=== PATIENT | male | born 1955 | race Caucasian/White ===

== ENCOUNTER 2017-08-03 09:51 | Inpatient (IN) | payer MEDICAID ==
--- NOTE | 2017-08-03 10:27 | EDPHY ---
H & P Stated Complaint: Redness/swelling at amputation site L foot - Personal History Current Tetanus Diphtheria and Acellular Pertussis (TDAP): Yes - Medical/Surgical History Hx Asthma: No Hx Chronic Respiratory Disease: No Hx Diabetes: No Hx Cardiac Disease: No Hx Renal Disease: No Hx Cirrhosis: No Hx Alcoholism: No Hx HIV/AIDS: No Hx Splenectomy or Spleen Trauma: No Other PMH: foot neuropAthy, 2 ACL sx. L big toe/ball of foot amputation 2016 w/ complications of sepsis and gangrene - Social History Smoking Status: Former smoker Time Seen by Provider: 08/03/17 10:08 HPI/ROS: CHIEF COMPLAINT: "I think I have an infection on my foot " HISTORY OF PRESENT ILLNESS: 62-year-old immunocompetent male no history of diabetes with prior history of left great toe amputation secondary to gangrene at which point he was seen at [facility] and admitted to the hospital with subsequent osteomyelitis diagnosis, amputation of the left great toe. He returns to the ER complaining of new onset erythema to the left medial foot extending proximally. This has been occurring for less than 24 hr. He also notes a new left medial plantar blood blister appearing lesion which is nontender for the past 24 hr as well. No fever or chills. No nausea or vomiting. No flu-like symptoms. PRIMARY CARE PROVIDER: no primary care provider REVIEW OF SYSTEMS: A ten point review of systems was performed and is negative with the exception of the items mentioned in the HPI PAST MEDICAL & SURGICAL HISTORY: Prior history of osteomyelitis, surgical amputation of left great toe SOCIAL HISTORY: no alcohol or drug use PHYSICAL EXAM (Prior to examination, patient consented to physical exam, hands were washed and my usual and customary physical exam procedures followed) 1) GENERAL: Obese, alert and oriented. Appears to be in no acute distress.] 2) HEAD: Normocephalic, atraumatic 3) HEENT: Pupils equal, round, reactive to light bilaterally. Sclera anicteric. 4) NECK: Full range of motion, no meningeal signs. 5) LUNGS: Clear auscultation bilaterally, no wheezes, no rhonchi, no retractions. 6) HEART: Regular rate and rhythm, no murmur, no heave, no gallop. 7) ABDOMEN: No guarding, no rebound, no focal tenderness,, 8) MUSCULOSKELETAL: left lower extremity: Surgical amputation site noted. On the plantar aspect he has a 4 cm x 4 cm blood blister appearing lesion, nontender non weeping. On the medial aspect of the left foot extending proximally he has erythema, induration. DP PT pulses are present and brisk. No crepitus Capillary refill is in 2 sec. Otherwise, Moving all extremities, no focal areas of tenderness, no obvious trauma. No peripheral edema or discoloration. 9) BACK: no obvious trauma, no visual or palpable abnormality. 10) SKIN: No rash, no petechiae. 11) Psychiatric: Patient is oriented X 3, there is no agitation. DIFFERENTIAL DIAGNOSIS: in no particular include but limited to cellulitis, osteomyelitis, necrotizing fasciitis (Marcia Concepcion) Constitutional: Initial Vital Signs Temperature (C) 36.9 C 08/03/17 09:57 Heart Rate 84 08/03/17 09:57 Respiratory Rate 18 08/03/17 09:57 Blood Pressure 153/91 H 08/03/17 09:57 O2 Sat (%) 94 08/03/17 09:57 O2 Delivery Mode Room Air Allergies/Adverse Reactions: No Known Allergies Allergy (Verified 05/24/16 11:24) Home Medications: Medication Instructions Recorded NK [No Known Home Meds] 08/03/17 Medical Decision Making ED Course/Re-evaluation: This patient was seen and examined by me. He has cellulitis of the right foot that extends up to his lower leg and is associated with a red streak up the medial aspect of the upper leg. I agree with the assessment and plan. All medical record reviewed, including admission in July 2017. Wound culture of the foot at that time revealed Staph aureus, pansensitive. Blood cultures ordered and Ancef 1 g IV given. (Sherin Mcdonnell) 10:40 a.m.: Patient has been seen and examined by Dr Mcdonnell. Plan will be admission for cellulitis of foot. 10:52 a.m.: Consultation with hospitalist, Maria Victoria, admit to Dr. Esperanza St ( Marcia Concepcion) - Data Points Laboratory Results: Laboratory Results 08/03/17 10:15 08/03/17 10:15 08/03/17 08/03/17 08/03/17 10:40 10:15 10:15 WBC 11.02 10^3/uL H 10^3/uL (3.80-9.50) RBC 4.82 10^6/uL 10^6/uL (4.40-6.38) Hgb 17.3 g/dL g/dL (13.7-17.5) Hct 49.2 % % (40.0-51.0) MCV 102.1 fL H fL (81.5-99.8) MCH 35.9 pg H pg (27.9-34.1) MCHC 35.2 g/dL g/dL (32.4-36.7) RDW 12.0 % % (11.5-15.2) Plt Count 198 10^3/uL 10^3/uL (150-400) MPV 10.4 fL fL (8.7-11.7) Neut % (Auto) 78.5 % H % (39.3-74.2) Lymph % (Auto) 9.1 % L % (15.0-45.0) [place] % (Auto) 10.6 % % (4.5-13.0) Eos % (Auto) 0.8 % % (0.6-7.6) Baso % (Auto) 0.7 % % (0.3-1.7) Nucleat RBC Rel Count 0.0 % % (0.0-0.2) Absolute Neuts (auto) 8.65 10^3/uL H 10^3/uL (1.70-6.50) Absolute Lymphs (auto) 1.00 10^3/uL 10^3/uL (1.00-3.00) Absolute Monos (auto) 1.17 10^3/uL H 10^3/uL (0.30-0.80) Absolute Eos (auto) 0.09 10^3/uL 10^3/uL (0.03-0.40) Absolute Basos (auto) 0.08 10^3/uL 10^3/uL (0.02-0.10) Absolute Nucleated RBC 0.00 10^3/uL 10^3/uL (0-0.01) Immature Gran % 0.3 % % (0.0-1.1) Immature Gran # 0.03 10^3/uL 10^3/uL (0.00-0.10) VBG Lactic Acid 2.3 mmol/L H mmol/L (0.7-2.1) Sodium 140 mEq/L mEq/L (134-144) Potassium 3.8 mEq/L mEq/L (3.5-5.2) Chloride 101 mEq/L mEq/L (97-110) Carbon Dioxide 24 mEq/l mEq/l (22-31) Anion Gap 15 mEq/L mEq/L (8-16) BUN 16 mg/dL mg/dL (7-23) Creatinine 0.8 mg/dL mg/dL (0.7-1.3) Estimated GFR > 60 Glucose 168 mg/dL H mg/dL (70-100) Calcium 9.4 mg/dL mg/dL (8.5-10.4) Medications Given: Cefazolin Sodium/Dextrose (Ancef 2 Gm (Premix)) 100 mls @ 200 mls/hr IV EDNOW ONE PRN Reason: Protocol Stop: 08/03/17 11:01 Last Admin: 08/03/17 10:42 Dose: 100 mls Departure - Departure Disposition: [facility] Inpatient Acute Clinical Impression: Cellulitis of left foot Condition: Fair Referrals: NONE *PRIMARY CARE P,. [Primary Care Provider] - As per Instructions
[2017-08-03] MEDS ORDERED: ceFAZolin 2 GM/DEXTROSE 100 ML IV ONE (10:32)
[2017-08-03 10:33] LABS: % IMMATURE GRANULYOCYTES 0.3 % (0.0-1.1); ABSOLUTE IMMATURE GRANULOCYTES 0.03 10^3/uL (0.00-0.10); ADD DIFF? NO; ADD MORPH? NO; ADD SCAN? NO; ATYPICAL LYMPHOCYTE FLAG 0 (0-99); FRAGMENT RBC FLAG 0 (0-99); HEMATOCRIT 49.2 % (40.0-51.0); HEMOGLOBIN 17.3 g/dL (13.7-17.5); LEFT SHIFT FLG 10 (0-99); LIPEMIA HEMOLYSIS FLAG 90 (0-99); MEAN CELL HEMOGLOBIN 35.9 pg (27.9-34.1); MEAN CELL HEMOGLOBIN CONCENTR. 35.2 g/dL (32.4-36.7); MEAN CELL VOLUME 102.1 fL (81.5-99.8); MEAN PLATELET VOLUME 10.4 fL (8.7-11.7); PLATELET CLUMPS FLAG 10 (0-99); PLATELET COUNT 198 10^3/uL (150-400); RED BLOOD CELL COUNT 4.82 10^6/uL (4.40-6.38)
[2017-08-03 10:48] LABS: ANION GAP 15 mEq/L (8-16); CALCIUM 9.4 mg/dL (8.5-10.4); CARBON DIOXIDE 24 mEq/l (22-31); CHLORIDE 101 mEq/L (97-110); CREATININE 0.8 mg/dL (0.7-1.3); GLOMERULAR FILTRATION RATE > 60; GLUCOSE 168 mg/dL (70-100); POTASSIUM 3.8 mEq/L (3.5-5.2); SODIUM 140 mEq/L (134-144)
[2017-08-03] MEDS ORDERED: NS 1,000 ML IV ONE (10:59)
[2017-08-03 11:50] LABS: LACGHOST ORDER
--- NOTE | 2017-08-03 12:09 | ASMTCMCOM ---
CM Note CM Note Notes: Patient admitted for left foot cellulitis. Patient has a history of sepsis related to previous left foot infection which required [facility] admission and partial amputation in May and Jul 2016; and 70 days of outpatient IV infusion on 3E. Patient accompanied by his brother who he lives with in [place]. Patient states he had been followed by Dr Rao at [facility] up until when his care was completed. Patient states he does not have a PCP despite being provided [facility] information at discharge from May 2016 admission. Patient states he hasn't followed up due to a busy schedule. Patient has [place] Medicaid. CM will need to schedule a follow-up appointment for patient at [facility] to establish a PCP. Other exact DC needs unknown at this time. CM to follow. Date Signed: 08/03/2017 12:08 PM Electronically Signed By:Susan Wills RN
[2017-08-03] MEDS ORDERED: GADOBUTROL 10 ML VIAL IVP ONE (12:24)
[2017-08-03 12:56] LABS: LACGHOST ORDER
[2017-08-03] MEDS ORDERED: ONDANSETRON 4 MG/2 ML VIAL IVP PRN (14:10)
[2017-08-03] MEDS ORDERED: ONDANSETRON DISINTEGRATING 4 MG TAB PO PRN (14:10)
[2017-08-03] MEDS ORDERED: ACETAMINOPHEN 325 MG TAB PO PRN (14:10)
[2017-08-03] MEDS ORDERED: BISACODYL 10 MG SUPP PR PRN (14:13)
[2017-08-03] MEDS ORDERED: D50W 25 GM/50 ML SYR IVP PRN (14:13)
[2017-08-03] MEDS ORDERED: MAGNESIUM HYDROXIDE 30 ML UDCUP PO PRN (14:13)
[2017-08-03] MEDS ORDERED: LACTULOSE 20 GM/30 ML UDCUP PO PRN (14:13)
[2017-08-03] MEDS ORDERED: POLYETHYLENE GLYCOL 3350 17 GM PKT PO PRN (14:13)
[2017-08-03] MEDS: oxyCODONE IR 5 MG TAB PO PRN ×2 (15:39→21:30)
--- NOTE | 2017-08-03 15:54 | PDGENHP ---
History and Physical - Chief Complaint Acute foot pain - History of Present Illness Primary care provider: None HPI: 62-year-old male presenting with acute foot pain located in the left pain characterized as throbbing sensation with associated erythema beginning around the plantar aspect, medial surface, extending proximally and with evolution into a dark blood blister at the primarily affected area. Patient reports that the pain is somewhat exacerbated by palpation, and onset of symptoms began on the evening prior to this presentation. The symptoms were precipitated by the patient performing yd work in his sandals, notably cleaning his gutters and interacting with many pine needles. Prior to the onset, the patient had otherwise been feeling well. He does report that he chronically experiences neuropathy characterized by paresthesias in the affected area. History Information - Allergies/Home Medication List Allergies/Adverse Reactions: No Known Allergies Allergy (Verified 05/24/16 11:24) Home Medications: Glucosam/Chondr/Collagn/Hyalur [Glucosamine & Chondroitin Cap] 2 each PO DAILY 08/03/17 [Last Taken 08/03/17] Herbals/Supplements -Info Only 1 ea PO DAILY 08/03/17 [Last Taken Unknown] Naproxen Sodium [Aleve 220 MG (*)] 660 mg PO DAILY 08/03/17 [Last Taken 08/03/17 ] I have personally reviewed and updated: family history, medical history, social history, surgical history - Past Medical History diabetes type 2 (With neuropathy) Additional medical history: Osteomyelitis left foot 2015 MSSA - Surgical History Additional surgical history: Left 1st digit gangrene with amputation May 2016. Knee surgery. Achilles surgery - Family History Additional family history: No family history of bony diseases or MRSA - Social History Smoking Status: Former smoker Alcohol Use: Other (Daily beverage drinker, never experienced acute alcohol withdrawal) Drug Use: None Additional social history: Independent in his ADLs Review of Systems Review of Systems: ROS: 10pt was reviewed & negative except for what was stated in HPI & below Muscolosketal: Reports: other (Left buttock pain) Skin: Reports: other (Left foot erythema) Neurological: Reports: paresthesia Physical Exam Physical Exam: Temp Pulse Resp BP Pulse Ox 37 C 73 16 164/99 H 94 08/03/17 13:49 08/03/17 13:49 08/03/17 13:49 08/03/17 13:49 08/03/17 13:49 Constitutional: no apparent distress, not in pain, obese, uncomfortable Eyes: PERRL, anicteric sclera, EOMI Ears, Nose, Mouth, Throat: moist mucous membranes, hearing normal, ears appear normal, no oral mucosal ulcers Cardiovascular: regular rate and rhythym, no murmur, rub, or gallop, No edema Respiratory: no respiratory distress, no rales or rhonchi, clear to auscultation Gastrointestinal: normoactive bowel sounds, soft, non-tender abdomen, no palpable masses, No distension Skin: other (Erythematous with tenderness, central fluctuant blood blister proximal surface of left foot) Musculoskeletal: other (Full range of motion left ankle without any pain, no effusion over left knee) Neurologic: AAOx3, No sensation intact bilaterally (Subjective paresthesias plantar surface left foot), No weakness, No facial droop Psychiatric: interacting appropriately, not anxious, not encephalopathic, thought process linear Lab Data & Imaging Review 08/03/17 10:15 08/03/17 10:15 WBC 11.02 10^3/uL (3.80-9.50) H 08/03/17 10:15 RBC 4.82 10^6/uL (4.40-6.38) 08/03/17 10:15 Hgb 17.3 g/dL (13.7-17.5) 08/03/17 10:15 Hct 49.2 % (40.0-51.0) 08/03/17 10:15 MCV 102.1 fL (81.5-99.8) H 08/03/17 10:15 MCH 35.9 pg (27.9-34.1) H 08/03/17 10:15 MCHC 35.2 g/dL (32.4-36.7) 08/03/17 10:15 RDW 12.0 % (11.5-15.2) 08/03/17 10:15 Plt Count 198 10^3/uL (150-400) 08/03/17 10:15 MPV 10.4 fL (8.7-11.7) 08/03/17 10:15 Neut % (Auto) 78.5 % (39.3-74.2) H 08/03/17 10:15 Lymph % (Auto) 9.1 % (15.0-45.0) L 08/03/17 10:15 [place] % (Auto) 10.6 % (4.5-13.0) 08/03/17 10:15 Eos % (Auto) 0.8 % (0.6-7.6) 08/03/17 10:15 Baso % (Auto) 0.7 % (0.3-1.7) 08/03/17 10:15 Nucleat RBC Rel Count 0.0 % (0.0-0.2) 08/03/17 10:15 Absolute Neuts (auto) 8.65 10^3/uL (1.70-6.50) H 08/03/17 10:15 Absolute Lymphs (auto) 1.00 10^3/uL (1.00-3.00) 08/03/17 10:15 Absolute Monos (auto) 1.17 10^3/uL (0.30-0.80) H 08/03/17 10:15 Absolute Eos (auto) 0.09 10^3/uL (0.03-0.40) 08/03/17 10:15 Absolute Basos (auto) 0.08 10^3/uL (0.02-0.10) 08/03/17 10:15 Absolute Nucleated RBC 0.00 10^3/uL (0-0.01) 08/03/17 10:15 Immature Gran % 0.3 % (0.0-1.1) 08/03/17 10:15 Immature Gran # 0.03 10^3/uL (0.00-0.10) 08/03/17 10:15 VBG Lactic Acid 2.1 mmol/L (0.7-2.1) 08/03/17 12:10 Sodium 140 mEq/L (134-144) 08/03/17 10:15 Potassium 3.8 mEq/L (3.5-5.2) 08/03/17 10:15 Chloride 101 mEq/L (97-110) 08/03/17 10:15 Carbon Dioxide 24 mEq/l (22-31) 08/03/17 10:15 Anion Gap 15 mEq/L (8-16) 08/03/17 10:15 BUN 16 mg/dL (7-23) 08/03/17 10:15 Creatinine 0.8 mg/dL (0.7-1.3) 08/03/17 10:15 Estimated GFR > 60 08/03/17 10:15 Glucose 168 mg/dL (70-100) H 08/03/17 10:15 Calcium 9.4 mg/dL (8.5-10.4) 08/03/17 10:15 Visualized and Interpreted imaging results: Yes Interpretation: Demineralization over the MTP, prior amputation, no obvious osteomyelitis Assessment & Plan Assessment: 62-year-old male presenting with acute diabetic foot wound with cellulitis Plan: 1. Diabetic foot wound with cellulitis. Evidenced by erythema, fluctuant area over the plantar medial surface, most likely secondary to friction and underlying neuropathy resulting in inability to protect small abrasion, vomiting into a larger wound with cellulitis extending proximally. -reviewed outside records including 07/24/2016 microbiology results demonstrating MSSA -discussed with Dr. Shant Castellano, will continue with IV Ancef, cultures from the affected area have been drawn, monitor for speciation and sensitivity -wound care consultation appreciated -acute, new problem this provider, further workup indicated with MRI to evaluate for osteomyelitis -if Podiatry required, Dr. Rao has worked with this patient before 2. Diabetes mellitus type 2 with neuropathy. Patient reports that he does not have diabetes, will check hemoglobin A1c -will discuss initiating gabapentin for neuropathy with the patient -will discuss initiating aspirin 81 mg daily for cardiovascular protection 3. Metabolic acidosis. Acute, secondary to lactic acid, given IV fluids Diet. Diabetic Prophylaxis. High risk patient, Lovenox 40 Code. Do not resuscitate per patient, his brothers POTim Disposition. Anticipated discharge uncertain this time, anticipated length stay is greater than 48 hr for reasonable medical necessity including diabetic foot wound with cellulitis requiring IV antibiotics, speciation comma sensitivities.
--- NOTE | 2017-08-03 16:12 | PDMN ---
Medical Necessity Medical necessity: Pt meets INPT criteria per MD as of 08/03/17; est. LOS >2 MN for eval/mgmt of diabetic foot wound with cellulitis requiring IV antibiotics, DM type 2 with neuropathy, acute metabolic acidosis per H&P.
[2017-08-03] MEDS: INSULIN REGULAR HUMAN 100 UNIT/ML SC SCH ×2 (17:05→21:41)
--- NOTE | 2017-08-03 17:09 | GCON ---
[f rep st] CONSULTATION INFECTIOUS DISEASE CONSULTATION DATE OF CONSULTATION: 08/03/2017 REFERRING PHYSICIAN: Joshua Walden MD REASON FOR CONSULTATION: Left lower extremity skin and soft tissue infection with prior history of o steomyelitis of the great toe. HISTORY OF PRESENT ILLNESS: The patient is a 62-year-old male with a past medical history of neuropa thy of the left foot and osteomyelitis of the left great toe requiring amputation of the left great t oe in 2016, who I am asked to see in consultation for a left foot cellulitis. The patient describes that his surgical site over the left great toe had been healed since summer time. He notes that yest erday he was doing some yard cleanup and walking around in sandals, with concern that he may have pok ed himself with a pine needle, although he does not recall any direct injury. Yesterday afternoon wh ile taking a shower, he noticed that the left foot was red, swollen, and had a large blood blister be low the prior amputation site. This was associated with some throbbing pain. He subsequently felt f everish with chills. He describes being on his foot for approximately 2 hours. He had not had any r ecent difficulty with his foot otherwise. Based on those findings, he was evaluated in the Emergency Department, where he was noted to have a white count of 11,000. Findings consistent with cellulitis were present, and the patient was given a dose of cefazolin. Blood cultures were obtained, and a pl ain film of the foot was also performed. Plain films showed soft tissue swelling over the dorsal asp ect of the foot. Vascular calcifications were also noted. An MRI of the foot was also performed, which preliminarily does not show evidence of osteomyelitis wi th consideration for a small 1.6 cm fluid collection deep to 2nd metatarsal head suggestive of absces s. The patient also notes that he has had erythema over the lower leg and in streaky fashion along t he left thigh. Given the above findings, I am now asked to assist in his ongoing management. PAST MEDICAL HISTORY: Osteomyelitis of the left great toe in 2016 with growth of MSSA, group C/G Str eptococcus, Prevotella, and [place] parapsilosis. Peripheral neuropathy, probable diabetes, although the patient does not note that he has diabetes despite having persistently elevated blood sugars. PAST SURGICAL HISTORY: Left great toe amputation, ACL repairs of the left knee. CURRENT MEDICATIONS: Cefazolin 2 g IV x1, Lovenox 40 mg subcu daily, glucosamine/chondroitin 2 each p.o. daily, insulin sliding scale, naproxen 660 mg p.o. daily. ALLERGIES: No known drug allergies. SOCIAL HISTORY: The patient does not smoke. He drinks 4 drinks per day. No drug use. FAMILY HISTORY: Noncontributory. REVIEW OF SYSTEMS: Outside that noted in the HPI, the remainder of 10-system review is unremarkable. PHYSICAL EXAMINATION: VITAL SIGNS: Temperature 37, heart rate 73, respiratory rate 16, blood pressu re 164/99, oxygen saturation 94% on room air. GENERAL: The patient is an obese male in no acute dis tress. He appears nontoxic. HEENT: There is no scleral icterus, conjunctival injection, or conjunc tival petechiae. Oropharynx clear without lesions. There are dentures on the upper and lower bridge . Mucous membranes are moist. No nasal discharge. No tenderness over the sinuses. NECK: Supple w ithout palpable lymphadenopathy or thyromegaly. CHEST: Clear to auscultation bilaterally without ad ventitious sounds. Respiratory effort is normal. CARDIOVASCULAR: Regular rate and rhythm without m urmurs, gallops, rubs. ABDOMEN: Obese, nontender, nondistended. There is no palpable organomegaly. Bowel sounds are present. MUSCULOSKELETAL: The left foot shows a hemorrhagic blister over the ross ntar aspect of the foot just below prior amputation site. There is hector erythema over the dorsal me dial aspect of the foot with fainter erythema that extends along the lower leg, which is warm and ten kayla to palpation. No palpable fluctuance or crepitus. No other bullae noted. There is a tiny pinpo int opening along the proximal incision margin, from which no fluid can be expressed. LYMPHATICS: N o cervical or supraclavicular nodes. Some lymphangitis present in the left thigh. NEUROLOGIC: The patient is alert and interacts appropriately with the examiner. Cranial nerves 2-[address] Sensation is decreased in the left foot. SKIN: See musculoskeletal exam. No other rashes note d. No stigmata of endocarditis. Onychomycosis is present in the nails. LABORATORY DATA: White blood cell count 11.0, hematocrit 49.2, platelets 198, neutrophils 79%, serum creatinine 0.8, bicarb 24, glucose 168, blood cultures x2 sets are pending. PROCEDURE: The patient's hemorrhagic blister was prepped with chlorhexidine; after drying; a 23-gaug e needle was used to aspirate approximately 2 mL of bloody material, which was sent for Gram stain an d culture. X-ray and MRI findings as above. Final MRI report is currently pending. IMPRESSION: Left lower extremity cellulitis with possible small abscess below 2nd metatarsal: Appea nash is most suggestive of beta-hemolytic streptococci such as group A, B, C or G. Staphylococcus a ureus also a consideration, and the patient has prior history of methicillin-sensitive staphylococcus aureus, although this was in 2016. Doubt that this will be related to anaerobes or gram-negative ro ds such as Pseudomonas. RECOMMENDATIONS: 1. Cefazolin 2 g IV q.8 hours. 2. Follow up blood cultures and cultures from hemorrhagic fluid. 3. We will have Dr. Rao evaluate regarding possible need for incision and drainage of small ab scess. 4. Left lower extremity elevation. 5. Follow clinical response to above measures. Thank you for this consultation. We will continue to follow the patient with you. /[id number]/MODL
[2017-08-03] MEDS: NS 1,000 ML IV SCH (19:02)
[2017-08-03] MEDS: SENNOSIDES/DOCUSATE SODIUM TAB PO SCH (21:24)
[2017-08-03] MEDS: ceFAZolin 2 GM/DEXTROSE 100 ML IV SCH (21:25)
[2017-08-04 00:57] LABS: HEMOGLOBIN A1C 5.9 % (4.0-6.0)
[2017-08-04 04:29] LABS: % IMMATURE GRANULYOCYTES 0.5 % (0.0-1.1); ABSOLUTE IMMATURE GRANULOCYTES 0.04 10^3/uL (0.00-0.10); ADD DIFF? NO; ADD MORPH? NO; ADD SCAN? NO; ATYPICAL LYMPHOCYTE FLAG 10 (0-99); FRAGMENT RBC FLAG 0 (0-99); HEMATOCRIT 43.3 % (40.0-51.0); HEMOGLOBIN 15.1 g/dL (13.7-17.5); LEFT SHIFT FLG 0 (0-99); LIPEMIA HEMOLYSIS FLAG 90 (0-99); MEAN CELL HEMOGLOBIN 35.9 pg (27.9-34.1); MEAN CELL HEMOGLOBIN CONCENTR. 34.9 g/dL (32.4-36.7); MEAN CELL VOLUME 102.9 fL (81.5-99.8); MEAN PLATELET VOLUME 10.3 fL (8.7-11.7); PLATELET CLUMPS FLAG 0 (0-99); PLATELET COUNT 185 10^3/uL (150-400); RED BLOOD CELL COUNT 4.21 10^6/uL (4.40-6.38); RED CELL DISTRIBUTION WIDTH 12.2 % (11.5-15.2)
[2017-08-04 04:49] LABS: ALANINE AMINOTRANSFERASE 26 IU/L (21-72); ALBUMIN 2.8 g/dL (3.5-5.0); ALKALINE PHOSPHATASE 78 IU/L (38-126); ANION GAP 8 mEq/L (8-16); ASPARTATE AMINOTRANSFERASE 21 IU/L (17-59); BILIRUBIN,TOTAL 1.5 mg/dL (0.1-1.4); CALCIUM 8.4 mg/dL (8.5-10.4); CARBON DIOXIDE 26 mEq/l (22-31); CHLORIDE 103 mEq/L (97-110); CREATININE 0.8 mg/dL (0.7-1.3); GLOMERULAR FILTRATION RATE > 60; GLUCOSE 112 mg/dL (70-100); SODIUM 137 mEq/L (134-144); TOTAL PROTEIN 5.8 g/dL (6.3-8.2)
[2017-08-04] MEDS: ceFAZolin 2 GM/DEXTROSE 100 ML IV SCH ×3 (05:44→20:59)
[2017-08-04] MEDS: INSULIN REGULAR HUMAN 100 UNIT/ML SC SCH ×4 (08:19→21:02)
[2017-08-04] MEDS: NS 1,000 ML IV SCH ×2 (08:24→19:01)
[2017-08-04] MEDS: oxyCODONE IR 5 MG TAB PO PRN ×2 (08:50→21:00)
[2017-08-04] MEDS ORDERED: ENOXAPARIN 40 MG/0.4 ML SYR SC SCH (09:00)
[2017-08-04] MEDS ORDERED: NAPROXEN SODIUM 220 MG TAB PO SCH (09:00)
[2017-08-04] MEDS: GLUCOSAMINE/CHONDROITIN CAP PO SCH (09:00)
[2017-08-04] MEDS ORDERED: [UNRECOGNIZED DRUG - MIXTURE] PO SCH (09:00)
[2017-08-04] MEDS ORDERED: Herbals/Supplements -Info Only PO SCH (09:00)
[2017-08-04] MEDS: SENNOSIDES/DOCUSATE SODIUM TAB PO SCH ×2 (09:02→21:02)
--- NOTE | 2017-08-04 11:07 | WOCRNPDOC ---
WOCRN Advanced Assessment Note - Skin Integrity Problem, Advanced Assess Left Pedal Foot Blister Dressing Type: Open to Air Arabella Wound Tissue: Erythema, Erythema Marked by Wound manager career Bed Constitution: Intact Sanguineous Blister Site Measurement - Head-to-Toe Length X Width X Depth (cm): 4.5x6.2xraised blister Skin Integrity Problem Comment: Large intact sangenous blister on medial metatarsal head with surrouding cellulitis. Per patient report he was cleaning gutters in his sandals this past weekend and may have sustained a puncture wound at that time. Will protect area for now pending podiatry consult and plan. Wound care will continue to follow. Will round later this week.
--- NOTE | 2017-08-04 14:59 | PCMIDPN ---
Assessment/Plan: AssessmentPlan: * Left foot skin and soft tissue infection with ascending lymphangitis and probable small abscess under 2nd metatarsal: Cultures from aspirated blister are growing Staphylococcus aureus. Lymphangitis has decreased significantly and intensity of erythema over foot less prominent. Suggest that isolate will be MSSA. Will continue with cefazolin. Continue leg elevation. Have asked Dr. Rao to evaluate for possible incision and drainage given fluid collection underlying 2nd metatarsal head. 08/04/17 14:56 Subjective: Patient with less intense redness over left foot. Notes redness over left thigh has decreased. Objective: Vital Signs Temp Pulse Resp BP Pulse Ox 37.2 C 71 18 138/73 H 90 L 08/04/17 08:05 08/04/17 08:05 08/04/17 08:05 08/04/17 08:05 08/04/17 08:05 Microbiology 08/03/17 14:30 Gram Stain - Final Foot - Aspirate Laboratory Results 08/04/17 04:06 08/04/17 04:06 08/03/17 08/04/17 08/05/17 05:59 05:59 05:59 Intake Total 2450 Output Total 450 Balance 2000 Cefazolin # 1 Blood cultures x2 pending Aspirate from bulla with 4+ GPC and growing Staphylococcus aureus - Physical Exam General Appearance: alert, no apparent distress, non-toxic EENT: No scleral icterus Extremities: inflammation (Left foot with persistent erythema over dorsal medial aspect although less intense in quality; hemorrhagic bullous area without change; no palpable fluctuance under 2nd toe; erythema over lower leg without significant interval change) Lymphatic: other (Left thigh lymphangitis largely resolved) ICD10 Worksheet Patient Problems: Problems Problem Status Onset Cellulitis of left foot Acute Severe sepsis Acute Skin ulcer of left great toe with necrosis of bone Acute
[2017-08-04] MEDS ORDERED: NAPROXEN SODIUM 220 MG TAB PO PRN (17:44)
--- NOTE | 2017-08-04 17:48 | HOSPPROG ---
Hospitalist Progress Note Assessment/Plan: Assessment: 62-year-old male presenting with acute diabetic foot wound with cellulitis and abscess Plan: 1. Diabetic foot wound with cellulitis and abscess. Likely 2/2 MSSA, wound cx w / 4+ GPC, leukocytosis improving, MRI w/ focal abscess - NPO after MN for surg by Dr. Rao tomorrow - cont IV Ancef - appreciate ongoing ID consultation - add PRN naproxen, cont oxy IR + bowel regimen 2. Neuropathy. A1c 5.9% 3. Metabolic acidosis. Acute, secondary to lactic acid, given IV fluids 4. Hyperglycemia. No e/o DM, cont ISS in setting of infxn Diet. Diabetic Prophylaxis. High risk patient, SCDs tonight, hold pharm Code. Do not resuscitate per patient, his brothers MD JOSE Dispo. ADD uncertain, pending stabilization of above. Subjective: patient reports ongoing foot pain, less than day prior Objective: Vital Signs Temp Pulse Resp BP Pulse Ox 37.3 C 76 18 150/101 H 92 08/04/17 16:36 08/04/17 16:36 08/04/17 16:36 08/04/17 16:36 08/04/17 16:36 Microbiology 08/03/17 14:30 Gram Stain - Final Foot - Aspirate Laboratory Results 08/04/17 04:06 08/04/17 04:06 08/03/17 08/04/17 08/05/17 05:59 05:59 05:59 Intake Total 2450 Output Total 450 Balance 2000 - Physical Exam Constitutional: no apparent distress, appears nourished, obese, uncomfortable Cardiovascular: regular rate and rhythym, no murmur, rub, or gallop, edema ( trace LLE) Respiratory: no respiratory distress, no rales or rhonchi, clear to auscultation Gastrointestinal: normoactive bowel sounds, soft, non-tender abdomen, no palpable masses Skin: other (erythema left foot, worse on dorsum w/ blistering, blood blister on plantar surface w/ fluctuance, mild tenderness) Musculoskeletal: other (full ROM L ankle and no effusion over L knee) Neurologic: AAOx3, sensation intact bilaterally, No weakness Psychiatric: interacting appropriately, not anxious, not encephalopathic, thought process linear ICD10 Worksheet Patient Problems: Problems Problem Status Onset Skin ulcer of left great toe with necrosis of bone Acute Severe sepsis Acute Cellulitis of left foot Acute
[2017-08-05] MEDS: ceFAZolin 2 GM/DEXTROSE 100 ML IV SCH ×3 (05:26→21:49)
[2017-08-05] MEDS: NS 1,000 ML IV SCH (05:27)
[2017-08-05] MEDS: INSULIN REGULAR HUMAN 100 UNIT/ML SC SCH ×4 (07:30→22:17)
[2017-08-05] MEDS: oxyCODONE IR 5 MG TAB PO PRN ×4 (08:28→21:48)
[2017-08-05] MEDS: GLUCOSAMINE/CHONDROITIN CAP PO SCH (08:30)
--- NOTE | 2017-08-05 08:37 | PCMIDPN ---
Assessment/Plan: Assessment/Plan: 1. LLE cellulitis with hemorragic bullae plantar aspect: - CX wtih MSSa - Currently on directive therapy with Ancef, continue as is for now -blood cx ngtd, wbc improved yesterday. - Dr. Rao to see patient today Meds Ancef 2g q8- Subjective: afebrile. feeling better but still with pain involving LLE. swelling is improving along with degree of redness. denies sob, abd pain or diarrhea. Objective: Vital Signs Temp Pulse Resp BP Pulse Ox 37.1 C 73 18 153/89 H 91 L 08/05/17 08:14 08/05/17 08:14 08/05/17 08:14 08/05/17 08:14 08/05/17 08:14 Microbiology 08/03/17 14:30 Gram Stain - Final Foot - Aspirate Laboratory Results 08/04/17 04:06 08/04/17 04:06 08/04/17 08/05/17 08/06/17 05:59 05:59 05:59 Intake Total 2450 3202 Output Total 450 1850 Balance 2000 1352 - Physical Exam General Appearance: alert, no apparent distress Respiratory: lungs clear Cardiac/Chest: regular rate, rhythm Extremities: swelling Abdomen: normal bowel sounds, non-tender, soft, No distended Skin: erythema (LLE: erythema lower half of leg, wiht warmth. hemorragic bullae noted on plantar aspect, boggy. skin overlying leg is tender. decrased swelling noted and retraction of erythema from demarcated lines noted. ) ICD10 Worksheet Patient Problems: Problems Problem Status Onset Cellulitis of left foot Acute Severe sepsis Acute Skin ulcer of left great toe with necrosis of bone Acute
[2017-08-05] MEDS: SENNOSIDES/DOCUSATE SODIUM TAB PO SCH ×2 (09:30→21:48)
--- NOTE | 2017-08-05 10:11 | HOSPPROG ---
Hospitalist Progress Note Assessment/Plan: 62-year-old male presenting with acute foot wound with cellulitis and abscess Plan: 1. foot wound with cellulitis and abscess. responding to cefazolin - NPO after MN for surg by Dr. Rao today - cont IV Ancef - appreciate ongoing ID consultation - add PRN naproxen, cont oxy IR + bowel regimen 2. Neuropathy. A1c 5.9% suspect alcohol use as etiology of 3. Metabolic acidosis. Acute, secondary to lactic acid, given IV fluids 4. Hyperglycemia. denies DM, cont ISS ad'l 24 hours sugars at goal Diet. Diabetic Prophylaxis. High risk patient, SCDs tonight, hold pharm Code. Do not resuscitate per patient, his brothers MD JOSE Dispo. inpatient Subjective: case d/w dr burton. denies diabetes Objective: Vital Signs Temp Pulse Resp BP Pulse Ox 37.1 C 73 18 153/89 H 91 L 08/05/17 08:14 08/05/17 08:14 08/05/17 08:14 08/05/17 08:14 08/05/17 08:14 Microbiology 08/03/17 14:30 Gram Stain - Final Foot - Aspirate Laboratory Results 08/04/17 04:06 08/04/17 04:06 08/04/17 08/05/17 08/06/17 05:59 05:59 05:59 Intake Total 2450 3202 Output Total 450 1850 Balance 2000 1352 - Physical Exam Constitutional: no apparent distress, appears nourished Eyes: PERRL, anicteric sclera Ears, Nose, Mouth, Throat: moist mucous membranes, hearing normal Cardiovascular: regular rate and rhythym, no murmur, rub, or gallop, No systolic murmur Respiratory: no respiratory distress, no rales or rhonchi Gastrointestinal: normoactive bowel sounds, soft, non-tender abdomen Genitourinary: no bladder fullness, no bladder tenderness, No zamora in urethra Skin: warm, normal color Musculoskeletal: other (LLE w erythema that has receded from lines drawn on feet. not warm) Neurologic: AAOx3, sensation intact bilaterally Psychiatric: not anxious ICD10 Worksheet Patient Problems: Problems Problem Status Onset Cellulitis of left foot Acute Severe sepsis Acute Skin ulcer of left great toe with necrosis of bone Acute
--- NOTE | 2017-08-05 10:48 | ASMTCMCOM ---
CM Note CM Note Notes: Patient to surgery today at approximately 3:30pm. He will be here several more days and it is still unclear what his needs will be on discharge. Case management will continue to follow. Date Signed: 08/05/2017 10:47 AM Electronically Signed By:KAREY Chao
--- NOTE | 2017-08-05 13:12 | GCON ---
[f rep st] CONSULTATION PODIATRIC CONSULTATION SUBJECTIVE: The patient is a long-standing patient in my clinic who is seen at [facility] in room 144 on August 04, 2017. I am seeing him by referral from Dr. Shant Castellano. The patient re lates that on Friday, he was working on his gutters up on a ladder. He denies any obvious problems . He relates that by Friday, his foot was red and swollen. He relates that he was immediately seen at the emergency room. At that time, they called the on-call necktie operator pockets and pieces, Dr. Lillie Diamond, who thought that they were doing the right things and no other treatment was necessary. At that point, he was s tarted on IV antibiotics and is currently on Ancef. He relates that they pulled some fluid off his f oot and have preliminarily diagnosed him with a staph infection. He also relates that he had an MRI performed which was negative for osteomyelitis. Dr. Castellano at this point, wonders if an incision and d rainage is necessary. OBJECTIVE: GENERAL: Evaluation today shows the patient is alert and oriented x3. Well-nourished we ll-developed 62-year-old, white male. No sign of acute distress. EXTREMITIES: The patient is noted to have the previous amputation of the partial left 1st ray. There is an obvious abscess blister fo rmation forming under the 2nd metatarsal of the left foot. There is a fluctuant feel to the site, th ere is obvious erythema though this has decreased from where it was previously [facility] ct[facility]. Pulses to the foot are palpable, though decreased. Capillary refill to t he digit is less than 3 seconds. There is no purulent drainage or foul odor appreciable at this time . There is edema occurring in the left lower extremity. IMPRESSION: 1. Diabetes. 2. 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 3. Abscess cellulitis, left foot. PLAN: Treatment today consisted of evaluation of the area. Given the fact that the patient was impr oving, this was not an emergent case, we have decided that we will proceed with an incision and drain age and thorough debridement of the area to be performed tomorrow. The patient was scheduled appropr iately. /[id number]/MODL
--- NOTE | 2017-08-05 15:10 | PDANEPAE ---
ANE History of Present Illness I&D OF L FOOT ANE Past Medical History - Cardiovascular History Hx Hypertension: No Hx Arrhythmias: No Hx Chest Pain: No Hx Coronary Artery / Peripheral Vascular Disease: No Hx CHF / Valvular Disease: No Hx Palpitations: No - Pulmonary History Hx COPD: No Hx Asthma/Reactive Airway Disease: No Hx Recent Upper Respiratory Infection: No Hx Oxygen in Use at Home: No Hx Sleep Apnea: No Sleep Apnea Screening Result - Last Documented: Positive - Neurologic History Hx Cerebrovascular Accident: No Hx Seizures: No Hx Dementia: No Neurologic History Comment: patient reports chronic B numbness in feet - Endocrine History Hx Diabetes: No Hypothyroid: No Obesity: moderate - Renal History Hx Renal Disorders: No - Liver History Hx Hepatic Disorders: No - Neurological & Psychiatric Hx Hx Neurological and Psychiatric Disorders: No - Cancer History Hx Cancer: Yes Cancer History Comment: BCC in face - Congenital Disorder History Hx Congenital Disorders: No - GI History GERD: no Hx Gastrointestinal Disorders: No - Chronic Pain History Chronic Pain: Yes (WRISTS AND ELBOWS) - Surgical History Prior Surgeries: tonsillectomy, ACL repair x 3 in L, amputatio of L great toe, L Achilles tendon repair ANE Review of Systems Review of Systems: - Exercise capacity METS (RN): 4 METS ANE Patient History - Allergies Allergies/Adverse Reactions: No Known Allergies Allergy (Verified 05/24/16 11:24) - Home Medications Home Medications: Glucosam/Chondr/Collagn/Hyalur [Glucosamine & Chondroitin Cap] 2 each PO DAILY 08/03/17 [Last Taken 08/03/17] Herbals/Supplements -Info Only 1 ea PO DAILY 08/03/17 [Last Taken Unknown] Naproxen Sodium [Aleve 220 MG (*)] 660 mg PO DAILY 08/03/17 [Last Taken 08/03/17 ] - NPO status NPO Since - Liquids (Date): 08/05/17 NPO Since - Liquids (Time): 06:30 NPO Since - Solids (Date): 08/04/17 NPO Since - Solids (Time): 22:00 - Anes Hx Anes Hx: no prior problems (S/P l great toe amputation, ACL repair, tonsillectomy) - Smoking Hx Smoking Status: Former smoker Marijuana use: No - Alcohol Use Alcohol Use: Heavy (Daily beverage drinker, never experienced acute alcohol withdrawal, up to 3 drinks/day) - Family Anes Hx Family Anes Hx: none ANE Labs/Vital Signs - Labs Result Diagrams: 08/04/17 04:06 08/04/17 04:06 - Vital Signs Blood Pressure: 153/89 Heart Rate: 73 Respiratory Rate: 18 O2 Sat (%): 91 Height: 182.88 cm Weight: 115.5 kg ANE Physical Exam - Airway Neck exam: FROM Mallampati Score: Class 1 Mouth exam: poor dentition (missing upper teeth, poor dentition in jaw, no loose teeth) - Pulmonary Pulmonary: clear to auscultation - Cardiovascular Cardiovascular: regular rate and rhythym - ASA Status ASA Status: II
[2017-08-05] MEDS ORDERED: LR 1,000 ML IV ONE (15:13)
[2017-08-05] MEDS ORDERED: MIDAZOLAM 2 MG/2 ML VIAL IVP ONE (15:16)
[2017-08-05] MEDS ORDERED: BACITRACIN 50,000 UNITS/10 ML SYR IRR ONE (15:35)
[2017-08-05] MEDS ORDERED: POLYMYXIN B SULFATE 500,000 UNIT/10 ML SYR IRR ONE (15:35)
[2017-08-05] MEDS ORDERED: fentaNYL 100 MCG/2 ML INJ ONE ×2 (15:40→16:44)
[2017-08-05] MEDS ORDERED: PROPOFOL 200 MG/20 ML VIAL ONE ×2 (15:40→15:42)
[2017-08-05] MEDS ORDERED: BUPIVACAINE 0.25% 30 ML SDV ONE (15:47)
[2017-08-05] MEDS ORDERED: fentaNYL 100 MCG/2 ML INJ IVP PRN (16:21)
[2017-08-05] MEDS ORDERED: NALOXONE HCL 0.4 MG/ML INJ IVP PRN (16:21)
--- NOTE | 2017-08-05 16:31 | POSTOPPROG ---
Post Op Note Date of Operation: 08/05/17 Surgeon: Joshua Rao Clip Riveter: none Anesthesiologist: jersey Anesthesia: IV Sedation Pre-op Diagnosis: abcess and cellulitis left foot Post-op Diagnosis: abcess and cellulitis with ulceration left foot Indication: infection Procedure: I&D left foot with ulcer debridement Findings: purulent drainage Inf/Abcess present in the surg proc area at time of surgery?: Yes Depth: Superfical (Skin SQ) EBL: Minimal Total fluids administered: 20cc .25% marcaine plain Complications: none Drains: Other (none)
[2017-08-05] MEDS ORDERED: oxyCODONE IR 5 MG TAB ONE (17:04)
[2017-08-05] MEDS: HYDROmorphone HCL/NS/PF 0.4 MG/2 ML SYR IVP PRN (19:35)
--- NOTE | 2017-08-06 03:17 | GOP ---
[f rep st] OPERATIVE REPORT DATE OF OPERATION: 08/05/2017 SURGEON: Joshua Rao DPM [employer] COORDINATOR: None ANESTHESIA: Local with MAC. ANESTHESIOLOGIST: Dr. Núñez PREOPERATIVE DIAGNOSIS: 1. Abscess left foot. 2. Cellulitis left leg. POSTOPERATIVE DIAGNOSIS: 1. Abscess left foot. 2. Cellulitis left leg. 3. Ulceration left foot. PROCEDURE PERFORMED: 1. Incision and drainage abscess, left foot. 2. Full-thickness debridement of ulceration, left foot. FINDINGS: SPECIMENS: Fluid and soft tissue specimen sent for culture and sensitivity. ESTIMATED BLOOD LOSS: Minimal. DESCRIPTION OF PROCEDURE: The patient presented to the [facility] operating room and p laced on the table in supine position. IV sedation was started per the anesthesia department. Foot was anesthetized and infiltrated in nerve block fashion. Foot was prepped, scrubbed, and draped in t he usual sterile fashion. A pneumatic ankle tourniquet was placed but never inflated. At this time, the attention was directed to the plantar medial surface of the right foot where the obvious abscess formation was noted under the 2nd metatarsal head region. The incision and drainage was performed a t this time and a considerable amount of purulent drainage was expressed from the area. This and hunter e of the tissue were then sent in for culture and sensitivities. Upon completion of this, the absces s formation was thoroughly debrided which resulted in an obvious ulceration on the plantar surface of the 2nd metatarsal head. It was a full-thickness ulceration, though it did not probe down to bone. Upon debridement of the area with a 10 blade, the tissue showed 90% granulation base and less than 1 0% of eschar material. The entire ulceration size is greater than 50 mm in diameter. Palpation of t he area showed no other obvious abscess formations at this time. The area was then cleaned with 3 L of antibiotic rinse in a pulse lavage fashion. Upon completion of this, the area was dressed with Be tadine-soaked Adaptic, 4 x 4's, Kerlix, and Coban. The patient was taken to the recovery room, vital signs stable, vascular supply intact to digits 2 through 5 on the left extremity. HEMOSTASIS: None. MATERIALS: None. INJECTABLES: 20 cc of 0.25% Marcaine plain preoperatively. COMPLICATIONS: None. /[id number]/MODL
[2017-08-06] MEDS: ceFAZolin 2 GM/DEXTROSE 100 ML IV SCH ×3 (05:44→21:09)
[2017-08-06] MEDS: oxyCODONE IR 5 MG TAB PO PRN ×3 (05:46→21:17)
[2017-08-06] MEDS: SENNOSIDES/DOCUSATE SODIUM TAB PO SCH ×2 (08:54→23:21)
[2017-08-06] MEDS: NS 1,000 ML IV SCH (08:54)
[2017-08-06] MEDS: GLUCOSAMINE/CHONDROITIN CAP PO SCH (08:54)
[2017-08-06] MEDS: ENOXAPARIN 40 MG/0.4 ML SYR SC SCH (08:55)
[2017-08-06] MEDS: HYDROmorphone HCL/NS/PF 0.4 MG/2 ML SYR IVP PRN ×3 (08:55→21:17)
[2017-08-06] MEDS: INSULIN REGULAR HUMAN 100 UNIT/ML SC SCH (09:00)
--- NOTE | 2017-08-06 09:47 | HOSPPROG ---
Hospitalist Progress Note Assessment/Plan: 62-year-old male presenting with acute foot wound with cellulitis and abscess Plan: 1. foot wound with cellulitis and abscess. responding to cefazolin abscess drained no apparent osteomyelitis sen continue cefazolin 2. Neuropathy. A1c 5.9% suspect alcohol use as etiology of 3. Metabolic acidosis. Acute, secondary to lactic acid, given IV fluids 4. Hyperglycemia. does not have DM dc ISS Diet. Diabetic Prophylaxis. start L [facility] Code. Do not resuscitate per patient, his brothers POA Dispo. inpatient Subjective: case d/w ID Objective: Vital Signs Temp Pulse Resp BP Pulse Ox 37.1 C 81 20 149/82 H 91 L 08/06/17 08:31 08/06/17 08:31 08/06/17 08:31 08/06/17 08:31 08/06/17 08:31 Microbiology 08/05/17 16:05 Gram Stain - Final Foot - Tissue 08/03/17 14:30 Gram Stain - Final Foot - Aspirate Laboratory Results 08/04/17 04:06 08/04/17 04:06 08/05/17 08/06/17 08/07/17 05:59 05:59 05:59 Intake Total 3202 4310 Output Total 5041 3793 296 Balance 7884 -377 -394 ICD10 Worksheet Patient Problems: Problems Problem Status Onset Cellulitis of left foot Acute Severe sepsis Acute Skin ulcer of left great toe with necrosis of bone Acute
[2017-08-06 10:40] LABS: % IMMATURE GRANULYOCYTES 0.9 % (0.0-1.1); ABSOLUTE IMMATURE GRANULOCYTES 0.08 10^3/uL (0.00-0.10); ADD DIFF? NO; ADD MORPH? NO; ADD SCAN? NO; ATYPICAL LYMPHOCYTE FLAG 40 (0-99); FRAGMENT RBC FLAG 0 (0-99); HEMATOCRIT 46.4 % (40.0-51.0); LEFT SHIFT FLG 0 (0-99); LIPEMIA HEMOLYSIS FLAG 90 (0-99); MEAN CELL HEMOGLOBIN 34.8 pg (27.9-34.1); MEAN CELL HEMOGLOBIN CONCENTR. 34.5 g/dL (32.4-36.7); MEAN CELL VOLUME 100.9 fL (81.5-99.8); MEAN PLATELET VOLUME 10.2 fL (8.7-11.7); PLATELET CLUMPS FLAG 0 (0-99); PLATELET COUNT 205 10^3/uL (150-400); RED CELL DISTRIBUTION WIDTH 11.9 % (11.5-15.2)
[2017-08-06 11:17] LABS: ANION GAP 10 mEq/L (8-16); CALCIUM 8.8 mg/dL (8.5-10.4); CARBON DIOXIDE 25 mEq/l (22-31); CHLORIDE 100 mEq/L (97-110); CREATININE 0.7 mg/dL (0.7-1.3); GLOMERULAR FILTRATION RATE > 60; GLUCOSE 160 mg/dL (70-100); SODIUM 135 mEq/L (134-144)
--- NOTE | 2017-08-06 14:17 | PCMIDPN ---
Assessment/Plan: AssessmentPlan: * Left foot skin and soft tissue infection with ascending lymphangitis and probable small abscess under 2nd metatarsal status post incision and drainage: Cultures from aspirated blister are growing MSSA. Operative specimen with growth of Staphylococcus aureus which likely will be MSSA as well. No exposed bone intraoperatively. Cellulitis over lower leg and lymphangitis completely resolved. Continue cefazolin and lower extremity elevation. * Left knee inflammatory arthropathy: Most likely this will be crystalline in etiology with septic joint less likely. Will arrange for aspiration in Interventional Radiology with plans for cell count, Gram stain/culture, and crystal analysis. 08/06/17 14:10 Subjective: Patient complains of left knee pain over last 48 hours. Objective: Vital Signs Temp Pulse Resp BP Pulse Ox 37.2 C 81 18 115/75 95 08/06/17 12:22 08/06/17 12:22 08/06/17 12:22 08/06/17 12:22 08/06/17 12:22 Microbiology 08/05/17 16:05 Mycobacterial Smear (RAGHU) - Final Foot - Tissue 08/05/17 16:05 Gram Stain - Final Foot - Tissue 08/03/17 14:30 Gram Stain - Final Foot - Aspirate Laboratory Results 08/06/17 10:31 08/06/17 10:31 08/05/17 08/06/17 08/07/17 05:59 05:59 05:59 Intake Total 3202 1670 Output Total 1850 2375 800 Balance 1352 -705 -800 Blister aspirate with growth of MSSA Operative culture with growth of Staphylococcus aureus - Physical Exam General Appearance: alert, no apparent distress EENT: No scleral icterus, No thrush, No conjunctival petechiae Respiratory: lungs clear, No respiratory distress Cardiac/Chest: regular rate, rhythm Extremities: inflammation (Left foot dressed postoperatively; cellulitis over lower leg has resolved with residual edema present) Abdomen: non-tender, No distended Lymphatic: other (Lymphangitis resolved in left thigh) ICD10 Worksheet Patient Problems: Problems Problem Status Onset Cellulitis of left foot Acute Severe sepsis Acute Skin ulcer of left great toe with necrosis of bone Acute
[2017-08-06] MEDS ORDERED: LIDOCAINE 1% 300 MG/30 ML SDV ONE (15:09)
[2017-08-06 16:51] LABS: BODY FLUID CELL COUNT SYNOVIAL FLUID
[2017-08-07 05:18] LABS: % IMMATURE GRANULYOCYTES 0.7 % (0.0-1.1); ABSOLUTE IMMATURE GRANULOCYTES 0.07 10^3/uL (0.00-0.10); ADD DIFF? NO; ADD MORPH? NO; ADD SCAN? NO; ATYPICAL LYMPHOCYTE FLAG 40 (0-99); FRAGMENT RBC FLAG 0 (0-99); HEMATOCRIT 43.6 % (40.0-51.0); HEMOGLOBIN 14.8 g/dL (13.7-17.5); LEFT SHIFT FLG 0 (0-99); LIPEMIA HEMOLYSIS FLAG 90 (0-99); MEAN CELL HEMOGLOBIN 34.3 pg (27.9-34.1); MEAN CELL HEMOGLOBIN CONCENTR. 33.9 g/dL (32.4-36.7); MEAN CELL VOLUME 100.9 fL (81.5-99.8); MEAN PLATELET VOLUME 10.2 fL (8.7-11.7); PLATELET CLUMPS FLAG 20 (0-99); PLATELET COUNT 196 10^3/uL (150-400); RED BLOOD CELL COUNT 4.32 10^6/uL (4.40-6.38); RED CELL DISTRIBUTION WIDTH 11.7 % (11.5-15.2)
[2017-08-07] MEDS: ceFAZolin 2 GM/DEXTROSE 100 ML IV SCH ×3 (05:21→20:19)
[2017-08-07 05:26] LABS: ANION GAP 11 mEq/L (8-16); CALCIUM 8.6 mg/dL (8.5-10.4); CARBON DIOXIDE 25 mEq/l (22-31); CHLORIDE 100 mEq/L (97-110); CREATININE 0.7 mg/dL (0.7-1.3); GLOMERULAR FILTRATION RATE > 60; GLUCOSE 136 mg/dL (70-100); SODIUM 136 mEq/L (134-144)
[2017-08-07] MEDS: HYDROmorphone HCL/NS/PF 0.4 MG/2 ML SYR IVP PRN ×3 (07:50→17:36)
[2017-08-07] MEDS: SENNOSIDES/DOCUSATE SODIUM TAB PO SCH ×2 (09:52→20:18)
[2017-08-07] MEDS: GLUCOSAMINE/CHONDROITIN CAP PO SCH (09:53)
[2017-08-07] MEDS: ENOXAPARIN 40 MG/0.4 ML SYR SC SCH (09:54)
--- NOTE | 2017-08-07 10:02 | HOSPPROG ---
Hospitalist Progress Note Assessment/Plan: 62-year-old male presenting with acute foot wound with cellulitis and abscess Plan: 1. foot wound with cellulitis and abscess. responding to cefazolin abscess drained no apparent osteomyelitis sen continue cefazolin 2. Neuropathy. A1c 5.9% suspect alcohol use as etiology of neuropathy knee effusion: suspect crystal arthropathy as opposed to septic arthristis crystals pending start indomethacin 3. Metabolic acidosis. Acute, secondary to lactic acid, given IV fluids 4. Hyperglycemia. does not have DM dc ISS Diet. Diabetic Prophylaxis. start L [facility] Code. Do not resuscitate per patient, his brothers MD JOSE Dispo. inpatient Subjective: case d/w dr hamilton. synovial fluid inflammatory, most c/w crystal arthropathy, crystals pending Objective: Vital Signs Temp Pulse Resp BP Pulse Ox 37.1 C 80 19 122/75 H 94 08/07/17 07:34 08/07/17 07:34 08/07/17 07:34 08/07/17 07:34 08/07/17 07:34 Microbiology 08/05/17 16:05 Gram Stain - Final Foot - Tissue 08/06/17 10:38 Gram Stain - Final Synovial Fluid - Aspirate 08/05/17 16:05 Mycobacterial Smear (RAGHU) - Final Foot - Tissue 08/03/17 14:30 Gram Stain - Final Foot - Aspirate Laboratory Results 08/07/17 04:39 08/07/17 04:39 08/06/17 08/07/17 08/08/17 05:59 05:59 05:59 Intake Total 1670 1128 Output Total 7432 1600 300 [facility] -[phone] -300 - Physical Exam Constitutional: no apparent distress, appears nourished Eyes: PERRL, anicteric sclera Ears, Nose, Mouth, Throat: moist mucous membranes, hearing normal Cardiovascular: regular rate and rhythym, no murmur, rub, or gallop Respiratory: no respiratory distress, no rales or rhonchi Gastrointestinal: normoactive bowel sounds, soft, non-tender abdomen Genitourinary: No zamora in urethra Skin: warm, normal color Musculoskeletal: other (L knee w small effusion, warm, resistance to apssive movement) ICD10 Worksheet Patient Problems: Problems Problem Status Onset Cellulitis of left foot Acute Severe sepsis Acute Skin ulcer of left great toe with necrosis of bone Acute
--- NOTE | 2017-08-07 11:04 | WOCRNPDOC ---
WOCRN Advanced Assessment Note - Skin Integrity Problem, Advanced Assess Left Pedal Foot Blister Dressing Type: Gauze, Kerlix, Xeroform Dressing Description: Clean/Dry, Intact Exudate Amount: Scant Exudate Characteristic(s): Serosanguinous Integumentary Issue Intervention: Dressing Changed Arabella Wound Tissue: Erythema Arabella Wound Swelling: Moderate Wound Bed Constitution: Granulation Tissue (90%), Unstable Eschar (10%) Wound Edges: Attached Site Odor: None Site Measurement - Head-to-Toe Length X Width X Depth (cm): 4.2x4.5x0.1 Skin Integrity Problem Comment: Shallow ulcer with no visible smooth tissue. Area is still soft to palpation. Small amount of loose brown eschar trimmed from wound bed. Covered with moist gauze. Will write for Hydrofera blue ready. KATHLEEN Price in room for care. All questions answered.
[2017-08-07] MEDS: INDOMETHACIN 25 MG CAP PO SCH ×3 (11:53→17:36)
[2017-08-07] MEDS: oxyCODONE IR 5 MG TAB PO PRN ×3 (14:27→22:59)
--- NOTE | 2017-08-07 15:29 | PCMIDPN ---
Assessment/Plan: AssessmentPlan: * Left foot skin and soft tissue infection with ascending lymphangitis and probable small abscess under 2nd metatarsal status post incision and drainage: Cultures from aspirated blister and abscess cavity are growing MSSA. Marked improvement of cellulitis with clean based wound bed over plantar aspect of foot. Mild cellulitis remains over dorsal aspect of foot. May be able to transition to oral antibiotics to complete therapy over next 48 hours. 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 Started on Indocin. If does not achieve relief of knee pain with Indocin, no opposition to brief course of prednisone if necessary from Infectious Disease standpoint. 08/07/17 15:26 Subjective: Complains of persistent left knee pain which he notes is worse than his foot pain. Objective: Vital Signs Temp Pulse Resp BP Pulse Ox 37.1 C 80 19 122/75 H 94 08/07/17 07:34 08/07/17 07:34 08/07/17 07:34 08/07/17 07:34 08/07/17 07:34 Microbiology 08/06/17 10:38 Gram Stain - Final Synovial Fluid - Aspirate 08/05/17 16:05 Gram Stain - Final Foot - Tissue 08/03/17 14:30 Gram Stain - Final Foot - Aspirate 08/05/17 16:05 Mycobacterial Smear (RAGHU) - Final Foot - Tissue Laboratory Results 08/07/17 04:39 08/07/17 04:39 08/06/17 08/07/17 08/08/17 05:59 05:59 05:59 Intake Total 1670 1128 Output Total 2375 9300 525 [id number] -[phone] -525 Cefazolin # 4 Blister aspirate and operative culture both with growth of MSSA Synovial fluid Gram stain and culture negative to date Microbiology 08/05/17 16:05 Foot - Tissue Mycobacterial Smear (RAGHU) - Final Laboratory Tests 08/06/17 10:38 Synovial WBC 77911 H Synovial RBC 7460 H Synovial Neutrophils 95 H Synovial fluid with presence of intra and extracellular uric acid crystals - Physical Exam General Appearance: alert, no apparent distress EENT: No scleral icterus, No thrush Respiratory: lungs clear, No respiratory distress Cardiac/Chest: regular rate, rhythm Extremities: inflammation (Left foot with marked decrease in erythema with some residual over dorsal aspect; ulceration over plantar aspect of foot and along prior amputation site with clean base and granulation tissue throughout; cellulitis over anterior portion of lower extremity largely resolved; left knee still with effusion and exquisite tenderness with range of motion) Abdomen: non-tender, No distended Lymphatic: other (Left lower extremity lymphangitis resolved) ICD10 Worksheet Patient Problems: Problems Problem Status Onset Cellulitis of left foot Acute Severe sepsis Acute Skin ulcer of left great toe with necrosis of bone Acute
--- NOTE | 2017-08-07 15:32 | SOAPPROG ---
SOAP Progress Note Assessment/Plan: Assessment:status post debridement left foot POD # 2 Plan:Dressing was removed. Area was evaluated. Continue dressing changes daily with hydrafera blue. Ok to discharge to home per podiatry. Will followup in office next week. 08/07/17 15:28 Subjective: Patient relates that the change in the antibiotic has been very helpful. He is feeling much better. Objective: Vital Signs Temp Pulse Resp BP Pulse Ox 37.1 C 80 19 122/75 H 94 08/07/17 07:34 08/07/17 07:34 08/07/17 07:34 08/07/17 07:34 08/07/17 07:34 Microbiology 08/06/17 10:38 Gram Stain - Final Synovial Fluid - Aspirate 08/05/17 16:05 Gram Stain - Final Foot - Tissue 08/03/17 14:30 Gram Stain - Final Foot - Aspirate 08/05/17 16:05 Mycobacterial Smear (RAGHU) - Final Foot - Tissue Laboratory Results 08/07/17 04:39 08/07/17 04:39 08/06/17 08/07/17 08/08/17 05:59 05:59 05:59 Intake Total 1670 1128 Output Total 2375 1600 525 Balance -025 -472 -525 Clean dry dressing without purulent drainage is noted. Minimal soft tissue swelling of erythema is appreciable. Foot is not warm to touch. No foul odor. Ulcer is already showing signs of healing. ICD10 Worksheet Patient Problems: Problems Problem Status Onset Cellulitis of left foot Acute Severe sepsis Acute Skin ulcer of left great toe with necrosis of bone Acute
--- NOTE | 2017-08-07 16:57 | ASMTCMCOM ---
CM Note CM Note Notes: Per ID, pt will likely tx to oral ABX before DC. Pt will likely f/u with wound clinic for any wound needs. Pt should have no needs at DC but C/M available if needs change. Date Signed: 08/07/2017 04:57 PM Electronically Signed By:Swetha Wells LCSW
[2017-08-08] MEDS: oxyCODONE IR 5 MG TAB PO PRN ×3 (02:05→21:56)
[2017-08-08] MEDS: ceFAZolin 2 GM/DEXTROSE 100 ML IV SCH ×3 (04:52→21:55)
[2017-08-08] MEDS: HYDROmorphone HCL/NS/PF 0.4 MG/2 ML SYR IVP PRN (05:31)
[2017-08-08] MEDS: INDOMETHACIN 25 MG CAP PO SCH ×3 (07:53→18:19)
[2017-08-08] MEDS: SENNOSIDES/DOCUSATE SODIUM TAB PO SCH ×2 (07:55→21:55)
[2017-08-08] MEDS: GLUCOSAMINE/CHONDROITIN CAP PO SCH (07:56)
[2017-08-08] MEDS: ENOXAPARIN 40 MG/0.4 ML SYR SC SCH (07:56)
[2017-08-08 09:12] LABS: % IMMATURE GRANULYOCYTES 0.9 % (0.0-1.1); ADD DIFF? NO; ADD MORPH? NO; ADD SCAN? NO; ATYPICAL LYMPHOCYTE FLAG 20 (0-99); FRAGMENT RBC FLAG 0 (0-99); HEMATOCRIT 41.6 % (40.0-51.0); HEMOGLOBIN 14.8 g/dL (13.7-17.5); LEFT SHIFT FLG 0 (0-99); LIPEMIA HEMOLYSIS FLAG 90 (0-99); MEAN CELL HEMOGLOBIN 35.5 pg (27.9-34.1); MEAN CELL HEMOGLOBIN CONCENTR. 35.6 g/dL (32.4-36.7); MEAN CELL VOLUME 99.8 fL (81.5-99.8); MEAN PLATELET VOLUME 10.3 fL (8.7-11.7); PLATELET CLUMPS FLAG 0 (0-99); PLATELET COUNT 265 10^3/uL (150-400); RED BLOOD CELL COUNT 4.17 10^6/uL (4.40-6.38); RED CELL DISTRIBUTION WIDTH 11.7 % (11.5-15.2)
--- NOTE | 2017-08-08 13:23 | PCMIDPN ---
Assessment/Plan: 1. MSSA skin and soft tissue infection left foot status post debridement: Will likely be discharged home tomorrow on Augmentin 875 p. o. twice daily. Cellulitic area is markedly improved. Continue Ancef while in-house. 2. Phlebitis right upper extremity: Warm packs three times daily. Peripheral IV has been removed. 3. Shelby intertrigo of the groin: Start nystatin powder. 08/08/17 13:22 Subjective: Somewhat irritable today. Wants to get in the shower. Content with going home in the morning. Knees are starting to feel better with Indocin. Objective: Ancef 2 g IV q.8 hours day 5 T-max 37.7degrees Vital Signs Temp Pulse Resp BP Pulse Ox 37.7 C 82 16 90/72 L 90 L 08/08/17 08:00 08/08/17 08:00 08/08/17 08:00 08/08/17 08:00 08/08/17 08:00 Microbiology 08/06/17 10:38 Gram Stain - Final Synovial Fluid - Aspirate 08/05/17 16:05 Gram Stain - Final Foot - Tissue 08/03/17 14:30 Gram Stain - Final Foot - Aspirate Laboratory Results 08/08/17 08:52 08/07/17 04:39 08/07/17 08/08/17 08/09/17 05:59 05:59 05:59 Intake Total 1128 675 500 Output Total 1600 1575 275 Balance -472 -900 225 - Physical Exam General Appearance: obese EENT: No thrush Respiratory: lungs clear Extremities: other (Left foot ulceration beneath MTP with clean base, minimal surrounding dusky erythema. Somewhat warm but nontender. The demarcated margins are free of cellulitis. Patient's right upper extremity is notable for a linear area of erythema consistent with phlebitis) Skin: other (Macerated skin with some erythema inguinal areas bilaterally) ICD10 Worksheet Patient Problems: Problems Problem Status Onset Cellulitis of left foot Acute Severe sepsis Acute Skin ulcer of left great toe with necrosis of bone Acute
--- NOTE | 2017-08-08 13:32 | HOSPPROG ---
Hospitalist Progress Note Assessment/Plan: 62-year-old male presenting with acute foot wound with cellulitis and abscess Plan: foot wound with cellulitis and abscess. MSSA abscess drained, POD3 no osteo continue cefazolin discussed with ID Neuropathy. 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 resolved Hyperglycemia. a1c 5.9% Diet. Regular Prophylaxis. LMWH Code. Do not resuscitate per patient, his brothers POA Dispo. inpatient Subjective: Pt feels better. No fevers/chills. Eating well. USes walker for ambulation. Foot pain decreased since I&D Objective: Vital Signs Temp Pulse Resp BP Pulse Ox 37.7 C 82 16 90/72 L 90 L 08/08/17 08:00 08/08/17 08:00 08/08/17 08:00 08/08/17 08:00 08/08/17 08:00 Microbiology 08/06/17 10:38 Gram Stain - Final Synovial Fluid - Aspirate 08/05/17 16:05 Gram Stain - Final Foot - Tissue 08/03/17 14:30 Gram Stain - Final Foot - Aspirate Laboratory Results 08/08/17 08:52 08/07/17 04:39 08/07/17 08/08/17 08/09/17 05:59 05:59 05:59 Intake Total 1128 675 500 Output Total 1600 1575 275 Balance -472 -900 225 - Physical Exam Constitutional: no apparent distress Eyes: PERRL Ears, Nose, Mouth, Throat: moist mucous membranes Cardiovascular: regular rate and rhythym Respiratory: no respiratory distress, reduced air movement Gastrointestinal: normoactive bowel sounds, soft, non-tender abdomen Skin: warm Musculoskeletal: other (Left foot wound inspected, no purulence, but still some erythema of foot, 2+ pulses) Neurologic: AAOx3 Psychiatric: interacting appropriately ICD10 Worksheet Patient Problems: Problems Problem Status Onset Cellulitis of left foot Acute Severe sepsis Acute Skin ulcer of left great toe with necrosis of bone Acute
[2017-08-08] MEDS ORDERED: diphenhydrAMINE 25 MG CAP PO PRN (15:45)
--- NOTE | 2017-08-08 15:46 | PCMIDPN ---
Assessment/Plan: Called to see patient for rash on his back, buttock and upper thigh. Exam showed a urticarial-like eruption on buttock, upper thigh posteriorly, acne -form eruption upper back and urticarial eruption R forearm. Patchy nature seems less typical for drug rash. Mildly itchy. Rx Benadryl PRN. Pressure urticaria? Okay to continue Ancef. Discussed with KATHLEEN Mason 08/08/17 15:46 Objective: Vital Signs Temp Pulse Resp BP Pulse Ox 37.7 C 82 16 90/72 L 90 L 08/08/17 08:00 08/08/17 08:00 08/08/17 08:00 08/08/17 08:00 08/08/17 08:00 Microbiology 08/06/17 10:38 Gram Stain - Final Synovial Fluid - Aspirate 08/05/17 16:05 Gram Stain - Final Foot - Tissue 08/03/17 14:30 Gram Stain - Final Foot - Aspirate Laboratory Results 08/08/17 08:52 08/07/17 04:39 08/07/17 08/08/17 08/09/17 05:59 05:59 05:59 Intake Total 1128 675 500 Output Total 6786 8706 038 Balance -472 -265 225 ICD10 Worksheet Patient Problems: Problems Problem Status Onset Cellulitis of left foot Acute Severe sepsis Acute Skin ulcer of left great toe with necrosis of bone Acute
[2017-08-08] MEDS: NYSTATIN POWDER 15 GM BTL TP SCH ×2 (17:20→22:06)
[2017-08-08 23:55] VITALS: RESP 16
[2017-08-09] MEDS: ceFAZolin 2 GM/DEXTROSE 100 ML IV SCH (05:24)
[2017-08-09 05:28] LABS: % IMMATURE GRANULYOCYTES 0.6 % (0.0-1.1); ABSOLUTE IMMATURE GRANULOCYTES 0.07 10^3/uL (0.00-0.10); ADD DIFF? NO; ADD MORPH? NO; ADD SCAN? NO; ATYPICAL LYMPHOCYTE FLAG 30 (0-99); FRAGMENT RBC FLAG 0 (0-99); HEMATOCRIT 42.7 % (40.0-51.0); HEMOGLOBIN 15.1 g/dL (13.7-17.5); LEFT SHIFT FLG 0 (0-99); LIPEMIA HEMOLYSIS FLAG 90 (0-99); MEAN CELL HEMOGLOBIN 35.4 pg (27.9-34.1); MEAN CELL HEMOGLOBIN CONCENTR. 35.4 g/dL (32.4-36.7); MEAN CELL VOLUME 100.2 fL (81.5-99.8); MEAN PLATELET VOLUME 10.5 fL (8.7-11.7); PLATELET CLUMPS FLAG 20 (0-99); PLATELET COUNT 285 10^3/uL (150-400); RED BLOOD CELL COUNT 4.26 10^6/uL (4.40-6.38); RED CELL DISTRIBUTION WIDTH 11.8 % (11.5-15.2)
[2017-08-09 08:25] VITALS: TEMP 98.7
[2017-08-09] MEDS: ENOXAPARIN 40 MG/0.4 ML SYR SC SCH (08:47)
[2017-08-09] MEDS: oxyCODONE IR 5 MG TAB PO PRN ×2 (08:47→11:47)
[2017-08-09] MEDS: GLUCOSAMINE/CHONDROITIN CAP PO SCH (08:48)
[2017-08-09] MEDS: INDOMETHACIN 25 MG CAP PO SCH ×2 (08:48→11:46)
[2017-08-09] MEDS: SENNOSIDES/DOCUSATE SODIUM TAB PO SCH (08:49)
--- NOTE | 2017-08-09 11:00 | PCMIDPN ---
Assessment/Plan: 1. MSSA skin and soft tissue infection left foot status post debridement: I think it is fine to send him home today on Augmentin 875 p.o. twice daily for another 5 days. We will arrange for follow-up with Dr. Castellano. 2. Phlebitis/irritant dermatitis right upper extremity after peripheral IV: No palpable cord. This appears superficial in nature and I do not feel that he needs an ultrasound. Continue Benadryl as needed. Looks better today. 3. Shelby intertrigo of the groin: Continue nystatin powder. 4. ? Irritant contact dermatitis buttocks: This does not look like a drug eruption to me. Patient feels that it is from laying in bed, sweating. Continue Benadryl as needed, but warned of sedation associated with this medication. He understands to call should he develop a worsening rash. Subjective: Sitting on the edge of the bed, fully clothed, wanting to go home. Does not feel that he has a drug rash. The area along his right arm is not as beet red today. Less pruritic on Benadryl. Has tolerated Augmentin in the past without an issue. Objective: Ancef 2 g IV q. 8 hr day 6. Afebrile Vital Signs Temp Pulse Resp BP Pulse Ox 37.1 C 82 16 134/87 H 91 L 08/09/17 08:25 08/09/17 08:25 08/09/17 08:25 08/09/17 08:25 08/09/17 08:25 Microbiology 08/06/17 10:38 Gram Stain - Final Synovial Fluid - Aspirate 08/05/17 16:05 Gram Stain - Final Foot - Tissue 08/03/17 14:30 Gram Stain - Final Foot - Aspirate Laboratory Results 08/09/17 04:27 08/07/17 04:39 08/08/17 08/09/17 08/10/17 05:59 05:59 05:59 Intake Total 675 2500 Output Total 1575 1775 140 Balance -900 725 -140 - Physical Exam General Appearance: no apparent distress, obese EENT: pharynx normal Extremities: other (His foot is dressed; I did not take the bandage down.) Skin: rash (Linear, brick red erythematous patch right inner arm at peripheral IV site. Less beet red today. He also has dusky, purplish/hemorrhagic macular papular rash on his upper buttocks. None on his back. None on his abdomen or legs.) ICD10 Worksheet Patient Problems: Problems Problem Status Onset Cellulitis of left foot Acute Severe sepsis Acute Skin ulcer of left great toe with necrosis of bone Acute
[2017-08-09] MEDS: NYSTATIN POWDER 15 GM BTL TP SCH (11:10)
[2017-08-09 12:18] VITALS: BP 138/86; PULSE 91; O2SAT 94
--- NOTE | 2017-08-09 13:56 | ASDISCHSUM ---
Discharge Information Plan Status:Home with No Needs Medically Cleared to Leave:08/08/2017 Discharge Date:08/09/2017 01:06 PM CM D/C Disposition:Home, Routine, Self-Care ADT D/C Disposition:Home, Routine, Self-Care Projected Discharge Date:08/09/2017 12:00 PM Transportation at D/C:Family Discharge Delay Reason: Follow-Up Date:08/09/2017 12:00 PM Discharge Slot: Final Diagnosis: Placement Information Patient Contact Information Contact Name:MICHAEL Relationship: Address: Work Phone: Joe:RONA Alternate Phone: [facility]/[employer] Code:[place] Email: Financial Information Financial Class: Primary Plan Desc:[employer] [place] Primary Plan Number:[id number] Secondary Plan Desc: Secondary Plan Number: Assessment Information [facility] CM Progress Note CM Note CM Note Notes: Patient admitted for left foot cellulitis. Patient has a history of sepsis related to previous left foot infection which required [facility] admission and partial amputation in May and Jul 2016; and 70 days of outpatient IV infusion on . Patient accompanied by his brother who he lives with in [place]. Patient states he had been followed by Dr Rao at [facility] up until when his care was completed. Patient states he does not have a PCP despite being provided [facility] information at discharge from May 2016 admission. Patient states he hasn't followed up due to a busy schedule. Patient has [place] Medicaid. CM will need to schedule a follow-up appointment for patient at [facility] to establish a PCP. Other exact DC needs unknown at this time. CM to follow. Date Signed: 08/03/2017 12:08 PM Electronically Signed By:Susan Wills RN LACE LACE Acuity / Level of Care Answers: Was the patient admitted to hospital via the emergency department? Yes: Emergency dept visits in Answers: 1 last 6 months Score: 4 Date Signed: 08/03/2017 12:10 PM Electronically Signed By:Susan Wills RN [facility] CM Progress Note CM Note CM Note Notes: Patient to surgery today at approximately 3:30pm. He will be here several more days and it is still unclear what his needs will be on discharge. Case management will continue to follow. Date Signed: 08/05/2017 10:47 AM Electronically Signed By:KAREY Chao [facility] CM Progress Note CM Note CM Note Notes: Per ID, pt will likely tx to oral ABX before DC. Pt will likely f/u with wound clinic for any wound needs. Pt should have no needs at DC but C/M available if needs change. Date Signed: 08/07/2017 04:57 PM Electronically Signed By:Swetha Wells LCSW Case Management Discharge Plan Note Case Management Discharge Discharge Order Complete? Answers: Yes Patient to Obtain Answers: Independently Medications Transportation Arranged Answers: Family/Friends Discharge Comments Notes: Pt is discharging home today on po ABX and will follow up with ID in 5 days. No CM needs noted. Date Signed: 08/09/2017 01:55 PM Electronically Signed By:KAREY Jurado Intervention Information Intervention Type:*Incorrect Registration Date of Service:08/03/2017 04:06 PM Patient Type:Inpatient Staff Member:KATHLEEN Mcconnell Kerry Hours: Discipline: Severity: Comment:
--- NOTE | 2017-08-09 16:24 | GDS ---
[f rep st] DISCHARGE SUMMARY DISCHARGE DIAGNOSES: 1. Left foot cellulitis and abscess, status post incision and drainage. 2. Neuropathy. 3. 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 4. Hyperglycemia with a normal A1c of 5.9%. 5. Metabolic acidosis, resolved. CONSULTANTS: 1. Dr. Shant Castellano, Infectious Disease. 2. Dr. Joshua Rao, Podiatry. HISTORY: For details please see dictated history and physical dated August 03, 2017. In brief, the patient is a 62-year-old male who presented to the emergency department with left foot pain. His ex am findings were consistent with cellulitis. Blood cultures were drawn and he was admitted to the [facility] for further management. HOSPITAL COURSE: Patient was admitted to the Medical/Surgical Unit. He was treated with IV Ancef. He underwent incision and drainage by Dr. Rao. His cultures grew methicillin sensitive Staph a ureus. There were initially some reports of type 2 diabetes mellitus, though the patient denies this and indeed his hemoglobin A1c was 5.9, which is not consistent with diabetes. Infectious Disease consult was obtained. The patient was transitioned to oral Augmentin at discharge for 5 more days of treatment. Will have follow up with his ophthalmology surgical technician early next week for ongoing w ound care. DISPOSITION: Patient is discharged home in stable condition. FOLLOWUP: [facility] for Podiatry followup. He is provided with wound care instructions to change the dressings to the bottom of the left foot every 3 days and p.r.n., clean with normal sa line and gauze. Skin prep periwound and cut a piece of Hydrofera Blue ready to fit wound bed, then p lace it writing side up over the wound bed and secure with Medipore tape. 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 DISCHARGE MEDICATIONS: Please see [employer] for completed outpatient medication list. NEW MEDICATIONS ON DISCHARGE: 1. Include Augmentin 875 mg p.o. b.i.d. #10 no refills. 2. Indomethacin 25 mg p.o. t.i.d. #20 no refills. 3. Nystatin powder t.i.d. 4. Oxycodone 5 to 10 mg p.o. q.6 hours p.r.n. #10 no refills. 5. 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 /[id number]
== END 2017-08-09 13:06 | disposition home or self-care (01) | DRG 603 ==
LOC: OBSVTOIN 10:56 → F1N 13:46
PROVIDERS: ADMIT Internal Medicine; ATTEND Hospitalist
DX: L02.612 Cutaneous abscess of left foot (principal); L03.116 Cellulitis of left lower limb; B95.61 Methicillin susceptible Staphylococcus aureus infection as the cause of diseases classified elsewhere; L97.529 Non-pressure chronic ulcer of other part of left foot with unspecified severity; E87.2 Acidosis; G62.9 Polyneuropathy, unspecified; M10.9 Gout, unspecified; Z89.412 Acquired absence of left great toe; Z66 Do not resuscitate; R73.9 Hyperglycemia, unspecified; I80.8 Phlebitis and thrombophlebitis of other sites; L30.4 Erythema intertrigo; L24.9 Irritant contact dermatitis, unspecified cause
CPT/HCPCS: 96365; 97161-GP; A9585; G8978-GP-CI; G8979-GP-CI; G8980-GP-CI; J0690; J1170; J1650; J2250; J2704; J3010

== ENCOUNTER 2017-08-29 02:48 | Inpatient (IN) | payer MEDICAID ==
[2017-08-29] MEDS ORDERED: ONDANSETRON 4 MG/2 ML VIAL IVP ONE (02:55)
[2017-08-29] MEDS ORDERED: NS 1,000 ML IV ONE ×3 (02:55→18:41)
[2017-08-29] MEDS ORDERED: HYDROmorphONE/DILAUDID 1 MG/ML INJ IVP ONE ×4 (02:55→14:00)
[2017-08-29] MEDS ORDERED: VANCOMYCIN HCL/NORMAL SALINE 250 ML IV ONE (02:59)
[2017-08-29] MEDS ORDERED: PIPERACILLIN/TAZO 4.5 GM/DEX 100 ML IV ONE (02:59)
--- NOTE | 2017-08-29 03:01 | EDPHY ---
H & P HPI/ROS: HPI CHIEF COMPLAINT: Left foot pain HISTORY OF PRESENT ILLNESS: This patient is 62-year-old male, presents emergency room by EMS for worsening drainage, foul smell and foot pain to left foot. The patient has significant past medical history for diabetes and neuropathy, he was recently in the hospital from August 03 through August 09 for left foot cellulitis status post I and D. At that time grow out Staph aureus. He was prescribed Augmentin at discharge. He now presents back to the emergency room with worsening drainage, pain and redness, foul smell in his left foot. This patient is a very poor historian. He has very little insight into his medical conditions or medical problems. He reports to me that his entire body gout is flaring up. Records reviewed. Additionally old cultures reviewed. Past Medical History: Diabetes, diabetic left foot ulcer, left foot cellulitis , alcohol use, obesity, neuropathy Past Surgical History: Status post I and D of his left foot in August, previous L great toe amputation. Social History: History of daily alcohol use. Family History: Noncontributory ROS REVIEW OF SYSTEMS: A comprehensive 10 point review of systems is otherwise negative aside from elements mentioned in the history of present illness. Exam Constitutional appears unwell, unkept, triage nursing summary reviewed, vital signs reviewed, awake/alert. Tachycardic Eyes normal conjunctivae and sclera, EOMI, PERRLA. HENT normal inspection, atraumatic, moist mucus membranes, no epistaxis, neck supple/ no meningismus, no raccoon eyes. Respiratory clear to auscultation bilaterally, normal breath sounds, no respiratory distress, no wheezing. Cardiovascular tachycardic, regular rhythm, no murmur, no edema, distal pulses normal. Gastrointestinal soft, non-tender, no rebound, no guarding, normal bowel sounds, no distension, no pulsatile mass. Genitourinary no CVA tenderness. Musculoskeletal LLE: Swollen, red, there is a hole/ulcer in bottom of left foot base of first metatarsal, missing great toe, purulent drainage expressed from this, no midline vertebral tenderness, full range of motion, no calf swelling, no tenderness of extremities, no meningismus, good pulses, neurovascularly intact. Skin swelling, redness, purulence noted left foot. Neurologic awake, alert and oriented x 3, AAOx3, moves all 4 extremities equally, motor intact, sensory intact, CN II-XII intact, normal cerebellar, normal vision, normal speech. Psychiatric normal mood/affect. Heme/Lymph/Immune no lymphadenopathy. Differential Diagnosis: Includes but is not limited to in a particular order, acute sepsis, bacteremia, osteomyelitis, foot abscess, cellulitis, worsening diabetic foot wound, worsening ulcer Medical Decision Making: Plan for this patient blood cultures, IV fluids resuscitation, broad-spectrum antibiotics including IV vancomycin and IV Zosyn for polymicrobial coverage of this foot wound that has purulent drainage, also distally this will cover bacteremia, check lactic acid, inflammatory markers, pain control with IV Dilaudid, x-ray look for gas. May need MRI if the left lower extremity a later time. Will be admitted to the hospital. Re-evaluation: EKG interpretation by me on record in [facility] system. Impression time of EKG 3:13 a.m., sinus tachycardia rate of 99 i do not appreciate acute ischemia 0321: X-ray reviewed of the left foot. Shows gas present where the ulcer is. Additionally I do see gasoline top of the foot as well. This concerning for osteomyelitis. 0322: Patient is getting IV fluids. IV Dilaudid as been ordered for pain control. IV vancomycin IV Zosyn has been ordered. Blood cultures and lactic pending. 0339: Patient be admitted to the hospitalist service for osteomyelitis of the left foot and sepsis. Blood cultures are sent. Lactic acid is pending. Broad-spectrum antibiotics have been given. IV vancomycin IV Zosyn. He is noted to be very dehydrated is elevated BUN and creatinine BUN is 70 creatinine 1.9. He is receiving IV fluids. Final diagnosis osteomyelitis of the left, sepsis, dehydration, altered mental status Critical Care: Total Critical Care Time Spent Managing this Patient: 65Minutes. This time was spent Exclusively with this patient. This Care was exclusive of procedures. The Organ System/life at risk was left foot osteomyelitis and sepsis This Patient was in Critical Condition because sepsis, left foot osteomyelitis Source: Patient, EMS - Medical/Surgical History Hx Asthma: No Hx Chronic Respiratory Disease: No Hx Diabetes: No Hx Cardiac Disease: No Hx Renal Disease: No Hx Cirrhosis: No Hx Alcoholism: No Hx HIV/AIDS: No Hx Splenectomy or Spleen Trauma: No Other PMH: foot neuropathy, 2 ACL sx. 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/ complications of sepsis and gangrene, osteomyelitis - Social History Smoking Status: Former smoker Constitutional: Initial Vital Signs Temperature (C) 36.7 C 08/29/17 03:00 Heart Rate 101 H 08/29/17 03:00 Respiratory Rate 20 08/29/17 03:00 Blood Pressure 156/104 H 08/29/17 03:00 O2 Sat (%) 90 L 08/29/17 03:00 O2 Delivery Mode Room Air O2 (L/minute) 2 Allergies/Adverse Reactions: No Known Allergies Allergy (Verified 08/29/17 03:03) Home Medications: Medication Instructions Recorded Glucosam/Chondr/Collagn/Hyalur 2 each PO DAILY 08/03/17 [Glucosamine & Chondroitin Cap] Herbals/Supplements -Info Only 1 ea PO DAILY 08/03/17 Amoxicillin/Clavulanate Pot 875 mg PO BID #10 tab 08/09/17 [Augmentin 875 MG TAB (*)] Nystatin Powder [Mycostatin Powder] 1 julia TP TID #30 powder 08/09/17 oxyCODONE IR [Oxycodone Ir (*)] 5 - 10 mg PO Q6H PRN #10 tab 08/09/17 Indomethacin [Indocin 25 mg (*)] 50 mg PO TID 08/29/17 Medical Decision Making - Data Points Laboratory Results: Laboratory Results 08/29/17 02:55 08/29/17 02:55 Medications Given: Acetaminophen (Tylenol) 650 mg PO Q4HRS PRN PRN Reason: Pain, Mild/Fever, Can Take PO Stop: 02/25/18 06:28 Last Admin: 08/30/17 10:30 Dose: 650 mg Colchicine (Colchicine) 0.6 mg PO DAILY [facility] Stop: 02/28/18 10:59 Last Admin: 09/01/17 14:17 Dose: Not Given Enoxaparin Sodium (Lovenox) 40 mg SC DAILY UZMA Stop: 02/28/18 11:14 Last Admin: 09/01/17 14:16 Dose: Not Given Piperacillin/Tazobactam/Dextrose (Zosyn (Premix)) 100 mls @ 200 mls/hr IV Q6HRS UZMA PRN Reason: Protocol Stop: 09/30/17 17:59 Last Admin: 09/01/17 17:27 Dose: 100 mls Sodium Chloride (1/2 Ns) 1,000 mls @ 100 mls/hr IV CONT [facility] Stop: 02/28/18 05:14 Last Admin: 09/01/17 17:05 Dose: 1,000 mls Ketorolac Tromethamine (Toradol) 30 mg IVP Q6HRS [facility] Stop: 09/05/17 17:59 Last Admin: 09/01/17 17:23 Dose: 30 mg Olanzapine (Zyprexa Zydis) 10 mg PO DAILY [facility] Stop: 02/28/18 10:14 Last Admin: 09/01/17 10:24 Dose: 10 mg Vancomycin HCl (Vancocin Oral Liquid) 125 mg PO QID [facility] PRN Reason: Protocol Stop: 10/01/17 15:59 Last Admin: 09/01/17 17:05 Dose: 125 mg Discontinued Medications Bacitracin (Bacitracin Syringe) Confirm Administered Dose 50,000 units IRR .STK- MED ONE Stop: 08/29/17 18:46 Last Admin: 08/29/17 19:00 Dose: 50,000 units Bacitracin (Bacitracin Ointment Tube) Confirm Administered Dose 14.2 julia TP .STK -MED ONE Stop: 09/01/17 16:17 Last Admin: 09/01/17 17:08 Dose: Not Given Bupivacaine HCl (Sensorcaine 0.25% Sdv) Confirm Administered Dose 30 ml .ROUTE .STK-MED ONE Stop: 08/29/17 19:02 Last Admin: 08/29/17 20:19 Dose: Not Given Bupivacaine HCl/Epinephrine Bitart (Bupivacaine/Epi) Confirm Administered Dose 30 ml .ROUTE .STK-MED ONE Stop: 08/29/17 19:39 Last Admin: 08/29/17 19:20 Dose: 30 ml Fentanyl (Sublimaze) 25 - 100 mcg IVP Q5M PRN PRN Reason: PACU, IMMEDIATE Pain control Stop: 08/29/17 21:13 Last Admin: 08/29/17 20:54 Dose: 50 mcg Hydromorphone HCl (Dilaudid) 1 mg IVP EDNOW ONE Stop: 08/29/17 02:56 Last Admin: 08/29/17 03:04 Dose: 1 mg Hydromorphone HCl (Dilaudid) 1 mg IVP EDNOW ONE Stop: 08/29/17 03:20 Last Admin: 08/29/17 03:27 Dose: 1 mg Hydromorphone HCl (Dilaudid) 1 mg IVP EDNOW ONE Stop: 08/29/17 03:26 Last Admin: 08/29/17 10:26 Dose: Not Given Hydromorphone HCl (Dilaudid) 1 mg IVP ONCALL ONE Stop: 08/29/17 14:01 Last Admin: 08/29/17 14:46 Dose: 1 mg Hydromorphone HCl (Dilaudid) 0.4 mg IVP Q1 PRN PRN Reason: Pain, Severe Unable to Take PO Stop: 09/09/17 16:35 Last Admin: 08/31/17 08:27 Dose: 0.4 mg Hydromorphone/Sodium Chloride (Hydromorphone) 0.4 mg IVP Q1H PRN PRN Reason: PAIN. Stop: 09/10/17 12:37 Last Admin: 09/01/17 04:35 Dose: 0.4 mg Sodium Chloride (Ns) 1,000 mls @ 0 mls/hr IV EDNOW ONE; Wide Open PRN Reason: Protocol Stop: 08/29/17 02:56 Last Admin: 08/29/17 03:02 Dose: 1,000 mls Sodium Chloride (Ns) 1,000 mls @ 0 mls/hr IV EDNOW ONE; Wide Open PRN Reason: Protocol Stop: 08/29/17 02:56 Last Admin: 08/29/17 03:00 Dose: 1,000 mls Vancomycin/Sodium Chloride (Vancomycin 1 Gm (Premix)) 250 mls @ 250 mls/hr IV EDNOW ONE PRN Reason: Protocol Stop: 08/29/17 03:58 Last Admin: 08/29/17 07:39 Dose: Not Given Piperacillin/Tazobactam/Dextrose (Zosyn (Premix)) 100 mls @ 200 mls/hr IV EDNOW ONE PRN Reason: Protocol Stop: 08/29/17 03:28 Last Admin: 08/29/17 03:45 Dose: 100 mls Vancomycin HCl 2 gm/ Sodium (Chloride) 500 mls @ 250 mls/hr IV EDNOW ONE PRN Reason: Protocol Stop: 08/29/17 05:19 Last Admin: 08/29/17 03:45 Dose: 500 mls Sodium Chloride (Ns) 1,500 mls @ 0 mls/hr IV ONCE ONE PRN Reason: Wide Open Stop: 08/29/17 03:57 Last Admin: 08/29/17 04:04 Dose: 1,500 mls Vancomycin HCl 1.25 gm/ (Dextrose) 250 mls @ 166.67 mls/hr IV Q12H UZMA PRN Reason: Protocol Stop: 09/28/17 06:59 Last Admin: 08/29/17 11:08 Dose: Not Given Piperacillin/Tazobactam/Dextrose (Zosyn 3.375 Gm (Premix)) 50 mls @ 100 mls/hr IV Q6HRS UZMA PRN Reason: Protocol Stop: 09/28/17 11:59 Last Admin: 08/31/17 17:35 Dose: 50 mls Sodium Chloride (Ns) 1,000 mls @ 0 mls/hr IV ONCE ONE PRN Reason: KVO Stop: 08/29/17 18:42 Last Admin: 08/29/17 18:45 Dose: 1,000 mls Vancomycin HCl 1.5 gm/ (Dextrose) 250 mls @ 166.67 mls/hr IV Q12H UZMA PRN Reason: Protocol Stop: 09/29/17 19:59 Last Admin: 09/01/17 09:00 Dose: 250 mls Dextrose/Sodium Chloride (D5w Ns) 1,000 mls @ 100 mls/hr IV CONT UZMA Stop: 02/26/18 20:29 Last Admin: 08/30/17 20:39 Dose: 1,000 mls Methocarbamol 1,000 mg/ Sodium (Chloride) 60 mls @ 240 mls/hr IV Q8HRS UZMA Stop: 02/26/18 22:44 Last Admin: 08/31/17 01:05 Dose: Not Given Methocarbamol 1,000 mg/ Sodium (Chloride) 60 mls @ 240 mls/hr IV Q8H UZMA Stop: 02/26/18 22:59 Last Admin: 09/01/17 06:20 Dose: 60 mls Dexmedetomidine HCl 400 mcg/ (Sodium Chloride) 104 mls @ 0 mls/hr IV CONT UZMA; Per Protocol PRN Reason: Protocol Stop: 02/27/18 12:59 Last Admin: 08/31/17 12:50 Dose: 104 mls Dexmedetomidine/Sodium Chloride (Precedex 4 Mcg/Ml 50 Ml (Premix)) 50 mls @ 0 mls/hr IV CONT UZMA; Per Protocol PRN Reason: Protocol Stop: 02/27/18 16:59 Last Admin: 09/01/17 06:20 Dose: 50 mls Ketamine HCl 500 mg/ Dextrose 510 mls @ 0 mls/hr IV CONT UZMA; Per Protocol PRN Reason: Protocol Stop: 02/27/18 17:14 Last Admin: 08/31/17 17:32 Dose: 510 mls Indomethacin (Indocin) 50 mg PO TID UZMA Stop: 02/25/18 21:59 Last Admin: 08/30/17 16:20 Dose: Not Given Ketamine HCl (Ketamine) 22.3 mg 0.2 mg/kg (22.3 mg) IVP ONCE PRN PRN Reason: AGITATION Stop: 02/27/18 16:29 Last Admin: 08/31/17 16:54 Dose: 22.3 mg Ketorolac Tromethamine (Toradol) 30 mg IVP Q6HRS PRN PRN Reason: Pain, Inflammatory Stop: 09/04/17 16:42 Last Admin: 08/31/17 04:31 Dose: 30 mg Ketorolac Tromethamine (Toradol) 15 mg IVP Q6HRS [facility] Stop: 09/05/17 17:59 Last Admin: 09/01/17 05:25 Dose: 15 mg Lorazepam (Ativan Injection) 0.5 mg IVP ONCALL ONE Stop: 08/29/17 14:01 Last Admin: 08/29/17 14:43 Dose: 0.5 mg Lorazepam (Ativan Injection) 0.5 - 1 mg IVP Q6HRS PRN PRN Reason: Anxiety, Unable to Take PO Stop: 02/26/18 01:21 Last Admin: 09/01/17 03:30 Dose: 1 mg Lorazepam (Ativan Injection) 1 mg IVP ONCE ONE Stop: 08/30/17 16:37 Last Admin: 08/30/17 16:45 Dose: 1 mg Lorazepam (Ativan Injection) 1 mg IVP ONCE ONE Stop: 08/30/17 17:08 Last Admin: 08/30/17 17:15 Dose: 1 mg Midazolam HCl (Versed) 2 mg IVP Q5M PRN PRN Reason: ANXIETY,DELIRIUM Stop: 08/29/17 22:30 Last Admin: 08/29/17 21:58 Dose: 2 mg Naloxone HCl (Narcan) 0.4 mg IVP ONCE ONE Stop: 08/30/17 16:31 Last Admin: 08/30/17 16:40 Dose: 0.4 mg Ondansetron HCl (Zofran) 4 mg IVP EDNOW ONE Stop: 08/29/17 02:56 Last Admin: 08/29/17 03:03 Dose: 4 mg Oxycodone HCl (Oxycodone Ir) 5 - 10 mg PO Q3HRS PRN PRN Reason: Pain, Severe Able to Take PO Stop: 09/08/17 06:28 Last Admin: 08/29/17 23:26 Dose: 10 mg Oxycodone HCl (Oxycodone Ir) 5 mg PO Q4 PRN PRN Reason: Pain, Severe Able to Take PO Stop: 09/08/17 06:28 Last Admin: 08/30/17 12:25 Dose: 5 mg Polymyxin B Sulfate (Polymyxin B Syringe) Confirm Administered Dose 500,000 unit IRR .STK-MED ONE Stop: 08/29/17 18:46 Last Admin: 08/29/17 19:20 Dose: 500,000 unit Departure - Departure Disposition: [facility] Acute Clinical Impression: Foot abscess, Dehydration Diabetic foot ulcer Qualifiers: Diabetic foot ulcer location: unspecified part of foot Diabetes mellitus type: type 2 Laterality: left Non-pressure ulcer stage: unspecified non-pressure ulcer stage Qualified Code(s): E11.621 - Type 2 diabetes mellitus with foot ulcer Sepsis Qualifiers: Sepsis type: sepsis due to unspecified organism Qualified Code(s): A41.9 - Sepsis, unspecified organism Osteomyelitis Qualifiers: Osteomyelitis type: unspecified type Osteomyelitis location: unspecified site Qualified Code(s): M86.9 - Osteomyelitis, unspecified Condition: Serious
[2017-08-29 03:10] LABS: PLATELET COUNT 242 10^3/uL (150-400)
--- NOTE | 2017-08-29 03:14 | CPEKG ---
Heart Rate: 99 RR Interval: 606 P-R Interval: 140 QRSD Interval: 94 QT Interval: 332 QTC Interval: 426 P [place]: 38 QRS [place]: 10 T Wave [place]: 42 EKG Severity - OTHERWISE NORMAL ECG - EKG Impression: SINUS TACHYCARDIA EKG Impression: ATRIAL PREMATURE COMPLEX Electronically Signed By: Ke Rodriguez 29-Aug-2017 06:38:04
[2017-08-29 03:19] LABS: INR 1.44 (0.83-1.16); PROTIME(PATIENT) 17.7 SEC (12.0-15.0)
[2017-08-29] MEDS ORDERED: VANCOMYCIN 2 GM in NS 500 ML IV ONE (03:20)
[2017-08-29] MEDS ORDERED: NS 1,500 ML IV ONE (03:56)
[2017-08-29] MEDS ORDERED: ONDANSETRON 4 MG/2 ML VIAL IVP PRN ×2 (06:29→20:13)
[2017-08-29] MEDS ORDERED: VANCOMYCIN 1.25 GM in D5W 250 ML IV SCH (07:00)
--- NOTE | 2017-08-29 09:22 | GHP ---
[f rep st] HISTORY AND PHYSICAL DATE OF ADMISSION: 08/29/2017 PCP: None listed. SOURCES: The patient provides the history. He is a fair historian. EMR was reviewed from recent hospital stay. Case discussed with ED provider. CHIEF COMPLAINT: Left foot pain and drainage. HISTORY OF PRESENT ILLNESS: This is a pleasant 62-year-old gentleman with past medical history significant for peripheral neuropathy, hyperglycemia without a formal diagnosis of diabetes. Last A1c being 5.9, daily alcohol use, obesity and gout, who presents to the Emergency Department today with complaints of worsening left foot pain. The patient reports that he has had increased drainage and foul smelling discharge from his left foot wound. He has a hospital stay from 08/03/2017 to 08/09/2017 for cellulitis in this left foot wound. The patient was discharged on Augmentin. However, he reports inconsistent compliance with the dosing of the medication on a daily basis. He reports that he has had some chills since his discharge, but no fevers or sweats. He had an MRI on 08/03/2017 that was negative for osteo. Wound cultures from that last hospital stay were significant for growth of MSSA. REVIEW OF SYSTEMS: Negative for fevers or current chills or sweats. SKIN: Left foot wound with redness, swelling. ENT: The patient denies any congestion , sore throat. EYES: No acute changes in vision or ocular pain. CV: No chest pain or palpitations. RESPIRATORY: No shortness of breath or cough. GI : No nausea, vomiting, abdominal pain. No diarrhea. : No dysuria or hematuria. MUSCULOSKELETAL: Left foot pain. The patient also with history of gout. He is complaining of significant tenderness and pain with movement of his left wrist, and to a lesser degree the left elbow. NEURO: The patient with complaints of a mild headache and neuropathy in his lower feet. Remainder ROS negative except as noted above. ALLERGIES: No known drug allergies. HOME MEDICATIONS: As per EMR: Oxy IR 5-10 mg p.o. q.6 hours p.r.n. for pain, Nystatin powder 1 application topically b.i.d., indomethacin 25 mg p.o. t.i.d. with meals, glucosamine chondroitin 2 tabs p.o. daily, Augmentin 875 mg p.o. twice daily. PAST MEDICAL HISTORY: Significant for peripheral neuropathy, hyperglycemia, chronic left foot wound with history of cellulitis, gout, obesity BMI 32, and daily alcohol consumption. PAST SURGICAL HISTORY: Left great toe I and D and amputation, knee surgery, Achilles. FAMILY HISTORY: Significant for brother with diabetes, sister with diabetes. SOCIAL HISTORY: The patient lives with his brother. He quit tobacco use in 1984. He does drink a daily beverage, usually just 1 on a daily basis, has been trying to cut back, and reports his last drink was 4 weeks ago. He denies any illicit drug use. He is employed as a [employer]. CODE STATUS: Discussed with the patient. He desires to be a DNR/DNI. Brother is to be POA proxy if needed. PHYSICAL EXAMINATION: VITAL SIGNS: Upon arrival to the Emergency Department, blood pressure 156/104, heart rate 101, respiratory rate 20, O2 sat 98% on room air, with a temperature 36.7. Current vitals at time of interview, blood pressure 124/72, heart rate 96, respiratory rate 22, O2 sat 92% on 2 L by nasal cannula, afebrile. GENERAL: No acute distress, pleasant, chronically ill appearing gentleman who is lying quietly in bed. He does appear acute on chronically ill, but nontoxic. HEAD: Normocephalic, atraumatic. EYES: Extraocular muscles are intact. Pupils equal, round, decreased reactivity to light bilaterally and symmetric. No scleral icterus or conjunctival injection. ENT: Mucous membranes are moist. The patient with poor dentition. Partial denture in place. NECK: Supple. Trachea midline. CV: Regular rate and rhythm. No murmurs, rubs, or gallops. RESPIRATORY: Lungs are clear to auscultation bilaterally. No wheezes, rales, or rhonchi. ABDOMEN: Obese with positive bowel sounds, soft, nontender to palpation. No rebound, guarding, or masses. : No [place] in place. No suprapubic tenderness to palpation. EXTREMITIES: The patient with 1 to 2+ pitting edema on the left compared to 1+ on the right. Decreased pedal pulses 1+ on the right, and diminished on the left, limited secondary to edema. SKIN: Bilateral lower extremity dry flaking skin. He has excoriations to both lower extremities. The left foot with an approximately 2 cm open wound that is expressible of purulent drainage. The bottom of the 2nd, 3rd, and 4th toes are necrotic, and also with open wounds present there as well. NEURO: Cranial nerves 2-12 intact symmetric bilaterally. The patient is awake, alert, and oriented x3. He is only a fair historian. PSYCH: The patient does appear a little bit anxious, but he is pleasant and cooperative. LABORATORY DATA: Foot x-ray, image reviewed myself, report is still pending. Subcutaneous air is present. Amputation of the 1st digit. No fractures. Calcification of the vasculature is noted. Chest x-ray, image report reviewed myself, negative for any acute findings. EKG, reviewed myself. The patient with sinus tachycardia. No acute ST changes. LABS: WBC 16.85, H and H 14.6 and 42.4, MCV of 96.8, platelet count 242. No bands. PT 17.7, INR is 1.44, PTT is 30.8. VBG lactic acid 2.2, repeat is 1.5. Sodium is 142, potassium 4.6, chloride 100, CO2 is 23, anion gap 19, BUN 70, creatinine is 1.9, GFR 36, glucose 227, calcium 10.7, phosphorus 3.3, total bilirubin is 2.6, conjugated bilirubin is 2.0, ALT is 29, AST is 34, alkaline phosphatase 227, troponin is negative, CRP is 452, total protein 7.8, albumin 3.4, lipase 65, Procalcitonin 9.32. Alcohol levels negative. Blood cultures x2 pending. Wound culture swab is pending. ASSESSMENT AND PLAN: A very pleasant 62-year-old gentleman with history of likely diabetes with peripheral neuropathy, and chronic foot wound, who presents to the Emergency Department today with complaints of worsening foot pain, drainage. 1. Left foot wound. The patient has been inconsistent with his use of antibiotic therapy that was recommended at discharge. Additionally, he has not been adhering to offloading of weight to his left foot. He has new areas of necrosis and wounds on his toes. The patient will be covered with vancomycin and Zosyn at this time. Infectious Disease will be consulted to assist with antibiotic therapy. The patient with a recent MRI of his left foot that was negative for any evidence of osteomyelitis. The patient with evidence of subcutaneous air and will likely benefit from repeat imaging, but will defer to Infectious Disease for their recommendations. He did grow out methicillin- sensitive staphylococcus aureus on previous cultures. Repeat wound culture has been ordered. The patient on antibiotic coverage with vancomycin at this time. 2. Severe sepsis. The patient qualifies with tachycardia episode, tachypnea. He has leukocytosis, elevated lactate, which is now normalized, elevated bilirubin, and acute renal failure. Blood cultures are pending. The patient did receive appropriate IV fluid bolus in the Emergency Department. Blood pressures have been stable. 3. Lactic acidosis. The patient has received appropriate IV fluid therapy bolusing, and we will continue to monitor the patient's basic metabolic profiles. 4. Acute kidney injury, likely prerenal in nature, with history of sepsis and dehydration. The patient has received appropriate bolus therapy, and we will continue with IV fluid supplementation. We will plan to repeat a BMP in the morning. Baseline creatinine is 0.7, today is 1.8. 5. Hyperbilirubinemia, likely elevated in the setting of sepsis. The patient denies any abdominal pain. He has negative Almaguer's sign on exam. He is not jaundiced. We will plan to repeat a comprehensive metabolic panel in the morning. 6. Hypoalbuminemia, likely in setting of acute and the patient's history of chronic illness. We will continue to monitor. 7. Obesity with body max index of 32.1. Mobilize as tolerated while off loading on the left foot. Dietary changes will be recommended. 8. Gout. Continue the patient's [place] with appropriate dosing with pharmacy assistance. We will need to monitor the patient's left wrist for any signs of infection. He has significantly reduced range of motion in the wrist. There is minimal increased warmth, but no erythema and limited swelling in that wrist. 9. Daily alcohol dependence. Ativan will be available p.r.n. The patient reports that he has not had a drink in approximately 4 weeks, and his alcohol level is currently negative. We will monitor closely. 10. Fluid, electrolyte, nutrition. Status post bolus in the emergency department. Continue with IV fluid supplementation. The patient will be n.p.o. pending further evaluation by Wound Care should surgical consultation be required. Electrolytes will be replaced p.r.n. 11. Prophylaxis, sequential compression devices. Holding anticoagulation pending wound care evaluation. 12. Code status is Do not resuscitate/Do not intubate . The patient desires his brother to act as power of commercial attorney if needed. DISPOSITION: The patient has been admitted to inpatient status given failed outpatient therapy, worsening of the patient's wounds, concerns for possible osteomyelitis, and need for IV antibiotics at this time. Anticipate greater than 2 midnight stay. /[id number]/MODL MTDD
--- NOTE | 2017-08-29 12:44 | WOCRNPDOC ---
NATCRLacie Advanced Assessment Note - Skin Integrity Problem, Advanced Assess Left Foot Dressing Type: Kerlix Exudate Amount: Moderate Exudate Characteristic(s): Sanguinopurulent Integumentary Issue Intervention: Dressing Removed Arabella Wound Tissue: Macerated, Calloused Wound Bed Constitution: Red/Huxley - Non Granular Tissue, Bone Site Odor: Slight, Foul Site Measurement - Head-to-Toe Length X Width X Depth (cm): 2x1.5x2 Skin Integrity Problem Comment: Patient with large neuropathic ulcer on plantar foot (medial metatarsal head) that probes to bone. Sanginopurluent drainage. Patient missing great toe and base of second digit is purple with macerated tissue surrounding it. Wound care asked Dr. Fiore to consult podiatry for possible need for surgical intervention for this patient. Wound care will check in next week.
[2017-08-29] MEDS: oxyCODONE IR 5 MG TAB PO PRN ×2 (12:52→23:26)
[2017-08-29] MEDS: PIPERACILLIN/TAZO 3.375 GM/DEX 50 ML IV SCH ×3 (12:55→23:26)
[2017-08-29] MEDS ORDERED: LORazepam 2 MG/ML INJ IVP ONE (14:00)
--- NOTE | 2017-08-29 15:05 | PDMN ---
Medical Necessity Medical necessity: Pt meets IP criteria per MD; est los >2 mn for eval/tx of severe sepsis, worsening of L foot wound w/failed otpt therapy & concerns for possible osteomyelitis; admit for for further workup/monitoring, ID/Wound Care/ Surgery consults, IV abx & cxs; hx peripheral neuropathy, chronic L foot wound w /hx of cellulitis, daily alcohol consumption; obesity; per H&P & order 08/29/17
--- NOTE | 2017-08-29 17:19 | HOSPPROG ---
Hospitalist Progress Note Assessment/Plan: Patient seen and examined. MRI finding reviewed by myself and with readiology. findings discussed with Dr Gutiérrez by phone who will see patient tonight. Objective: Vital Signs Temp Pulse Resp BP Pulse Ox 37.0 C 96 16 143/90 H 94 08/29/17 08:53 08/29/17 15:35 08/29/17 15:35 08/29/17 15:35 08/29/17 15:35 08/28/17 08/29/17 08/30/17 05:59 05:59 05:59 Intake Total 50 Output Total 400 Balance -350 PT 17.7 SEC (12.0-15.0) H 08/29/17 02:55 INR 1.44 (0.83-1.16) H 08/29/17 02:55 ICD10 Worksheet Patient Problems: Problems Problem Status Onset Skin ulcer of left great toe with necrosis of bone Acute Severe sepsis Acute Cellulitis of left foot Acute Diabetic foot ulcer Acute Sepsis Acute Foot abscess Acute Osteomyelitis Acute Dehydration Acute
--- NOTE | 2017-08-29 18:39 | PDANEPAE ---
ANE History of Present Illness L foot 2nd MT amputation ANE Past Medical History - Cardiovascular History Hx Hypertension: No Hx Arrhythmias: No Hx Chest Pain: No Hx Coronary Artery / Peripheral Vascular Disease: No Hx CHF / Valvular Disease: No Hx Palpitations: No - Pulmonary History Hx COPD: No Hx Asthma/Reactive Airway Disease: No Hx Recent Upper Respiratory Infection: No Hx Oxygen in Use at Home: No Hx Sleep Apnea: Yes Sleep Apnea Screening Result - Last Documented: Positive - Neurologic History Hx Cerebrovascular Accident: No Hx Seizures: No Hx Dementia: No Neurologic History Comment: patient reports chronic B numbness in feet - Endocrine History Hx Diabetes: No - Renal History Hx Renal Disorders: No - Liver History Hx Hepatic Disorders: No - Neurological & Psychiatric Hx Hx Neurological and Psychiatric Disorders: No - Cancer History Hx Cancer: Yes Cancer History Comment: BCC in face - Congenital Disorder History Hx Congenital Disorders: No - GI History Hx Gastrointestinal Disorders: No - Chronic Pain History Chronic Pain: Yes (WRISTS AND ELBOWS) - Surgical History Prior Surgeries: tonsillectomy, ACL repair x 3 in L, amputatio of L great toe, L Achilles tendon repair ANE Review of Systems Review of Systems: - Exercise capacity Exercise capacity: unable to assess ANE Patient History - Allergies Allergies/Adverse Reactions: No Known Allergies Allergy (Verified 08/29/17 03:03) - Home Medications Home medications: home medication list seen and reviewed Home Medications: Glucosam/Chondr/Collagn/Hyalur [Glucosamine & Chondroitin Cap] 2 each PO DAILY 08/03/17 [Last Taken 08/03/17] Herbals/Supplements -Info Only 1 ea PO DAILY 08/03/17 [Last Taken Unknown] Indomethacin [Indocin 25 mg (*)] 50 mg PO TID 08/29/17 [Last Taken 08/28/17] - NPO status NPO Since - Liquids (Date): 08/29/17 NPO Since - Liquids (Time): 06:00 NPO Since - Solids (Date): 08/29/17 NPO Since - Solids (Time): 06:00 - Anes Hx Anes Hx: no prior problems - Smoking Hx Smoking Status: Former smoker - Alcohol Use Alcohol Use: Occasionally - Family Anes Hx Family Anes Hx: none ANE Labs/Vital Signs - Labs Result Diagrams: 08/29/17 02:55 08/29/17 02:55 - Vital Signs Blood Pressure: 143/90 Heart Rate: 91 Respiratory Rate: 18 O2 Sat (%): 93 Height: 187.96 cm Weight: 113.398 kg ANE Physical Exam - Airway Neck exam: FROM Mallampati Score: Class 2 Mouth exam: poor dentition - Pulmonary Pulmonary: no respiratory distress - Cardiovascular Cardiovascular: regular rate and rhythym - ASA Status ASA Status: IV, E ANE Anesthesia Plan Anesthesia Plan: general endotracheal anesthesia
[2017-08-29] MEDS ORDERED: POLYMYXIN B SULFATE 500,000 UNIT/10 ML SYR IRR ONE (18:45)
[2017-08-29] MEDS ORDERED: BACITRACIN 50,000 UNITS/10 ML SYR IRR ONE (18:45)
[2017-08-29] MEDS ORDERED: LIDOCAINE 2% 100 MG/5 ML SYR ONE (18:55)
[2017-08-29] MEDS ORDERED: ONDANSETRON 4 MG/2 ML VIAL ONE (18:55)
[2017-08-29] MEDS ORDERED: ROCURONIUM 50 MG/5 ML VIAL ONE (18:55)
[2017-08-29] MEDS ORDERED: PROPOFOL 200 MG/20 ML VIAL ONE (18:55)
[2017-08-29] MEDS ORDERED: DEXAMETHASONE 4 MG/ML VIAL ONE (18:55)
[2017-08-29] MEDS ORDERED: fentaNYL 250 MCG/5 ML INJ ONE (18:55)
[2017-08-29] MEDS ORDERED: BUPIVACAINE 0.25% 30 ML SDV ONE (19:01)
[2017-08-29] MEDS ORDERED: BUPIVACAINE/EPI 0.5% 30 ML SDV ONE (19:38)
[2017-08-29] MEDS ORDERED: SUGAMMADEX SODIUM 200 MG/2 ML VIAL IVP ONE (19:47)
--- NOTE | 2017-08-29 20:07 | POSTOPPROG ---
Post Op Note Date of Operation: 08/29/17 Surgeon: Joshua Rao Model Engine Mechanic: none Anesthesiologist: [facility] Anesthesia: GET(General Endotracheal) Pre-op Diagnosis: Abcess and osteomyelitis left foot Post-op Diagnosis: same Indication: osteomyelitis Procedure: I & D with partial 2nd ray amputation Findings: abcess Inf/Abcess present in the surg proc area at time of surgery?: Yes Depth: Deep Incisional (Fascial) EBL: 50-100 Total fluids administered: 20 cc .25% marcaine plain preop & 10cc .5% marcaine with epi intraop Complications: none Drains: Other (none)
[2017-08-29] MEDS ORDERED: MEPERIDINE 25 MG/ML SYR IVP PRN (20:13)
[2017-08-29] MEDS ORDERED: ACETAMINOPHEN 500 MG TAB PO PRN (20:13)
[2017-08-29] MEDS ORDERED: LABETALOL HCL 5 MG/ML 20 ML MDV IVP PRN (20:13)
[2017-08-29] MEDS ORDERED: DEXAMETHASONE 4 MG/ML VIAL IVP PRN (20:13)
[2017-08-29] MEDS ORDERED: NALOXONE HCL 0.4 MG/ML INJ IVP PRN (20:13)
[2017-08-29] MEDS: MIDAZOLAM 2 MG/2 ML VIAL IVP PRN ×2 (20:42→21:58)
[2017-08-29] MEDS ORDERED: fentaNYL 100 MCG/2 ML INJ ONE (20:43)
[2017-08-29] MEDS: fentaNYL 100 MCG/2 ML INJ IVP PRN ×2 (20:46→20:54)
[2017-08-29] MEDS ORDERED: MIDAZOLAM 2 MG/2 ML VIAL ONE ×2 (21:10→21:54)
[2017-08-29] MEDS: INDOMETHACIN 25 MG CAP PO SCH ×2 (22:00→23:26)
--- NOTE | 2017-08-29 22:13 | POSTANESTH ---
Post Anesthetic Evaluation Cardiovascular Status: Similar to Pre-Op Cond Respiratory Status: Similar to Pre-op Cond. Level of Consciousness/Mental Status: Can Participate in Eval, Moderately Sleepy Pain Control: Adequate, Prn Tx Ordered Nausea/Vomiting Control: Adequate, Prn Tx Ordered Complications Possibly Related to Anesthesia: None Noted
[2017-08-30] MEDS: LORazepam 2 MG/ML INJ IVP PRN ×3 (02:52→22:06)
[2017-08-30 05:09] LABS: PLATELET COUNT 197 10^3/uL (150-400)
[2017-08-30] MEDS: PIPERACILLIN/TAZO 3.375 GM/DEX 50 ML IV SCH ×4 (06:36→23:57)
[2017-08-30] MEDS: INDOMETHACIN 25 MG CAP PO SCH ×4 (09:00→16:20)
--- NOTE | 2017-08-30 09:33 | ASMTCMCOM ---
CM Note CM Note Notes: Patient admitted for cellulitis of L foot - was taken to OR last night for I & D and partial amputation of 2nd toe. He is also showing AMS - per his brother Donato, he is not behaving normally. 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 Per H&P, alcohol may be an issue. PT/OT have been ordered and ID consulted. Case Management will follow for discharge planning. Date Signed: 08/30/2017 09:33 AM Electronically Signed By:Chely Tinajero RN
[2017-08-30] MEDS: ACETAMINOPHEN 325 MG TAB PO PRN (10:30)
--- NOTE | 2017-08-30 10:48 | PCMIDPN ---
Assessment/Plan: Assessment/Plan: 1. Left 2nd toe osteomyelitis with abscess: - Left foot- GS with GNR, GPR, GPC,...cultures in progress. -MRI reviewed. stated below -wbc elevated but slighlty improved. -creatinine improved to 0.9. - Previous foot culture from 08/03-08/09 admit grew out only MSSA -Await path on margin to determine if all osteo removed or if will need prolonged course of Atbx - Continue with Zosyn for broad spectrum coverage for above. -Will d/w Dr. Rao operative findings. Subjective: Patient well known to ID service. Admitted here earlier this month for LLE cellulitis with hemorragic bullae on plantar surface from 08/03-08/09/17. Medical records reviewed from hospital course and OP follow up. Was on course of IV Ancef for 7 days and then transitioned to oral augmentin for [address] Castellano on 08/14/17 per review of records, cellulitis had resolved. Patient possible noncompliant with meds. Denies fevers, chlls in OP. c/o pain and draining of wound over last several days. MRI with extensive cellulitis and suggestion of osteomyelitis of 2nd toe and gas in soft tissue. Taken to OR yesterday by Dr. Rao for I & D and parital 2nd ray amputation. Cx reviewed. Currently on zosyn and given one dose of Vanco. Creatinine up at 1.9 yestrday down to 0.9. He is mildly confused today. Pain meds on hold per RN. c/ o pain involving left foot. denies sob, chest pain. Rest of ROS negative except above. Objective: Vital Signs Temp Pulse Resp BP Pulse Ox 36.4 C 83 18 154/98 H 98 08/30/17 07:21 08/30/17 07:21 08/30/17 07:21 08/30/17 07:21 08/30/17 07:21 Microbiology 08/29/17 20:06 Gram Stain - Final Foot - Tissue Laboratory Results 08/30/17 04:15 08/30/17 04:15 08/29/17 08/30/17 08/31/17 05:59 05:59 05:59 Intake Total 1650 Output Total 500 Balance 1150 ESR 45 MM/HR (0-20) H 08/29/17 02:55 C-Reactive Protein 452.4 mg/L (<10.0) H 08/29/17 02:55 - Physical Exam General Appearance: alert, other (mildly confused.) Respiratory: coarse breath sounds (mild at bases) Cardiac/Chest: regular rate, rhythm Extremities: swelling (left hand, pitting. left leg with mild edema) Abdomen: normal bowel sounds, non-tender, soft, No distended Skin: other (left foot in operative dressing. i did not take down. ) - Time Spent With Patient Time Spent with Patient: greater than 35 minutes Time Spent with Patient: Greater than 35 minutes spent on this patients care, greater than 50% of time spent counseling, educating, and coordinating care regarding the above mentioned plan. ICD10 Worksheet Patient Problems: Problems Problem Status Onset Dehydration Acute Diabetic foot ulcer Acute Foot abscess Acute Osteomyelitis Acute Sepsis Acute Cellulitis of left foot Acute Severe sepsis Acute Skin ulcer of left great toe with necrosis of bone Acute
--- NOTE | 2017-08-30 10:56 | GOP ---
[f rep st] OPERATIVE REPORT DATE OF OPERATION: 08/29/2017 SURGEON: Joshua Rao DPM PHYSICIAN PRACTICE MARKET MANAGER: None. ANESTHESIA: General. ANESTHESIOLOGIST: Drake Madrid MD PREOPERATIVE DIAGNOSIS: 1. Abscess cellulitis left foot. 2. Diabetic ulcer plantar left 2nd metatarsal head. 3. Osteomyelitis left 2nd ray. POSTOPERATIVE DIAGNOSIS: 1. Abscess cellulitis, left foot. 2. Diabetic ulcer plantar left 2nd metatarsal head. 3. Osteomyelitis left 2nd ray. PROCEDURE PERFORMED: 1. Incision and drainage, left foot. 2. Amputation partial 2nd metatarsal and 2nd digit. FINDINGS: SPECIMENS: Bone and soft tissue specimen sent for culture and sensitivity and pathological evaluatio n. ESTIMATED BLOOD LOSS: Less than 100 cc. DESCRIPTION OF PROCEDURE: The patient was taken to the operating room at [facility] d cleared for the intended procedure. General anesthesia was started per the Anesthesia department. Foot was anesthetized in an infiltrative nerve block fashion. Foot was prepped, scrubbed and draped in the usual sterile fashion. At this time, attention was directed to the plantar medial aspect of the left foot at the obvious abscess and ulceration. At this time, a linear incision was made on this plantar medial surface and the incision was carried deep utilizing sharp blunt dissection. At this time, considerable purulent material was expressed from the site. The incision was carried distally where 2 converging semi-elliptical incisions were made around the ulceration site and around the 2nd digit as the abscess had moved up to the plantar aspect of the proximal phalanx. As dissection was b eing carried deeper, the patient was noted to have considerable bleeding. It was decided at this time that a sterile tourniquet would be placed on the area. After exsanguination and elevation, the pneum atic ankle tourniquet was inflated to 250 mmHg. The patient was still noted to have some bleeding mo st likely from venous back flow and it was decided that I would utilize some 0.5% Marcaine with epi o n the area to control the bleeding. This was placed onto a gauze pad and held over the site until bl eeding was controlled at this time. Electrocautery was utilized to cauterize the remaining bleeding blood vessels. At this point, the incisions were carried deeper until the 2nd digit was disarticulat ed at the level of the metatarsophalangeal joint. This would be sent in for culture and sensitivity and pathological evaluation. The 2nd metatarsal head showed obvious erosive changes and it was decid ed that an osteotomy through the 2nd metatarsal head would be necessary. The osteotomy was actually p erformed through the mid shaft and the head and neck were removed and also sent in for culture and se nsitivity and pathological evaluation. Upon completion of this, there was noted also to be a small a bscess formation on the dorsal aspect of the metatarsal head and neck area which was also thoroughly debrided back to healthy tissue at this time. Upon completion of this, the pneumatic ankle tournique t was released and the area was flushed with 3 L of sterile saline and antibiotic rinse in a pulse la vage fashion. Upon completion of this, the area was dressed with Betadine-soaked Adaptics, 4x4s, Ker lix and Coban. The patient was then taken to recovery room, vital signs stable, vascular supply inta ct to the remaining digits on the left foot. HEMOSTASIS: PAT at 225 mmHg. MATERIALS: None. INJECTABLES: 20 cc 0.25% Marcaine plain preoperatively. COMPLICATIONS: None. /[id number]/MODL
--- NOTE | 2017-08-30 11:31 | SOAPPROG ---
SOAP Progress Note Assessment/Plan: Assessment:status post I & D with partial second ray amputation left POD # 1 Plan:Dressing change with Dr. Fiore present was performed. Flushed with sterile saline. Ordered wound consult for wound vac. re-eval tomorrow. 08/30/17 11:28 Subjective: Patient is seen in bed. He is still showing signs of mental alerted status. He denies pain. Objective: Bleeding is under control after removal of the dressing. Foot is still showing edema and slightly decreased erythema. No evidence of progression of the cellulitis. Tissue is healthy is appearance and not showing any devitalized tissue requiring further debridement at this point. No purulent drainage can be expressed. Vital Signs Temp Pulse Resp BP Pulse Ox 36.4 C 83 18 154/98 H 98 08/30/17 07:21 08/30/17 07:21 08/30/17 07:21 08/30/17 07:21 08/30/17 07:21 Microbiology 08/29/17 20:06 Gram Stain - Final Foot - Tissue Laboratory Results 08/30/17 04:15 08/30/17 04:15 08/29/17 08/30/17 08/31/17 05:59 05:59 05:59 Intake Total 1650 Output Total 500 Balance 1150 PT 17.7 SEC (12.0-15.0) H 08/29/17 02:55 INR 1.44 (0.83-1.16) H 08/29/17 02:55 ICD10 Worksheet Patient Problems: Problems Problem Status Onset Dehydration Acute Diabetic foot ulcer Acute Foot abscess Acute Osteomyelitis Acute Sepsis Acute Cellulitis of left foot Acute Severe sepsis Acute Skin ulcer of left great toe with necrosis of bone Acute
--- NOTE | 2017-08-30 11:31 | HOSPPROG ---
Hospitalist Progress Note Assessment/Plan: 62 yo male admitted with left foot cellulitis and abscess; now s/p amputation by podiatry. Patient continues to have c/o pain all over, especially in left arm and wrist. Also his behavior mental status seems slightly abnormal although he is oriented times 2-3 and responsive. White count was elevated on admission and he met sepsis criteria. Today his interactions seem odd and he is oriented times to afebrile, continues to have a leukocytosis on Zosyn. Podiatry we will place a wound VAC. An ultrasound of the left upper extremity for DVT is ordered along with x-rays of his left wrist due to swelling. Patient is new to me today -left foot abscess and cellulitis status post amputation by Podiatry on 08/29, wound VAC being placed today and doing well -sepsis with leukocytosis fever and elevated lactic acid. Cultures are pending -acute encephalopathy: This may be secondary to anesthesia and pain medication. abnormal interactive behavior possibly at his baseline but may represent an acute encephalopathy. I will discuss his baseline behavior and interactions with his brother. -noncompliance is reported in the EMR. Case discussed with she can be active time 40 min Subjective: Patient's interaction seems odd. He is reported to have been somnolent this morning but and perhaps more awake this may be resent present post anesthesia and perhaps narcotic medication. Objective: Vital Signs Temp Pulse Resp BP Pulse Ox 36.4 C 83 18 154/98 H 98 08/30/17 07:21 08/30/17 07:21 08/30/17 07:21 08/30/17 07:21 08/30/17 07:21 Microbiology 08/29/17 20:06 Gram Stain - Final Foot - Tissue Laboratory Results 08/30/17 04:15 08/30/17 04:15 08/29/17 08/30/17 08/31/17 05:59 05:59 05:59 Intake Total 1650 Output Total 500 Balance 1150 PT 17.7 SEC (12.0-15.0) H 08/29/17 02:55 INR 1.44 (0.83-1.16) H 08/29/17 02:55 - Time Spent With Patient Time Spent with Patient: greater than 35 minutes Time Spent with Patient: Greater than 35 minutes spent on this patients care, greater than 50% of time spent counseling, educating, and coordinating care regarding the above mentioned plan. - Pending Discharge Pending Discharge Within 24 Hours: No Pending Discharge Within 48 Hours: No - Physical Exam Constitutional: no apparent distress, chronically ill appearing Eyes: PERRL, icteric sclera Ears, Nose, Mouth, Throat: moist mucous membranes, hearing normal Cardiovascular: regular rate and rhythym, no murmur, rub, or gallop Respiratory: no respiratory distress, no rales or rhonchi Gastrointestinal: normoactive bowel sounds, soft, non-tender abdomen Genitourinary: no bladder fullness Skin: warm Musculoskeletal: other (Left lower extremity shows status post changes of surgery and amputation. Left upper extremity is swollen and tender at the wrist and reported to be tender at the left elbow but there is no swelling about that joint. There is no cellulitis noted) Neurologic: other (Oriented x2 and not clear about the recent holiday he thought it was new year's not [place]) Psychiatric: encephalopathic ICD10 Worksheet Patient Problems: Problems Problem Status Onset Dehydration Acute Diabetic foot ulcer Acute Foot abscess Acute Osteomyelitis Acute Sepsis Acute Cellulitis of left foot Acute Severe sepsis Acute Skin ulcer of left great toe with necrosis of bone Acute
[2017-08-30] MEDS ORDERED: oxyCODONE IR 5 MG TAB PO PRN (11:33)
[2017-08-30] MEDS ORDERED: NALOXONE HCL 0.4 MG/ML INJ ONE (16:24)
[2017-08-30] MEDS ORDERED: NALOXONE HCL 0.4 MG/ML INJ IVP ONE (16:30)
[2017-08-30] MEDS ORDERED: LORazepam 2 MG/ML INJ IVP ONE ×2 (16:36→17:07)
[2017-08-30] MEDS ORDERED: HYDROmorphone HCL/NS/PF 0.4 MG/2 ML SYR ONE (16:39)
[2017-08-30] MEDS: HYDROmorphONE/DILAUDID 1 MG/ML INJ IVP PRN ×2 (16:45→22:05)
[2017-08-30] MEDS ORDERED: KETOROLAC 30 MG/1 ML SDV ONE (16:45)
[2017-08-30] MEDS ORDERED: IOPAMIDOL (ISOVUE-300) 100 ML BTL ONE (16:49)
[2017-08-30] MEDS: KETOROLAC 30 MG/1 ML SDV IVP PRN ×2 (16:57→23:11)
[2017-08-30 18:31] LABS: PLATELET COUNT 200 10^3/uL (150-400)
[2017-08-30] MEDS ORDERED: D5W NS 1,000 ML IV SCH (20:30)
[2017-08-30] MEDS: VANCOMYCIN 1.5 GM in D5W 250 ML IV SCH (20:35)
--- NOTE | 2017-08-30 20:58 | HOSPPROG ---
Hospitalist Progress Note Assessment/Plan: Additional 55 min of critical care time spent addressing the following: -responded to the stat team call for the patient moving what appeared to be rhythmically while seated upright in the chair, apparently not responding to verbal commands, actively moaning in what appeared to be pain but with eyes focused upward and not directable -discussed his case with attending physician Dr. Davy Fiore who also responded to the stat call, as well as the ICU charge nurse, HUNTER, floor nurse -patient's heart rate was between 110-120, his systolic blood pressure was 170, he was afebrile, and his physical exam revealed edematous left hand, from the fingers proximal to the wrist, eliciting substantial pain with any flexion or extension of the wrist, any palpation of the hand, regular tachycardic heart rhythm, clear lungs, postsurgical left foot without any streaking erythema, muscular rigidity in the right upper extremity particularly to extension, non focusing pupils, reactive to light, tacky mucous membranes, patient was not responsive to verbal stimuli but he was very responsive to painful stimuli particular in the left upper extremity, he seemed to have myoclonus noted in his right upper extremity -1 mg of IV Ativan was administered and the patient's overall disposition appeared to calm somewhat, it was noted that the patient did receive oxycodone earlier in the day, and we administered 1 dose of IV Narcan, which did seem to result in the patient experiencing increased level of pain, increased moaning, increased agitation, but no improved mental status or directable disposition -is not entirely clear what has caused the patient's worsening acute encephalopathy, as the etiology could be worsening infection verses seizure versus medication effect -we transfer the patient to the ICU where he can be closely monitored for any possible seizure, and will place him on seizure precautions -head CT obtained after requiring additional sedation with 3 total mg of Ativan as well as 30 mg of IV Toradol, no evidence of intracranial hemorrhage -left upper extremity CT with IV contrast demonstrates soft tissue edema but no overt abscess or osteomyelitis, patient unable to remain still long enough for an MRI -reviewed patient's labs, given that his wound culture was polymicrobial with Pseudomonas, Gram-negative rods, undifferentiated staph aureus, will add vancomycin to the patient's Pseudomonas dosed Zosyn -patient's hypernatremia has improved, his renal function remained stable -reassess the patient with his nurse in the intensive care unit, his systolic blood pressure is now 90, his heart rate is less than 70, he appears to be calm and is not demonstrating any uncontrolled muscular movements but he has not been safe for any oral intake -will make NPO, with WORKERS COMPENSATION ADMINISTRATOR eval -will provide him with D5 normal saline overnight, please call if systolic blood pressures are in the 80s, as we will get a stat lactic acid, bolus him with IV normal saline -will get Neurology consultation in a.m. to further assess whether the patient requires ongoing workup for possible seizure disorder with EEG monitoring, possible AEDs Objective: Vital Signs Temp Pulse Resp BP Pulse Ox 36.9 C 63 20 98/59 L 98 08/30/17 20:00 08/30/17 20:00 08/30/17 20:00 08/30/17 20:00 08/30/17 20:00 Microbiology 08/29/17 20:06 Gram Stain - Final Foot - Tissue 08/29/17 20:06 Mycobacterial Smear (RAGHU) - Final Foot - Tissue Laboratory Results 08/30/17 18:06 08/30/17 18:06 08/29/17 08/30/17 08/31/17 05:59 05:59 05:59 Intake Total 1650 100 Output Total 500 700 Balance 1150 -600 PT 17.7 SEC (12.0-15.0) H 08/29/17 02:55 INR 1.44 (0.83-1.16) H 08/29/17 02:55 ICD10 Worksheet Patient Problems: Problems Problem Status Onset Skin ulcer of left great toe with necrosis of bone Acute Severe sepsis Acute Cellulitis of left foot Acute Diabetic foot ulcer Acute Sepsis Acute Foot abscess Acute Osteomyelitis Acute Dehydration Acute
[2017-08-30] MEDS ORDERED: NALOXONE HCL 0.4 MG/ML INJ IVP PRN (22:43)
[2017-08-30] MEDS ORDERED: METHOCARBAMOL 1,000 MG in NS 50 ML IV SCH (22:45)
[2017-08-30] MEDS: METHOCARBAMOL 1,000 MG in NS 50 ML IV SCH (23:17)
[2017-08-31] MEDS: HYDROmorphONE/DILAUDID 1 MG/ML INJ IVP PRN ×5 (00:03→08:27)
[2017-08-31] MEDS: LORazepam 2 MG/ML INJ IVP PRN ×3 (04:31→19:34)
[2017-08-31] MEDS: KETOROLAC 30 MG/1 ML SDV IVP PRN (04:31)
[2017-08-31 04:51] LABS: PLATELET COUNT 192 10^3/uL (150-400)
[2017-08-31] MEDS: PIPERACILLIN/TAZO 3.375 GM/DEX 50 ML IV SCH ×3 (05:37→17:35)
[2017-08-31] MEDS: METHOCARBAMOL 1,000 MG in NS 50 ML IV SCH ×3 (07:47→23:24)
[2017-08-31] MEDS: VANCOMYCIN 1.5 GM in D5W 250 ML IV SCH ×2 (09:09→20:35)
--- NOTE | 2017-08-31 10:23 | SOAPPROG ---
SOAP Progress Note Assessment/Plan: Assessment:status post I & D with partial second ray amputation left POD # 2 Plan:Dressing change was performed after the area was flushed with sterile saline. Saw no reason for further debridement or amputation at this point. re- eval tomorrow. 08/30/17 11:28 08/31/17 10:14 Subjective: Patient is seen in bed and still has an altered mental status Objective: Vital Signs Temp Pulse Resp BP Pulse Ox 36.9 C 74 15 117/71 100 08/31/17 04:00 08/31/17 06:00 08/31/17 06:00 08/31/17 06:00 08/31/17 06:00 Microbiology 08/29/17 10:15 Urine Culture - Final Urine,Clean Catch 08/29/17 20:06 Gram Stain - Final Foot - Tissue 08/29/17 20:06 Mycobacterial Smear (RAGHU) - Final Foot - Tissue Laboratory Results 08/31/17 04:40 08/31/17 04:40 08/30/17 08/31/17 09/01/17 05:59 05:59 05:59 Intake Total 1650 1132 Output Total 500 700 Balance 1150 432 PT 17.7 SEC (12.0-15.0) H 08/29/17 02:55 INR 1.44 (0.83-1.16) H 08/29/17 02:55 After removal of the dressing, the amputation site has a good granulation base. There is no purulent drainage. Capillary refill to the remaining digits is intact. There continues to be some scabbing on the dorsal lateral aspect of the foot without any fluctuance upon palpation. There is no ascending cellulitis. ICD10 Worksheet Patient Problems: Problems Problem Status Onset Dehydration Acute Diabetic foot ulcer Acute Foot abscess Acute Osteomyelitis Acute Sepsis Acute Cellulitis of left foot Acute Severe sepsis Acute Skin ulcer of left great toe with necrosis of bone Acute
--- NOTE | 2017-08-31 10:45 | GCON ---
[f rep st] CONSULTATION NEUROLOGIC CONSULTATION REFERRING PHYSICIAN: Dr. Walden HISTORY: The patient is a 62-year-old gentleman who I am asked to see in neurologic consultation reg arding altered mental state and possible seizure activity. History is obtained from review of the il dical records. Although the patient can briefly state a few words, he is not reliable for any meanin aracelyul history currently. Also got information directly from his nurse. The patient came to the emerg ency room on August 29. At that time, there was complaint of left foot pain. He had a bad smell t o his foot and worsening drainage. There is a known history of diabetic neuropathy. He had been in the hospital for 6 days earlier in August with left foot cellulitis and had an incision and drainag e. He had Staph aureus. He was sent out on Augmentin. Even at that time, he was not a very good hi storian for details. From his perception, he was talking about pain and feeling as if his whole body had gout. It is mentioned that he has a history of daily alcohol use. In the emergency department, he was docu mented as being alert and oriented x3, moving all extremities equally and no focal neurologic deficit s and normal speech and normal mood and affect. He was treated with IV antibiotics. He was admitted to the hospital. When he came in, his white count was 16,000, normal hematocrit; BUN of 70, creatin ine of 1.9, and a sugar of 227. He was subsequently admitted to the hospital by Dr. Delia Hilario. H hailey had had MRI in early August that did not specifically show osteomyelitis. There was methicillin sensitive Staph aureus grown. The patient cannot specifically give us any details about exacerbating or alleviating factors and is not specifically complaining of other symptoms. At the time of that e valuation, he was again documented to be oriented x3. He was felt to be a little bit anxious, but wa s pleasant and cooperative. There were new areas of necrosis documented. He was felt to have sepsis syndrome. He was then admit vida to the hospital on the IV antibiotics. Since admission, he has also had another MRI of his lower extremity. That shows extensive cellulitis of the left foot with osteomyelitis in the 2nd metatarsa l. The report says possible areas of necrotizing fasciitis and extensive cellulitis. He was seen by Dr. Rao. He had surgery on the . The indication was sepsis, osteomyelitis. He had absce ss and had incision and drainage with amputation. He was seen by Infectious Disease service. He was continued on antibiotics. In the progress note from August 30, he was having some ongoing altered mental state. Yesterday, it was felt that he might be having seizure activity where he would go int o states of relatively decreased interaction and staring. His current nurse says that last evening h e would go into what seemed like spasms related to pain and the nurse did not feel that things looked particularly like seizure activity where he might have some muscle jerks or body twitches, but that detail was a little hard to know for sure. Dr. Walden saw the patient last evening and gives a very detailed description. He responded to a stat team call and there was movement rhythmically while he was seated up in the chair, not responding to verbal commands, actively moaning and eyes focused upwa rd, but not really directable. He was noted to have substantial pain in the left hand where there is edema. He had some rigidity in the upper extremities, particularly in extension, not very focused. There was reactivity of the pupils. He was not responding to verbal stimuli. He was reported to blanc ve some myoclonus in the right upper extremity. He got 1 mg of lorazepam. He had received oxycodone earlier. He got Narcan, which did not change his level of interaction significantly. He was transf erred to the ICU for uncertainty as to what precisely was happening but differential consideration to include seizure activity. The patient's detailed history is limited by his inability to communicate all of that, but he is note d to have peripheral neuropathy, gout, obesity, daily alcohol consumption. Diabetes in the family. He apparently lives with his brother. He quit smoking in 1984. Apparently, he is drinking about 1 d rink per day, trying to cut back and reportedly did not have a drink for 4 days prior to admission. No drug use. 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 PHYSICAL EXAMINATION: VITAL SIGNS: Temperature 36.9, blood pressure 117/71, pulse of 74, respiratio ns 15. GENERAL: He is overweight, lying in the bed in the position. NECK: Supple, with no b ruits or masses. CARDIAC: Regular rate and rhythm. EXTREMITIES: His left hand is edematous and ex tremely tender to touch but not particularly red. He has bandages on his foot where he had the I and D and amputation of the toe. NEUROLOGIC: He is lethargic, but when I spoke his name, he promptly o pened his eyes and respond to me. He could tell me his first name. He could follow commands in all the extremities. He tends to drift quickly back to lethargic state, but can be aroused with light st imulation, rubbing his chest or saying his name loudly. He does not maintain alertness or concentrat ion or attention. I cannot assess his general cognitive skills with this level of encephalopathy. Nel hart is not agitated and does not have any focal motor activity or repetitive eye movements or deviation of the eyes. The pupils are pinpoint with limited reactivity, consistent with pharmacologic effects . The extraocular movements seem to be intact and are conjugate when he does move though roving eye movements are present with his lethargy, which is a normal physiologic process. The facial movements are symmetric when he grimaces. He opens his mouth, and he will protrude his tongue for me. He see ms to hear okay. The motor exam is unreliable for great detail, but he is moving all the extremities . When I try to touch the left hand that caused pain, so I did not push on that significantly. Refl exes hypoactive. He clearly had some decreased distal sensation in the lower extremities, but detail s not possible right now. He localizes to touch, however, in all the extremities. I have reviewed his extensive laboratory studies. He still has an elevated white blood cell count. Sedimentation rate 45. INR of 1.4. Serum chemistries notable for relative hyperglycemia. Sodium 14 7, BUN is now 46, creatinine 1.0, albumin 2.2. Tox screen was negative for alcohol when he came in. He has had head CT yesterday afternoon, which I have reviewed. That study does not show any evidenc e of stroke or hemorrhage and really appears within normal range. IMPRESSION: The patient has a complex set of multiple medical problems with sepsis and focal abscess and osteomyelitis in the left foot with subsequent partial amputation of toes and had ongoing lethar gy in the last 24 hours with episodes that could represent epileptic or nonepileptic activity. There were aspects of focality in the right upper extremity, but we do not see any evidence of focal findi ngs on the current examination and head CT is negative for any evidence of an abscess or other intrac ranial process. As noted from the stat team call, it really is not clear that these were seizures or not. At this point, I am not sure either, but would simply monitor based on what I am seeing yamilet bell where I do not see clear-cut seizure activity and it is very encouraging that he is able to awake n enough to follow commands, answer some basic questions and communicate with me, although he is stil l encephalopathic probably on a toxic metabolic basis. I do not think he has meningitis so I do not feel lumbar puncture is needed. I do not think we are missing subclinical seizures now, so stat EEG or transfer to an epilepsy center is not necessary. Please let me know if other seizure type activit y is witnessed, and we could always consider putting him on anticonvulsant therapy. The main focus f or now is management of his infection and stabilization and trying to control pain. If he does need more pain control, it seems reasonable to use medicine as needed so that he will be comfortable. We certainly want to keep him as alert as we can safely to help assess mental state, but right now I do not think we are missing an acute intracranial process. The total unit time was 70 minutes for this highly complex case. /[id number]/MODL
[2017-08-31] MEDS ORDERED: 1/2 NS 1,000 ML IV SCH (11:15)
[2017-08-31] MEDS: HYDROmorphone HCL/NS/PF 0.4 MG/2 ML SYR IVP PRN ×5 (12:50→21:52)
[2017-08-31] MEDS ORDERED: DEXMEDETOMIDINE HCL 400 MCG in NS 100 ML IV SCH (13:00)
--- NOTE | 2017-08-31 13:12 | PCMIDPN ---
Assessment/Plan: Assessment/Plan: 1. Left 2nd toe osteomyelitis with abscess: - Left foot- GS with GNR, GPR, GPC,...PsA (pansensitive), Cornyebacterium striatum, -Tissue foot cx: with PsA, Staph aureus and Group C/G strep. -MRI reviewed. stated below -wbc elevated but slighlty improved. -creatinine improved to 0.9. - Previous foot culture from 08/03-08/09 admit grew out only MSSA -Await path on margin to determine if all osteo removed or if will need prolonged course of Atbx - Continue with Zosyn plus Vanco for now while cultures still maturing. increase zosyn to 4.5gm q6 for PsA dosing. - check vanco trough. -Discussed operative findings with Dr. Rao. he tells me he saw no evidence of necrotizing fascitis. amputated 2nd toe and half of 2nd MT head. did I & D abscess. he tells me that path was send on margin. - Per Dr. Rao, may need further debridement 2nd MT at some point. Meds zosyn 3.375mg q6 vanco 1.5gm q12- Subjective: afebrile. events of yesterday noted. encephalopathic, shouting, moving all around. Objective: Vital Signs Temp Pulse Resp BP Pulse Ox 36.9 C 74 15 117/71 100 08/31/17 04:00 08/31/17 06:00 08/31/17 06:00 08/31/17 06:00 08/31/17 06:00 Microbiology 08/29/17 10:15 Urine Culture - Final Urine,Clean Catch 08/29/17 20:06 Gram Stain - Final Foot - Tissue 08/29/17 20:06 Mycobacterial Smear (RAGHU) - Final Foot - Tissue Laboratory Results 08/31/17 04:40 08/31/17 04:40 08/30/17 08/31/17 09/01/17 05:59 05:59 05:59 Intake Total 1650 1132 Output Total 500 700 Balance 1150 432 ESR 45 MM/HR (0-20) H 08/29/17 02:55 C-Reactive Protein 452.4 mg/L (<10.0) H 08/29/17 02:55 - Physical Exam General Appearance: other (shouting and writhing around) Respiratory: lungs clear Cardiac/Chest: regular rate, rhythm Extremities: other (left foot dressed) Abdomen: normal bowel sounds, non-tender, soft, No distended Skin: other (unable to exam foot at this time, given pateint uncooperative.) ICD10 Worksheet Patient Problems: Problems Problem Status Onset Dehydration Acute Diabetic foot ulcer Acute Foot abscess Acute Osteomyelitis Acute Sepsis Acute Cellulitis of left foot Acute Severe sepsis Acute Skin ulcer of left great toe with necrosis of bone Acute
[2017-08-31] MEDS ORDERED: methylPREDNISolone SOD SUCC 40 MG/ML VIAL IVP SCH (14:00)
--- NOTE | 2017-08-31 15:21 | GCON ---
[f rep st] CONSULTATION CRITICAL CARE CONSULTATION DATE OF CONSULTATION: 08/31/2017 HISTORY OF PRESENT ILLNESS: The patient is a 62-year-old male with a history of obesity and chronic osteomyelitis and cellulitis of his left lower extremity. He is not known to be a diabetic and has a recent hemoglobin A1c of 5.9. He was admitted to [facility] from 08/03 to 08/09/2017 with cellulitis and r equired incision and drainage by Podiatry of his foot. He apparently had a swollen knee at the time, and an arthrocentesis did reveal urate crystals, but I am not aware of any gout treatment at that ti me. In any case, he presented on August 29 with worsening foot pain after being treated with outpa tient antibiotics. He had admitted to noncompliance at the time of admission and was again evaluated by Podiatry, and on August 30, underwent metatarsal amputations, debridements, and cultures. Faustino rodney, later that same day, he was found somewhat unresponsive, moaning in pain, with some irregular mo vement that was very unclear of the source, although seizure and myoclonus were contemplated. He at the same time was complaining of left hand pain, which was swollen at the time, and he was given Ativ an for pain control as well as Narcan, which increased his responsiveness. He was subsequently moved to the intensive care unit for unclear reasons, other than closer monitoring. An ultrasound of his arm revealed no deep vein thrombosis. A CT of his head was negative, as was a CT of his arm. A neur ological evaluation today was unremarkable. In addition, his foot was flushed by Podiatry. His ment al status has continued to wax and wane here in the intensive care unit, though he has not required a ny ventilator support, and Neurology did not feel that he had evidence of meningitis and did not requ frederic an LP. REVIEW OF SYSTEMS: Otherwise negative. PAST MEDICAL HISTORY: Includes: 1. Daily alcohol intake. It should be noted, however, that he had a prolonged hospital stay in 2016 where no withdrawal was found, and he did have a toe amputation at that time. 2. Hyperglycemia without diabetes. 3. Cellulitis. 4. Osteomyelitis of his left foot in 2016 and currently. 5. Peripheral neuropathy of uncertain cause. 6. Gout, as determined by crystal deposition in his knee from his last admission. 7. Obesity. PAST SURGICAL HISTORY: Includes remote knee surgery, Achilles tendon repair, and left toe amputation . FAMILY HISTORY: Includes diabetes. SOCIAL HISTORY: He does have a remote history of smoking and some daily alcohol but no alcohol withd rawals. CURRENT MEDICATIONS: Include Tylenol, Toradol, Ativan, Robaxin, Zofran, Zosyn, half-normal saline, a nd vancomycin. PHYSICAL EXAM: GENERAL: It should be noted that his exam has waxed and waned throughout his [facility] stay. At the time of my evaluation earlier this morning, he was fairly somnolent but did answer qu estions appropriately and followed simple commands, morbidly obese, and lying in an awkward position in the bed. HEENT: Once he was aroused and awake, his pupils appeared to be equally round and react jenni to light, nonicteric, noninjected, and not pinpoint. Mucous membranes are moist without erythema or exudate. NECK: Supple, without adenopathy or jugular vein distention. LUNGS: Breath sounds we re clear to auscultation bilaterally without wheezes or rales. HEART: Regular rate and rhythm witho ut obvious murmur. ABDOMEN: Soft, nontender, nondistended, without hepatosplenomegaly and normoacti ve bowel tones. EXTREMITIES: No clubbing, cyanosis, or edema. Dressing on his foot was not removed but was clean and dry. His neuro exam was nonfocal, including cranial nerves, deep tendon reflexes. Skin was warm and dry without evidence of rash or diaphoresis. OBJECTIVE DATA: Includes a white count of 16.1 which is climbing from of 14 on August 30, hematocr it 32, platelets of 192. His sodium is 147, potassium 4.7, chloride 114, bicarb 24, BUN 46, creatini ne 1.0, glucose 193. LFTs were normal. Alkaline phosphatase was 161, down to 121. Albumin of 2.2. Urinalysis is unremarkable. Tissue cultures from August 29 show Staph aureus, pseudomonas, gram-p ositive rods, but blood cultures from yesterday are currently negative. ASSESSMENT/PLAN: 1. Osteomyelitis. Final path results are pending at this time. Infectious Disease has been followi ng in addition to Podiatry. He is being currently treated with Zosyn and vancomycin and underwent th e amputation as described above. Increasing white count is mildly concerning, though he did just hav e surgery yesterday and has been afebrile, so I think cautious waiting for that is appropriate at thi s time. 2. Pain control. This has been a very difficult issue. Earlier today, we tried withholding his Dil audid so that we could better assess his mental status, but this resulted in substantial pain of whic h the patient was very intolerant. Subsequently, I started a Precedex drip and resumed his Dilaudid. The Robaxin may have some value for him, though it is probably of limited value in this situation. Ativan may also be adjunctive, but it may be clouding the picture. I would like to change his Torad ol to a scheduled dose, rather than p.r.n., in an effort to improve his pain control. I do not think this is very likely to be gout. This is nonfocal in terms of any of his joints, though his hand is somewhat swollen, presumably from IV infiltration. There is no evidence whatsoever to point to an ep idural abscess at this point. We will look at a uric acid level, give him warm compresses for his blanc nd. We may consider a tap there as well, since it is seemingly out of proportion. 3. Peripheral neuropathy. This could be related to underlying alcoholism. It does not seem to be r elated to diabetes. B12 deficiency could be a problem, though his MCV is normal. Connective tissue disease also comes to mind, and it is feasible that his ongoing feet problems are related to a Raynau d phenomenon, though I did not find evidence of that in his chart review. /[id number]/MODL
[2017-08-31] MEDS ORDERED: KETAMINE 100 MG/10 ML SYR IVP PRN (16:12)
[2017-08-31] MEDS ORDERED: KETAMINE 200 MG/20 ML VIAL IVP PRN (16:30)
--- NOTE | 2017-08-31 17:11 | HOSPPROG ---
Hospitalist Progress Note Assessment/Plan: 62 yo male admitted with left foot cellulitis and abscess; now s/p amputation by podiatry. Patient continues to have c/o pain all over, especially in left arm and wrist. Also his behavior mental status seems slightly abnormal although he is oriented times 2-3 and responsive. White count was elevated on admission and he met sepsis criteria. Today the patient continues to have pain requires high doses of Dilaudid which distorts his mental status and makes him difficult to evaluate. The cause of the gentleman's continue pain an abnormal mental status remained unclear. With a consult with intensive care medicine we have decided on the use of regular doses of Toradol, Dilaudid, and Precedex. -possible daily alcohol use and possible alcohol withdrawal or possible other drug withdrawal present tear -left foot abscess and cellulitis status post amputation by Podiatry on 08/29, wound VAC being placed today and doing well -sepsis with leukocytosis fever and elevated lactic acid. Cultures are pending -acute encephalopathy: This may be secondary to anesthesia and pain medication. abnormal interactive behavior possibly at his baseline but may represent an acute encephalopathy. I will discuss his baseline behavior and interactions with his brother. The brother reports this is not his usual interactions. -noncompliance is reported in the EMR. Case discussed with intensive care medicine: Time 65 min of critical care time Subjective: Inappropriate and not appropriately responsive he is oriented x1 at best. His mental status waxes and wanes as does his orientation. Objective: Vital Signs Temp Pulse Resp BP Pulse Ox 36.9 C 74 15 117/71 100 08/31/17 04:00 08/31/17 06:00 08/31/17 06:00 08/31/17 06:00 08/31/17 06:00 Microbiology 08/29/17 20:06 Gram Stain - Final Foot - Tissue 08/29/17 10:15 Urine Culture - Final Urine,Clean Catch 08/29/17 20:06 Mycobacterial Smear (RAGHU) - Final Foot - Tissue Laboratory Results 08/31/17 04:40 08/31/17 04:40 08/30/17 08/31/17 09/01/17 05:59 05:59 05:59 Intake Total 1650 1132 Output Total 500 700 Balance 1150 432 PT 17.7 SEC (12.0-15.0) H 08/29/17 02:55 INR 1.44 (0.83-1.16) H 08/29/17 02:55 - Time Spent With Patient Time Spent with Patient: greater than 35 minutes Time Spent with Patient: Greater than 35 minutes spent on this patients care, greater than 50% of time spent counseling, educating, and coordinating care regarding the above mentioned plan. - Pending Discharge Pending Discharge Within 24 Hours: No Pending Discharge Within 48 Hours: No - Physical Exam Constitutional: chronically ill appearing, other (Appears to be in pain but he cannot be localized as to its source) Eyes: PERRL, anicteric sclera Ears, Nose, Mouth, Throat: moist mucous membranes Cardiovascular: regular rate and rhythym Respiratory: no respiratory distress, no rales or rhonchi Gastrointestinal: normoactive bowel sounds, soft, non-tender abdomen, no palpable masses Genitourinary: no bladder fullness Skin: warm Musculoskeletal: generalized weakness, other (Left foot 2nd ray amputation with dressing in place. I viewed the wound with Podiatry and it is clean and doing well podiatry had planned to place a wound VAC today.) ICD10 Worksheet Patient Problems: Problems Problem Status Onset Skin ulcer of left great toe with necrosis of bone Acute Severe sepsis Acute Cellulitis of left foot Acute Diabetic foot ulcer Acute Sepsis Acute Foot abscess Acute Osteomyelitis Acute Dehydration Acute
[2017-08-31] MEDS: KETOROLAC 15 MG/1 ML SDV IVP SCH ×2 (17:14→23:20)
[2017-08-31] MEDS: DEXMEDETOMIDINE IN 0.9 % NACL 50 ML IV SCH ×2 (17:14→21:39)
[2017-08-31] MEDS ORDERED: KETAMINE 500 MG in D5W 500 ML IV SCH (17:15)
[2017-08-31] MEDS: PIPERACILLIN/TAZO 4.5 GM/DEX 100 ML IV SCH ×2 (17:36→23:20)
[2017-09-01] MEDS: HYDROmorphone HCL/NS/PF 0.4 MG/2 ML SYR IVP PRN ×3 (00:20→04:35)
[2017-09-01] MEDS: DEXMEDETOMIDINE IN 0.9 % NACL 50 ML IV SCH ×3 (01:37→06:20)
[2017-09-01] MEDS: LORazepam 2 MG/ML INJ IVP PRN (03:30)
[2017-09-01 04:10] LABS: PLATELET COUNT 197 10^3/uL (150-400)
[2017-09-01] MEDS: PIPERACILLIN/TAZO 4.5 GM/DEX 100 ML IV SCH ×4 (05:25→23:08)
[2017-09-01] MEDS: KETOROLAC 15 MG/1 ML SDV IVP SCH ×4 (05:25→23:01)
[2017-09-01] MEDS: METHOCARBAMOL 1,000 MG in NS 50 ML IV SCH (06:20)
[2017-09-01] MEDS: VANCOMYCIN 1.5 GM in D5W 250 ML IV SCH (09:00)
--- NOTE | 2017-09-01 09:03 | ECHO ---
[email or web address] [address] Main: [phone] Fax: [email or web address] Echocardiogram Name: CHRISTIN ROSEN MR#: [id number] Study Date: 09/01/2017 Study Time: 07:59 AM Date of : 1955 Age: 62 year(s) Height: 188 cm (74 in.) Weight: 111.58 kg (246 lb.) BSA: 2.37 m2 Gender: Male Examination: Echo Indication: question endocarditis Image Quality: Contrast: Requested by: Edu Duaret BP: 153 mmHg/83 mmHg Heart Rate: Rhythm: Indication: question endocarditis Procedure Staff Electrical Power Station Technician: Marissa Arrington Reading Physician: Faiben Dennison Requesting Provider: Conclusions: Normal size left ventricle. No LV hypertrophy. Normal global systolic LV function. The ejection fraction is estimated to be 65-70 %. No regional wall motion abnormality. Normal size right ventricle. The left atrium is normal in size. Mild mitral valve leaflet calcification is present. Mild to moderate mitral regurgitation. The aortic valve is normal in appearance and function. The tricuspid valve is normal in appearance and function. Trivial to mild tricuspid valve regurgitation. Pt screaming during echo. Cannot R/O vegetation.. Technically difficult study Measurements: Chambers Valvular Assessment AV/MV Valvular Assessment TV/PV Normal Normal Normal Name Value Range Name Value Range Name Value Range Ao Anna Marie (MM): 4.2 cm (2.2 cm-3.7 AV Vmax: 1.37 m/s (1 m/s-1.7 cm) m/s) LVDd (2D): 5.1 cm (4.2 cm-5.9 AV maxP mmHg ( - ) cm) MV E Vmax: 1.30 m/s ( - ) EF Range: 65-70 % MV A Vmax: 0.82 m/s ( - ) MV E/A: 1.59 ( - ) Continued Measurements: Chambers Valvular Assessment AV/MV Patient: CHRISTIN ROSEN Study Date: 09/01/2017 Page 1 of 2 07:59 AM Name Value Name Value LADs: 3.9 cm MV E/E' Septal: 17.80 MV E/E' Lateral: 13.10 Additional Vessels Name Value Ao Ascendin.0 cm Findings: Left Ventricle: Normal size left ventricle. No LV hypertrophy. Normal global systolic LV function. The ejection fraction is estimated to be 65-70 %. No regional wall motion abnormality. Right Ventricle: Normal size right ventricle. Left Atrium: The left atrium is normal in size. Right Atrium: The right atrium is normal in size. Mitral Valve: Mild mitral valve leaflet calcification is present. Mild to moderate mitral regurgitation. Aortic Valve: The aortic valve is normal in appearance and function. Tricuspid Valve: The tricuspid valve is normal in appearance and function. Trivial to mild tricuspid valve regurgitation. Pulmonic Valve: Pulmonary valve not well visualized. Aorta: The aorta is normal. Pericardium: No pericardial effusion. Exam Comments: Pt screaming during echo. Cannot R/O vegetation.. (No Signature Object) Patient: CHRISTIN ROSEN Study Date: 09/01/2017 Page 2 of 2 07:59 AM [id number]
[2017-09-01] MEDS: OLANZapine DISINTEGR 10 MG TAB PO SCH (10:24)
--- NOTE | 2017-09-01 10:30 | NEUROPROG ---
Assessment: I reviewed Dr. Wick consult note from 08/31/17. It appears the patient had an episode concerning for possible seizure but that has not re-occurred since. The patient has a history of alcoholism as well as sepsis. The plan was continuing observation for any recurrent seizure like events. If he has any further episodes concerning for seizure then we could begin anti-seizure medication (I would recommend Keppra 500 mg bid) and obtain an EEG and brain MRI. It would also be reasonable to have the patient on a CIWA protocol if acute alcohol withdrawal is possible. The patient should observe seizure precautions and not drive until outpatient f/u with Dr. Sosa in the neurology clinic. It appears that no further neurologic w/u was planned at this time so neurology will sign off. Please call for any questions or any change in neurologic status. Objective: Vital Signs Temp Pulse Resp BP Pulse Ox 38.4 C H 81 22 H 137/71 H 93 09/01/17 08:00 09/01/17 10:00 09/01/17 10:00 09/01/17 10:00 09/01/17 10:00 Microbiology 08/29/17 20:06 Gram Stain - Final Foot - Tissue 08/29/17 10:15 Urine Culture - Final Urine,Clean Catch Laboratory Results 09/01/17 04:00 09/01/17 04:00 08/31/17 09/01/17 09/02/17 05:59 05:59 05:59 Intake Total 1132 2725.7 70 Output Total 700 550 Balance 432 2175.7 70 PT 17.7 SEC (12.0-15.0) H 08/29/17 02:55 INR 1.44 (0.83-1.16) H 08/29/17 02:55 Allergies/Adverse Reactions: No Known Allergies Allergy (Verified 08/29/17 03:03)
--- NOTE | 2017-09-01 11:06 | HOSPPROG ---
Hospitalist Progress Note Assessment/Plan: 62 yo M w neuropathic foot ulcer, severe encephalopathy encephalopathy: was on a great deal of sedating intoxicating meds- feel this is likely the culprit all of these have been stopped zyprexa added 10 daily diabetic foot ulcer: pseudomonas and mssa on vanc zosyn may be able to trim antibiotics based on sensitivity profile ? 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 etoh withdrawal: per brother, very limited alcohol intake recently Subjective: case discussed at length w dr underwood. brother notes L wrist gout prior to admission Objective: Vital Signs Temp Pulse Resp BP Pulse Ox 38.4 C H 81 22 H 137/71 H 93 09/01/17 08:00 09/01/17 10:00 09/01/17 10:00 09/01/17 10:00 09/01/17 10:00 Microbiology 08/29/17 20:06 Gram Stain - Final Foot - Tissue 08/29/17 10:15 Urine Culture - Final Urine,Clean Catch Laboratory Results 09/01/17 04:00 09/01/17 04:00 08/31/17 09/01/17 09/02/17 05:59 05:59 05:59 Intake Total 1132 2725.7 430 Output Total 700 550 Balance 432 2175.7 430 PT 17.7 SEC (12.0-15.0) H 08/29/17 02:55 INR 1.44 (0.83-1.16) H 08/29/17 02:55 ICD10 Worksheet Patient Problems: Problems Problem Status Onset Dehydration Acute Diabetic foot ulcer Acute Foot abscess Acute Osteomyelitis Acute Sepsis Acute Cellulitis of left foot Acute Severe sepsis Acute Skin ulcer of left great toe with necrosis of bone Acute
[2017-09-01] MEDS: COLCHICINE 0.6 MG CAP/TAB PO SCH ×2 (11:12→14:17)
[2017-09-01] MEDS: ACETAMINOPHEN 325 MG TAB PO PRN ×2 (11:12→19:46)
--- NOTE | 2017-09-01 12:48 | PCMIDPN ---
Assessment/Plan: # L foot abscess/OM s/p 2nd toe amputation but today clinical with signs ( crepitus/fluctuance on dorsum, new area necrosis lateral aspect foot) concern for persistent deep infection . Also prior MRI showing air in soft tissue. Discussed with podiatry who recommended ortho or gen surg consult. Other concerning findings include persistent leukocytosis/bandemia and fever. Cultures from OR show polymicrobial infection but no MRSA. 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 Estrada --unclear benefit of adding clindamycin at this point. --dc vancomycin # L wrist pain: could be gout vs septic arthritis. Focus on management foot first # Diarrhea: r/o Cdiff Microbiology 08/29/17 03:00 Foot - Swab Wound Culture - Final Pseudomonas Aeruginosa Corynebacterium Striatum 08/29/17 20:06 Foot - Tissue Anaerobic Culture - Preliminary Pseudomonas Aeruginosa Staphylococcus Aureus Strep Dysgalactiae Grp C/G Corynebacterium Striatum Group 08/29 and 08/30 blood cx (2 sets each day): NGTD meds zosyn 4.5gm IV q6, #1 Subjective: patient c/o L foot pain and Objective: Vital Signs Temp Pulse Resp BP Pulse Ox 38.4 C H 81 22 H 137/71 H 93 09/01/17 08:00 09/01/17 10:00 09/01/17 10:00 09/01/17 10:00 09/01/17 10:00 Microbiology 08/29/17 20:06 Gram Stain - Final Foot - Tissue 08/29/17 10:15 Urine Culture - Final Urine,Clean Catch Laboratory Results 09/01/17 04:00 09/01/17 04:00 08/31/17 09/01/17 09/02/17 05:59 05:59 05:59 Intake Total 1132 2725.7 790 Output Total 700 550 220 Balance 432 2175.7 570 ESR 45 MM/HR (0-20) H 08/29/17 02:55 C-Reactive Protein 452.4 mg/L (<10.0) H 08/29/17 02:55 - Physical Exam General Appearance: alert, obese EENT: pale conjunctiva, poor dentition Respiratory: No accessory muscle use Neck: supple Cardiac/Chest: regular rate, rhythm Extremities: swelling (fluctance over dorsum of foot), erythema (L foot swelling , erythema, focal swelling dorsum w crepitis, lateral foot with necrosis and swelling, tenderness to palpation, open large wound with necrotic areas ) Abdomen: non-tender, soft Male Genitalia: No zamora Skin: diaphoresis, rash (MP eruption R forearm), No jaundice Neuro/Psych: alert, confused - Time Spent With Patient Time Spent with Patient: greater than 35 minutes Time Spent with Patient: Greater than 35 minutes spent on this patients care, greater than 50% of time spent counseling, educating, and coordinating care regarding the above mentioned plan. ICD10 Worksheet Patient Problems: Problems Problem Status Onset Dehydration Acute Diabetic foot ulcer Acute Foot abscess Acute Osteomyelitis Acute Sepsis Acute Cellulitis of left foot Acute Severe sepsis Acute Skin ulcer of left great toe with necrosis of bone Acute
--- NOTE | 2017-09-01 13:24 | WOCRNPDOC ---
WOCRN Advanced Assessment Note - Skin Integrity Problem, Advanced Assess Left Foot Dressing Type: Open to Air Integumentary Issue Intervention: Dressing Changed Arabella Wound Tissue: Erythema, Hot, Painful/Tender Arabella Wound Swelling: Severe Wound Bed Constitution: Smooth Tissue, Bone, Adhered Slough, Unstable Eschar, Intact Purulent Blister Skin Integrity Problem Comment: Wound at medial foot that was debrided is 70% slough with small patches of pink non granular tissue, and bone. Various pockets are present in wound bed. Lateral dorsal foot has a large area of eschar (approx 4x3) which is situated over fluctuant tissue with a very large area of crepitus. Discussed with Dr. Cardona who will consult Gen surg. No vac placement today. Patient will need to go back to the OR. Wound care will check in on 09/03.
--- NOTE | 2017-09-01 13:54 | GHP ---
[f rep st] HISTORY AND PHYSICAL DATE OF ADMISSION: 08/29/2017 HISTORY OF PRESENT ILLNESS: I have been asked to see the patient by infectious disease service in re javi to left foot abscess. This unfortunate 62-year-old male has undergone a number of procedures in the left foot because of infection, most recently a toe amputation with the forefoot left open and t he plan was to put a wound VAC on this open area first and second toe amputations. At this point the patient has fluctuance under the dorsum of the foot extending from the central aspect of the foot ou t laterally, which I clearly think needs to be drained in the operating room and I would not recommen d a simple bedside I and D. The previously operated on open surfaces look healthy and there is no purulence with pressure on thos e tissues. I think the foot is salvageable, although it will obviously take quite a bit of work and it depends on what we find when we drain the dorsum of the foot. A plain film of the foot shows no obvious osseous destructive changes, an MRI is concerning for possi ble osteo. I do not think this is clinical necrotizing fasciitis. RECOMMENDATIONS: I and D, left foot today. The patient is currently mentally incompetent and cannot answer questions or give consent. I have tried to speak to his brother by phone and left messages. He does not answer either cell or home phone. We will call this an emergent case, life-threatening and proceed with an I and D later today. /[id number]/MODL
--- NOTE | 2017-09-01 14:07 | PDINTPN ---
Imaging Tech Progress Note Assessment/Plan: Assessment/plan: 62 M with recurrent cellulitis/osteomyelitis of LLE admitted 08/29/17 with worsening infection that required metatarsal amputation by Podiatry. He was later found to be unresponsive but really had waxing and waning mental status with frequent outbursts suspicious for pain. He was subsequently transferred to the ICU for further management. Neurology was consulted and thought seizure was unlikely, while additional efforts were directed at pain control. Escalating medications involving dilaudid, ativan, robaxin, and predecedx had little effect. Complicating his situation was significant left hand pain, likely from a previously infiltrated IV site, since an US and CT of his arm have been negative. Gout was also raised as a possibility for his hand pain since a left KNEE arthrocentesis yielded uric acid crystals on 08/06/17. * Altered mental status- I suspect metabolic encephalopathy and delerium related to excess medications. My suspicion for CVA is 0 since he is non-focal and his head CT were normal. There is no nuchal rigidity though he has a persistent mildly elevated WBC. Obtaining an LP will be fraught with challenge, but would defer to ID/neurology about its necessity. Today I proposed stopping all medications preceded by a dose of Zyprexa and monitor for change. Of note, while his history consistently reports daily alcohol use, he had a period of hospitalization 05/2016 without alcohol and without withdrawal symptoms. * Osteomyelitis- an apparent new area of necrosis has been recognized today and a general surgery consult has been requested. He remains on Zosyn for polymicrobial organisms cultured from his wound. * Hand pain- appears to be disproportionate with negative work-up to date. Though difficult to assess the value, his uric acid level is normal and I confirmed the presence of previous crystals from his knee, not wrist (08/06/17). Colchicine started and remains on scheduled toradol 15 qid (watch renal function ). A serum BASILIO panel is also pending * Hypoxia- likely atelectasis. Continue support Subjective: Ongoing issues of delerium versus pain control Objective: Vital Signs Temp Pulse Resp BP Pulse Ox 38.4 C H 81 22 H 137/71 H 93 09/01/17 08:00 09/01/17 10:00 09/01/17 10:00 09/01/17 10:00 01/01/18 10:00 Microbiology 08/29/17 20:06 Gram Stain - Final Foot - Tissue 08/29/17 10:15 Urine Culture - Final Urine,Clean Catch Laboratory Results 09/01/17 04:00 09/01/17 04:00 08/31/17 09/01/17 09/02/17 05:59 05:59 05:59 Intake Total 1132 2725.7 790 Output Total 700 550 220 Balance 432 2175.7 570 PT 17.7 SEC (12.0-15.0) H 08/29/17 02:55 INR 1.44 (0.83-1.16) H 08/29/17 02:55 Physical Exam - Physical Exam General Appearance: alert, moderate distress, anxiety, obese EENT: PERRL/EOMI, No scleral icterus (R), No scleral icterus (L) Neck: full range of motion, supple, No lymphadenopathy (R), No lymphadenopathy ( L) Respiratory: lungs clear, normal breath sounds, decreased breath sounds, No respiratory distress, No accessory muscle use Cardiac/Chest: regular rate, rhythm, edema Abdomen: non-tender, soft, No distended Skin: normal color, warm/dry, No cyanosis Lymphatic: no adenopathy Extremities: other (minimal tenderness at operative site, sensitive to movement of all extremities), No pedal edema Neuro/Psych: alert, cognition abnormalities ICD10 Worksheet Patient Problems: Problems Problem Status Onset Dehydration Acute Diabetic foot ulcer Acute Foot abscess Acute Osteomyelitis Acute Sepsis Acute Cellulitis of left foot Acute Severe sepsis Acute Skin ulcer of left great toe with necrosis of bone Acute
--- NOTE | 2017-09-01 14:11 | PDANEPAE ---
ANE History of Present Illness Repeat L foot I&D ANE Past Medical History - Cardiovascular History Hx Hypertension: No Hx Arrhythmias: No Hx Chest Pain: No Hx Coronary Artery / Peripheral Vascular Disease: No Hx CHF / Valvular Disease: No Hx Palpitations: No - Pulmonary History Hx COPD: No Hx Asthma/Reactive Airway Disease: No Hx Recent Upper Respiratory Infection: No Hx Oxygen in Use at Home: No Hx Sleep Apnea: Yes Sleep Apnea Screening Result - Last Documented: Positive - Neurologic History Hx Cerebrovascular Accident: No Hx Seizures: No Hx Dementia: No Neurologic History Comment: patient reports chronic B numbness in feet - Endocrine History Hx Diabetes: No Endocrine History Comment: hyperglycemia - Renal History Hx Renal Disorders: No - Liver History Hx Hepatic Disorders: No - Neurological & Psychiatric Hx Hx Neurological and Psychiatric Disorders: No Neurological / Psychiatric History Comment: encephalopathy of unknown origin - Cancer History Hx Cancer: Yes Cancer History Comment: BCC in face - Congenital Disorder History Hx Congenital Disorders: No - GI History Hx Gastrointestinal Disorders: No - Chronic Pain History Chronic Pain: Yes (WRISTS AND ELBOWS) - Surgical History Prior Surgeries: tonsillectomy, ACL repair x 3 in L, amputatio of L great toe, L Achilles tendon repair ANE Review of Systems Review of Systems: - Exercise capacity Exercise capacity: unable to assess ANE Patient History - Allergies Allergies/Adverse Reactions: No Known Allergies Allergy (Verified 08/29/17 03:03) - Home Medications Home medications: home medication list seen and reviewed Home Medications: Glucosam/Chondr/Collagn/Hyalur [Glucosamine & Chondroitin Cap] 2 each PO DAILY 08/03/17 [Last Taken 08/03/17] Herbals/Supplements -Info Only 1 ea PO DAILY 08/03/17 [Last Taken Unknown] Indomethacin [Indocin 25 mg (*)] 50 mg PO TID 08/29/17 [Last Taken 08/28/17] - NPO status NPO Since - Liquids (Date): 09/01/17 NPO Since - Liquids (Time): 09:00 NPO Since - Solids (Date): 08/29/17 NPO Since - Solids (Time): 06:00 - Anes Hx Anes Hx: no prior problems Hx Anesthesia Complications (with details): per previous report - Smoking Hx Smoking Status: Former smoker - Alcohol Use Alcohol Use: Occasionally ANE Labs/Vital Signs - Labs Result Diagrams: 09/01/17 04:00 09/01/17 04:00 - Vital Signs Blood Pressure: 142/77 Heart Rate: 89 Respiratory Rate: 18 O2 Sat (%): 97 Height: 187.96 cm Weight: 111.4 kg ANE Physical Exam - Airway Neck exam: FROM Mallampati Score: Class 2 Mouth exam: poor dentition - Pulmonary Pulmonary: no respiratory distress - Cardiovascular Cardiovascular: regular rate and rhythym - ASA Status ASA Status: IV, E ANE Anesthesia Plan Anesthesia Plan: general endotracheal anesthesia Urgent/Emergent Case: Blanca mccarthy completed preop but documented later for safe timely pt care
[2017-09-01] MEDS: ENOXAPARIN 40 MG/0.4 ML SYR SC SCH (14:16)
[2017-09-01] MEDS ORDERED: DEXAMETHASONE 4 MG/ML VIAL ONE (15:17)
[2017-09-01] MEDS ORDERED: ONDANSETRON 4 MG/2 ML VIAL ONE (15:17)
[2017-09-01] MEDS ORDERED: LIDOCAINE 2% 100 MG/5 ML SYR ONE (15:17)
[2017-09-01] MEDS ORDERED: ROCURONIUM 50 MG/5 ML VIAL ONE (15:17)
[2017-09-01] MEDS ORDERED: PROPOFOL 200 MG/20 ML VIAL ONE (15:18)
[2017-09-01] MEDS ORDERED: fentaNYL 250 MCG/5 ML INJ ONE (15:18)
[2017-09-01] MEDS ORDERED: MIDAZOLAM 2 MG/2 ML VIAL ONE ×2 (15:21→16:37)
[2017-09-01] MEDS ORDERED: NALOXONE HCL 0.4 MG/ML INJ IVP PRN (16:12)
[2017-09-01] MEDS ORDERED: DIAZEPAM 10 MG/2 ML SYR IVP PRN (16:12)
[2017-09-01] MEDS ORDERED: DEXAMETHASONE 4 MG/ML VIAL IVP PRN (16:12)
[2017-09-01] MEDS ORDERED: HYDROmorphONE/DILAUDID 1 MG/ML INJ IVP PRN (16:12)
[2017-09-01] MEDS ORDERED: HYDROCODONE/APAP 5/325 TAB PO PRN (16:12)
[2017-09-01] MEDS ORDERED: ACETAMINOPHEN 500 MG TAB PO PRN (16:12)
[2017-09-01] MEDS ORDERED: LABETALOL HCL 5 MG/ML 20 ML MDV IVP PRN (16:12)
[2017-09-01] MEDS ORDERED: OXYCODONE/APAP 5/325 TAB PO PRN (16:12)
[2017-09-01] MEDS ORDERED: ONDANSETRON 4 MG/2 ML VIAL IVP PRN (16:12)
[2017-09-01] MEDS ORDERED: fentaNYL 100 MCG/2 ML INJ IVP PRN (16:12)
[2017-09-01] MEDS ORDERED: MEPERIDINE 25 MG/ML SYR IVP PRN (16:12)
[2017-09-01] MEDS ORDERED: BACITRACIN ZINC 14.2 GM OINTTUBE TP ONE (16:16)
[2017-09-01] MEDS ORDERED: GLYCOPYRROLATE 0.2 MG/1 ML VIAL ONE ×3 (16:19→16:23)
[2017-09-01] MEDS ORDERED: NEOSTIGMINE METHYLSULFATE 3 MG/3 ML SYR ONE ×2 (16:19→16:23)
--- NOTE | 2017-09-01 16:31 | POSTOPPROG ---
Post Op Note Date of Operation: 09/01/17 Surgeon: Emiliano Estrada Pre-op Diagnosis: abscess l foot Post-op Diagnosis: same Indication: same Procedure: i+d, debridement left foot Findings: pus and necrotic tissues Inf/Abcess present in the surg proc area at time of surgery?: Yes Depth: Deep Incisional (Fascial)
[2017-09-01] MEDS ORDERED: SUGAMMADEX SODIUM 500 MG/5 ML VIAL IVP ONE (16:38)
[2017-09-01] MEDS: 1/2 NS 1,000 ML IV SCH (17:05)
[2017-09-01] MEDS: VANCOMYCIN 125 MG/2.5 ML UDL PO SCH ×2 (17:05→21:00)
--- NOTE | 2017-09-01 17:14 | GOP ---
[f rep st] OPERATIVE REPORT Corrected report DATE OF OPERATION: 09/01/2017 SURGEON: Emiliano Estrada MD PREOPERATIVE DIAGNOSIS: Left foot infection. POSTOPERATIVE DIAGNOSIS: Left foot infection. OPERATION PERFORMED: Drainage of left foot infection with debridement of subcutaneous fat and tendons. INDICATIONS: The patient is a 62-year-old male who has had a previous 1st and 2nd toe amputation recently for infection, now presents with pus under the dorsum of the foot, clearly needing drainage. DESCRIPTION OF PROCEDURE: General anesthetic, the leg scrubbed with Betadine, draped in the usual sterile fashion. A transverse incision was made over the purulent tract in the dorsum of the foot and then extended somewhat medially. There were gross amounts of pus which were recultured. All the subcutaneous fat was debrided with scissors, as were skin edges leaving a 4 cm x 8 cm defect. There are exposed tendons with tissue around them. The tissue was removed, as much as possible. The wound was then copiously irrigated with saline after all necrotic tissue had been removed and no further purulence could be obtained with gentle palpation under the tissues. A 1-inch Samantha drain was placed under a flap on the dorsum of the foot, sewn in place with Prolene, then the wound covered with Adaptic, covered with Neosporin, multiple 4 x 4's, several Kerlix, and an Edward wrap. Unclear whether this foot will be salvageable, but certainly amputation does not need to be done at this time. /[id number]/MODL Arlene worktype, 10/03/17, rosie ROBERTS
[2017-09-01] MEDS ORDERED: ACETAMINOPHEN 650 MG SUPP PR PRN (20:35)
[2017-09-02 02:19] LABS: PLATELET COUNT 186 10^3/uL (150-400)
[2017-09-02] MEDS ORDERED: OLANZapine 10 MG/2 ML VIAL IM ONE (05:32)
[2017-09-02] MEDS: VANCOMYCIN 125 MG/2.5 ML UDL PO SCH ×4 (06:12→21:10)
[2017-09-02] MEDS: PIPERACILLIN/TAZO 4.5 GM/DEX 100 ML IV SCH ×4 (06:15→23:37)
[2017-09-02] MEDS: 1/2 NS 1,000 ML IV SCH ×2 (06:15→21:10)
[2017-09-02] MEDS: KETOROLAC 15 MG/1 ML SDV IVP SCH ×4 (06:16→23:37)
--- NOTE | 2017-09-02 07:40 | SOAPPROG ---
SOAP Progress Note Assessment/Plan: Assessment: Plan: Subjective: vss, af wbc 18 k dressing intact. pt now with two large wounds on foot. with other medical issues , pt at high riks of needing an amputation. if woiunds granulate and no further surgical debridement nor deep space infections develop, may eventullly heal woiunds with wound vac. pt not mentally able to understnad issues at present. Objective: Vital Signs Temp Pulse Resp BP Pulse Ox 37.3 C 94 22 H 137/76 H 96 09/02/17 06:00 09/02/17 06:00 09/02/17 06:00 09/02/17 06:00 09/02/17 06:00 Microbiology 09/01/17 16:05 Gram Stain - Final Foot - Eswab 08/29/17 20:06 Gram Stain - Final Foot - Tissue Laboratory Results 09/02/17 02:00 09/02/17 02:00 09/01/17 09/02/17 09/03/17 05:59 05:59 05:59 Intake Total 2725.7 4598 Output Total 550 1190 Balance 2175.7 3408 PT 17.7 SEC (12.0-15.0) H 08/29/17 02:55 INR 1.44 (0.83-1.16) H 08/29/17 02:55 ICD10 Worksheet Patient Problems: Problems Problem Status Onset Dehydration Acute Diabetic foot ulcer Acute Foot abscess Acute Osteomyelitis Acute Sepsis Acute Cellulitis of left foot Acute Severe sepsis Acute Skin ulcer of left great toe with necrosis of bone Acute
[2017-09-02] MEDS: COLCHICINE 0.6 MG CAP/TAB PO SCH (09:10)
[2017-09-02] MEDS: OLANZapine DISINTEGR 10 MG TAB PO SCH (09:10)
[2017-09-02] MEDS: ENOXAPARIN 40 MG/0.4 ML SYR SC SCH (09:11)
--- NOTE | 2017-09-02 09:23 | PCMIDPN ---
Assessment/Plan: Assessment/Plan: 1. Left 2nd toe osteomyelitis with abscess: - Left foot- GS with GNR, GPR, GPC, -MRI reviewed. stated below -wbc elevated -creatinine stable. - Cultures polymicrobial with PsA (pansensitive), MSSA, Group C/G strep, Corynebacterium striatum. -Currently on zosyn, -taken to OR yesterday for I &D : brief op noted reveal pus and necrosis. Await full OP note -Per Rn, needs PIcc line. will order. -Given high rate of resistance of Corynebacterium striatum to B-lactams, will add back Vanco IV to cover this especially since in both specimens. - care coordinated with RN. -care coordinated with pharmacy. 2. C. diff: - now on oral vanco, contact precautions. - so far taking in pills so will continue with this for now. Meds zosyn 4.5gm q6- 08/31/17 oral vanco 125mg q6- 09/01/17 Subjective: remains in icu. still encephalopathic. moans if touched anywhere. ate breakfast. discussed with Rn. Objective: Vital Signs Temp Pulse Resp BP Pulse Ox 37.3 C 85 22 H 129/92 H 93 09/02/17 08:00 09/02/17 08:00 09/02/17 08:00 09/02/17 08:00 09/02/17 08:00 Microbiology 09/01/17 16:05 Gram Stain - Final Foot - Eswab 08/29/17 20:06 Gram Stain - Final Foot - Tissue Laboratory Results 09/02/17 02:00 09/02/17 02:00 09/01/17 09/02/17 09/03/17 05:59 05:59 05:59 Intake Total 2725.7 4598 Output Total 550 1190 Balance 2175.7 3408 ESR 45 MM/HR (0-20) H 08/29/17 02:55 C-Reactive Protein 452.4 mg/L (<10.0) H 08/29/17 02:55 - Physical Exam General Appearance: other (opens eyes, doens't always localize to verbal stimuli ) Respiratory: lungs clear Cardiac/Chest: regular rate, rhythm Extremities: other (left foot dressed in operative dressing.) Abdomen: normal bowel sounds, non-tender, soft, No distended - Time Spent With Patient Time Spent with Patient: greater than 35 minutes Time Spent with Patient: Greater than 35 minutes spent on this patients care, greater than 50% of time spent counseling, educating, and coordinating care regarding the above mentioned plan. ICD10 Worksheet Patient Problems: Problems Problem Status Onset Dehydration Acute Diabetic foot ulcer Acute Foot abscess Acute Osteomyelitis Acute Sepsis Acute Cellulitis of left foot Acute Severe sepsis Acute Skin ulcer of left great toe with necrosis of bone Acute
[2017-09-02] MEDS: VANCOMYCIN 1.5 GM in D5W 250 ML IV SCH ×2 (10:20→21:09)
[2017-09-02] MEDS ORDERED: ALBUMIN 25% 200 ML IV ONE (10:30)
--- NOTE | 2017-09-02 16:13 | HOSPPROG ---
Hospitalist Progress Note Assessment/Plan: 62 yo M w neuropathic foot ulcer, severe encephalopathy encephalopathy: was on a great deal of sedating intoxicating meds- feel this is likely the culprit all of these have been stopped zyprexa added 10 daily agitated overnight but improved today diabetic foot ulcer: pseudomonas and mssa on vanc zosyn may be able to trim antibiotics based on sensitivity profile cdiff: po vanc ? 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 etoh withdrawal: per brother, very limited alcohol intake recently Subjective: case d/w dr yanez. went to OR for add'l abscess resection yest. cdiff + Objective: Vital Signs Temp Pulse Resp BP Pulse Ox 37.3 C 85 22 H 129/92 H 93 09/02/17 08:00 09/02/17 08:00 09/02/17 08:00 09/02/17 08:00 09/02/17 08:00 Microbiology 09/01/17 16:05 Gram Stain - Final Foot - Eswab 08/29/17 20:06 Mycobacterial Smear (RAGHU) - Final Foot - Tissue 08/29/17 20:06 Gram Stain - Final Foot - Tissue Laboratory Results 09/02/17 02:00 09/02/17 02:00 09/01/17 09/02/17 09/03/17 05:59 05:59 05:59 Intake Total 2725.7 4598 Output Total 550 1190 300 Balance 2175.7 3408 -300 PT 17.7 SEC (12.0-15.0) H 08/29/17 02:55 INR 1.44 (0.83-1.16) H 08/29/17 02:55 - Physical Exam Constitutional: no apparent distress, appears nourished, other (sleeping. arousable. more alert) Eyes: PERRL Ears, Nose, Mouth, Throat: moist mucous membranes, hearing normal Cardiovascular: regular rate and rhythym, no murmur, rub, or gallop Respiratory: no respiratory distress, no rales or rhonchi Gastrointestinal: normoactive bowel sounds, soft, non-tender abdomen Genitourinary: no bladder fullness, No zamora in urethra Skin: warm, normal color Musculoskeletal: full muscle strength Neurologic: No AAOx3 ICD10 Worksheet Patient Problems: Problems Problem Status Onset Dehydration Acute Diabetic foot ulcer Acute Foot abscess Acute Osteomyelitis Acute Sepsis Acute Cellulitis of left foot Acute Severe sepsis Acute Skin ulcer of left great toe with necrosis of bone Acute
[2017-09-02] MEDS: INSULIN REGULAR HUMAN 100 UNIT/ML SC SCH ×2 (17:01→21:28)
--- NOTE | 2017-09-02 17:28 | ASMTCMCOM ---
CM Note CM Note Notes: Therapies are recommending SNF. Patient has Medicaid ins. CM to check with patient this week as to SNF needs. Date Signed: 09/02/2017 05:28 PM Electronically Signed By:Jeanette Saeed LCSW
[2017-09-02] MEDS ORDERED: QUEtiapine FUMARATE 50 MG TAB PO SCH (21:00)
[2017-09-03] MEDS: PIPERACILLIN/TAZO 4.5 GM/DEX 100 ML IV SCH ×3 (05:56→19:54)
[2017-09-03] MEDS: KETOROLAC 15 MG/1 ML SDV IVP SCH ×4 (05:56→23:24)
[2017-09-03] MEDS: VANCOMYCIN 125 MG/2.5 ML UDL PO SCH (05:56)
[2017-09-03 06:32] LABS: PLATELET COUNT 185 10^3/uL (150-400)
--- NOTE | 2017-09-03 09:41 | HOSPPROG ---
Hospitalist Progress Note Assessment/Plan: 62 yo M w diabetic foot ulcer, severe encephalopathy with ongoing sepsis encephalopathy: possibly due to infection, medication side effects (was on zyprexa and seroquel) change hs seroquel to prn at lower dose change to IM zyprexa prn NPO for now sepsis secondary to diabetic foot ulcer: with tachycardia, leukocytosis, ongoing fevers. Cx data- pseudomonas and mssa. S/P I&D x2, ongoing signs of sepsis, may require amputation cont vanc / zosyn send lactate discussed with ID surgery to re-evaluate for possible amputation respiratory distress: could be sepsis response, wheezing noted stat CXR, KUB stat ABG left wrist erythema / edema, ?gout flare cont toradol, colchicine IR to do joint aspiration of left wrist to r/o septic joint cdiff: change to IV flagyl, needs to be NPO due to encephalopathy ? 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 However, he is reportedly more alert than yesterday. Appears dyspneic. Objective: Vital Signs Temp Pulse Resp BP Pulse Ox 38.1 C 112 H 28 H 103/61 96 09/03/17 07:40 09/03/17 07:40 09/03/17 07:40 09/03/17 07:40 09/03/17 07:40 Microbiology 09/01/17 16:05 Gram Stain - Final Foot - Eswab 08/29/17 20:06 Mycobacterial Smear (RAGHU) - Final Foot - Tissue 08/29/17 20:06 Gram Stain - Final Foot - Tissue Laboratory Results 09/03/17 06:00 09/03/17 06:00 09/02/17 09/03/17 09/04/17 05:59 05:59 05:59 Intake Total 4543 2322 Output Total 1190 500 Balance 3408 1822 PT 17.7 SEC (12.0-15.0) H 08/29/17 02:55 INR 1.44 (0.83-1.16) H 08/29/17 02:55 - Physical Exam Constitutional: chronically ill appearing Eyes: PERRL Ears, Nose, Mouth, Throat: moist mucous membranes Cardiovascular: regular rate and rhythym Respiratory: expiratory wheeze, respiratory distress Gastrointestinal: normoactive bowel sounds, other (soft, mild distention, +TTP without peritoneal signs) Skin: warm Musculoskeletal: other (left foot with 2 large open wounds and healthy appearing tissue, but with erythema and edema of dorsum of foot) Psychiatric: encephalopathic ICD10 Worksheet Patient Problems: Problems Problem Status Onset Dehydration Acute Diabetic foot ulcer Acute Foot abscess Acute Osteomyelitis Acute Sepsis Acute Cellulitis of left foot Acute Severe sepsis Acute Skin ulcer of left great toe with necrosis of bone Acute
--- NOTE | 2017-09-03 09:43 | PCMIDPN ---
Assessment/Plan: # Persistent sepsis s/p L foot washout reflected in persistent fever, leukocytosis, AMS, rapid RR. Likely source L foot but patient also with inflamed L wrist and CDiff. No further diarrhea. Most recent washout shows streptococcus, but initial washout was polymicrobial including PsA, MSSA, Strep Group C/G, Corynebacterium --vancomycin for corynebacterium --continue zosyn : PsA, MSSA, strep --re-address need for # L wrist swelling/inflammation: IR to aspirate today, send cell count, culture , crystals # Cdiff dc vancomycin PO because of AMS, start IV flagyl Microbiology 08/29/17 03:00 Foot - Swab Wound Culture - Final Pseudomonas Aeruginosa Corynebacterium Striatum 08/29/17 20:06 Foot - Tissue Anaerobic Culture - Preliminary Pseudomonas Aeruginosa Staphylococcus Aureus Strep Dysgalactiae Grp C/G Corynebacterium Striatum Group 08/29 and 08/30 blood cx (2 sets each day): NGTD meds zosyn 4.5gm IV q6, #3 vancomycin 1.5gm IV q12, #[address] Sin and Dr. Juárez and Dr. Estrada Subjective: patient denies foot pain but remains disoriented, Year "1917" Objective: Vital Signs Temp Pulse Resp BP Pulse Ox 38.1 C 112 H 28 H 103/61 96 09/03/17 07:40 09/03/17 07:40 09/03/17 07:40 09/03/17 07:40 09/03/17 07:40 Microbiology 09/01/17 16:05 Gram Stain - Final Foot - Eswab 08/29/17 20:06 Mycobacterial Smear (RAGHU) - Final Foot - Tissue 08/29/17 20:06 Gram Stain - Final Foot - Tissue Laboratory Results 09/03/17 06:00 09/03/17 06:00 09/02/17 09/03/17 09/04/17 05:59 05:59 05:59 Intake Total 4598 2322 Output Total 1190 500 Balance 3408 1822 ESR 45 MM/HR (0-20) H 08/29/17 02:55 C-Reactive Protein 452.4 mg/L (<10.0) H 08/29/17 02:55 - Physical Exam General Appearance: toxic, other (cooperative but confused) EENT: pale conjunctiva, dry mucous membranes, No scleral icterus Respiratory: accessory muscle use, wheezing, No crackles Neck: supple Cardiac/Chest: tachycardia Extremities: swelling (L foot and associated warmth), erythema (L foot dorsum but less than 2 days ago), other (lateral foot wound with obvious tendons, draining purulence), No pedal edema Abdomen: soft, distended, other (winces to palpation), No peritoneal signs Male Genitalia: No zamora, No scrotal edema Skin: pallor, No rash Neuro/Psych: confused - Line/s RUE PICC Lines: No drainage, No erythema - Time Spent With Patient Time Spent with Patient: greater than 35 minutes Time Spent with Patient: Greater than 35 minutes spent on this patients care, greater than 50% of time spent counseling, educating, and coordinating care regarding the above mentioned plan. ICD10 Worksheet Patient Problems: Problems Problem Status Onset Dehydration Acute Diabetic foot ulcer Acute Foot abscess Acute Osteomyelitis Acute Sepsis Acute Cellulitis of left foot Acute Severe sepsis Acute Skin ulcer of left great toe with necrosis of bone Acute
[2017-09-03] MEDS ORDERED: OLANZapine 10 MG/2 ML VIAL IM PRN (09:49)
[2017-09-03] MEDS: VANCOMYCIN 1.5 GM in D5W 250 ML IV SCH ×2 (10:52→21:45)
[2017-09-03] MEDS: INSULIN REGULAR HUMAN 100 UNIT/ML SC SCH ×3 (11:44→21:53)
[2017-09-03] MEDS: COLCHICINE 0.6 MG CAP/TAB PO SCH (11:45)
[2017-09-03] MEDS: ENOXAPARIN 40 MG/0.4 ML SYR SC SCH (11:46)
[2017-09-03] MEDS ORDERED: IOPAMIDOL (ISOVUE 370) 100 ML BTL IV ONE (12:05)
[2017-09-03] MEDS ORDERED: LIDOCAINE 1% 300 MG/30 ML SDV ONE (12:05)
--- NOTE | 2017-09-03 14:34 | PDINTPN ---
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 He was later found to be unresponsive but really had waxing and waning mental status with frequent outbursts suspicious for pain. He was subsequently transferred to the ICU for further management. Neurology was consulted and thought seizure was unlikely, while additional efforts were directed at pain control. Escalating medications involving dilaudid, ativan, robaxin, and predecedx had little effect. Complicating his situation was significant left hand pain, likely from a previously infiltrated IV site, since an US and CT of his arm have been negative. Gout was also raised as a possibility for his hand pain since a left KNEE arthrocentesis yielded uric acid crystals on 08/06/17. * Altered mental status- Improved this afternoon, ? due to reduced medications such as benzos, narcotics, and antipsychotics. ? Improvement in sepsis could also be helping. * Osteomyelitis- Strep Dysgalactiae Grp C/G on culture, previously grew PsA and MSSA. On Zosyn/Vanco. Tmax 38.1 and WBC 18k and slightly increased. * Hand pain- appears to be disproportionate with negative work-up to date. S/P tap today. * Hypoxia- likely atelectasis. Continue support * C.Diff: On Flagyl Plan: Await Cultures from left wrist. Continue antibiotics. Try to hold medications that could contribute to encephalopathy. Surgery to re-evaluate wound, ? further debridement/amputation. Advance diet if able to swallow safely now that he's more alert. Follow WBC/Fever. 09/03/17 14:54 09/03/17 14:57 Subjective: Foot pain improved. More alert. Objective: Vital Signs Temp Pulse Resp BP Pulse Ox 37.7 C 99 26 H 130/81 H 96 09/03/17 13:24 09/03/17 13:24 09/03/17 13:24 09/03/17 13:24 09/03/17 13:24 Microbiology 09/01/17 16:05 Gram Stain - Final Foot - Eswab 09/01/17 04:00 Urine Culture - Final Unspecified 08/29/17 20:06 Mycobacterial Smear (RAGHU) - Final Foot - Tissue 08/29/17 20:06 Gram Stain - Final Foot - Tissue Laboratory Results 09/03/17 06:00 09/03/17 06:00 09/02/17 09/03/17 09/04/17 05:59 05:59 05:59 Intake Total 4598 2322 Output Total 1190 500 300 Balance 3408 1822 -300 PT 17.7 SEC (12.0-15.0) H 08/29/17 02:55 INR 1.44 (0.83-1.16) H 08/29/17 02:55 Microbiology 09/01/17 16:05 Foot - Eswab Gram Stain - Final 09/01/17 16:05 Foot - Eswab Anaerobic Culture - Preliminary Strep Dysgalactiae Grp C/G Physical Exam - Physical Exam General Appearance: alert, no apparent distress EENT: normal ENT inspection Neck: normal inspection Respiratory: lungs clear, normal breath sounds Cardiac/Chest: regular rate, rhythm, No edema Abdomen: normal bowel sounds, non-tender, soft Skin: normal color, warm/dry Extremities: other (Left foot wound dressed) Neuro/Psych: alert, No normal mood/affect, No oriented x 3, No motor weakness ICD10 Worksheet Patient Problems: Problems Problem Status Onset Dehydration Acute Diabetic foot ulcer Acute Foot abscess Acute Osteomyelitis Acute Sepsis Acute Cellulitis of left foot Acute Severe sepsis Acute Skin ulcer of left great toe with necrosis of bone Acute
[2017-09-04] MEDS: PIPERACILLIN/TAZO 4.5 GM/DEX 100 ML IV SCH ×5 (00:48→18:15)
[2017-09-04] MEDS: KETOROLAC 15 MG/1 ML SDV IVP SCH ×2 (05:06→11:43)
[2017-09-04 05:39] LABS: PLATELET COUNT 221 10^3/uL (150-400)
[2017-09-04] MEDS: 1/2 NS 1,000 ML IV SCH (06:36)
[2017-09-04] MEDS: INSULIN REGULAR HUMAN 100 UNIT/ML SC SCH ×3 (07:42→18:13)
[2017-09-04] MEDS: VANCOMYCIN 1.5 GM in D5W 250 ML IV SCH ×2 (09:43→21:49)
[2017-09-04] MEDS: COLCHICINE 0.6 MG CAP/TAB PO SCH (09:43)
[2017-09-04] MEDS ORDERED: KETOROLAC 15 MG/1 ML SDV IVP PRN (12:49)
--- NOTE | 2017-09-04 12:54 | SOAPPROG ---
SOAP Progress Note Assessment/Plan: Assessment: Plan: Subjective: dressing changed, gauze packing slipped under skin flap anteriorly. anterior toe wound looks viable. my debrided area still draining fluid- looks more liek edema fluid instead of deep space pus, but difficult to be sure. would continue to monitor, hopefully can salvage foot and avoid bka. will be a lenghty process. not yet a dcandite for wound vac, Objective: Vital Signs Temp Pulse Resp BP Pulse Ox 37.1 C 89 16 128/50 H 95 09/04/17 08:25 09/04/17 10:00 09/04/17 08:25 09/04/17 08:25 09/04/17 10:00 Microbiology 09/01/17 16:05 Gram Stain - Final Foot - Eswab 08/29/17 20:06 Gram Stain - Final Foot - Tissue 09/03/17 11:24 Gram Stain - Final Synovial Fluid - Aspirate 09/01/17 04:00 Urine Culture - Final Unspecified Laboratory Results 09/04/17 05:15 09/04/17 05:15 09/03/17 09/04/17 09/05/17 05:59 05:59 05:59 Intake Total 2322 1033 Output Total 500 1450 Balance 1822 -417 PT 17.7 SEC (12.0-15.0) H 08/29/17 02:55 INR 1.44 (0.83-1.16) H 08/29/17 02:55 ICD10 Worksheet Patient Problems: Problems Problem Status Onset Dehydration Acute Diabetic foot ulcer Acute Foot abscess Acute Osteomyelitis Acute Sepsis Acute Cellulitis of left foot Acute Severe sepsis Acute Skin ulcer of left great toe with necrosis of bone Acute
--- NOTE | 2017-09-04 16:59 | HOSPPROG ---
Hospitalist Progress Note Assessment/Plan: 62 yo M w diabetic foot ulcer, severe encephalopathy with ongoing sepsis encephalopathy: possibly due to infection, medication side effects (was on zyprexa and seroquel), seems back to baseline today changed to prn seroquel / zyprexa speech eval today, cleared for po sepsis secondary to diabetic foot ulcer: sepsis physiology resolved. Cx data- pseudomonas and mssa. S/P I&D x2. cont vanc / zosyn left wrist erythema / edema, ?gout flare. Joint aspiration yesterday ___ cont toradol, colchicine cdiff: change back to po vanco now that he is able to take po ? pna: cxr w b/l airspace disease should be covered w vanc/zosyn possible etoh w/d: stable, no significant w/d pain: toradol proph: lmwh dispo: inpatient, transfer to med/surg Subjective: Pt is doing much better. Mentating clearly, up in chair, conversing. No pain. No CP or SOB. No fevers. Objective: Vital Signs Temp Pulse Resp BP Pulse Ox 37.2 C 92 18 141/83 H 92 09/04/17 15:57 09/04/17 15:57 09/04/17 15:57 09/04/17 15:57 09/04/17 15:57 Microbiology 09/01/17 16:05 Gram Stain - Final Foot - Eswab 08/29/17 20:06 Gram Stain - Final Foot - Tissue 09/03/17 11:24 Gram Stain - Final Synovial Fluid - Aspirate 09/01/17 04:00 Urine Culture - Final Unspecified Laboratory Results 09/04/17 05:15 09/04/17 05:15 09/03/17 09/04/17 09/05/17 05:59 05:59 05:59 Intake Total 2322 1033 1650 Output Total 500 1450 Balance 1822 -417 1650 PT 17.7 SEC (12.0-15.0) H 08/29/17 02:55 INR 1.44 (0.83-1.16) H 08/29/17 02:55 - Physical Exam Constitutional: no apparent distress Eyes: PERRL Ears, Nose, Mouth, Throat: moist mucous membranes Cardiovascular: regular rate and rhythym Respiratory: no respiratory distress, clear to auscultation Gastrointestinal: normoactive bowel sounds, soft, non-tender abdomen Skin: warm Musculoskeletal: other (Left foot bandaged, some serous drainage, no lymphangitic streaking proximally) Neurologic: AAOx3 Psychiatric: interacting appropriately ICD10 Worksheet Patient Problems: Problems Problem Status Onset Dehydration Acute Diabetic foot ulcer Acute Foot abscess Acute Osteomyelitis Acute Sepsis Acute Cellulitis of left foot Acute Severe sepsis Acute Skin ulcer of left great toe with necrosis of bone Acute
[2017-09-04] MEDS: ACETAMINOPHEN 325 MG TAB PO PRN ×2 (18:04→22:22)
[2017-09-04] MEDS: VANCOMYCIN 125 MG/2.5 ML UDL PO SCH ×2 (18:05→21:50)
[2017-09-04] MEDS: ENOXAPARIN 40 MG/0.4 ML SYR SC SCH (18:14)
--- NOTE | 2017-09-04 19:03 | PCMIDPN ---
Assessment/Plan: Assessment/Plan: * Sepsis due to left diabetic foot infection with polymicrobial cultures including Corynebacterium and Pseudomonas: Clinically improved today. Surgical notes reviewed regarding wound findings. Continue vancomycin and Zosyn targeting organisms as outlined by Dr. Cardona yesterday. Continue to follow clinically as may require additional debridement over time. * Left wrist inflammatory arthropathy: Fluid could not be analyzed for crystals but was described as sticky in nature. Culture of fluid no growth to date. Given recent diagnosis of gout in knee, suspect gout is etiology for inflammatory arthropathy. Will discuss with hospitalist service consideration for intra-articular steroid injection as this may provide best relief of symptoms without need for systemic steroids. * C difficile colitis: Diarrhea has decreased. Continue oral vancomycin. 09/04/17 18:59 Objective: Vital Signs Temp Pulse Resp BP Pulse Ox 37.2 C 92 18 141/83 H 92 09/04/17 15:57 09/04/17 15:57 09/04/17 15:57 09/04/17 15:57 09/04/17 15:57 Microbiology 08/30/17 18:17 Blood Culture - Final Blood 08/30/17 18:06 Blood Culture - Final Blood 09/01/17 16:05 Gram Stain - Final Foot - Eswab 08/29/17 20:06 Gram Stain - Final Foot - Tissue 09/03/17 11:24 Gram Stain - Final Synovial Fluid - Aspirate Laboratory Results 09/04/17 05:15 09/04/17 05:15 09/03/17 09/04/17 09/05/17 05:59 05:59 05:59 Intake Total 2322 1033 1950 Output Total 500 1450 Balance 1822 -417 1950 ESR 45 MM/HR (0-20) H 08/29/17 02:55 C-Reactive Protein 452.4 mg/L (<10.0) H 08/29/17 02:55 - Physical Exam General Appearance: alert, no apparent distress, non-toxic EENT: dry mucous membranes, No thrush Extremities: inflammation (Left wrist with overlying erythema, warmth, tenderness in significant pain with range of motion; left foot wounds examined with medial wound showing significant granulation tissue without significant necrosis or drainage; lateral wound with fat necrosis present without expressible discharge; mild surrounding erythema) Abdomen: non-tender, No distended Neuro/Psych: other (Patient recognized me upon room injury today) ICD10 Worksheet Patient Problems: Problems Problem Status Onset Dehydration Acute Diabetic foot ulcer Acute Foot abscess Acute Osteomyelitis Acute Sepsis Acute Cellulitis of left foot Acute Severe sepsis Acute Skin ulcer of left great toe with necrosis of bone Acute
[2017-09-05] MEDS: INSULIN REGULAR HUMAN 100 UNIT/ML SC SCH ×5 (01:44→22:24)
[2017-09-05] MEDS: ACETAMINOPHEN 325 MG TAB PO PRN ×2 (03:20→22:23)
[2017-09-05 05:14] LABS: PLATELET COUNT 299 10^3/uL (150-400)
[2017-09-05] MEDS: PIPERACILLIN/TAZO 4.5 GM/DEX 100 ML IV SCH ×3 (06:26→17:47)
[2017-09-05] MEDS: VANCOMYCIN 125 MG/2.5 ML UDL PO SCH ×4 (06:26→22:23)
[2017-09-05] MEDS: ALTEPLASE 2 MG VIAL IVP PRN ×2 (06:46→10:20)
--- NOTE | 2017-09-05 09:18 | HOSPPROG ---
Hospitalist Progress Note Assessment/Plan: 62 yo M w diabetic foot ulcer, severe encephalopathy with ongoing sepsis sepsis secondary to diabetic foot ulcer: sepsis physiology resolved. Cx data- pseudomonas and mssa. S/P I&D x2. cont vanc / zosyn, note persistent leukocytosis needs pain control, dilaudid for now, prn oxy left wrist erythema / edema, ?gout flare. Joint aspiration done, Cx neg, doubt septic joint. Unable to assess for crystals due to sticky nature of fluid treat as gout flare cont colchicine, add indocin (was receiving toradol previously) consider steroid injection if not responding encephalopathy: possibly due to infection, medication side effects (was on zyprexa and seroquel), back to baseline today changed to prn seroquel / zyprexa cdiff: change back to po vanco now that he is able to take po ? pna: cxr w b/l airspace disease should be covered w vanc/zosyn possible etoh w/d: stable, no significant w/d pain: toradol proph: lmwh dispo: inpatient, transfer to med/surg Subjective: Pt says he is in 9/10 pain in wrist and foot. No fevers. Denies CP or SOB. Appetite fair. Objective: Vital Signs Temp Pulse Resp BP Pulse Ox 36.7 C 83 18 146/83 H 90 L 09/05/17 07:38 09/05/17 07:38 09/05/17 07:38 09/05/17 07:38 09/05/17 07:38 Microbiology 08/29/17 20:06 Mycobacterial Smear (RAGHU) - Final Foot - Tissue 08/30/17 18:17 Blood Culture - Final Blood 08/30/17 18:06 Blood Culture - Final Blood 09/01/17 16:05 Gram Stain - Final Foot - Eswab 08/29/17 20:06 Gram Stain - Final Foot - Tissue 09/03/17 11:24 Gram Stain - Final Synovial Fluid - Aspirate Laboratory Results 09/05/17 04:50 09/04/17 05:15 09/04/17 09/05/17 09/06/17 05:59 05:59 05:59 Intake Total 1033 1950 Output Total 1450 400 Balance -417 1550 PT 17.7 SEC (12.0-15.0) H 08/29/17 02:55 INR 1.44 (0.83-1.16) H 08/29/17 02:55 - Physical Exam Constitutional: no apparent distress Eyes: PERRL Ears, Nose, Mouth, Throat: moist mucous membranes Cardiovascular: regular rate and rhythym Respiratory: no respiratory distress, clear to auscultation Gastrointestinal: normoactive bowel sounds, soft, non-tender abdomen Skin: warm Musculoskeletal: other (left wrist edema, tender. left foot dressing with some serous drainage, no lymphangitic streaking proximally) Neurologic: AAOx3 Psychiatric: interacting appropriately ICD10 Worksheet Patient Problems: Problems Problem Status Onset Dehydration Acute Diabetic foot ulcer Acute Foot abscess Acute Osteomyelitis Acute Sepsis Acute Cellulitis of left foot Acute Severe sepsis Acute Skin ulcer of left great toe with necrosis of bone Acute
[2017-09-05] MEDS: COLCHICINE 0.6 MG CAP/TAB PO SCH (09:37)
[2017-09-05] MEDS: ENOXAPARIN 40 MG/0.4 ML SYR SC SCH (09:37)
[2017-09-05] MEDS: HYDROmorphONE/DILAUDID 1 MG/ML INJ IVP PRN (09:38)
[2017-09-05] MEDS: VANCOMYCIN 1.5 GM in D5W 250 ML IV SCH ×2 (10:11→22:23)
--- NOTE | 2017-09-05 10:12 | ASMTCMCOM ---
CM Note CM Note Notes: Chart reviewed. Met with patient to review discharge plan of care. Per therapies, SNF recommended. I asked him if he had any preferences, patient replied he has not thought about it. I told him I would stop back. Referrals made to several SNF's. CM to follow. Date Signed: 09/05/2017 10:11 AM Electronically Signed By:Beata Burk RN
[2017-09-05] MEDS: INDOMETHACIN 25 MG CAP PO SCH ×3 (11:14→17:40)
[2017-09-05] MEDS: oxyCODONE IR 5 MG TAB PO PRN ×3 (11:39→17:47)
[2017-09-05] MEDS: 1/2 NS 1,000 ML IV SCH (13:31)
--- NOTE | 2017-09-05 16:18 | SOAPPROG ---
SOAP Progress Note Assessment/Plan: Assessment: Plan: Subjective: vss, af wbc still 18 k foot with less edema, no erythema. medial wound granulating, lateral wound with superficial necrotic elements- can debriide chemically or in or. elier feel foot potentially salvageble. will cont dressing changes- wound care consult re debriding creames for exudate on lateral wound. Objective: Vital Signs Temp Pulse Resp BP Pulse Ox 36.7 C 77 17 144/85 H 91 L 09/05/17 15:51 09/05/17 15:51 09/05/17 15:51 09/05/17 15:51 09/05/17 15:51 Microbiology 09/03/17 11:24 Gram Stain - Final Synovial Fluid - Aspirate 09/01/17 16:05 Gram Stain - Final Foot - Eswab 08/29/17 20:06 Gram Stain - Final Foot - Tissue Anaerobic Culture - Final Pseudomonas Aeruginosa Staphylococcus Aureus Strep Dysgalactiae Grp C/G Corynebacterium Striatum Group 08/29/17 20:06 Mycobacterial Smear (RAGHU) - Final Foot - Tissue 08/30/17 18:17 Blood Culture - Final Blood 08/30/17 18:06 Blood Culture - Final Blood Laboratory Results 09/05/17 04:50 09/04/17 05:15 09/04/17 09/05/17 09/06/17 05:59 05:59 05:59 Intake Total 1033 1950 300 Output Total 1450 400 Balance -417 1550 300 PT 17.7 SEC (12.0-15.0) H 08/29/17 02:55 INR 1.44 (0.83-1.16) H 08/29/17 02:55 ICD10 Worksheet Patient Problems: Problems Problem Status Onset Dehydration Acute Diabetic foot ulcer Acute Foot abscess Acute Osteomyelitis Acute Sepsis Acute Cellulitis of left foot Acute Severe sepsis Acute Skin ulcer of left great toe with necrosis of bone Acute
--- NOTE | 2017-09-05 17:55 | PCMIDPN ---
Assessment/Plan: Assessment/Plan: * Sepsis due to left diabetic foot infection with polymicrobial cultures including Corynebacterium and Pseudomonas: Overall significantly improved clinically with persistent leukocytosis. Foot examined without purulent drainage from either wound bed. Continue to follow over time with hopes will see leukocytosis begin to decrease. * Left wrist inflammatory arthropathy: Suspect this is gout rather than septic arthritis. Cultures remain negative. Clinically improved with addition of indomethacin. * C difficile colitis: 2 episodes of diarrhea today. Continue oral vancomycin. 09/05/17 17:52 Subjective: Patient feels significantly improved. Indocin started for left wrist arthropathy and pain has decreased significantly. 2 episodes of diarrhea earlier today. Objective: Vital Signs Temp Pulse Resp BP Pulse Ox 36.7 C 77 17 144/85 H 91 L 09/05/17 15:51 09/05/17 15:51 09/05/17 15:51 09/05/17 15:51 09/05/17 15:51 Microbiology 09/03/17 11:24 Gram Stain - Final Synovial Fluid - Aspirate 09/01/17 16:05 Gram Stain - Final Foot - Eswab 08/29/17 20:06 Gram Stain - Final Foot - Tissue Anaerobic Culture - Final Pseudomonas Aeruginosa Staphylococcus Aureus Strep Dysgalactiae Grp C/G Corynebacterium Striatum Group 08/29/17 20:06 Mycobacterial Smear (RAGHU) - Final Foot - Tissue 08/30/17 18:17 Blood Culture - Final Blood 08/30/17 18:06 Blood Culture - Final Blood Laboratory Results 09/05/17 04:50 09/04/17 05:15 09/04/17 09/05/17 09/06/17 05:59 05:59 05:59 Intake Total 1033 1950 300 Output Total 1450 400 Balance -417 1550 300 ESR 45 MM/HR (0-20) H 08/29/17 02:55 C-Reactive Protein 452.4 mg/L (<10.0) H 08/29/17 02:55 Zosyn # 5 Vancomycin # 3 Oral vancomycin # 2 Laboratory Tests 09/04/17 08:25 Vancomycin Trough 11.3 - Physical Exam General Appearance: alert, no apparent distress EENT: No thrush, No conjunctival petechiae Extremities: inflammation (Left foot examined with persistent edema; wound bed medially with clean base and no surrounding erythema; lateral wound bed with scattered superficial necrotic tissue; no expressible purulence; left wrist with overlying erythema, warmth and tenderness although range of motion improved ) Abdomen: non-tender, No distended - Line/s RUE PICC Lines: No drainage, No erythema ICD10 Worksheet Patient Problems: Problems Problem Status Onset Dehydration Acute Diabetic foot ulcer Acute Foot abscess Acute Osteomyelitis Acute Sepsis Acute Cellulitis of left foot Acute Severe sepsis Acute Skin ulcer of left great toe with necrosis of bone Acute
[2017-09-06] MEDS: PIPERACILLIN/TAZO 4.5 GM/DEX 100 ML IV SCH ×4 (00:56→17:27)
[2017-09-06] MEDS: oxyCODONE IR 5 MG TAB PO PRN ×4 (00:58→21:13)
[2017-09-06 04:59] LABS: PLATELET COUNT 306 10^3/uL (150-400)
[2017-09-06] MEDS: VANCOMYCIN 125 MG/2.5 ML UDL PO SCH ×4 (05:45→21:13)
--- NOTE | 2017-09-06 08:07 | SOAPPROG ---
SOAP Progress Note Assessment/Plan: Assessment: Plan: Subjective: vss, af dressing changed- woun d looks more optimistic- less exudate, some granulation tissue showing through laterlally. medial toe amputation site red and healthy. while i'm not sure this will survive, it looks more optimistic to me today than any other day. wbd down to 13 k conr dressing changes. Objective: Vital Signs Temp Pulse Resp BP Pulse Ox 36.6 C 69 16 112/64 91 L 09/05/17 23:17 09/05/17 23:17 09/05/17 23:17 09/05/17 23:17 09/05/17 23:17 Microbiology 09/03/17 11:24 Gram Stain - Final Synovial Fluid - Aspirate 09/01/17 16:05 Gram Stain - Final Foot - Eswab 08/29/17 20:06 Gram Stain - Final Foot - Tissue Anaerobic Culture - Final Pseudomonas Aeruginosa Staphylococcus Aureus Strep Dysgalactiae Grp C/G Corynebacterium Striatum Group 08/29/17 20:06 Mycobacterial Smear (RAGHU) - Final Foot - Tissue Laboratory Results 09/06/17 04:45 09/04/17 05:15 09/05/17 09/06/17 09/07/17 05:59 05:59 05:59 Intake Total 1950 2850 Output Total 400 1 Balance 1550 2849 PT 17.7 SEC (12.0-15.0) H 08/29/17 02:55 INR 1.44 (0.83-1.16) H 08/29/17 02:55 ICD10 Worksheet Patient Problems: Problems Problem Status Onset Dehydration Acute Diabetic foot ulcer Acute Foot abscess Acute Osteomyelitis Acute Sepsis Acute Cellulitis of left foot Acute Severe sepsis Acute Skin ulcer of left great toe with necrosis of bone Acute
[2017-09-06] MEDS: INSULIN REGULAR HUMAN 100 UNIT/ML SC SCH ×4 (08:25→21:15)
[2017-09-06] MEDS: ENOXAPARIN 40 MG/0.4 ML SYR SC SCH (08:44)
[2017-09-06] MEDS: COLCHICINE 0.6 MG CAP/TAB PO SCH (08:44)
[2017-09-06] MEDS: INDOMETHACIN 25 MG CAP PO SCH ×3 (08:44→17:27)
[2017-09-06] MEDS: VANCOMYCIN 1.5 GM in D5W 250 ML IV SCH ×2 (09:07→21:13)
[2017-09-06] MEDS: HYDROmorphONE/DILAUDID 1 MG/ML INJ IVP PRN (09:17)
--- NOTE | 2017-09-06 12:29 | PCMIDPN ---
Assessment/Plan: Assessment/Plan: * Sepsis due to left diabetic foot infection with polymicrobial cultures including Corynebacterium and Pseudomonas: Leukocytosis improved today with purulence noted at base of left 5th toe. Able to milk purulence from dorsal aspect of foot through this opening. May require additional incision and drainage given this finding. Reviewed with Dr. Estrada with plans for repeat assessment in a.m. to determine if further incision and drainage necessary. Continue vancomycin (Corynebacterium) and Zosyn for polymicrobial cultures. * Left wrist inflammatory arthropathy: Suspect this is gout rather than septic arthritis. Slow improvement with indomethacin although still with significant inflammatory findings. * C difficile colitis: No diarrhea today. Continue oral vancomycin and follow clinical course. 09/06/17 12:25 09/06/17 12:27 Subjective: Patient without diarrhea today. Persistent left wrist pain although less prominent. Objective: Vital Signs Temp Pulse Resp BP Pulse Ox 36.7 C 82 17 136/90 H 96 09/06/17 08:00 09/06/17 08:00 09/06/17 08:00 09/06/17 08:00 09/06/17 08:00 Microbiology 09/03/17 11:24 Gram Stain - Final Synovial Fluid - Aspirate 09/01/17 16:05 Gram Stain - Final Foot - Eswab 08/29/17 20:06 Gram Stain - Final Foot - Tissue Anaerobic Culture - Final Pseudomonas Aeruginosa Staphylococcus Aureus Strep Dysgalactiae Grp C/G Corynebacterium Striatum Group 08/29/17 20:06 Mycobacterial Smear (RAGHU) - Final Foot - Tissue Laboratory Results 09/06/17 04:45 09/04/17 05:15 09/05/17 09/06/17 09/07/17 05:59 05:59 05:59 Intake Total 1950 2850 Output Total 400 1 Balance 1550 2849 ESR 45 MM/HR (0-20) H 08/29/17 02:55 C-Reactive Protein 452.4 mg/L (<10.0) H 08/29/17 02:55 Vancomycin #4 Zosyn #6 Oral vancomycin # 3 - Physical Exam General Appearance: alert, no apparent distress EENT: No scleral icterus Extremities: inflammation (Left foot with purulent drainage from base of 5th toe which can be expressed with milking from dorsal shown of midfoot; medial wound with granulation and no purulence; lateral wound with mixed granulation and slough; erythema present over dorsal medial aspect of foot) Abdomen: non-tender, No distended ICD10 Worksheet Patient Problems: Problems Problem Status Onset Dehydration Acute Diabetic foot ulcer Acute Foot abscess Acute Osteomyelitis Acute Sepsis Acute Cellulitis of left foot Acute Severe sepsis Acute Skin ulcer of left great toe with necrosis of bone Acute
--- NOTE | 2017-09-06 13:52 | ASMTCMCOM ---
CM Note CM Note Notes: [facility], [facility] and [facility] all cannot t carmelo pt due to his Medicaid ins. [facility] interested and pt agreed to send them referral. C/M to follow. Date Signed: 09/06/2017 01:52 PM Electronically Signed By:Swetha Wells LCSW
--- NOTE | 2017-09-06 14:22 | HOSPPROG ---
Hospitalist Progress Note Assessment/Plan: 62 yo M w diabetic foot ulcer sepsis secondary to diabetic foot ulcer: sepsis physiology resolved. Cx data- pseudomonas and mssa. S/P I&D x2. cont vanc / zosyn note purulent findings by ID, may require f/u I&D, surgery to re-evaluate pain control left wrist erythema / edema, ?gout flare. Joint aspiration done, Cx neg, doubt septic joint. Unable to assess for crystals due to sticky nature of fluid treating as gout flare with colchicine, indocin consider steroid injection friday if not responding encephalopathy: possibly due to infection, medication side effects, back to baseline today changed to prn seroquel / zyprexa caution with opioids cdiff: cont po vanc, no more diarrhea ? pna: cxr w b/l airspace disease should be covered w vanc/zosyn possible etoh w/d: stable, no significant w/d pain: tylenol, nsaids, prn oxy, d/c iv dilaudid proph: lmwh dispo: inpatient, med/surg Subjective: Pt feels ok, up in chair. left wrist still swollen, but less painful since starting indomethacin. No fevers. Ambulating ok with foot bandage. no more diarrhea. Objective: Vital Signs Temp Pulse Resp BP Pulse Ox 36.7 C 82 17 136/90 H 96 09/06/17 08:00 09/06/17 08:00 09/06/17 08:00 09/06/17 08:00 09/06/17 08:00 Microbiology 09/03/17 11:24 Gram Stain - Final Synovial Fluid - Aspirate 09/01/17 16:05 Gram Stain - Final Foot - Eswab 08/29/17 20:06 Gram Stain - Final Foot - Tissue Anaerobic Culture - Final Pseudomonas Aeruginosa Staphylococcus Aureus Strep Dysgalactiae Grp C/G Corynebacterium Striatum Group 08/29/17 20:06 Mycobacterial Smear (RAGHU) - Final Foot - Tissue Laboratory Results 09/06/17 04:45 09/04/17 05:15 09/05/17 09/06/17 09/07/17 05:59 05:59 05:59 Intake Total 1950 2850 Output Total 400 1 Balance 1550 2849 PT 17.7 SEC (12.0-15.0) H 08/29/17 02:55 INR 1.44 (0.83-1.16) H 08/29/17 02:55 - Physical Exam Constitutional: no apparent distress Eyes: PERRL Ears, Nose, Mouth, Throat: moist mucous membranes Cardiovascular: regular rate and rhythym Respiratory: no respiratory distress, clear to auscultation Gastrointestinal: normoactive bowel sounds, soft, non-tender abdomen Skin: warm Musculoskeletal: other (left foot bandaged, c/d/i. left wrist swelling on dorsal surface, decreased erythema) Psychiatric: interacting appropriately ICD10 Worksheet Patient Problems: Problems Problem Status Onset Dehydration Acute Diabetic foot ulcer Acute Foot abscess Acute Osteomyelitis Acute Sepsis Acute Cellulitis of left foot Acute Severe sepsis Acute Skin ulcer of left great toe with necrosis of bone Acute
[2017-09-07] MEDS: PIPERACILLIN/TAZO 4.5 GM/DEX 100 ML IV SCH ×5 (01:21→23:49)
[2017-09-07] MEDS: ACETAMINOPHEN 325 MG TAB PO PRN (01:30)
[2017-09-07] MEDS: oxyCODONE IR 5 MG TAB PO PRN ×4 (03:08→23:49)
[2017-09-07] MEDS: VANCOMYCIN 125 MG/2.5 ML UDL PO SCH ×4 (04:56→21:07)
[2017-09-07 05:13] LABS: PLATELET COUNT 330 10^3/uL (150-400)
[2017-09-07] MEDS ORDERED: POTASSIUM CL 20 MEQ TAB PO ONE (06:28)
[2017-09-07] MEDS: INDOMETHACIN 25 MG CAP PO SCH ×3 (07:14→18:05)
[2017-09-07] MEDS: INSULIN REGULAR HUMAN 100 UNIT/ML SC SCH ×4 (08:11→21:07)
[2017-09-07] MEDS: ENOXAPARIN 40 MG/0.4 ML SYR SC SCH (08:11)
[2017-09-07] MEDS: COLCHICINE 0.6 MG CAP/TAB PO SCH (08:11)
--- NOTE | 2017-09-07 10:46 | HOSPPROG ---
Hospitalist Progress Note Assessment/Plan: 62 yo M w diabetic foot ulcer sepsis secondary to diabetic foot ulcer: sepsis physiology resolved. Cx data- pseudomonas and mssa. S/P I&D x2- 08/30 partial amputation left 2nd MT and toe by Dr. Rao, then 09/01 further I&D by Dr. Lopez. Now with 2 large wounds and may require amputation. cont vanc / zosyn note purulent findings by ID, may require f/u I&D, surgery planning return trip to OR in am- NPO at midnight pain control left wrist inflammation, presumed gout flare. Joint aspiration done, Cx neg, doubt septic joint. Unable to assess for crystals due to sticky nature of fluid. Decreased pain, but still quite inflamed. treating as gout flare with colchicine, indocin pt wishes to proceed with steroid injection tomorrow via IR, 30 mg methylprednisolone ordered encephalopathy: possibly due to infection, medication side effects, back to baseline, mentating clearly prn seroquel / zyprexa caution with opioids cdiff: cont po vanc, no more diarrhea ? pna: cxr w b/l airspace disease should be covered w vanc/zosyn possible etoh w/d: stable, no significant w/d pain: tylenol, nsaids, prn oxy, d/c iv dilaudid proph: lmwh dispo: inpatient, med/surg Subjective: Pt doing ok, painful after dressing change of foot. Left wrist still quite inflamed, edematous. No fevers. Denies CP, SOb. No fevers. Objective: Vital Signs Temp Pulse Resp BP Pulse Ox 36.6 C 78 16 136/93 H 94 09/07/17 07:37 09/07/17 07:37 09/07/17 07:37 09/07/17 07:37 09/07/17 07:37 Microbiology 09/03/17 11:24 Gram Stain - Final Synovial Fluid - Aspirate Laboratory Results 09/07/17 04:45 09/07/17 04:45 09/06/17 09/07/17 09/08/17 05:59 05:59 05:59 Intake Total 2850 2490 Output Total 1 500 Balance 2849 1989 PT 17.7 SEC (12.0-15.0) H 08/29/17 02:55 INR 1.44 (0.83-1.16) H 08/29/17 02:55 - Physical Exam Constitutional: no apparent distress Eyes: PERRL Ears, Nose, Mouth, Throat: moist mucous membranes Cardiovascular: regular rate and rhythym Respiratory: no respiratory distress Gastrointestinal: normoactive bowel sounds, soft, non-tender abdomen Skin: warm Musculoskeletal: full muscle strength, other (left wrist still quite inflamed, warm, tender. left foot dressed, c/d/i) Neurologic: AAOx3 Psychiatric: interacting appropriately ICD10 Worksheet Patient Problems: Problems Problem Status Onset Dehydration Acute Diabetic foot ulcer Acute Foot abscess Acute Osteomyelitis Acute Sepsis Acute Cellulitis of left foot Acute Severe sepsis Acute Skin ulcer of left great toe with necrosis of bone Acute
--- NOTE | 2017-09-07 14:43 | PCMIDPN ---
Assessment/Plan: Assessment/Plan: * Sepsis due to left diabetic foot infection with polymicrobial cultures including Corynebacterium and Pseudomonas: No expressible purulence from base of 5th toe on exam after manipulation by surgery earlier today. Plans for repeat debridement in operating room in a.m.. Continue vancomycin and Zosyn. Will adjust vancomycin dose down given vancomycin trough of 19.5 with likely continued accumulation and risk of nephrotoxicity if level increases further. * Left wrist inflammatory arthropathy: Suspect this is gout rather than septic arthritis. Improved but plateaued with indomethacin. Hospitalist notes reviewed with plans for intra-articular steroid injection tomorrow. * C difficile colitis: Overall improved with persistent loose stool but no mark diarrhea. Continue oral vancomycin and follow clinical course. 09/07/17 14:40 Subjective: Less joint pain in left wrist although still inflamed. Patient describes having local manipulation of wound bed by surgery earlier today with plans for OR debridement tomorrow. Objective: Vital Signs Temp Pulse Resp BP Pulse Ox 36.6 C 78 16 136/93 H 94 09/07/17 07:37 09/07/17 07:37 09/07/17 07:37 09/07/17 07:37 09/07/17 07:37 Microbiology 09/03/17 11:24 Gram Stain - Final Synovial Fluid - Aspirate Laboratory Results 09/07/17 04:45 09/07/17 04:45 09/06/17 09/07/17 09/08/17 05:59 05:59 05:59 Intake Total 2850 2490 Output Total 1 500 Balance 2849 1990 ESR 45 MM/HR (0-20) H 08/29/17 02:55 C-Reactive Protein 452.4 mg/L (<10.0) H 08/29/17 02:55 Vancomycin # 5 Zosyn # 7 Oral vancomycin # 4 Laboratory Tests 09/07/17 08:15 Vancomycin Trough 19.5 - Physical Exam General Appearance: alert, no apparent distress EENT: No scleral icterus Extremities: inflammation (Left foot without expressible discharge from opening at base of 5th toe; remains erythematous over dorsal aspect of foot; wound beds largely without interval change; left wrist with persistent erythema and edema although less pain with range of motion) Abdomen: non-tender, No distended - Line/s RUE PICC Lines: No drainage, No erythema ICD10 Worksheet Patient Problems: Problems Problem Status Onset Dehydration Acute Diabetic foot ulcer Acute Foot abscess Acute Osteomyelitis Acute Sepsis Acute Cellulitis of left foot Acute Severe sepsis Acute Skin ulcer of left great toe with necrosis of bone Acute
[2017-09-07] MEDS: OLANZapine DISINTEGR 10 MG TAB PO SCH (21:21)
[2017-09-08] MEDS ORDERED: DEPO METHYLPREDNISOLONE 40 MG/ML SDV IU ONE (06:00)
[2017-09-08] MEDS: oxyCODONE IR 5 MG TAB PO PRN ×3 (06:25→19:45)
[2017-09-08] MEDS: PIPERACILLIN/TAZO 4.5 GM/DEX 100 ML IV SCH ×4 (06:26→23:51)
[2017-09-08 06:40] LABS: PLATELET COUNT 354 10^3/uL (150-400)
--- NOTE | 2017-09-08 08:02 | SOAPPROG ---
SOAP Progress Note Assessment/Plan: Assessment: Plan: Subjective: no new acute isssues wbc 13 k foot redressed and examined- stil copius serous drainage secvondary to chronic leg swelling, low albumin, open wound, etc. no purulence, no odor noexpressible pus, really no foot edema or fluctuance. the area i debrided ydesterday looks better. i see no reason to explore today. would recomend daily dressing changes, topical debridement gel to lateral wound on foot, eventual woiund vac to both surfaces when all necrotic tissue gone, and eventual stsg. wound service to see today. Objective: Vital Signs Temp Pulse Resp BP Pulse Ox 36.9 C 78 20 140/78 H 95 09/07/17 23:54 09/07/17 23:54 09/07/17 23:54 09/07/17 23:54 09/07/17 23:54 Laboratory Results 09/08/17 06:20 09/08/17 06:20 09/07/17 09/08/17 09/09/17 05:59 05:59 05:59 Intake Total 2490 Output Total 500 Balance 1989 PT 17.7 SEC (12.0-15.0) H 08/29/17 02:55 INR 1.44 (0.83-1.16) H 08/29/17 02:55 ICD10 Worksheet Patient Problems: Problems Problem Status Onset Dehydration Acute Diabetic foot ulcer Acute Foot abscess Acute Osteomyelitis Acute Sepsis Acute Cellulitis of left foot Acute Severe sepsis Acute Skin ulcer of left great toe with necrosis of bone Acute
[2017-09-08] MEDS: VANCOMYCIN 125 MG/2.5 ML UDL PO SCH ×4 (08:51→20:44)
[2017-09-08] MEDS: INSULIN REGULAR HUMAN 100 UNIT/ML SC SCH ×4 (08:52→23:23)
[2017-09-08] MEDS: INDOMETHACIN 25 MG CAP PO SCH ×3 (08:53→17:46)
[2017-09-08] MEDS: COLCHICINE 0.6 MG CAP/TAB PO SCH (08:53)
[2017-09-08] MEDS ORDERED: DEPO METHYLPREDNISOLONE 40 MG/ML SDV ONE (09:20)
[2017-09-08] MEDS ORDERED: LIDOCAINE 1% 300 MG/30 ML SDV ONE (09:20)
[2017-09-08] MEDS ORDERED: IOPAMIDOL (ISOVUE 370) 100 ML BTL IV ONE (09:21)
[2017-09-08] MEDS: ACETAMINOPHEN 325 MG TAB PO PRN ×2 (09:52→23:50)
--- NOTE | 2017-09-08 10:21 | HOSPPROG ---
Hospitalist Progress Note Assessment/Plan: 62 yo M new to my care 09/08 presenting with: #sepsis secondary to diabetic foot ulcer/osteomyelitis -cont abx per ID (vanco currently on hold) -will need usp outpt IVABX -?wound vac #increasing creatinine -cont to monitor #resolved sepsis secondary to above Cx data- pseudomonas and mssa. S/P I&D x2- 08/30 partial amputation left 2nd MT and toe by Dr. Rao, then 09/01 further I&D by Dr. Lopez. #left wrist inflammatory arthropathy., presumed gout flare. Joint aspiration done, Cx neg, doubt septic joint. Unable to assess for crystals due to sticky nature of fluid. Decreased pain, but still quite inflamed. treating as gout flare with colchicine, indocin await steroid injection later today encephalopathy: possibly due to infection, medication side effects, back to baseline, mentating clearly prn seroquel / zyprexa caution with opioids cdiff: cont po vanc, no more diarrhea doubtful pna possible etoh w/d: stable, no significant w/d pain: tylenol, nsaids, prn oxy, d/c iv dilaudid proph: lmwh dispo: inpatient, med/surg Subjective: continues to have pain and swelling in left wrist. no fever or chills. pain controlled Objective: Vital Signs Temp Pulse Resp BP Pulse Ox 36.8 C 79 18 123/60 H 95 09/08/17 08:00 09/08/17 08:00 09/08/17 08:00 09/08/17 08:00 09/07/17 23:54 Laboratory Results 09/08/17 06:20 09/08/17 06:20 09/07/17 09/08/17 09/09/17 05:59 05:59 05:59 Intake Total 2490 Output Total 500 Balance 1989 PT 17.7 SEC (12.0-15.0) H 08/29/17 02:55 INR 1.44 (0.83-1.16) H 08/29/17 02:55 - Physical Exam Constitutional: no apparent distress, appears nourished, not in pain Ears, Nose, Mouth, Throat: moist mucous membranes, hearing normal, ears appear normal, no oral mucosal ulcers Cardiovascular: regular rate and rhythym, no murmur, rub, or gallop Respiratory: no respiratory distress, no rales or rhonchi, clear to auscultation Gastrointestinal: normoactive bowel sounds, soft, non-tender abdomen, no palpable masses Musculoskeletal: other (left wrist swelling, warm to touch) ICD10 Worksheet Patient Problems: Problems Problem Status Onset Skin ulcer of left great toe with necrosis of bone Acute Severe sepsis Acute Cellulitis of left foot Acute Diabetic foot ulcer Acute Sepsis Acute Foot abscess Acute Osteomyelitis Acute Dehydration Acute
--- NOTE | 2017-09-08 11:34 | PCMIDPN ---
Assessment/Plan: Assessment/Plan: * Sepsis due to left diabetic foot infection with polymicrobial cultures including Corynebacterium and Pseudomonas: Purulent drainage resolved and foot erythema decreased. Reviewed with Dr. Estrada with plans to continue antibiotic therapy and observation rather than undergo repeat debridement. Will need treatment for osteomyelitis given extent of infection. Anticipate 6 weeks of IV antibiotics. Will resume vancomycin at 1 g IV q.12 hours based on levels and renal function. Continue to monitor carefully over time. * Left wrist inflammatory arthropathy: Symptomatically improved after intra- articular steroid injection. * C difficile colitis: Diarrhea resolving. Plan 10 days of therapy a four times daily dosing followed by suppression while on oral antibiotics at twice daily dosing. Clinical findings and plan reviewed with patient, Dr. Alfaro, and Dr. Estrada. 09/08/17 11:31 09/08/17 11:34 Subjective: Feels much better with decreased wrist pain after steroid injection. Objective: Vital Signs Temp Pulse Resp BP Pulse Ox 36.8 C 79 18 123/60 H 95 09/08/17 08:00 09/08/17 08:00 09/08/17 08:00 09/08/17 08:00 09/07/17 23:54 Laboratory Results 09/08/17 06:20 09/08/17 06:20 09/07/17 09/08/17 09/09/17 05:59 05:59 05:59 Intake Total 2490 Output Total 500 Balance 1989 ESR 45 MM/HR (0-20) H 08/29/17 02:55 C-Reactive Protein 452.4 mg/L (<10.0) H 08/29/17 02:55 IV vancomycin # 6 Zosyn # 8 Oral vancomycin # 5 Laboratory Tests 09/08/17 06:20 Random Vancomycin 10.5 - Physical Exam General Appearance: alert, no apparent distress, non-toxic EENT: No scleral icterus, No thrush Extremities: inflammation (Left foot with significantly decreased erythema over dorsal aspect; no residual purulence from small opening below 5th toe; mixed granulation and slough medially with majority of wound bed laterally slough) Abdomen: non-tender, No distended - Line/s RUE PICC Lines: No drainage, No erythema ICD10 Worksheet Patient Problems: Problems Problem Status Onset Dehydration Acute Diabetic foot ulcer Acute Foot abscess Acute Osteomyelitis Acute Sepsis Acute Cellulitis of left foot Acute Severe sepsis Acute Skin ulcer of left great toe with necrosis of bone Acute
--- NOTE | 2017-09-08 15:11 | ASMTCMCOM ---
CM Note CM Note Notes: Chart reviewed. 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 patient able to engage in conversation but doesn't appear to fully understand his prison needs, Attempted to discuss SNF and he is referring to how things change. ULTC 100 filled out. PASSR filled out. No forseeable discharge date but will need SNF at this point in time. Plan to SNF, awaiting ULTC 100. CM to follow Date Signed: 09/08/2017 03:11 PM Electronically Signed By:Beata Burk RN
--- NOTE | 2017-09-08 16:45 | WOCRNPDOC ---
LOU Advanced Assessment Note - Skin Integrity Problem, Advanced Assess Left Medial Foot Surgical Wound/Incision Dressing Type: Gauze, Kerlix Dressing Description: Intact, Shadowed Exudate Amount: Moderate Exudate Characteristic(s): Serous Integumentary Issue Intervention: Dressing Changed Arabella Wound Swelling: Mild Wound Bed Color: [place], [place], White Wound Bed Constitution: Smooth Tissue (90%), Red/[place] - Non Granular Tissue (10% ), Bone, Subcutaneous Fat Wound Edges: Attached Site Measurement - Head-to-Toe Length X Width X Depth (cm): 9x6x2.5 Skin Integrity Problem Comment: Cleaned wound with ns and gauze. Skin prep applied arabella wound then mastisol to 3rd toe to help obtain a seal. Two tiny areas of bone in wound base but smaller than the tip of the Q tip. One piece of small simplace applied to wound bed and then bridged to dorsal foot with a second piece of foam. Vac set to -125 mm Hg continuous suction without leaks. Reported to Dr. Estrada. KATHLEEN Godoy in room for care. Left Lateral Foot Surgical Wound/Incision Dressing Type: Gauze, Kerlix Dressing Description: Intact, Shadowed Exudate Amount: Moderate Exudate Characteristic(s): Serous Integumentary Issue Intervention: Dressing Changed Arabella Wound Tissue: Erythema Arabella Wound Swelling: Moderate Wound Bed Color: Yellow Wound Bed Constitution: Tendon (5%), Adhered Slough (95%) Site Measurement - Head-to-Toe Length X Width X Depth (cm): 7.9x6.2x1.5 Skin Integrity Problem Comment: Cleaned wound with ns and gauze. Skin prep and mastisol applied arabella wound then drape. Attempted to place veraflo cleanse dressing, however a small fissure was discovered distal to the wound and seperated by about 2.5 cm. The fissure is located between the 5th and 4th digits. This fissure connects at 12 oclock to the larger surgical wound bed. The skin around the fissure is very macerated and despite mulitple attempts to obtain a seal the area could not maintain a seal and wound not support the instillation of fluid into the main wound bed as it would leak out this area. The vac dressing was taken down and a moist to dry was applied instead. Report was given to Dr. Leibovitz. He would like to continue with wet to dry dressings on this area without 1/4 strength prince.
[2017-09-08] MEDS: VANCOMYCIN HCL/NORMAL SALINE 250 ML IV SCH (20:44)
[2017-09-09] MEDS: HYDROmorphONE/DILAUDID 1 MG/ML INJ IVP PRN (00:04)
[2017-09-09] MEDS: oxyCODONE IR 5 MG TAB PO PRN ×3 (05:45→21:14)
[2017-09-09] MEDS: VANCOMYCIN 125 MG/2.5 ML UDL PO SCH ×4 (05:58→21:13)
[2017-09-09] MEDS: PIPERACILLIN/TAZO 4.5 GM/DEX 100 ML IV SCH ×4 (05:58→23:33)
[2017-09-09 06:15] LABS: PLATELET COUNT 371 10^3/uL (150-400)
--- NOTE | 2017-09-09 08:14 | PCMIDPN ---
Assessment/Plan: Assessment/Plan: 1. Left foot diabetic foot infection/abscess with also 2nd toe osteomyelitis/ abscess: - Left foot- GS with GNR, GPR, GPC, -MRI reviewed. stated below -wbc improving -creatinine stable. - Cultures polymicrobial with PsA (pansensitive), MSSA, Group C/G strep, Corynebacterium striatum. -Currently on zosyn, Vanco (restarted on scheduled dosing yesterday.) - will order trough for tomorrow morning prior to 4th dose. -Vanco to cover Corynebacterium, given high rate of resistance of Corynebacterium striatum to B-lactams, - Path: osteomyelitis on proximal margin of remaining 2nd MT head. - Dorsum of foot wound with wet to dry dressings at present: tendons exposed and 90% slough covering area - Likely will need additional debridement vs TMA/BKa? 2. C. diff: - On oral vanco, contact precautions. - On D#9 -plan 10/-14 day course followed by oral suppression thereafter given #1 Meds - Vanco 1g q12- 09/02/17 (Held 09/07/17 due to higher trough, but restarted on ) zosyn 4.5gm q6- 08/31/17 oral vanco 125mg q6- 09/01/17 Subjective: Afebrile. MOre oriented today than last week. Denies feeling short of breath. loose stools still but he tells me he thinks they are getting a little more formed. 2x yesterday. denies abd pain. less left wrist pain today after steroid shot. knees not hurting today. Objective: Vital Signs Temp Pulse Resp BP Pulse Ox 36.5 C 60 18 150/87 H 94 09/09/17 07:48 09/09/17 07:48 09/09/17 07:48 09/09/17 07:48 09/09/17 07:48 Microbiology 09/03/17 11:24 Gram Stain - Final Synovial Fluid - Aspirate 09/01/17 16:05 Gram Stain - Final Foot - Eswab Anaerobic Culture - Final Strep Dysgalactiae Grp C/G Corynebacterium Striatum Pseudomonas Aeruginosa Laboratory Results 09/09/17 05:45 09/09/17 05:45 0109/09/17 09/10/17 05:59 05:59 05:59 Intake Total 950 Output Total 1500 Balance -550 ESR 45 MM/HR (0-20) H 08/29/17 02:55 C-Reactive Protein 452.4 mg/L (<10.0) H 08/29/17 02:55 - Physical Exam General Appearance: alert, no apparent distress Respiratory: lungs clear Cardiac/Chest: regular rate, rhythm Extremities: swelling (left wrist/lhand with swelling but wrinkling noted. warmth. stil with limited rom.) Abdomen: normal bowel sounds, non-tender, soft, No distended Skin: other (left foot; wound vac to 2nd digit region. open wound on dorsum of foot with slough,and tendons exposed. ) ICD10 Worksheet Patient Problems: Problems Problem Status Onset Dehydration Acute Diabetic foot ulcer Acute Foot abscess Acute Osteomyelitis Acute Sepsis Acute Cellulitis of left foot Acute Severe sepsis Acute Skin ulcer of left great toe with necrosis of bone Acute
[2017-09-09] MEDS: COLCHICINE 0.6 MG CAP/TAB PO SCH (09:25)
[2017-09-09] MEDS: ACETAMINOPHEN 325 MG TAB PO PRN ×2 (09:26→21:13)
[2017-09-09] MEDS: ENOXAPARIN 40 MG/0.4 ML SYR SC SCH (09:26)
[2017-09-09] MEDS: INSULIN REGULAR HUMAN 100 UNIT/ML SC SCH ×4 (09:26→23:32)
[2017-09-09] MEDS: INDOMETHACIN 25 MG CAP PO SCH ×3 (09:26→17:54)
[2017-09-09] MEDS: VANCOMYCIN HCL/NORMAL SALINE 250 ML IV SCH ×2 (09:27→21:07)
--- NOTE | 2017-09-09 12:19 | SOAPPROG ---
SOAP Progress Note Assessment/Plan: Assessment: Plan: Subjective: vss, af wbc normal now!!! foot- vac on medial wond. i chanbged dressing to open lateral wound no purulence, no edemea, no erythema. some necrotic tissue present, but i think it will all eventually heal. cont present care. Objective: Vital Signs Temp Pulse Resp BP Pulse Ox 36.5 C 60 18 150/87 H 94 09/09/17 07:48 09/09/17 07:48 09/09/17 07:48 09/09/17 07:48 09/09/17 07:48 Microbiology 09/03/17 11:24 Gram Stain - Final Synovial Fluid - Aspirate 09/01/17 16:05 Gram Stain - Final Foot - Eswab Anaerobic Culture - Final Strep Dysgalactiae Grp C/G Corynebacterium Striatum Pseudomonas Aeruginosa Laboratory Results 09/09/17 05:45 09/09/17 05:45 09/08/17 09/09/17 09/10/17 05:59 05:59 05:59 Intake Total 950 Output Total 1500 Balance -550 PT 17.7 SEC (12.0-15.0) H 08/29/17 02:55 INR 1.44 (0.83-1.16) H 08/29/17 02:55 ICD10 Worksheet Patient Problems: Problems Problem Status Onset Dehydration Acute Diabetic foot ulcer Acute Foot abscess Acute Osteomyelitis Acute Sepsis Acute Cellulitis of left foot Acute Severe sepsis Acute Skin ulcer of left great toe with necrosis of bone Acute
--- NOTE | 2017-09-09 13:39 | HOSPPROG ---
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 S/P I&D x2- 08/30 partial amputation left 2nd MT and toe by Dr. Rao, then 09/01 further I&D by Dr. Lopez. #left wrist inflammatory arthropathy., presumed gout flare. Joint aspiration done, Cx neg, doubt septic joint. Unable to assess for crystals due to sticky nature of fluid. Decreased pain, but still quite inflamed. treating as gout flare with colchicine, indocin await steroid injection later today encephalopathy: possibly due to infection, medication side effects, back to baseline, mentating clearly prn seroquel / zyprexa caution with opioids cdiff: cont po vanc, no more diarrhea doubtful pna possible etoh w/d: stable, no significant w/d pain: tylenol, nsaids, prn oxy, d/c iv dilaudid proph: lmwh dispo: inpatient, med/surg Subjective: no diarrhea. pain controlled. no fever or chills Objective: Vital Signs Temp Pulse Resp BP Pulse Ox 36.5 C 60 18 150/87 H 94 09/09/17 07:48 09/09/17 07:48 09/09/17 07:48 09/09/17 07:48 09/09/17 07:48 Microbiology 09/03/17 11:24 Gram Stain - Final Synovial Fluid - Aspirate 08/29/17 20:06 Mycobacterial Smear (RAGHU) - Final Foot - Tissue 09/01/17 16:05 Gram Stain - Final Foot - Eswab Anaerobic Culture - Final Strep Dysgalactiae Grp C/G Corynebacterium Striatum Pseudomonas Aeruginosa Laboratory Results 09/09/17 05:45 09/09/17 05:45 09/08/17 09/09/17 09/10/17 05:59 05:59 05:59 Intake Total 950 Output Total 1500 Balance -550 PT 17.7 SEC (12.0-15.0) H 08/29/17 02:55 INR 1.44 (0.83-1.16) H 08/29/17 02:55 - Physical Exam Constitutional: no apparent distress, appears nourished, not in pain Cardiovascular: regular rate and rhythym, no murmur, rub, or gallop Respiratory: no respiratory distress, no rales or rhonchi, clear to auscultation Gastrointestinal: normoactive bowel sounds, soft, non-tender abdomen, no palpable masses ICD10 Worksheet Patient Problems: Problems Problem Status Onset Skin ulcer of left great toe with necrosis of bone Acute Severe sepsis Acute Cellulitis of left foot Acute Diabetic foot ulcer Acute Sepsis Acute Foot abscess Acute Osteomyelitis Acute Dehydration Acute
--- NOTE | 2017-09-09 16:21 | ASMTCMCOM ---
CM Note CM Note Notes: Daysi hair LAVONNE faxed H&P and Med list per her request; she will eval pt today. CM to follow. Date Signed: 09/09/2017 04:21 PM Electronically Signed By:KAREY Espitia
[2017-09-10] MEDS: VANCOMYCIN 125 MG/2.5 ML UDL PO SCH ×4 (06:24→22:58)
[2017-09-10] MEDS: PIPERACILLIN/TAZO 4.5 GM/DEX 100 ML IV SCH ×3 (06:24→18:01)
[2017-09-10 06:45] LABS: PLATELET COUNT 411 10^3/uL (150-400)
[2017-09-10] MEDS ORDERED: INSULIN REGULAR HUMAN 100 UNIT/ML UNIT ONE ×3 (09:20→22:11)
[2017-09-10] MEDS: INDOMETHACIN 25 MG CAP PO SCH ×3 (09:30→18:03)
[2017-09-10] MEDS: INSULIN REGULAR HUMAN 100 UNIT/ML SC SCH ×4 (09:31→22:58)
[2017-09-10] MEDS: ENOXAPARIN 40 MG/0.4 ML SYR SC SCH (09:31)
[2017-09-10] MEDS: COLCHICINE 0.6 MG CAP/TAB PO SCH (09:32)
--- NOTE | 2017-09-10 11:13 | ASMTCMCOM ---
CM Note CM Note Notes: Daysi ([phone]) w [employer] reports pt is approved and PASRR did not trigger. Pt needs accepting SNF, [facility] still considering but when [facility] staff talke to pt he was adamant he was not going to SNF and going home. PT/OT continue to rec SNF. Referrals sent to [facility] and [facility] for additional Medicaid SNF choice. Pt moved to . Date Signed: 09/10/2017 11:12 AM Electronically Signed By:KAREY Espitia
--- NOTE | 2017-09-10 11:26 | WOCRNPDOC ---
WOCRN Advanced Assessment Note - Skin Integrity Problem, Advanced Assess Left Medial Foot Surgical Wound/Incision Dressing Type: Black Vac Foam (x1), Wound Vac Dressing Description: Clean/Dry, Intact Exudate Amount: Scant Exudate Characteristic(s): Serosanguinous Integumentary Issue Intervention: Dressing Changed Arabella Wound Tissue: Macerated (minimal) Wound Bed Constitution: Granulation Tissue (20%), Smooth Tissue (10%), Red/[place] - Non Granular Tissue (70%) Wound Edges: Attached Site Odor: None Skin Integrity Problem Comment: Removed dressing and flushed with ns. Skin prep and mastisol arabella wound. Draped by medial 3rd toe. One piece of black foam to wound bed. Used bridge dressing to lower leg. Vac restarted at-125 mm Hg continuous suction without leaks. EXERCISE SCIENTIST Taras in room. Left Lateral Foot Surgical Wound/Incision Dressing Type: Edward Bandage, Kerlix Dressing Description: Intact, Shadowed Exudate Amount: Moderate Exudate Characteristic(s): Serosanguinous Integumentary Issue Intervention: Dressing Changed Arabella Wound Tissue: Erythema Wound Bed Constitution: Granulation Tissue (5%), Red/[place] - Non Granular Tissue (5%), Adhered Slough (90%) Skin Integrity Problem Comment: Dressing saturated and covering vac. Removed to perform vac dressing change. Reapplied gauze to wound bed, covered with kerlix. Asked KATHLEEN Cornell to add Edward and more kerlix as there were not enough supplies in room. Reported to Dr. Estrada.
[2017-09-10] MEDS: oxyCODONE IR 5 MG TAB PO PRN ×2 (11:27→18:46)
[2017-09-10] MEDS: VANCOMYCIN HCL/NORMAL SALINE 250 ML IV SCH ×2 (11:30→22:52)
--- NOTE | 2017-09-10 14:58 | SOAPPROG ---
SOAP Progress Note Assessment/Plan: Assessment: Plan: Subjective: pt remains afebrile and wbc remains normal. woiund care photo reviewed- lateral wound contiues to have some tissue, not easily debriedable, but showing granulation. i am still commited to foot salvage. \ may try some sharp debridement agin friday. cont wound care, antibiotics. Objective: Vital Signs Temp Pulse Resp BP Pulse Ox 36.6 C 69 18 180/102 H 91 L 09/10/17 12:42 09/10/17 12:42 09/10/17 12:42 09/10/17 12:42 09/10/17 12:42 Microbiology 09/03/17 11:24 Gram Stain - Final Synovial Fluid - Aspirate 08/29/17 20:06 Mycobacterial Smear (RAGHU) - Final Foot - Tissue Laboratory Results 09/10/17 06:30 09/10/17 06:30 09/09/17 09/10/17 09/11/17 05:59 05:59 05:59 Intake Total 950 1555 Output Total 1500 500 200 Balance -550 1055 -200 PT 17.7 SEC (12.0-15.0) H 08/29/17 02:55 INR 1.44 (0.83-1.16) H 08/29/17 02:55 ICD10 Worksheet Patient Problems: Problems Problem Status Onset Dehydration Acute Diabetic foot ulcer Acute Foot abscess Acute Osteomyelitis Acute Sepsis Acute Cellulitis of left foot Acute Severe sepsis Acute Skin ulcer of left great toe with necrosis of bone Acute
--- NOTE | 2017-09-10 15:47 | HOSPPROG ---
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 S/P I&D x2- 08/30 partial amputation left 2nd MT and toe by Dr. Rao, then 09/01 further I&D by Dr. Lopez. #left wrist inflammatory arthropathy., presumed gout flare. Joint aspiration done, Cx neg, doubt septic joint. Unable to assess for crystals due to sticky nature of fluid. (Markedly improved after injection done on 09/08) encephalopathy: possibly due to infection, medication side effects, back to baseline, mentating clearly prn seroquel / zyprexa caution with opioids cdiff: cont po vanc day 10. Id is recommending a 10-14 day course and then prophylactic treatment. doubtful pna possible etoh w/d: stable, no significant w/d pain: tylenol, nsaids, prn oxy, d/c iv dilaudid proph: lmwh dispo: inpatient, med/surg Subjective: Pain controlled. No fevers or chills. Agreeable to the current hospital course Objective: Vital Signs Temp Pulse Resp BP Pulse Ox 36.8 C 65 18 159/95 H 92 09/10/17 15:14 09/10/17 15:14 09/10/17 15:14 09/10/17 15:14 09/10/17 15:14 Microbiology 09/03/17 11:24 Gram Stain - Final Synovial Fluid - Aspirate 08/29/17 20:06 Mycobacterial Smear (RAGHU) - Final Foot - Tissue Laboratory Results 09/10/17 06:30 09/10/17 06:30 09/09/17 09/10/17 09/11/17 05:59 05:59 05:59 Intake Total 950 1555 Output Total 1500 500 200 Balance -550 1055 -200 PT 17.7 SEC (12.0-15.0) H 08/29/17 02:55 INR 1.44 (0.83-1.16) H 08/29/17 02:55 - Physical Exam Constitutional: no apparent distress, appears nourished, not in pain Cardiovascular: regular rate and rhythym, no murmur, rub, or gallop Respiratory: no respiratory distress, no rales or rhonchi, clear to auscultation Neurologic: AAOx3, sensation intact bilaterally, CN II-XII Intact, No facial droop ICD10 Worksheet Patient Problems: Problems Problem Status Onset Skin ulcer of left great toe with necrosis of bone Acute Severe sepsis Acute Cellulitis of left foot Acute Diabetic foot ulcer Acute Sepsis Acute Foot abscess Acute Osteomyelitis Acute Dehydration Acute
--- NOTE | 2017-09-10 18:53 | PCMIDPN ---
Assessment/Plan: Assessment: Polymicrobial osteomyelitis of the foot. Vancomycin and Zosyn intravenously given Pseudomonas aeruginosa and a variety of gram positives. C difficile colitis. In midst of course of p.o. vancomycin. Symptoms significantly resolved. Plan: 1. Continue both vancomycin and Zosyn intravenously. Suspect given residual osteomyelitis at path border that we will need a 6 week course of treatment. 2. Follow appearance of left foot. 3. Follow laboratory values. Subjective: Patient is doing fairly well. Expresses frustration of recurrent left lower extremity infections. No fevers or chills. Objective: Vancomycin IV # 8 Zosyn IV # 10 P.o. vancomycin # 9 Vital Signs Temp Pulse Resp BP Pulse Ox 36.8 C 65 18 159/95 H 92 09/10/17 15:14 09/10/17 15:14 09/10/17 15:14 09/10/17 15:14 09/10/17 15:14 Microbiology 09/03/17 11:24 Gram Stain - Final Synovial Fluid - Aspirate 08/29/17 20:06 Mycobacterial Smear (RAGHU) - Final Foot - Tissue Laboratory Results 09/10/17 06:30 09/10/17 06:30 09/09/17 09/10/17 09/11/17 05:59 05:59 05:59 Intake Total 950 1555 450 Output Total 1500 500 600 Balance -550 1055 -150 ESR 45 MM/HR (0-20) H 08/29/17 02:55 C-Reactive Protein 452.4 mg/L (<10.0) H 08/29/17 02:55 - Physical Exam General Appearance: WD/WN, alert, no apparent distress, non-toxic Respiratory: lungs clear, normal breath sounds, No respiratory distress Cardiac/Chest: regular rate, rhythm, No tachycardia Extremities: non-tender, No normal inspection Skin: normal color, warm/dry, No rash Neuro/Psych: alert, normal mood/affect, oriented x 3 ICD10 Worksheet Patient Problems: Problems Problem Status Onset Dehydration Acute Diabetic foot ulcer Acute Foot abscess Acute Osteomyelitis Acute Sepsis Acute Cellulitis of left foot Acute Severe sepsis Acute Skin ulcer of left great toe with necrosis of bone Acute
[2017-09-10] MEDS: ACETAMINOPHEN 325 MG TAB PO PRN (22:57)
[2017-09-11] MEDS: PIPERACILLIN/TAZO 4.5 GM/DEX 100 ML IV SCH ×4 (00:07→18:00)
[2017-09-11] MEDS: oxyCODONE IR 5 MG TAB PO PRN ×3 (02:14→15:04)
[2017-09-11] MEDS: VANCOMYCIN 125 MG/2.5 ML UDL PO SCH ×5 (05:40→20:11)
[2017-09-11 05:52] LABS: PLATELET COUNT 373 10^3/uL (150-400)
[2017-09-11] MEDS: INSULIN REGULAR HUMAN 100 UNIT/ML SC SCH ×4 (08:14→21:34)
[2017-09-11] MEDS: COLCHICINE 0.6 MG CAP/TAB PO SCH (08:26)
[2017-09-11] MEDS: VANCOMYCIN HCL/NORMAL SALINE 250 ML IV SCH ×2 (08:26→20:05)
[2017-09-11] MEDS: INDOMETHACIN 25 MG CAP PO SCH ×3 (08:27→17:59)
[2017-09-11] MEDS: ENOXAPARIN 40 MG/0.4 ML SYR SC SCH (08:28)
--- NOTE | 2017-09-11 10:02 | PCMIDPN ---
Assessment/Plan: Assessment: Polymicrobial osteomyelitis of the foot. Vancomycin and Zosyn intravenously given Pseudomonas aeruginosa and a variety of gram positives. C difficile colitis. Finishing course of p.o. vancomycin. Symptoms significantly resolved. Plan: 1. Continue both vancomycin and Zosyn intravenously. Suspect given residual osteomyelitis at path border that we will need a 6 week course of treatment. 2. Follow appearance of left foot. 3. Follow laboratory values. 09/11/17 10:02 Subjective: Patient is resting comfortably in his bed. Reports no new issues. Worked out with PT already this morning. No fevers. Objective: Vancomycin IV #9 Zosyn #11 PO Vancomycin #10 Vital Signs Temp Pulse Resp BP Pulse Ox 36.8 C 73 17 172/98 H 93 09/11/17 07:37 09/11/17 07:37 09/11/17 07:37 09/11/17 09:52 09/11/17 07:37 Microbiology 09/03/17 11:24 Gram Stain - Final Synovial Fluid - Aspirate Laboratory Results 09/11/17 05:40 09/11/17 05:40 09/10/17 09/11/17 09/12/17 05:59 05:59 05:59 Intake Total 1555 450 Output Total 500 1900 620 Balance 1055 -1450 -620 ESR 45 MM/HR (0-20) H 08/29/17 02:55 C-Reactive Protein 452.4 mg/L (<10.0) H 08/29/17 02:55 - Physical Exam General Appearance: WD/WN, alert, no apparent distress, non-toxic Respiratory: lungs clear, normal breath sounds, No respiratory distress Cardiac/Chest: regular rate, rhythm, No tachycardia Extremities: non-tender, No normal inspection Skin: normal color, warm/dry, No rash ICD10 Worksheet Patient Problems: Problems Problem Status Onset Dehydration Acute Diabetic foot ulcer Acute Foot abscess Acute Osteomyelitis Acute Sepsis Acute Cellulitis of left foot Acute Severe sepsis Acute Skin ulcer of left great toe with necrosis of bone Acute
[2017-09-11] MEDS: amLODIPine BESYLATE 5 MG TAB PO SCH (10:31)
--- NOTE | 2017-09-11 12:30 | ASMTCMCOM ---
CM Note CM Note Notes: Pt now recommending HC. OT still rec SNF. Met with pt to discuss DC options. Pt does not want SNF or HC because he does not want to be homebound. Talked with him about managing his diabetes. He thinks setting up a PCP at [facility] is the best option. CM unsure of DC so appt will be set up once DC known. CM to follow. Date Signed: 09/11/2017 12:29 PM Electronically Signed By:Swetha Wells LCSW
--- NOTE | 2017-09-11 13:29 | HOSPPROG ---
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 S/P I&D x2- 08/30 partial amputation left 2nd MT and toe by Dr. Rao, then 09/01 further I&D by Dr. Lopez. #left wrist inflammatory arthropathy., presumed gout flare. Joint aspiration done, Cx neg, doubt septic joint. Unable to assess for crystals due to sticky nature of fluid. (Markedly improved after injection done on 09/08) encephalopathy: possibly due to infection, medication side effects, back to baseline, mentating clearly prn seroquel / zyprexa caution with opioids cdiff: cont po vanc day 10. Id is recommending a 10-14 day course and then prophylactic treatment. doubtful pna possible etoh w/d: stable, no significant w/d pain: tylenol, nsaids, prn oxy, d/c iv dilaudid proph: lmwh dispo: inpatient, med/surg Subjective: denies chest pain. no shortness of breath. no fever Objective: Vital Signs Temp Pulse Resp BP Pulse Ox 36.8 C 73 17 150/103 H 93 09/11/17 07:37 09/11/17 07:37 09/11/17 07:37 09/11/17 11:37 09/11/17 07:37 Microbiology 09/03/17 11:24 Gram Stain - Final Synovial Fluid - Aspirate Laboratory Results 09/11/17 05:40 09/11/17 05:40 09/10/17 09/11/17 09/12/17 05:59 05:59 05:59 Intake Total 1555 450 Output Total 500 1900 620 Balance 1055 -1450 -620 PT 17.7 SEC (12.0-15.0) H 08/29/17 02:55 INR 1.44 (0.83-1.16) H 08/29/17 02:55 ICD10 Worksheet Patient Problems: Problems Problem Status Onset Skin ulcer of left great toe with necrosis of bone Acute Severe sepsis Acute Cellulitis of left foot Acute Diabetic foot ulcer Acute Sepsis Acute Foot abscess Acute Osteomyelitis Acute Dehydration Acute
[2017-09-11] MEDS: metFORMIN HCL 500 MG TAB PO SCH (19:57)
[2017-09-11] MEDS ORDERED: INSULIN REGULAR HUMAN 100 UNIT/ML UNIT ONE (21:31)
[2017-09-12] MEDS: PIPERACILLIN/TAZO 4.5 GM/DEX 100 ML IV SCH ×5 (00:03→23:06)
[2017-09-12] MEDS: ACETAMINOPHEN 325 MG TAB PO PRN (04:30)
[2017-09-12 05:09] LABS: PLATELET COUNT 370 10^3/uL (150-400)
[2017-09-12] MEDS: VANCOMYCIN 125 MG/2.5 ML UDL PO SCH ×4 (05:33→21:51)
[2017-09-12] MEDS: oxyCODONE IR 5 MG TAB PO PRN (08:13)
[2017-09-12] MEDS: VANCOMYCIN HCL/NORMAL SALINE 250 ML IV SCH ×2 (08:13→21:48)
[2017-09-12] MEDS: COLCHICINE 0.6 MG CAP/TAB PO SCH (08:13)
[2017-09-12] MEDS: amLODIPine BESYLATE 5 MG TAB PO SCH (08:13)
[2017-09-12] MEDS: INDOMETHACIN 25 MG CAP PO SCH ×3 (08:14→17:57)
[2017-09-12] MEDS: INSULIN REGULAR HUMAN 100 UNIT/ML SC SCH (12:40)
[2017-09-12] MEDS: ENOXAPARIN 40 MG/0.4 ML SYR SC SCH (12:41)
[2017-09-12] MEDS: metFORMIN HCL 500 MG TAB PO SCH ×2 (12:41→17:57)
--- NOTE | 2017-09-12 12:45 | PCMIDPN ---
Assessment/Plan: 1. 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 He tells me "I am leaving here by Friday, even if I have to check myself out. "I will discuss with the hospice case manager the patient's complicated antibiotic regimen, which will need to be continued at home. He refuses a [facility] facility. His disposition is also complicated by the fact that he has a wound VAC. Vancomycin trough most recently was okay, will leave present dose as is. Dr. Estrada will see patient later today. I tried to call him to discuss case, but he is in the operating room presently. Of note, in anticipation of his discharge, I made him an appointment to see Dr. Castellano September 18 at 10:30 a.m.. 2. C difficile colitis: On day 07/15 of oral vancomycin four times daily. After that he will need twice daily suppressive therapy for the duration of his antibiotics as per 1., and for a week after completion. 3. Miscellaneous: As per the above, the patient was extremely upset about his care during this hospitalization. I did offer him the opportunity to meet with the patient c s s representative which he declined. Subjective: Patient is very upset about the fact that food was withheld yesterday, as it was unclear whether not he was going back to the OR for repeat debridement. Denies diarrhea. Tells me he wants to "get out of here. " Objective: Vancomycin 1 g IV q.12 hours day 10 Zosyn 4.5 g IV q.6 hours day 12 P.o. vancomycin 125 four times daily day 11 Afebrile Vital Signs Temp Pulse Resp BP Pulse Ox 36.6 C 71 17 157/88 H 96 09/12/17 07:49 09/12/17 07:49 09/12/17 07:49 09/12/17 08:13 09/12/17 07:49 Microbiology 09/03/17 11:24 Gram Stain - Final Synovial Fluid - Aspirate Laboratory Results 09/12/17 04:23 09/12/17 04:23 0109/12/17 09/13/17 05:59 05:59 05:59 Intake Total 450 990 Output Total 1900 2170 200 Balance -1450 -1180 -200 ESR 45 MM/HR (0-20) H 08/29/17 02:55 C-Reactive Protein 452.4 mg/L (<10.0) H 08/29/17 02:55 No new microbiology Laboratory Tests 09/10/17 06:30 Vancomycin Trough 14.2 - Physical Exam General Appearance: obese Extremities: other (Left leg with wound VAC in place. I did not take anything down.) ICD10 Worksheet Patient Problems: Problems Problem Status Onset Dehydration Acute Diabetic foot ulcer Acute Foot abscess Acute Osteomyelitis Acute Sepsis Acute Cellulitis of left foot Acute Severe sepsis Acute Skin ulcer of left great toe with necrosis of bone Acute
--- NOTE | 2017-09-12 15:31 | WOCRNPDOC ---
WOCRN Advanced Assessment Note - Skin Integrity Problem, Advanced Assess Left Medial Foot Surgical Wound/Incision Dressing Type: Black Vac Foam (x1), Wound Vac Dressing Description: Clean/Dry, Intact Exudate Amount: Scant Exudate Characteristic(s): Serosanguinous Integumentary Issue Intervention: Dressing Changed Manuel Wound Tissue: Macerated (minimally ) Manuel Wound Swelling: Moderate Wound Bed Color: [place], Yellow Wound Bed Constitution: Granulation Tissue (10%), Smooth Tissue, Red/[place] - Non Granular Tissue (40%), Adhered Slough (20%) Wound Edges: Attached Skin Integrity Problem Comment: Removed one piece of black foam and flushed with ns. Skin prep and mastisol applied manuel wound. Vac drape applied at toe to protect skin edges. One piece of black foam applied to wound bed (bridge dressing used). Restarted vac at - 125 mm Hg without leaks. Unclear if Dr. Estrada would like patient to go home with vac on this wound or switch to daily wet to dry dressings. Wound care will change vac dressing on Friday if Dr Clinton would like to continue the vac. Message sent today to clarify this question. Left Lateral Foot Surgical Wound/Incision Dressing Type: ABD Pad, Gauze Dressing Description: Intact, Saturated Exudate Amount: Moderate Exudate Characteristic(s): Serous Integumentary Issue Intervention: Dressing Changed Manuel Wound Tissue: Erythema Manuel Wound Swelling: Moderate Wound Bed Color: [place], Yellow Wound Bed Constitution: Granulation Tissue (20%), Adhered Slough (80%) Skin Integrity Problem Comment: Tendon exposed. Mechanical debridment to patient tolerance performed at the bedside. Moist gauze applied to base then wrapped with kerlix. Post op boot reapplied. There is still a tunnel that runs from a fissure between the 4th and 5th toe to distal wound bed. The skin around the fissure is macerated as it continues to drain.
--- NOTE | 2017-09-12 15:47 | ASMTCMCOM ---
CM Note CM Note Notes: Dr Rincon asked CM to discuss DC plan with pt who was threatening to leave AMA today. Per Dr Rincon, best plan would be SNF but pt continues to be reluctant b/c he will need 6 weeks of IV ABX (zosyn Q6 and vanco Q12). Pt needs daily dressing changes on his foot as well and may DC with a wound vac. pt Dc'd from [facility] on 08/09/17 and admitted on this DC that he was inconsistent with his augmentin per H&P. Met with pt who had calmed down and stated he did not want to lose his leg and would be compliant. Pt would prefer to DC home with home care. Pt thinks he could observe dressing changes tomorrow and could also manage his IV infusion with HC teaching. Concerns are that pt's past noncompliance. Pt aware of the concerns and will consider SNF. Called [facility] to ensure they are still willing to take. They stated that clinically he is accepted but they need to do a financial screen which pt had refused b/c he did not want to go to a SNF earlier in the week. They will not be able to do this until Friday. Plan is for pt to consider HC vs SNF overnight. Dr Rincon and JENY will meet with pt tomorrow and continue discussion. Date Signed: 09/12/2017 03:47 PM Electronically Signed By:Swetha Wells LCSW
--- NOTE | 2017-09-12 15:49 | ASMTCMCOM ---
CM Note CM Note Notes: If pt decides to DC home he will have [facility] and [facility]. If pt decides to go to a SNF, [facility] only [facility] has been willing [facility] accept him.. Date Signed: 09/12/2017 03:48 PM Electronically Signed By:Swetha Wells LCSW
--- NOTE | 2017-09-12 16:13 | SOAPPROG ---
SOAP Progress Note Assessment/Plan: Assessment: Plan: Subjective: medial wound pink wound vac in place not yet ready for stsg later dorsum wound contractiong a bit- till lots of yellow fibrinous cating, but granulating underneath. no purule nce- not a septic foot. will [id number] dressing changes, ad necrotic tissue should eventually separate- halfway wound, and i don't think agressive surgical debridement will help- plan is to give 6 weeks of iv antibiotics, and follow the wound. hopefully will eventually be in a place to either skin graft or allow to heal on its own, which would be a 6- 8 month process. can be followed in the [facility] if discharged to a snf. home would be dangerous for this fairly non compliant pt. Objective: Vital Signs Temp Pulse Resp BP Pulse Ox 36.7 C 67 16 131/87 H 91 L 09/12/17 15:15 09/12/17 15:15 09/12/17 15:15 09/12/17 15:15 09/12/17 15:15 Microbiology 09/03/17 11:24 Gram Stain - Final Synovial Fluid - Aspirate Laboratory Results 09/12/17 04:23 09/12/17 04:23 09/11/17 09/12/17 09/13/17 05:59 05:59 05:59 Intake Total 450 990 474 Output Total 1900 2170 200 Balance -1450 -1180 274 PT 17.7 SEC (12.0-15.0) H 08/29/17 02:55 INR 1.44 (0.83-1.16) H 08/29/17 02:55 ICD10 Worksheet Patient Problems: Problems Problem Status Onset Dehydration Acute Diabetic foot ulcer Acute Foot abscess Acute Osteomyelitis Acute Sepsis Acute Cellulitis of left foot Acute Severe sepsis Acute Skin ulcer of left great toe with necrosis of bone Acute
--- NOTE | 2017-09-12 17:16 | HOSPPROG ---
Hospitalist Progress Note Assessment/Plan: DIAGNOSES: 62 yo Male new to my care 09/12 presenting with: # sepsis, now resolved # diabetic foot ulcer/osteomyelitis; polymicrobial growth in cultures -cont abx per ID -infectious Disease recommend halfway outpt IVABX (6wks) as there was residual osteomyelitis the margin from his surgery -wound vac # acute gout episode here in hospital responding well to therapy so far # DM -on metformin, good sugar control here so far # hypertension -Norvasc started 09/11 -cont to monitor # increasing creatinine (now stable) -cont to monitor -consider discontinuing Indocin if renal function worsens # acute encephalopathy: possibly due to infection, medication side effects, back to baseline, mentating clearly # acute cdiff: cont po vanc day 10. Id is recommending a 10-14 day course and then prophylactic treatment. # doubtful pna I reviewed in detail today with Dr. Emiliano Estrada and Dr. Shagufta Rincon At this point the patient will need ongoing wound care but does not need at this moment surgical debridement acutely. Is unclear whether the patient will be able to in the long run salvage his foot. His current wound status and circulation do indicate a prolonged course of IV antibiotics though it sounds like the patient is not necessarily likely going to be willing to go along that recommendation. Will continue to review this with the patient and Infectious Disease PLANS: -continue current antibiotics -Continue current wound care -recommendations for any further debridement by Dr. 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: Exam: alert oriented skin warm dry color ok resps not labored lungs clear BSs heart regular abd soft nondistended nontender, bowel sounds present limbs leg and foot are in dressing after most recent change, I did not undo the dressing at this time; he now has good range of motion at both wrists and no visible redness or swelling iv site ok Laboratory data: Sugars remain in good control Renal function blood cell count able Objective: Vital Signs Temp Pulse Resp BP Pulse Ox 36.7 C 67 16 131/87 H 91 L 01/12/18 15:15 09/12/17 15:15 09/12/17 15:15 09/12/17 15:15 09/12/17 15:15 Microbiology 09/03/17 11:24 Gram Stain - Final Synovial Fluid - Aspirate Laboratory Results 09/12/17 04:23 09/12/17 04:23 09/11/17 09/12/17 09/13/17 06:59 06:59 06:59 Intake Total 450 990 474 Output Total 1900 2170 200 Balance -1450 -1180 274 PT 17.7 SEC (12.0-15.0) H 08/29/17 02:55 INR 1.44 (0.83-1.16) H 08/29/17 02:55 ICD10 Worksheet Patient Problems: Problems Problem Status Onset Dehydration Acute Diabetic foot ulcer Acute Foot abscess Acute Osteomyelitis Acute Sepsis Acute Cellulitis of left foot Acute Severe sepsis Acute Skin ulcer of left great toe with necrosis of bone Acute
[2017-09-13] MEDS: VANCOMYCIN 125 MG/2.5 ML UDL PO SCH ×4 (05:27→20:22)
[2017-09-13] MEDS: PIPERACILLIN/TAZO 4.5 GM/DEX 100 ML IV SCH ×4 (05:27→23:20)
[2017-09-13 05:46] LABS: PLATELET COUNT 348 10^3/uL (150-400)
[2017-09-13] MEDS: VANCOMYCIN HCL/NORMAL SALINE 250 ML IV SCH ×2 (08:47→20:22)
[2017-09-13] MEDS: INDOMETHACIN 25 MG CAP PO SCH ×3 (08:54→19:00)
[2017-09-13] MEDS: amLODIPine BESYLATE 5 MG TAB PO SCH (08:56)
[2017-09-13] MEDS: metFORMIN HCL 500 MG TAB PO SCH ×2 (08:56→19:00)
[2017-09-13] MEDS: COLCHICINE 0.6 MG CAP/TAB PO SCH (08:56)
[2017-09-13] MEDS: ENOXAPARIN 40 MG/0.4 ML SYR SC SCH (08:59)
--- NOTE | 2017-09-13 10:03 | HOSPPROG ---
Hospitalist Progress Note Assessment/Plan: 62-year-old man with diabetes any chronic lower extremity infection and probable osteomyelitis is readmitted for worsening ft infection associated with sepsis. The sepsis has resolved he is being followed by infectious disease as well as surgery. Currently he is doing relatively well he has a wound VAC in place is receiving wound care and antibiotics for a polyp egegik be all osteomyelitis. 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 Microbiology include Pseudomonas, MSSA, group C/G strep and corynebacterium. Discussed patient with Surgery. * Vancomycin 1 g q.12 hours a 11 * Shagufta 0.5 g q.6 hours 13 * P. o. Vanco and 25 mg 4 times a day, day , and will switch to twice daily dose * Continue wound care and will try to set up outpatient follow-up. Ideally the patient would benefit from SNF post hospitalization although he has been refusing. * Follow-up care set up with Dr. Castellano on should be discharged prior to that. # C diff colitis. * PO Vanco day , after treatment dose will decrease to twice daily dosing until patient off antibiotics for prophylaxis # acute gout, patient currently on Indocin with improvement. Primary affecting his left wrist. * Continue Indocin, renal function stable # diabetes, 2 currently on metformin * Mild diabetes with adequate concurrently # acute kidney injury on admission likely due to sepsis. * Creatinine back to baseline, will follow # encephalopathy, improved Disposition: Continue to follow patient in hospital for now and set up either home care or will continue to try to get patient to go to skilled rehab post hospitalization Subjective: Doing okay today. Denies any chest pain or shortness of breath, no diarrhea or urinary symptoms. Pain well controlled as for. His sugars have been well controlled, patient new to me and chart reviewed Objective: Vital Signs Temp Pulse Resp BP Pulse Ox 36.6 C 77 18 164/87 H 91 L 09/13/17 07:48 09/13/17 07:48 09/13/17 07:48 09/13/17 07:48 09/13/17 07:48 Microbiology 09/03/17 11:24 Gram Stain - Final Synovial Fluid - Aspirate Laboratory Results 09/13/17 05:25 09/13/17 05:25 01/12/18 01/13/18 01/14/18 05:59 05:59 05:59 Intake Total 990 2314 Output Total 2170 1200 Balance -1180 1114 PT 17.7 SEC (12.0-15.0) H 08/29/17 02:55 INR 1.44 (0.83-1.16) H 08/29/17 02:55 - Physical Exam Constitutional: no apparent distress, appears nourished, not in pain, obese Eyes: PERRL, anicteric sclera, EOMI Ears, Nose, Mouth, Throat: moist mucous membranes, ears appear normal Cardiovascular: regular rate and rhythym, no murmur, rub, or gallop Respiratory: no respiratory distress, no rales or rhonchi, clear to auscultation Gastrointestinal: normoactive bowel sounds, soft, non-tender abdomen Genitourinary: No zamora in urethra Skin: warm, erythema, other (Bandages over left foot for wound on dorsum as well as medial distal foot. Status post inpatient big toe. Did not on bandage foot today. Wound VAC in place.) Musculoskeletal: joint effusion (Left wrist) Neurologic: AAOx3 Psychiatric: interacting appropriately Lymph, Heme, Immunologic: no cervical LAD ICD10 Worksheet Patient Problems: Problems Problem Status Onset Skin ulcer of left great toe with necrosis of bone Acute Severe sepsis Acute Cellulitis of left foot Acute Diabetic foot ulcer Acute Sepsis Acute Foot abscess Acute Osteomyelitis Acute Dehydration Acute
--- NOTE | 2017-09-13 13:21 | PCMIDPN ---
Assessment/Plan: 1. 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 Tells me that the upper caser, Swetha , convinced him that a fdc facility may be the best for him moving forward. He is in the process of making that decision. Continue antibiotics as is. Would like to get another vancomycin trough prior to discharge and will need to have his creatinine followed closely in the setting of increased nephrotoxicity associated with vancomycin and Zosyn together. 2. C difficile colitis: On day 12/ of oral vancomycin four times daily. After that he will need twice daily suppressive therapy for the duration of his antibiotics as per 1., and for a week after completion. Subjective: In much better spirits today. Tells me that he is strongly considering a fdc facility. His brother is in the room visiting. Complaining of a dull headache, but no visual change or nausea and vomiting. No diarrhea. Objective: Vancomycin 1 g IV q.12 hours day 11 Zosyn 4.5 g IV q.6 hours day 13 Oral vancomycin 125 mg p.o. four times daily day 12 Afebrile Vital Signs Temp Pulse Resp BP Pulse Ox 36.6 C 77 18 164/87 H 91 L 09/13/17 07:48 09/13/17 07:48 09/13/17 07:48 09/13/17 07:48 09/13/17 07:48 Microbiology 09/03/17 11:24 Gram Stain - Final Synovial Fluid - Aspirate Laboratory Results 09/13/17 05:25 09/13/17 05:25 09/12/17 09/13/17 09/14/17 05:59 05:59 05:59 Intake Total 990 2314 Output Total 2170 1200 Balance -1180 1114 ESR 45 MM/HR (0-20) H 08/29/17 02:55 C-Reactive Protein 452.4 mg/L (<10.0) H 08/29/17 02:55 No new microbiology - Physical Exam General Appearance: no apparent distress, obese EENT: other (False teeth), No thrush Respiratory: lungs clear Extremities: other (Swelling of the left hand consistent with previous history of gout.) Skin: other (Left lower extremity wrapped with a wound VAC.), No rash ICD10 Worksheet Patient Problems: Problems Problem Status Onset Dehydration Acute Diabetic foot ulcer Acute Foot abscess Acute Osteomyelitis Acute Sepsis Acute Cellulitis of left foot Acute Severe sepsis Acute Skin ulcer of left great toe with necrosis of bone Acute
--- NOTE | 2017-09-13 13:30 | SOAPPROG ---
SOAP Progress Note Assessment/Plan: Assessment: Plan: Subjective: vss, af no change in foot, cont present care. Objective: Vital Signs Temp Pulse Resp BP Pulse Ox 36.6 C 77 18 164/87 H 91 L 09/13/17 07:48 09/13/17 07:48 09/13/17 07:48 09/13/17 07:48 09/13/17 07:48 Microbiology 09/03/17 11:24 Gram Stain - Final Synovial Fluid - Aspirate Laboratory Results 09/13/17 05:25 09/13/17 05:25 09/12/17 09/13/17 09/14/17 05:59 05:59 05:59 Intake Total 990 2314 Output Total 2170 1200 Balance -1180 1114 PT 17.7 SEC (12.0-15.0) H 08/29/17 02:55 INR 1.44 (0.83-1.16) H 08/29/17 02:55 ICD10 Worksheet Patient Problems: Problems Problem Status Onset Dehydration Acute Diabetic foot ulcer Acute Foot abscess Acute Osteomyelitis Acute Sepsis Acute Cellulitis of left foot Acute Severe sepsis Acute Skin ulcer of left great toe with necrosis of bone Acute
[2017-09-13] MEDS: oxyCODONE IR 5 MG TAB PO PRN ×2 (15:58→20:35)
[2017-09-14] MEDS: VANCOMYCIN 125 MG/2.5 ML UDL PO SCH ×4 (05:22→20:06)
[2017-09-14] MEDS: PIPERACILLIN/TAZO 4.5 GM/DEX 100 ML IV SCH ×3 (05:22→18:11)
[2017-09-14 05:33] LABS: PLATELET COUNT 313 10^3/uL (150-400)
[2017-09-14] MEDS: ENOXAPARIN 40 MG/0.4 ML SYR SC SCH (08:47)
[2017-09-14] MEDS: VANCOMYCIN HCL/NORMAL SALINE 250 ML IV SCH (08:47)
[2017-09-14] MEDS: INDOMETHACIN 25 MG CAP PO SCH ×3 (08:48→18:13)
[2017-09-14] MEDS: amLODIPine BESYLATE 5 MG TAB PO SCH ×2 (08:48→20:05)
[2017-09-14] MEDS: COLCHICINE 0.6 MG CAP/TAB PO SCH (08:49)
[2017-09-14] MEDS: metFORMIN HCL 500 MG TAB PO SCH ×2 (08:49→18:12)
[2017-09-14] MEDS: oxyCODONE IR 5 MG TAB PO PRN ×2 (09:03→18:12)
--- NOTE | 2017-09-14 10:02 | HOSPPROG ---
Hospitalist Progress Note Assessment/Plan: 62-year-old man with diabetes any chronic lower extremity infection and probable osteomyelitis is readmitted for worsening ft infection associated with sepsis. The sepsis has resolved he is being followed by infectious disease as well as surgery. Currently he is doing relatively well he has a wound VAC in place is receiving wound care and antibiotics for SI osteomyelitis. 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 Microbiology include Pseudomonas, MSSA, group C/G strep and corynebacterium. Recent aspiration from yesterday is MRSA. * Vancomycin 1 g q.12 hours day 12 * Zosyn 0.5 g q.6 hours 13 * PO. Vanco and 125 mg 4 times a day, day , and will switch to twice daily dose * Continue wound care and will try to set up outpatient follow-up. Pt is considering SNF at this time and realizes he would benefit from it. * Follow-up care set up with Dr. Castellano on should he be discharged prior to that. # C diff colitis. * PO Vanco day , after treatment dose will decrease to twice daily dosing until patient off antibiotics for prophylaxis # acute gout, patient currently on Indocin with improvement. Primary affecting his left wrist. * Continue Indocin, renal function stable # HTN, started on norvasc this admit. BP still high, possible from indocin and acute illness * increase to 10 # diabetes, 2 currently on metformin * Mild diabetes with adequate concurrently # acute kidney injury on admission likely due to sepsis. * Creatinine back to baseline, will follow # encephalopathy, improved Disposition: Continue to follow patient in hospital for now and set up either home care or will continue to try to get patient to go to skilled rehab post hospitalization Subjective: feeling better although, BP is elevated. no cp or sob. edema not changed with norvasc Objective: Vital Signs Temp Pulse Resp BP Pulse Ox 36.6 C 76 18 148/100 H 91 L 09/14/17 07:35 09/14/17 07:35 09/14/17 07:35 09/14/17 07:35 09/14/17 07:35 Laboratory Results 09/14/17 05:20 09/14/17 05:20 09/13/17 09/14/17 09/15/17 05:59 05:59 05:59 Intake Total 2314 1950 Output Total 1200 850 250 Balance 1114 1100 -250 PT 17.7 SEC (12.0-15.0) H 08/29/17 02:55 INR 1.44 (0.83-1.16) H 08/29/17 02:55 - Physical Exam Constitutional: no apparent distress, obese Eyes: PERRL, anicteric sclera, EOMI Ears, Nose, Mouth, Throat: moist mucous membranes Cardiovascular: regular rate and rhythym, no murmur, rub, or gallop, edema Respiratory: no respiratory distress, no rales or rhonchi Gastrointestinal: normoactive bowel sounds, soft, non-tender abdomen Genitourinary: no bladder fullness Skin: other (wound vac on left foot with boot.) Musculoskeletal: joint effusion (left wrist) Neurologic: AAOx3 Psychiatric: interacting appropriately ICD10 Worksheet Patient Problems: Problems Problem Status Onset Skin ulcer of left great toe with necrosis of bone Acute Severe sepsis Acute Cellulitis of left foot Acute Diabetic foot ulcer Acute Sepsis Acute Foot abscess Acute Osteomyelitis Acute Dehydration Acute
--- NOTE | 2017-09-14 11:51 | WOCRNPDOC ---
WOCRN Advanced Assessment Note - Skin Integrity Problem, Advanced Assess Left Medial Foot Surgical Wound/Incision Dressing Type: Black Vac Foam (x1), Wound Vac Dressing Description: Clean/Dry, Intact Exudate Amount: Scant Exudate Characteristic(s): Serosanguinous Integumentary Issue Intervention: Dressing Changed Manuel Wound Tissue: Macerated (minimally ) Wound Bed Color: [place], Yellow Wound Bed Constitution: Granulation Tissue, Smooth Tissue, Red/[place] - Non Granular Tissue Site Measurement - Head-to-Toe Length X Width X Depth (cm): 9x5.5x1 Skin Integrity Problem Comment: Cleaned with ns. Mastisol manuel wound. Draped toe where foam would touch intact skin. 1 piece of black foam applied to wound bed. Vac bridge dressing used and bridged to anterior lower leg. Vac restarted with no leaks. Angie WANG in room for care. Left Lateral Foot Surgical Wound/Incision Dressing Type: Edward Bandage, Kerlix Dressing Description: Saturated Exudate Amount: Moderate Exudate Characteristic(s): Serous Integumentary Issue Intervention: Dressing Changed Manuel Wound Tissue: Erythema Wound Bed Constitution: Granulation Tissue (25%), Tendon, Adhered Slough (75%) Skin Integrity Problem Comment: Had to change dressing due to it covering wound vac dressing. Replaced with moist to dry with Edward wrap.
[2017-09-14] MEDS: VANCOMYCIN 1 GM in NS 250 ML IV SCH (20:07)
[2017-09-15] MEDS: PIPERACILLIN/TAZO 4.5 GM/DEX 100 ML IV SCH ×4 (00:53→17:40)
[2017-09-15 05:41] LABS: PLATELET COUNT 272 10^3/uL (150-400)
[2017-09-15] MEDS: INDOMETHACIN 25 MG CAP PO SCH ×3 (08:12→17:38)
[2017-09-15] MEDS: VANCOMYCIN 125 MG/2.5 ML UDL PO SCH ×4 (08:13→20:50)
[2017-09-15] MEDS: ENOXAPARIN 40 MG/0.4 ML SYR SC SCH (08:13)
[2017-09-15] MEDS: oxyCODONE IR 5 MG TAB PO PRN ×2 (08:15→17:39)
[2017-09-15] MEDS: metFORMIN HCL 500 MG TAB PO SCH ×2 (08:15→17:38)
[2017-09-15] MEDS: amLODIPine BESYLATE 5 MG TAB PO SCH ×2 (08:15→20:44)
[2017-09-15] MEDS: COLCHICINE 0.6 MG CAP/TAB PO SCH (08:16)
[2017-09-15] MEDS: VANCOMYCIN 1 GM in NS 250 ML IV SCH ×2 (09:46→20:44)
--- NOTE | 2017-09-15 10:18 | PCMIDPN ---
Assessment/Plan: Assessment: Polymicrobial osteomyelitis of the foot. Continue both Vancomycin and Zosyn intravenously given Pseudomonas aeruginosa and a variety of gram positives. C difficile colitis. Finishing 14 day course of p.o. vancomycin. Will continue twice daily p.o. vancomycin given ongoing use of broad-spectrum Gram- negative and anaerobic coverage. Plan: 1. Continue both vancomycin and Zosyn intravenously. Will need a 6 week course of treatment. 2. Follow appearance of left foot. 3. Follow laboratory values. 09/15/17 15:51 Subjective: Patient is resting in his hospital room. He notes no new complaints. Strongly considering going to a alf facility or inpatient rehab for ongoing care. Objective: Vancomycin # 12 Zosyn # 14 P.o. vancomycin # 13 Vital Signs Temp Pulse Resp BP Pulse Ox 36.7 C 81 17 159/99 H 93 09/15/17 07:32 09/15/17 07:32 09/15/17 07:32 09/15/17 08:15 09/15/17 07:32 Laboratory Results 09/15/17 05:30 09/15/17 05:30 09/14/17 09/15/17 09/16/17 05:59 05:59 05:59 Intake Total 1950 950 Output Total 850 800 Balance 1100 150 ESR 45 MM/HR (0-20) H 08/29/17 02:55 C-Reactive Protein 452.4 mg/L (<10.0) H 08/29/17 02:55 - Physical Exam General Appearance: WD/WN, alert, no apparent distress, non-toxic Respiratory: lungs clear, normal breath sounds, No respiratory distress Cardiac/Chest: regular rate, rhythm, No tachycardia Extremities: non-tender, No normal inspection Skin: normal color, warm/dry, No rash Neuro/Psych: alert, normal mood/affect, oriented x 3 ICD10 Worksheet Patient Problems: Problems Problem Status Onset Dehydration Acute Diabetic foot ulcer Acute Foot abscess Acute Osteomyelitis Acute Sepsis Acute Cellulitis of left foot Acute Severe sepsis Acute Skin ulcer of left great toe with necrosis of bone Acute
--- NOTE | 2017-09-15 11:02 | HOSPPROG ---
Hospitalist Progress Note Assessment/Plan: 62-year-old man with diabetes any chronic lower extremity infection and probable osteomyelitis is readmitted for worsening ft infection associated with sepsis. The sepsis has resolved he is being followed by infectious disease as well as surgery. Currently he is doing relatively well he has a wound VAC in place is receiving wound care and antibiotics for osteomyelitis. 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 Microbiology include Pseudomonas, MSSA, group C/G strep and corynebacterium. Recent aspiration from yesterday is MRSA. * Vancomycin 1 g q.12 hours day 13 * Zosyn 0.5 g q.6 hours day 13 * PO. Vanco and 125 mg 4 times a day, day , and will switch to twice daily dose tomorrow * Continue wound care and will try to set up outpatient follow-up. Pt is considering SNF at this time and realizes he would benefit from it. * Follow-up care set up with Dr. Castellano on should he be discharged prior to that. # C diff colitis. * PO Vanco day , after treatment dose will decrease to twice daily dosing until patient off antibiotics for one week for prophylaxis # acute gout, patient currently on Indocin with improvement. Primary affecting his left wrist. * Continue Indocin, renal function stable # HTN, started on norvasc this admit. BP still high, possible from indocin and acute illness * increase to 10 # diabetes, 2 currently on metformin * Mild diabetes with adequate concurrently # acute kidney injury on admission likely due to sepsis. * Creatinine back to baseline, will follow # encephalopathy, improved Subjective: Willing to go to skilled care for his foot. mild diarrhea, no sig abdo pain. no cp or sob. Discussed with ID Objective: Vital Signs Temp Pulse Resp BP Pulse Ox 36.7 C 81 17 159/99 H 93 09/15/17 07:32 09/15/17 07:32 09/15/17 07:32 09/15/17 08:15 09/15/17 07:32 Laboratory Results 09/15/17 05:30 09/15/17 05:30 09/14/17 09/15/17 09/16/17 05:59 05:59 05:59 Intake Total 1950 950 Output Total 850 800 Balance 1100 150 PT 17.7 SEC (12.0-15.0) H 08/29/17 02:55 INR 1.44 (0.83-1.16) H 08/29/17 02:55 - Physical Exam Constitutional: obese Eyes: PERRL, EOMI Ears, Nose, Mouth, Throat: moist mucous membranes Cardiovascular: regular rate and rhythym Respiratory: no respiratory distress, clear to auscultation Gastrointestinal: normoactive bowel sounds Genitourinary: no bladder fullness Skin: erythema, other (wound vac/ wounds on left foot) Neurologic: AAOx3 Psychiatric: interacting appropriately ICD10 Worksheet Patient Problems: Problems Problem Status Onset Skin ulcer of left great toe with necrosis of bone Acute Severe sepsis Acute Cellulitis of left foot Acute Diabetic foot ulcer Acute Sepsis Acute Foot abscess Acute Osteomyelitis Acute Dehydration Acute
[2017-09-15] MEDS: ALTEPLASE 2 MG VIAL IVP PRN (13:43)
--- NOTE | 2017-09-15 15:32 | ASMTCMCOM ---
CM Note CM Note Notes: Spoke with pt re SNF vs [facility] d/c. He is more agreeable to discharging to a SNF however is adamant he wants to have the same wound care team. Spoke with Antonio from [facility] who will discuss pt's concerns with him, hopefully tomorrow. Date Signed: 09/15/2017 03:32 PM Electronically Signed By:KAREY Jurado
[2017-09-16] MEDS: PIPERACILLIN/TAZO 4.5 GM/DEX 100 ML IV SCH ×4 (00:28→18:00)
[2017-09-16] MEDS: VANCOMYCIN 125 MG/2.5 ML UDL PO SCH ×4 (05:48→21:40)
--- NOTE | 2017-09-16 07:36 | SOAPPROG ---
SOAP Progress Note Assessment/Plan: Assessment: Plan: Objective: Vital Signs Temp Pulse Resp BP Pulse Ox 36.7 C 76 16 133/86 H 91 L 09/15/17 23:11 09/15/17 23:11 09/15/17 23:11 09/15/17 23:11 09/15/17 23:11 Microbiology 09/03/17 11:24 Gram Stain - Final Synovial Fluid - Aspirate Laboratory Results 09/15/17 05:30 09/15/17 05:30 09/15/17 09/16/17 09/17/17 05:59 05:59 05:59 Intake Total 950 1130 Output Total 800 1525 Balance 150 -395 PT 17.7 SEC (12.0-15.0) H 08/29/17 02:55 INR 1.44 (0.83-1.16) H 08/29/17 02:55 looked at [facility] with dr poppy kee- she agrees foot potentially salvageable. will try vac on both surfaces- after discharge, she will follow pt in [facility] wound clinic. ICD10 Worksheet Patient Problems: Problems Problem Status Onset Dehydration Acute Diabetic foot ulcer Acute Foot abscess Acute Osteomyelitis Acute Sepsis Acute Cellulitis of left foot Acute Severe sepsis Acute Skin ulcer of left great toe with necrosis of bone Acute
[2017-09-16] MEDS: ENOXAPARIN 40 MG/0.4 ML SYR SC SCH (08:38)
[2017-09-16] MEDS: VANCOMYCIN 1 GM in NS 250 ML IV SCH ×2 (08:38→21:40)
[2017-09-16] MEDS: INDOMETHACIN 25 MG CAP PO SCH ×3 (08:39→17:57)
[2017-09-16] MEDS: metFORMIN HCL 500 MG TAB PO SCH ×2 (08:40→17:57)
[2017-09-16] MEDS: COLCHICINE 0.6 MG CAP/TAB PO SCH (08:40)
[2017-09-16] MEDS: amLODIPine BESYLATE 5 MG TAB PO SCH ×2 (08:40→21:40)
[2017-09-16] MEDS: oxyCODONE IR 5 MG TAB PO PRN ×2 (09:02→15:20)
--- NOTE | 2017-09-16 11:28 | HOSPPROG ---
Hospitalist Progress Note Assessment/Plan: 62-year-old man with diabetes any chronic lower extremity infection and probable osteomyelitis is readmitted for worsening ft infection associated with sepsis. The sepsis has resolved he is being followed by infectious disease as well as surgery. Currently he is doing relatively well he has a wound VAC in place is receiving wound care and antibiotics for osteomyelitis. 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 Microbiology include Pseudomonas, MSSA, group C/G strep and corynebacterium. Recent aspiration from yesterday is MRSA. * Vancomycin 1 g q.12 hours day 14 * Zosyn 0.5 g q.6 hours day 14 * PO. Vanco on 125 bid for proph. * Continue wound care and will try to set up outpatient follow-up. Pt is considering SNF at this time and realizes he would benefit from it. * [facility] has accepted him and he is more willing to go to SNF since it is in [place] * Follow-up care set up with Dr. Castellano on should he be discharged prior to that. Otherwise will need FU with Dar[facility] and Dr. Patel after discharge ( even if in SNF) for ongoing wound care # C diff colitis. * PO Vanco s/p treatment with 14 days, continue proph dosing for 1 week post abx therapy # acute gout, patient currently on Indocin with improvement. Primary affecting his left wrist. * Continue Indocin, renal function stable # HTN, started on norvasc this admit. BP still high, possible from indocin and acute illness * increase to 10 # diabetes, 2 currently on metformin * Mild diabetes with adequate concurrently # acute kidney injury on admission likely due to sepsis. * Creatinine back to baseline, will follow # encephalopathy, improved DISPO: Pt to go to [facility], needs wound vac manipulation today per Dr. Kumar , Can be dc later this week when Vac stable and OK per ID and surgery. Otherwise medically stable. Subjective: Spent greater than 50% of time counseling patient regarding post hospitalization plans and recommending skilled rehab. He is quite tentative because he does not want to lose contact with either Dr. Akers or [facility]. I reassured him that [facility] would continue to follow him as an outpatient despite him going to a skilled rehab for wound care and IV antibiotics Objective: Vital Signs Temp Pulse Resp BP Pulse Ox 36.5 C 93 17 155/103 H 91 L 09/16/17 07:44 09/16/17 07:44 09/16/17 07:44 09/16/17 08:40 09/16/17 07:44 Microbiology 09/03/17 11:24 Gram Stain - Final Synovial Fluid - Aspirate Laboratory Results 09/15/17 05:30 09/15/17 05:30 09/15/17 09/16/17 09/17/17 05:59 05:59 05:59 Intake Total 950 1130 Output Total 800 1525 Balance 150 -395 PT 17.7 SEC (12.0-15.0) H 08/29/17 02:55 INR 1.44 (0.83-1.16) H 08/29/17 02:55 - Physical Exam Constitutional: obese Neurologic: AAOx3 Psychiatric: interacting appropriately, not anxious ICD10 Worksheet Patient Problems: Problems Problem Status Onset Dehydration Acute Diabetic foot ulcer Acute Foot abscess Acute Osteomyelitis Acute Sepsis Acute Cellulitis of left foot Acute Severe sepsis Acute Skin ulcer of left great toe with necrosis of bone Acute
--- NOTE | 2017-09-16 15:53 | ASMTCMCOM ---
CM Note CM Note Notes: Brooke from [facility] here to see pt. They are able to accept him and he is agreeable to going and committing to completing a 30 day stay ([facility] Wound vac and port change pending. May d/c in the next day or 2. Date Signed: 09/16/2017 03:52 PM Electronically Signed By:KAREY Jurado
[2017-09-17] MEDS: PIPERACILLIN/TAZO 4.5 GM/DEX 100 ML IV SCH ×5 (00:51→23:28)
[2017-09-17] MEDS: oxyCODONE IR 5 MG TAB PO PRN ×2 (06:35→21:04)
[2017-09-17] MEDS: VANCOMYCIN 125 MG/2.5 ML UDL PO SCH ×3 (06:36→20:54)
[2017-09-17] MEDS: ENOXAPARIN 40 MG/0.4 ML SYR SC SCH (08:02)
[2017-09-17] MEDS: VANCOMYCIN 1 GM in NS 250 ML IV SCH ×2 (08:03→20:53)
[2017-09-17] MEDS: INDOMETHACIN 25 MG CAP PO SCH ×3 (08:05→18:14)
[2017-09-17] MEDS: COLCHICINE 0.6 MG CAP/TAB PO SCH (08:07)
[2017-09-17] MEDS: metFORMIN HCL 500 MG TAB PO SCH ×2 (08:07→18:15)
[2017-09-17] MEDS: amLODIPine BESYLATE 5 MG TAB PO SCH ×2 (08:07→20:53)
[2017-09-17] MEDS: ACETAMINOPHEN 325 MG TAB PO PRN (09:52)
--- NOTE | 2017-09-17 11:42 | WOCRNPDOC ---
WOCRN Advanced Assessment Note - Skin Integrity Problem, Advanced Assess Left Medial Foot Surgical Wound/Incision Dressing Type: Black Vac Foam (x1 ), Wound Vac Dressing Description: Clean/Dry, Intact Exudate Amount: Scant Exudate Characteristic(s): Serosanguinous Integumentary Issue Intervention: Dressing Changed Wound Bed Color: [place], Red, Yellow Wound Bed Constitution: Granulation Tissue (60%), Smooth Tissue (20%), Red/[place] - Non Granular Tissue (20%) Site Measurement - Head-to-Toe Length X Width X Depth (cm): 9.5x6x2.2 Skin Integrity Problem Comment: Flushed with ns and gauze. Skin prep and mastisol applied manuel wound. Drape at medial edge of 3rd toe. One piece of black foam to wound bed. Bridge dressing used. Vac restarted at -125 mm Hg continuous suction.
--- NOTE | 2017-09-17 13:48 | ASMTCMCOM ---
CM Note CM Note Notes: Brooke from [facility] called to state that they have a wound vac available when pt DCs. DC likely in a few more days. CM to follow. Date Signed: 09/17/2017 01:48 PM Electronically Signed By:Swetha Wells LCSW
--- NOTE | 2017-09-17 16:28 | PCMIDPN ---
Assessment/Plan: Assessment/Plan: * Sepsis due to left diabetic foot infection with polymicrobial cultures including Corynebacterium and Pseudomonas: Foott significantly improved. Lateral wound still with significant slough although some islands of granulation beginning. No active residual cellulitis. Plan 6 weeks of IV antibiotics post last debridement. Monitor CBC and CMP weekly with twice weekly creatinine and vancomycin trough. Is on both vancomycin and Zosyn which does elevate risk of nephrotoxicity (also on indomethacin). Repeat vancomycin trough tomorrow. Discharge planning underway with plans for discharge to [facility]. Will have follow-up in my office next week with me. * Left wrist inflammatory arthropathy: Markedly improved after intra-articular steroid injection. * C difficile colitis: Now on suppressive twice daily dosing of vancomycin which will be continued until has completed course of broad-spectrum antibiotic therapy. Clinical findings and plan reviewed with patient and Dr. Gill. 09/17/17 16:25 Subjective: Patient without significant complaints. Wound VAC change to medial aspect of foot earlier today. Diarrhea largely resolved. Objective: Vital Signs Temp Pulse Resp BP Pulse Ox 36.6 C 91 17 150/84 H 91 L 09/17/17 14:58 09/17/17 14:58 09/17/17 14:58 09/17/17 14:58 09/17/17 14:58 Microbiology 09/03/17 11:24 Gram Stain - Final Synovial Fluid - Aspirate Anaerobic Culture - Final 08/29/17 20:06 Mycobacterial Smear (RAGHU) - Final Foot - Tissue Laboratory Results 09/15/17 05:30 09/15/17 05:30 09/16/17 09/17/17 09/18/17 05:59 05:59 05:59 Intake Total 1130 1540 Output Total 1525 750 495 Balance -395 790 -495 ESR 45 MM/HR (0-20) H 08/29/17 02:55 C-Reactive Protein 452.4 mg/L (<10.0) H 08/29/17 02:55 Vancomycin # 14 Zosyn # 16 Oral vancomycin suppression at twice daily dosing - Physical Exam General Appearance: alert, no apparent distress EENT: No scleral icterus, No thrush Respiratory: lungs clear, No respiratory distress Cardiac/Chest: regular rate, rhythm Extremities: inflammation (Left foot with wound VAC in place medially; lateral wound with significant fibrinous slough but some areas of granulation beginning ; no purulence expressed from opening below 5th toe; left wrist with markedly decreased inflammatory change) - Line/s RUE PICC Lines: No drainage, No erythema ICD10 Worksheet Patient Problems: Problems Problem Status Onset Dehydration Acute Diabetic foot ulcer Acute Foot abscess Acute Osteomyelitis Acute Sepsis Acute Cellulitis of left foot Acute Severe sepsis Acute Skin ulcer of left great toe with necrosis of bone Acute
--- NOTE | 2017-09-17 16:29 | PDIAF ---
- Diagnosis Diagnosis: Left foot osteomyelitis/abscess; left wrist gout Code Status: Do Not Resuscitate - Medication Management Discharge Medications: Medications to Continue on Transfer Glucosam/Chondr/Collagn/Hyalur [Glucosamine & Chondroitin Cap] 2 each PO DAILY 08/03/17 [Last Taken 08/03/17] Herbals/Supplements -Info Only 1 ea PO DAILY 08/03/17 [Last Taken Unknown] Amoxicillin/Clavulanate Pot [Augmentin 875 MG TAB (*)] 875 mg PO BID #10 tab 05/18 [Last Taken 08/28/17] Nystatin Powder [Mycostatin Powder] 1 julia TP TID #30 powder 08/09/17 [Last Taken 08/27/17] oxyCODONE IR [Oxycodone Ir (*)] 5 - 10 mg PO Q6H PRN #10 tab 08/09/17 [Last Taken 08/27/17] Indomethacin [Indocin 25 mg (*)] 50 mg PO TID 08/29/17 [Last Taken 08/28/17] Half-Way Antibiotics: Vancomycin 1 g IV q.12 hrs, Zosyn 4.5 g IV Q 6 hr, vancomycin 125 mg po bid Board Worker Antibiotic Stop Date: 10/12/17 Discharge Medications: Refer to the Discharge Home Medication list for PRN reason. PICC Care - Routine: Yes - Orders Isolation Type: CDIFF Isolation Diet Texture: Regular Texture Diet, Thin Liquids, Meds Whole w/Liquids - Labs/Radiology CBC w/diff Date: 09/22/17 (Weekly Q Friday) CMP Date: 09/22/17 (Weekly Q Friday) Creatinine Date: 09/25/17 (Weekly Q ) CRP Date: 09/22/17 (Weekly Q Friday) Vanco Trough Date and Time: Weekly Q Friday, Q Call or Fax Lab and Imaging Results to: Dr. Castellano, - Follow Up Care Current Providers and Referrals: Patient,NotPresent [Primary Care Provider] - As per Instructions Shant Castellano MD [Medical Doctor] - 09/25/17 1:30 pm
--- NOTE | 2017-09-17 16:50 | HOSPPROG ---
Hospitalist Progress Note Assessment/Plan: # polymicrobial diabetic foot infection/osteomyelitis s/p surgical debridement - cont vanc/zosyn # sepsis d/t above - resolved # likely gout of L wrist - cont indocin and colchicine # c. dif colitis - cont vanc suppressive treatment until completed IV abx # htn - amlodipine started # DM2 - metformin # encephalopathy - resolved # SHERIE - resolved # hyperNa - resolved Subjective: feels well; no diarrhea Objective: Vital Signs Temp Pulse Resp BP Pulse Ox 36.6 C 91 17 150/84 H 91 L 09/17/17 14:58 09/17/17 14:58 09/17/17 14:58 09/17/17 14:58 09/17/17 14:58 Microbiology 09/03/17 11:24 Gram Stain - Final Synovial Fluid - Aspirate Anaerobic Culture - Final 08/29/17 20:06 Mycobacterial Smear (RAGHU) - Final Foot - Tissue Laboratory Results 09/15/17 05:30 09/15/17 05:30 09/16/17 09/17/17 09/18/17 05:59 05:59 05:59 Intake Total 1130 1540 Output Total 1525 750 495 Balance -395 790 -495 PT 17.7 SEC (12.0-15.0) H 08/29/17 02:55 INR 1.44 (0.83-1.16) H 08/29/17 02:[address] Castellano chart reviewed - Physical Exam Constitutional: no apparent distress Eyes: anicteric sclera Ears, Nose, Mouth, Throat: hearing normal Cardiovascular: No edema Respiratory: no respiratory distress Gastrointestinal: No distension Skin: warm Musculoskeletal: other (L foot with large clean dorsal ulcer and wound vac) Psychiatric: interacting appropriately ICD10 Worksheet Patient Problems: Problems Problem Status Onset Skin ulcer of left great toe with necrosis of bone Acute Severe sepsis Acute Cellulitis of left foot Acute Diabetic foot ulcer Acute Sepsis Acute Foot abscess Acute Osteomyelitis Acute Dehydration Acute
[2017-09-18] MEDS: ACETAMINOPHEN 325 MG TAB PO PRN (06:01)
[2017-09-18] MEDS: PIPERACILLIN/TAZO 4.5 GM/DEX 100 ML IV SCH ×4 (06:01→23:17)
[2017-09-18 06:24] LABS: PLATELET COUNT 230 10^3/uL (150-400)
--- NOTE | 2017-09-18 08:11 | SOAPPROG ---
SOAP Progress Note Assessment/Plan: Assessment: Plan: Subjective: dressing changed- depressingly slow granulation. survival of foot still in question. Objective: Vital Signs Temp Pulse Resp BP Pulse Ox 36.6 C 88 16 146/91 H 92 09/18/17 07:49 09/18/17 07:49 09/18/17 07:49 09/18/17 07:49 09/18/17 07:49 Microbiology 09/03/17 11:24 Gram Stain - Final Synovial Fluid - Aspirate Anaerobic Culture - Final Laboratory Results 09/18/17 06:09 09/18/17 06:09 09/17/17 09/18/17 09/19/17 05:59 05:59 05:59 Intake Total 1540 824 Output Total 750 1095 Balance 790 -271 PT 17.7 SEC (12.0-15.0) H 08/29/17 02:55 INR 1.44 (0.83-1.16) H 08/29/17 02:55 ICD10 Worksheet Patient Problems: Problems Problem Status Onset Dehydration Acute Diabetic foot ulcer Acute Foot abscess Acute Osteomyelitis Acute Sepsis Acute Cellulitis of left foot Acute Severe sepsis Acute Skin ulcer of left great toe with necrosis of bone Acute
[2017-09-18] MEDS: oxyCODONE IR 5 MG TAB PO PRN ×2 (08:44→13:42)
[2017-09-18] MEDS: INDOMETHACIN 25 MG CAP PO SCH ×3 (08:45→18:33)
[2017-09-18] MEDS: VANCOMYCIN 125 MG/2.5 ML UDL PO SCH ×2 (08:46→21:33)
[2017-09-18] MEDS: COLCHICINE 0.6 MG CAP/TAB PO SCH (08:46)
[2017-09-18] MEDS: VANCOMYCIN 1 GM in NS 250 ML IV SCH (08:46)
[2017-09-18] MEDS: metFORMIN HCL 500 MG TAB PO SCH ×2 (08:46→18:34)
[2017-09-18] MEDS: amLODIPine BESYLATE 5 MG TAB PO SCH ×2 (08:46→21:32)
[2017-09-18] MEDS: ENOXAPARIN 40 MG/0.4 ML SYR SC SCH (08:48)
--- NOTE | 2017-09-18 10:46 | HOSPPROG ---
Hospitalist Progress Note Assessment/Plan: # polymicrobial diabetic foot infection/osteomyelitis s/p surgical debridement - poor granulation per surgery - cont vanc/zosyn - check arterial studies - Dr Gonsales to shari for a second opinion on salvage of the foot # sepsis d/t above - resolved # likely gout of L wrist - cont indocin and colchicine # c. dif colitis - cont vanc suppressive treatment until completed IV abx # htn - amlodipine started # DM2 - metformin # encephalopathy - resolved # SHERIE - resolved # hyperNa - resolved Subjective: evaluated by Dr Estrada today who feels there is very slow improvement and granulation Objective: Vital Signs Temp Pulse Resp BP Pulse Ox 36.6 C 88 16 146/91 H 92 09/18/17 07:49 09/18/17 07:49 09/18/17 07:49 09/18/17 08:46 09/18/17 07:49 Microbiology 09/03/17 11:24 Gram Stain - Final Synovial Fluid - Aspirate Anaerobic Culture - Final Laboratory Results 09/18/17 06:09 09/18/17 06:09 09/17/17 09/18/17 09/19/17 05:59 05:59 05:59 Intake Total 1540 824 Output Total 750 1095 Balance 790 -271 PT 17.7 SEC (12.0-15.0) H 08/29/17 02:55 INR 1.44 (0.83-1.16) H 08/29/17 02:[address] Estrada and Dru high risk with potential amputation - Physical Exam Constitutional: no apparent distress, appears nourished Eyes: anicteric sclera Ears, Nose, Mouth, Throat: hearing normal Respiratory: no respiratory distress Gastrointestinal: No distension Genitourinary: No zamora in urethra Skin: warm Musculoskeletal: full muscle strength, other (L foot with [place]) Neurologic: AAOx3 ICD10 Worksheet Patient Problems: Problems Problem Status Onset Dehydration Acute Diabetic foot ulcer Acute Foot abscess Acute Osteomyelitis Acute Sepsis Acute Cellulitis of left foot Acute Severe sepsis Acute Skin ulcer of left great toe with necrosis of bone Acute
[2017-09-18] MEDS: VANCOMYCIN HCL/NORMAL SALINE 250 ML IV SCH (21:34)
[2017-09-19] MEDS: PIPERACILLIN/TAZO 4.5 GM/DEX 100 ML IV SCH ×4 (05:25→23:23)
--- NOTE | 2017-09-19 07:35 | GCON ---
[f rep st] CONSULTATION DATE OF CONSULTATION: 09/19/2017 REASON FOR CONSULTATION: Left foot. HISTORY RELATIVE TO THE CONSULTATION: Patient is a 62-year-old with a 1-1/2 year history of problems relative to his left foot. This reportedly started when he developed a cut in his foot while in a r iver which led to an infection. He has subsequently undergone 1st and 2nd toe amputations and multip le other debridements. Currently, he has continued open wound at the medial aspect of his forefoot a nd lateral aspect of his midfoot and hind foot. He is undergoing IV antibiotic treatment. 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 EXAMINATION: Relative to his consult, there is diffuse swelling in his left foot. He holds it in an inverted position. He is able to plantar flex, dorsiflex, robina, and invert against resistance. Pl sudhakar sensation is maintained. There is a wound VAC in place at the distal aspect of his medial fore foot with absence of his 1st and 2nd toes. There is a large full-thickness wound along the lateral a spect of his hindfoot and midfoot with some fibrinous tissue overlying it. The wound is deep and lik hernandez goes down to the metatarsals. There is no evidence of gross purulence. IMAGING: Radiographs of his foot show some diffuse osteopenia. There is evidence of his previous 1s t great toe and 1st partial 1st metatarsal amputation and 2nd metatarsal amputation. There are no si gnificant degenerative changes or neuropathic changes throughout the midfoot, hindfoot, or ankle. ASSESSMENT: Chronic left foot infection. PLAN: I spoke with Ismael at length regarding his foot condition and treatment options. The discussi on centered around whether it is: 1. Possible to salvage his foot. 2. Whether it is worth trying to salvage his foot. If salvage is to be entertained this will likely involve a muscle flap for coverage over his lateral foot. In order to close the distal forefoot wound, progression of the amputation to a transmetatarsa l level may also be necessary. As his lesser toes that are remaining are extended and essentially dy sfunctional, they are not being utilized for push-off at this point anyway, and conversion to a trans metatarsal amputation is unlikely to provide any change in functional outcome compared to his current condition. If soft tissue coverage can be accomplished and the infection is eradicated, the remaini ng aspect of his foot could be functional, but will not be "normal." Other potential amputation leve ls, such as a Chopart, Pirogoff, and Symes, leading an end-bearing stump were additionally discussed. If any of these attempts at salvage fail, he was informed that a below-knee amputation is a likely outcome. Alternatively, a primary below-knee amputation with early prosthetic fitting is a reasonabl e option. It was recommended that he discuss the fitting of a prosthesis and prosthetic use with a c ertified breeding technician to get a better understanding of what this may involve. He wishes to consider h is treatment options. /[id number]/MODL
[2017-09-19] MEDS: oxyCODONE IR 5 MG TAB PO PRN ×2 (08:57→21:01)
[2017-09-19] MEDS: COLCHICINE 0.6 MG CAP/TAB PO SCH (08:57)
[2017-09-19] MEDS: INDOMETHACIN 25 MG CAP PO SCH ×3 (08:57→17:58)
[2017-09-19] MEDS: metFORMIN HCL 500 MG TAB PO SCH ×2 (08:57→17:58)
[2017-09-19] MEDS: amLODIPine BESYLATE 5 MG TAB PO SCH ×2 (09:00→20:51)
[2017-09-19] MEDS: VANCOMYCIN 125 MG/2.5 ML UDL PO SCH ×2 (09:01→20:52)
[2017-09-19] MEDS: ENOXAPARIN 40 MG/0.4 ML SYR SC SCH (09:01)
[2017-09-19] MEDS: VANCOMYCIN HCL/NORMAL SALINE 250 ML IV SCH ×2 (09:57→21:06)
--- NOTE | 2017-09-19 10:00 | HOSPPROG ---
Hospitalist Progress Note Assessment/Plan: # polymicrobial diabetic foot infection/osteomyelitis s/p surgical debridement - appreciate Dr Gonsales's eval - there are salvage options but not guaranteed to save foot; BKA reasonable - Mr Barr considering his options today - cont vanc/zosyn - arterial studies pending # sepsis d/t above - resolved # likely gout of L wrist - cont indocin and colchicine # c. dif colitis - cont vanc suppressive treatment until completed IV abx # htn - amlodipine started # DM2 - metformin # encephalopathy - resolved # SHEREI - resolved # hyperNa - resolved Subjective: long discussion with patient regarding prognosis of his foot Objective: Vital Signs Temp Pulse Resp BP Pulse Ox 36.8 C 86 16 158/91 H 92 09/19/17 08:00 09/19/17 08:00 09/19/17 08:00 09/19/17 09:00 09/19/17 08:00 Laboratory Results 09/18/17 06:09 09/18/17 06:09 09/18/17 09/19/17 09/20/17 05:59 05:59 05:59 Intake Total 824 980 450 Output Total 1095 1530 600 Balance -271 -550 -150 PT 17.7 SEC (12.0-15.0) H 08/29/17 02:55 INR 1.44 (0.83-1.16) H 08/29/17 02:55 - Time Spent With Patient Time Spent with Patient: greater than 35 minutes Time Spent with Patient: Greater than 35 minutes spent on this patients care, greater than 50% of time spent counseling, educating, and coordinating care regarding the above mentioned plan. - Physical Exam Constitutional: no apparent distress ICD10 Worksheet Patient Problems: Problems Problem Status Onset Skin ulcer of left great toe with necrosis of bone Acute Severe sepsis Acute Cellulitis of left foot Acute Diabetic foot ulcer Acute Sepsis Acute Foot abscess Acute Osteomyelitis Acute Dehydration Acute
--- NOTE | 2017-09-19 10:42 | PCMIDPN ---
Assessment/Plan: Assessment: Polymicrobial osteomyelitis of the foot. Continue both Vancomycin and Zosyn intravenously given Pseudomonas aeruginosa and a variety of gram positives. C difficile colitis. Finishing 14 day course of p.o. vancomycin. Will continue twice daily p.o. vancomycin given ongoing use of broad-spectrum Gram- negative and anaerobic coverage. Plan: 1. Continue both vancomycin and Zosyn intravenously. Patient is contemplating an elective BKA given difficulties with ongoing wound healing especially the wound at the lateral aspect. 2. Follow appearance of left foot. 3. Follow laboratory values. 4. Continue PO vanco BID as long as on broad spectrum IV abx. Subjective: Patient resting in his bed. No new complaints. Discouraged by the poor healing in the lateral wound. No fevers or rash. Objective: Vanco #15 Zosyn #17 Vital Signs Temp Pulse Resp BP Pulse Ox 36.8 C 86 16 158/91 H 92 09/19/17 08:00 09/19/17 08:00 09/19/17 08:00 09/19/17 09:00 09/19/17 08:00 Laboratory Results 09/18/17 06:09 09/18/17 06:09 09/18/17 09/19/17 09/20/17 05:59 05:59 05:59 Intake Total 824 980 450 Output Total 1095 1530 600 Balance -271 -550 -150 ESR 45 MM/HR (0-20) H 08/29/17 02:55 C-Reactive Protein 452.4 mg/L (<10.0) H 08/29/17 02:55 - Physical Exam General Appearance: WD/WN, alert, no apparent distress, non-toxic Respiratory: lungs clear, normal breath sounds, No respiratory distress Cardiac/Chest: regular rate, rhythm, No tachycardia Extremities: non-tender, No normal inspection Skin: normal color, warm/dry, No rash Neuro/Psych: alert, normal mood/affect, oriented x 3 ICD10 Worksheet Patient Problems: Problems Problem Status Onset Dehydration Acute Diabetic foot ulcer Acute Foot abscess Acute Osteomyelitis Acute Sepsis Acute Cellulitis of left foot Acute Severe sepsis Acute Skin ulcer of left great toe with necrosis of bone Acute
--- NOTE | 2017-09-19 10:57 | WOCRNPDOC ---
WOCRN Advanced Assessment Note - Skin Integrity Problem, Advanced Assess Left Medial Foot Surgical Wound/Incision Dressing Type: Black Vac Foam (bridge dressing), Wound Vac Dressing Description: Intact Exudate Amount: Scant Exudate Color: Reddish/Yellow Exudate Characteristic(s): Serosanguinous Integumentary Issue Intervention: Dressing Changed Arabella Wound Tissue: Macerated (mild, immediately periowund) Arabella Wound Swelling: Mild Wound Bed Color: Red, Yellow Wound Bed Constitution: Granulation Tissue (80%), Adhered Slough (20%) Site Odor: None Site Measurement - Head-to-Toe Length X Width X Depth (cm): 9cmx6.5cmx0.5cm Skin Integrity Problem Comment: Medial L foot wound granulating throughout, w/ 20% adhered slough in medial aspect of wound. Mild periwound maceration, especially along lateral edge adjacent to toes. Mild swelling and erythema throughout L foot. Wound flushed w/ NS, and Mastisol applied to periwound maceration to help protect skin. One piece of black vac foam placed into wound bed, and bridge dressing applied and secured up over LLE. Vac settings resume at. -125mmhg, low continuous suction. Wound care will check back in on Friday to assess status of this wound. Left Lateral Foot Surgical Wound/Incision Dressing Type: Mehran Dressing Description: Saturated Exudate Color: Yellow Exudate Characteristic(s): Serous Integumentary Issue Intervention: Dressing Applied Arabella Wound Tissue: Erythema, Swollen Arabella Wound Swelling: Mild Wound Bed Color: Red, Yellow Wound Bed Constitution: Red/[place] - Non Granular Tissue (20%), Adhered Slough (80 % mix of adhered slough and biofilm) Wound Edges: Well Defined Site Odor: Slight Skin Integrity Problem Comment: Left lateral foot wound secured w/ Mehran, which was saturated. Dressing removed and wound cleansed w/ NS and gauze. In bowens contrast to medial wound, this wound is predominantly slough and thick biofilm, no granulation observed. Chronic and stalled in appearance. Applied wet to dry dressing to wound bed, and covered w/ ABD. Secured w/ Mehran and NORI. Wound care has not been managing this wound, but did advise agricultural service workerKATHLEEN Frey that some type of moist dressing (such as NS and gauze) needs to be in place, and wound needs to be covered.
--- NOTE | 2017-09-19 14:16 | CPIP ---
[f rep st] INVASIVE CARDIAC PROCEDURE DATE OF PROCEDURE: 09/19/2017 PROCEDURE: Noninvasive arterial studies FINDINGS: The patient was seen for arterial studies. He demonstrates pulsatile flow to the metatarsal levels bilaterally. The right ankle-brachial indices were not obtainable because of discomfort, apparently, and there are no digital tracings on this exam. IMPRESSION: Pulsatile flow in both legs, the right much better than the left, but he appears to have adequate pulsatile flow at the metatarsal levels to heal an amputation site. This is a limited study without the ABIs. /[id number]/MODL MTDD
--- NOTE | 2017-09-19 14:53 | ASMTCMCOM ---
CM Note CM Note Notes: A left BKA is recommended for pt. [facility] It is uncelar if pt will have other DC options after the BKA such as inpt rehab. CM will continue to follow. Date Signed: 09/19/2017 02:52 PM Electronically Signed By:Swetha Wells LCSW
[2017-09-19] MEDS ORDERED: LACTULOSE 20 GM/30 ML UDCUP PO PRN (18:37)
[2017-09-19] MEDS ORDERED: BISACODYL 10 MG SUPP PR PRN (18:37)
[2017-09-19] MEDS ORDERED: MAGNESIUM HYDROXIDE 30 ML UDCUP PO PRN (18:37)
[2017-09-19] MEDS ORDERED: POLYETHYLENE GLYCOL 3350 17 GM PKT PO PRN (18:37)
[2017-09-19] MEDS: SENNOSIDES/DOCUSATE SODIUM TAB PO SCH (20:51)
[2017-09-19] MEDS: QUEtiapine FUMARATE 50 MG TAB PO PRN (21:02)
[2017-09-20] MEDS: PIPERACILLIN/TAZO 4.5 GM/DEX 100 ML IV SCH ×3 (05:07→18:36)
[2017-09-20 06:06] LABS: PLATELET COUNT 209 10^3/uL (150-400)
[2017-09-20] MEDS: COLCHICINE 0.6 MG CAP/TAB PO SCH (08:08)
[2017-09-20] MEDS: INDOMETHACIN 25 MG CAP PO SCH ×2 (08:08→12:18)
[2017-09-20] MEDS: metFORMIN HCL 500 MG TAB PO SCH ×2 (08:09→18:35)
[2017-09-20] MEDS: amLODIPine BESYLATE 5 MG TAB PO SCH ×2 (08:09→21:12)
[2017-09-20] MEDS: VANCOMYCIN HCL/NORMAL SALINE 250 ML IV SCH ×2 (08:11→21:14)
[2017-09-20] MEDS: ENOXAPARIN 40 MG/0.4 ML SYR SC SCH (08:11)
[2017-09-20] MEDS: VANCOMYCIN 125 MG/2.5 ML UDL PO SCH ×2 (08:11→21:14)
[2017-09-20] MEDS: SENNOSIDES/DOCUSATE SODIUM TAB PO SCH ×2 (09:42→21:13)
[2017-09-20] MEDS: ACETAMINOPHEN 325 MG TAB PO PRN (11:19)
--- NOTE | 2017-09-20 14:11 | HOSPPROG ---
Hospitalist Progress Note Assessment/Plan: # polymicrobial diabetic foot infection/osteomyelitis s/p surgical debridement - planning BKA on , 09/22 - cont vanc/zosyn # sepsis d/t above - resolved # likely gout of L wrist - cont indocin and colchicine # c. dif colitis - cont vanc suppressive treatment until completed IV abx # htn - amlodipine started # DM2 - metformin # encephalopathy - resolved # SHERIE - resolved # hyperNa - resolved Subjective: has decided to go through with BKA Objective: Vital Signs Temp Pulse Resp BP Pulse Ox 36.7 C 99 18 156/88 H 91 L 09/20/17 07:56 09/20/17 07:56 09/20/17 07:56 09/20/17 08:09 09/20/17 07:56 Laboratory Results 09/20/17 05:12 09/20/17 05:12 09/19/17 09/20/17 09/21/17 05:59 05:59 05:59 Intake Total 980 950 Output Total 1530 1950 620 Balance -550 -1000 -620 PT 17.7 SEC (12.0-15.0) H 08/29/17 02:55 INR 1.44 (0.83-1.16) H 08/29/17 02:55 - Time Spent With Patient Time Spent with Patient: greater than 25 minutes Time Spent with Patient: Greater than 25 minutes spent on this patients care, greater than 50% of time spent counseling, educating, and coordinating care regarding the above mentioned plan. - Physical Exam Constitutional: no apparent distress, appears nourished Eyes: anicteric sclera Ears, Nose, Mouth, Throat: hearing normal Cardiovascular: No edema Respiratory: no respiratory distress Gastrointestinal: No distension Genitourinary: No zamora in urethra Skin: warm Musculoskeletal: other (L foot in boot) Neurologic: AAOx3 Psychiatric: not anxious ICD10 Worksheet Patient Problems: Problems Problem Status Onset Skin ulcer of left great toe with necrosis of bone Acute Severe sepsis Acute Cellulitis of left foot Acute Diabetic foot ulcer Acute Sepsis Acute Foot abscess Acute Osteomyelitis Acute Dehydration Acute
[2017-09-20] MEDS: oxyCODONE IR 5 MG TAB PO PRN (21:11)
[2017-09-21] MEDS: PIPERACILLIN/TAZO 4.5 GM/DEX 100 ML IV SCH ×5 (00:47→23:13)
[2017-09-21] MEDS: metFORMIN HCL 500 MG TAB PO SCH ×2 (08:10→17:27)
[2017-09-21] MEDS: ENOXAPARIN 40 MG/0.4 ML SYR SC SCH (09:16)
[2017-09-21] MEDS: amLODIPine BESYLATE 5 MG TAB PO SCH ×2 (09:16→21:38)
[2017-09-21] MEDS: COLCHICINE 0.6 MG CAP/TAB PO SCH (09:16)
[2017-09-21] MEDS: VANCOMYCIN HCL/NORMAL SALINE 250 ML IV SCH ×2 (09:17→21:38)
[2017-09-21] MEDS: VANCOMYCIN 125 MG/2.5 ML UDL PO SCH ×2 (09:17→21:37)
[2017-09-21] MEDS: SENNOSIDES/DOCUSATE SODIUM TAB PO SCH ×2 (09:18→21:37)
--- NOTE | 2017-09-21 10:53 | HOSPPROG ---
Hospitalist Progress Note Assessment/Plan: # polymicrobial diabetic foot infection/osteomyelitis s/p surgical debridement - planning BKA on by Dr Estrada, 09/22 - cont vanc/zosyn for now # sepsis d/t above - resolved # likely gout of L wrist - cont colchicine, indocin stopped yesterday # c. dif colitis - cont vanc suppressive treatment until completed IV abx # htn - amlodipine started # DM2 - metformin # encephalopathy - resolved # SHERIE - resolved # hyperNa - resolved Subjective: feels better about his decision for a BKA today Objective: Vital Signs Temp Pulse Resp BP Pulse Ox 37.2 C 98 16 125/88 H 91 L 09/21/17 08:00 09/21/17 08:00 09/21/17 08:00 09/21/17 09:16 09/21/17 08:00 Laboratory Results 09/20/17 05:12 09/20/17 05:12 09/20/17 09/21/17 09/22/17 05:59 05:59 05:59 Intake Total 950 2187 Output Total 1950 2680 660 Balance -1000 -493 -660 PT 17.7 SEC (12.0-15.0) H 08/29/17 02:55 INR 1.44 (0.83-1.16) H 08/29/17 02:55 - Physical Exam Constitutional: no apparent distress Eyes: anicteric sclera Ears, Nose, Mouth, Throat: hearing normal Cardiovascular: No edema Respiratory: no respiratory distress Gastrointestinal: normoactive bowel sounds Skin: warm Musculoskeletal: full muscle strength Neurologic: AAOx3 Psychiatric: not anxious ICD10 Worksheet Patient Problems: Problems Problem Status Onset Skin ulcer of left great toe with necrosis of bone Acute Severe sepsis Acute Cellulitis of left foot Acute Diabetic foot ulcer Acute Sepsis Acute Foot abscess Acute Osteomyelitis Acute Dehydration Acute
[2017-09-21] MEDS: oxyCODONE IR 5 MG TAB PO PRN (21:37)
[2017-09-21] MEDS: QUEtiapine FUMARATE 50 MG TAB PO PRN (21:38)
[2017-09-22] MEDS: oxyCODONE IR 5 MG TAB PO PRN ×2 (06:04→22:30)
[2017-09-22] MEDS: PIPERACILLIN/TAZO 4.5 GM/DEX 100 ML IV SCH ×4 (06:07→22:40)
[2017-09-22] MEDS: VANCOMYCIN HCL/NORMAL SALINE 250 ML IV SCH ×2 (08:30→22:29)
[2017-09-22] MEDS: COLCHICINE 0.6 MG CAP/TAB PO SCH (08:30)
[2017-09-22] MEDS: amLODIPine BESYLATE 5 MG TAB PO SCH ×2 (08:30→22:30)
[2017-09-22] MEDS: metFORMIN HCL 500 MG TAB PO SCH ×2 (08:30→18:06)
[2017-09-22] MEDS: SENNOSIDES/DOCUSATE SODIUM TAB PO SCH ×2 (08:30→22:29)
[2017-09-22] MEDS: ENOXAPARIN 40 MG/0.4 ML SYR SC SCH (08:31)
[2017-09-22] MEDS: VANCOMYCIN 125 MG/2.5 ML UDL PO SCH ×2 (08:31→22:33)
--- NOTE | 2017-09-22 10:49 | HOSPPROG ---
Hospitalist Progress Note Assessment/Plan: 62 yo M w diabetic foot ulcer # polymicrobial diabetic foot infection/osteomyelitis s/p surgical debridement - planning BKA on by Dr Estrada, 09/22 - cont vanc/zosyn, ID following - recheck labs in am # sepsis d/t above - resolved # likely gout of L wrist - improved, s/p steroid injection. cont colchicine, indocin stopped yesterday # c. dif colitis - cont vanc suppressive treatment until completed IV abx # htn - improved, cont amlodipine # DM2 - metformin # encephalopathy - resolved # SHERIE - resolved # hyperNa - resolved # proph: lmwh held in preparation for OR tomorrow # dispo: inpatient, med/surg Subjective: Pt feels ok. No CP, SOB. No fevers. Feels good abt BKA decision. Objective: Vital Signs Temp Pulse Resp BP Pulse Ox 36.6 C 93 16 126/87 H 96 09/22/17 08:00 09/22/17 08:00 09/22/17 08:00 09/22/17 08:00 09/22/17 08:00 Laboratory Results 09/20/17 05:12 09/20/17 05:12 09/21/17 09/22/17 09/23/17 05:59 05:59 05:59 Intake Total 2187 1087 Output Total 2680 2200 300 Balance -493 -1113 -300 PT 17.7 SEC (12.0-15.0) H 08/29/17 02:55 INR 1.44 (0.83-1.16) H 08/29/17 02:55 - Physical Exam Constitutional: no apparent distress Eyes: PERRL Ears, Nose, Mouth, Throat: moist mucous membranes Cardiovascular: regular rate and rhythym Respiratory: no respiratory distress Gastrointestinal: normoactive bowel sounds, soft, non-tender abdomen Skin: warm Musculoskeletal: full muscle strength Neurologic: AAOx3 Psychiatric: interacting appropriately ICD10 Worksheet Patient Problems: Problems Problem Status Onset Dehydration Acute Diabetic foot ulcer Acute Foot abscess Acute Osteomyelitis Acute Sepsis Acute Cellulitis of left foot Acute Severe sepsis Acute Skin ulcer of left great toe with necrosis of bone Acute
--- NOTE | 2017-09-22 16:45 | ASMTCMCOM ---
CM Note CM Note Notes: DC plan still to do rehab at [facility]. Not ready for dc at this time. CM will follow. Date Signed: 09/22/2017 04:45 PM Electronically Signed By:Alva Conti RN
[2017-09-22] MEDS: QUEtiapine FUMARATE 50 MG TAB PO PRN (22:29)
[2017-09-23] MEDS: PIPERACILLIN/TAZO 4.5 GM/DEX 100 ML IV SCH ×3 (05:31→17:56)
[2017-09-23] MEDS ORDERED: POLYMYXIN B SULFATE 500,000 UNIT/10 ML SYR IRR ONE (08:34)
[2017-09-23] MEDS ORDERED: BUPIVACAINE 0.5% 30 ML SDV ONE (08:34)
[2017-09-23] MEDS: metFORMIN HCL 500 MG TAB PO SCH ×2 (08:52→18:00)
[2017-09-23] MEDS: oxyCODONE IR 5 MG TAB PO PRN ×3 (08:52→23:00)
[2017-09-23] MEDS: COLCHICINE 0.6 MG CAP/TAB PO SCH (08:53)
[2017-09-23] MEDS: amLODIPine BESYLATE 5 MG TAB PO SCH ×2 (08:53→23:01)
[2017-09-23] MEDS: VANCOMYCIN 125 MG/2.5 ML UDL PO SCH ×2 (08:53→23:02)
[2017-09-23] MEDS: SENNOSIDES/DOCUSATE SODIUM TAB PO SCH ×2 (08:56→23:00)
[2017-09-23] MEDS: VANCOMYCIN HCL/NORMAL SALINE 250 ML IV SCH ×2 (09:01→23:00)
--- NOTE | 2017-09-23 10:42 | PDANEPAE ---
ANE History of Present Illness 62 year old male presents for BKA. ANE Past Medical History - Cardiovascular History Hx Hypertension: No Hx Arrhythmias: No Hx Chest Pain: No Hx Coronary Artery / Peripheral Vascular Disease: No Hx CHF / Valvular Disease: No Hx Palpitations: No - Pulmonary History Hx COPD: No Hx Asthma/Reactive Airway Disease: No Hx Recent Upper Respiratory Infection: No Hx Oxygen in Use at Home: No Hx Sleep Apnea: Yes Sleep Apnea Screening Result - Last Documented: Positive - Neurologic History Hx Cerebrovascular Accident: No Hx Seizures: No Hx Dementia: No Neurologic History Comment: patient reports chronic B numbness in feet - Endocrine History Hx Diabetes: No Hypothyroid: No Hyperthyroid: No Obesity: mild Endocrine History Comment: hyperglycemia - Renal History Hx Renal Disorders: No - Liver History Hx Hepatic Disorders: No - Neurological & Psychiatric Hx Hx Neurological and Psychiatric Disorders: No Neurological / Psychiatric History Comment: encephalopathy of unknown origin - resolved - Cancer History Hx Cancer: Yes Cancer History Comment: BCC in face - Congenital Disorder History Hx Congenital Disorders: No - GI History Hx Gastrointestinal Disorders: No - Chronic Pain History Chronic Pain: Yes (WRISTS AND ELBOWS) - Surgical History Prior Surgeries: tonsillectomy, ACL repair x 3 in L, amputatio of L great toe, L Achilles tendon repair ANE Review of Systems Review of systems is: negative Review of Systems: - Exercise capacity Exercise capacity: <4 METS ANE Patient History - Allergies Allergies/Adverse Reactions: No Known Allergies Allergy (Verified 08/29/17 03:03) - Home Medications Home medications: home medication list seen and reviewed Home Medications: Glucosam/Chondr/Collagn/Hyalur [Glucosamine & Chondroitin Cap] 2 each PO DAILY 08/03/17 [Last Taken 08/03/17] Herbals/Supplements -Info Only 1 ea PO DAILY 08/03/17 [Last Taken Unknown] Indomethacin [Indocin 25 mg (*)] 50 mg PO TID 08/29/17 [Last Taken 08/28/17] - NPO status NPO Status: no food or drink >8 hours NPO Since - Liquids (Date): 09/01/17 NPO Since - Liquids (Time): 09:00 NPO Since - Solids (Date): 08/29/17 NPO Since - Solids (Time): 06:00 - Anes Hx Anes Hx: no prior problems - Smoking Hx Smoking Status: Former smoker - Alcohol Use Alcohol Use: Occasionally - Family Anes Hx Family Anes Hx: neg - N/A ANE Labs/Vital Signs - Labs Result Diagrams: 09/23/17 05:45 09/23/17 05:45 - Vital Signs Vital Signs: reviewed preoperatively; see RN documention for details Blood Pressure: 144/96 Heart Rate: 88 Respiratory Rate: 18 O2 Sat (%): 98 Height: 187.96 cm Weight: 112.7 kg ANE Physical Exam - Airway Neck exam: FROM Mallampati Score: Class 2 Mouth exam: poor dentition, schroeder, abnormal chin - Pulmonary Pulmonary: no respiratory distress - Cardiovascular Cardiovascular: regular rate and rhythym - ASA Status ASA Status: III ANE Anesthesia Plan Anesthesia Plan: general endotracheal anesthesia (Patient is a DNR, but thorough converstation with patient in pre-op, patient agrees to "suspend" DNR while in the manuel-operative environment. ) Total IV Anesthesia: No
--- NOTE | 2017-09-23 11:11 | PDHPUP ---
History & Physical Update H&P update statement: This history and physical update is based on an assessment of the patient which was completed after admission or registration (within 24 hours), but prior to the surgery/procedure. discussed nature of left below knee amputation with the pt. all questions answered. heart/ lung exam done- n o acute issues nor changes.
[2017-09-23] MEDS ORDERED: MIDAZOLAM 2 MG/2 ML VIAL IVP ONE (11:29)
[2017-09-23] MEDS ORDERED: PROPOFOL 200 MG/20 ML VIAL ONE (11:36)
[2017-09-23] MEDS ORDERED: ROCURONIUM 50 MG/5 ML VIAL ONE (11:36)
[2017-09-23] MEDS ORDERED: fentaNYL 100 MCG/2 ML INJ ONE ×3 (11:36→14:11)
[2017-09-23] MEDS ORDERED: LIDOCAINE 2% 5 ML SDV ONE (11:36)
--- NOTE | 2017-09-23 11:38 | HOSPPROG ---
Hospitalist Progress Note Assessment/Plan: 62 yo M w diabetic foot ulcer, going to OR today for BKA after prolonged efforts to manage with atbx therapy # polymicrobial diabetic foot infection/osteomyelitis s/p surgical debridement - BKA today with Dr. Bennett - cont vanc/zosyn, ID following # sepsis d/t above - resolved # likely gout of L wrist - improved, s/p steroid injection. cont colchicine, indocin stopped yesterday # c. dif colitis - cont vanc suppressive treatment until completed IV abx # htn - improved, cont amlodipine # DM2 - metformin # encephalopathy - resolved # SHERIE - resolved # hyperNa - resolved # proph: lmwh held today for surgery, resume post-op when cleared by surg # dispo: inpatient, med/surg Subjective: Pt feels okay. No pain. No fevers/chills. NPO for OR. Objective: Vital Signs Temp Pulse Resp BP Pulse Ox 37.0 C 88 18 144/96 H 98 09/23/17 11:15 09/23/17 11:28 09/23/17 11:28 09/23/17 11:28 09/23/17 11:28 Laboratory Results 09/23/17 05:45 09/23/17 05:45 09/22/17 09/23/17 09/24/17 05:59 05:59 05:59 Intake Total 1087 740 Output Total 2200 1375 750 Balance -1113 -635 -750 PT 17.7 SEC (12.0-15.0) H 08/29/17 02:55 INR 1.44 (0.83-1.16) H 08/29/17 02:55 - Physical Exam Constitutional: no apparent distress Eyes: PERRL Cardiovascular: regular rate and rhythym Respiratory: no respiratory distress Skin: warm Neurologic: AAOx3 Psychiatric: interacting appropriately ICD10 Worksheet Patient Problems: Problems Problem Status Onset Dehydration Acute Diabetic foot ulcer Acute Foot abscess Acute Osteomyelitis Acute Sepsis Acute Cellulitis of left foot Acute Severe sepsis Acute Skin ulcer of left great toe with necrosis of bone Acute
[2017-09-23] MEDS ORDERED: PHENYLEPHRINE HCL 100 MCG/ML SYR ONE ×2 (12:25→13:28)
[2017-09-23] MEDS ORDERED: ONDANSETRON 4 MG/2 ML VIAL ONE (12:25)
[2017-09-23] MEDS ORDERED: LR 500 ML IV PRN (12:34)
[2017-09-23] MEDS ORDERED: ONDANSETRON 4 MG/2 ML VIAL IVP PRN (12:34)
[2017-09-23] MEDS ORDERED: NALOXONE HCL 0.4 MG/ML INJ IVP PRN ×2 (12:34→15:41)
[2017-09-23] MEDS ORDERED: PHENYLEPHRINE HCL 100 MCG/ML SYR IVP PRN (12:34)
[2017-09-23] MEDS ORDERED: SUGAMMADEX SODIUM 200 MG/2 ML VIAL IVP ONE (13:28)
--- NOTE | 2017-09-23 13:59 | POSTOPPROG ---
Post Op Note Date of Operation: 09/23/17 Surgeon: Emiliano Estrada Drama Professor: scott sage Pre-op Diagnosis: osteomyelitis l foot Post-op Diagnosis: same Indication: same Procedure: left below the knee amputation Findings: infected l foot Inf/Abcess present in the surg proc area at time of surgery?: Yes Depth: Deep Incisional (Fascial) EBL: 100-500
[2017-09-23] MEDS ORDERED: HYDROmorphONE/DILAUDID 1 MG/ML INJ IVP PRN (14:04)
[2017-09-23] MEDS ORDERED: HYDROmorphONE/DILAUDID 1 MG/ML INJ ONE (14:12)
[2017-09-23] MEDS: HYDROmorphONE/DILAUDID 1 MG/ML INJ IVP PRN ×2 (14:13→14:42)
[2017-09-23] MEDS: fentaNYL 100 MCG/2 ML INJ IVP PRN ×2 (14:13→14:25)
--- NOTE | 2017-09-23 14:27 | GOP ---
[f rep st] OPERATIVE REPORT DATE OF OPERATION: SURGEON: Emiliano Estrada MD [employer]KS SUPERVISOR: Elbert Hernandez MD. PREOPERATIVE DIAGNOSIS: Osteomyelitis, left foot. POSTOPERATIVE DIAGNOSIS: Osteomyelitis, left foot. PROCEDURE PERFORMED: Left [id number] amputation. FINDINGS: INDICATIONS: 62-year-old male with osteomyelitis, left foot. He underwent several toe amputations b efore the first of the year and then debridement of the dorsum of the foot by myself on September 01. D espite daily wound dressings and debridement, the foot shows necrotic soft tissues all the way down t o the metatarsal bones, and it was felt that the leg was not salvageable. The patient agreed for a b elow-knee amputation procedure. DESCRIPTION OF PROCEDURE: General anesthetic. The leg scrubbed with Betadine, draped in the usual s terile fashion. A point 4 fingerbreadths below the tibial tuberosity was chosen for eventual site of transection of the tibia. This was marked and a line drawn around the front of the leg in this area , two thirds of the circumference of the leg. From the back edges of this line, a one third circumfe rence of the leg extension posteriorly defined the length of the flap. With the skin flap thus defined, skin incisions were made and cautery and sharp dissection used to go down to the bony surfaces, ligating all vasculature identified. Major nerves were put under tension and ligated as high as possible, such that their stumps were seen to retract back into the soft tiss ues to help prevent painful neuroma development. Eventually, the tibia was transected using a Gigli saw, bevelling the outer inch, and this was furthe r smoothed with a bone rasp. The fibula was transected with bone golden and trimmed back a centimete r shorter than the tibia. With the skin flaps fully created, the leg was disarticulated completely a nd the soleus trimmed to debulk the overall flap to facilitate closure. Closure was then done by sewing the posterior fascia to the anterior fascia with interrupted 2-0 Vicr yl. After this, the skin was closed with 2-0 V-Loc and Dermabond. A bulky padded Kerlix dressing wa s placed over the entire incisional site, then the leg wrapped in 3 additional Kerlix and several NORI wraps. This was taped in place. Patient tolerated the procedure well. /[id number]/MODL
--- NOTE | 2017-09-23 15:11 | POSTANESTH ---
Post Anesthetic Evaluation Cardiovascular Status: Normal, Stable, Similar to Pre-Op Cond Respiratory Status: Normal, Stable, Similar to Pre-op Cond. Level of Consciousness/Mental Status: Can Participate in Eval, Alert and Oriented Pain Control: Adequate, Prn Tx Ordered Nausea/Vomiting Control: Adequate, Prn Tx Ordered Complications Possibly Related to Anesthesia: None Noted
[2017-09-23] MEDS: HYDROmorphONE/DILAUDID 6 MG/30 ML PCA IV PRN (16:00)
--- NOTE | 2017-09-23 17:30 | HOSPPROG ---
Hospitalist Progress Note Assessment/Plan: 62 yo M w diabetic foot ulcer, s/p BKA with post-op hypoxemia - STAT team call. Pt having apneic episodes and desats to the 30's. He arouses to verbal stimulus , awakens and recovers within a minute. Upon my arrival, he is awake, alert and satting mid-90's on 3 LPM, has been on 2 LPM pre-operatively. He denies CP , SOB or pleuritic symptoms. I suspect he has underlying sleep apnea and with anesthesia, in addition to 100 mcg fentanyl and 0.8 mg IV dilaudid, his apnea is exacerbated. -check portable CXR -start CPAP -continuous pulse ox monitoring -ok to stay on 1N, but consider transfer to SDU or ICU if continues to have issues despite positive airway pressure -RT support appreciated Additional 20 minutes at bedside. Objective: Vital Signs Temp Pulse Resp BP Pulse Ox 36.7 C 87 18 138/83 H 98 09/23/17 16:00 09/23/17 16:30 09/23/17 16:30 09/23/17 16:00 09/23/17 16:30 Microbiology 08/29/17 20:06 Mycobacterial Smear (RAGHU) - Final Foot - Tissue Laboratory Results 09/23/17 05:45 09/23/17 05:45 09/22/17 09/23/17 09/24/17 05:59 05:59 05:59 Intake Total 1340 231 3252 Output Total 2200 1375 1050 Balance -1113 -635 750 PT 17.7 SEC (12.0-15.0) H 08/29/17 02:55 INR 1.44 (0.83-1.16) H 08/29/17 02:55 ICD10 Worksheet Patient Problems: Problems Problem Status Onset Dehydration Acute Diabetic foot ulcer Acute Foot abscess Acute Osteomyelitis Acute Sepsis Acute Cellulitis of left foot Acute Severe sepsis Acute Skin ulcer of left great toe with necrosis of bone Acute
[2017-09-24] MEDS: PIPERACILLIN/TAZO 4.5 GM/DEX 100 ML IV SCH ×3 (00:11→11:53)
[2017-09-24] MEDS: oxyCODONE IR 5 MG TAB PO PRN ×2 (06:07→19:57)
--- NOTE | 2017-09-24 08:31 | SOAPPROG ---
SOAP Progress Note Assessment/Plan: Assessment: russel pod 1 l bka Plan: physical therapyt or hris specialist to start wrapping and stump shrinkage soon. 09/24/17 08:31 Subjective: jpain fro stump Objective: Vital Signs Temp Pulse Resp BP Pulse Ox 36.8 C 106 H 16 145/93 H 92 09/24/17 07:38 09/24/17 07:38 09/24/17 07:38 09/24/17 07:38 09/24/17 07:38 Microbiology 08/29/17 20:06 Mycobacterial Smear (RAGHU) - Final Foot - Tissue Laboratory Results 09/24/17 06:10 09/24/17 06:10 09/23/17 09/24/17 09/25/17 05:59 05:59 05:59 Intake Total 740 3040 1566.9 Output Total 1375 3150 550 Balance -635 -110 1016.9 PT 17.7 SEC (12.0-15.0) H 08/29/17 02:55 INR 1.44 (0.83-1.16) H 08/29/17 02:55 dresssing dry and intact ICD10 Worksheet Patient Problems: Problems Problem Status Onset Dehydration Acute Diabetic foot ulcer Acute Foot abscess Acute Osteomyelitis Acute Sepsis Acute Cellulitis of left foot Acute Severe sepsis Acute Skin ulcer of left great toe with necrosis of bone Acute
[2017-09-24] MEDS: COLCHICINE 0.6 MG CAP/TAB PO SCH (09:26)
[2017-09-24] MEDS: amLODIPine BESYLATE 5 MG TAB PO SCH ×2 (09:26→19:57)
[2017-09-24] MEDS: metFORMIN HCL 500 MG TAB PO SCH ×2 (09:26→17:41)
[2017-09-24] MEDS: VANCOMYCIN 125 MG/2.5 ML UDL PO SCH ×2 (09:26→19:57)
[2017-09-24] MEDS: VANCOMYCIN HCL/NORMAL SALINE 250 ML IV SCH (09:26)
[2017-09-24] MEDS: SENNOSIDES/DOCUSATE SODIUM TAB PO SCH ×2 (09:27→19:56)
[2017-09-24] MEDS: HYDROmorphONE/DILAUDID 6 MG/30 ML PCA IV PRN ×2 (11:28→20:46)
[2017-09-24] MEDS: ACETAMINOPHEN 325 MG TAB PO PRN (11:31)
--- NOTE | 2017-09-24 16:47 | HOSPPROG ---
Hospitalist Progress Note Assessment/Plan: The patient is a 62-year-old male with PMH diabetes with left foot nonhealing wound who was admitted for sepsis, acute osteomyelitis of left foot and underwent a left [id number] amputation on September 23 2017. ASSESSMENT/PLAN: Left lower extremity osteomyelitis/diabetic wound, status post left BKA pod 1. Acute blood loss on chronic anemia Acute resp distress - resolved, likely 2/2 anesthesia and blood loss Postoperative pain C diff colitis Diabetes mellitus type 2 with neuropathy HTN L wrist pain - likely gout, s/p steroid injection Sepsis-resolved Acute kidney injury - resolved -Transfused 1uPRBC today for Hgb <7. Continue to transfuse as needed for hgb < 7. -Pain control - prn analgesics. Add oxycodone IR back on, prn pain. -Continue Abx per ID. -Isolation precautions. -Continue current meds. -check a.m. labs. VTE prophylaxis: Lovenox Code Status: DNR Status: Inpatient for greater than 2 midnight stay. Disposition: Med surg This patient is new to me. Reviewed patient's chart/records for this visit. Discussed the case with the patient's RN. I reviewed the notes from surgery and Infectious Disease specialists. ____ SUBJECTIVE: Today the patient has pain in his new stump. He feels tired. Last night he had apnea which was thought to be from recent anesthesia. OBJECTIVE: Physical Exam: General: The patient is an obese male who is alert and in no acute distress. HEENT: normocephalic, extraocular movements intact, conjunctivae clear. Mucous membranes moist. Neck: trachea midline, no visible masses. CV: +S1/S2, tachy rate, RR, no MRG. Resp: unlabored, CTAB no RRW. Abd: soft and nondistended. Bowel sounds present. Musculoskeletal: Normal muscle tone/bulk. Left BKA noted, stump dressing CDI. Neuro: cranial nerves II XII grossly intact. Intact gross motor and sensory function. Psych: Appropriate mood and appropriate affect. Skin: No pallor. No petechiae. Heme/lymph: No peripheral edema at right leg. Labs/Imaging/Other Tests: Personally reviewed/interpreted. Blood glucose a little high. Hemoglobin 6.3. Objective: Vital Signs Temp Pulse Resp BP Pulse Ox 37.1 C 97 14 125/93 H 96 09/24/17 15:27 09/24/17 15:27 09/24/17 15:27 09/24/17 15:27 09/24/17 15:27 Microbiology 08/29/17 20:06 Mycobacterial Smear (RAGHU) - Final Foot - Tissue Laboratory Results 09/24/17 06:10 09/24/17 06:10 09/23/17 09/24/17 09/25/17 05:59 05:59 05:59 Intake Total 740 3040 1566.9 Output Total 1375 3150 1525 Balance -635 -110 41.9 PT 17.7 SEC (12.0-15.0) H 08/29/17 02:55 INR 1.44 (0.83-1.16) H 08/29/17 02:55 ICD10 Worksheet Patient Problems: Problems Problem Status Onset Dehydration Acute Diabetic foot ulcer Acute Foot abscess Acute Osteomyelitis Acute Sepsis Acute Cellulitis of left foot Acute Severe sepsis Acute Skin ulcer of left great toe with necrosis of bone Acute
--- NOTE | 2017-09-24 17:08 | PCMIDPN ---
Assessment/Plan: Assessment/Plan: * Left diabetic foot infection/osteomyelitis status post BKA 09/23/2017: BKA performed yesterday. Given infection has now been surgically removed, will stop Zosyn and vancomycin which has now continued for 23 and 21 days respectively. * Left wrist inflammatory arthropathy: Overall improved but still with mild inflammatory changes. Continue to follow. * C difficile colitis: Continue twice daily suppressive oral vancomycin x7 days post discontinuation of antibiotics (stop on 10/01/2017) * Fever: Likely postoperative etiology versus associated with transfusion. Continue to observe. 09/24/17 17:05 09/24/17 17:07 Subjective: Patient complains of pain at left BKA site. Mild left wrist pain. Nursing staff noted low-grade temperature with blood transfusion to approximately 100.3. Objective: Vital Signs Temp Pulse Resp BP Pulse Ox 37.1 C 97 14 125/93 H 96 09/24/17 15:27 09/24/17 15:27 09/24/17 15:27 09/24/17 15:27 09/24/17 15:27 Microbiology 08/29/17 20:06 Mycobacterial Smear (RAGHU) - Final Foot - Tissue Laboratory Results 09/24/17 06:10 09/24/17 06:10 09/23/17 09/24/17 09/25/17 05:59 05:59 05:59 Intake Total 740 3040 1566.9 Output Total 1375 3150 1525 Balance -635 -110 41.9 ESR 45 MM/HR (0-20) H 08/29/17 02:55 C-Reactive Protein 452.4 mg/L (<10.0) H 08/29/17 02:55 Vancomycin # 21 Zosyn # 23 P.o. vancomycin twice daily as suppressive therapy - Physical Exam General Appearance: alert, no apparent distress, non-toxic, other (Mildly confused) Respiratory: lungs clear, No respiratory distress Cardiac/Chest: regular rate, rhythm Extremities: inflammation (Left lower extremity BKA site dressed postoperatively ; left wrist with mild residual inflammatory changes and edema) Abdomen: non-tender, No distended ICD10 Worksheet Patient Problems: Problems Problem Status Onset Dehydration Acute Diabetic foot ulcer Acute Foot abscess Acute Osteomyelitis Acute Sepsis Acute Cellulitis of left foot Acute Severe sepsis Acute Skin ulcer of left great toe with necrosis of bone Acute
[2017-09-25] MEDS: QUEtiapine FUMARATE 50 MG TAB PO PRN (00:39)
[2017-09-25] MEDS: ACETAMINOPHEN 325 MG TAB PO PRN ×2 (00:39→21:06)
[2017-09-25 02:27] LABS: PLATELET COUNT 274 10^3/uL (150-400)
[2017-09-25] MEDS: metFORMIN HCL 500 MG TAB PO SCH ×2 (09:07→18:48)
[2017-09-25] MEDS: amLODIPine BESYLATE 5 MG TAB PO SCH ×2 (09:08→20:53)
[2017-09-25] MEDS: ENOXAPARIN 40 MG/0.4 ML SYR SC SCH (09:08)
[2017-09-25] MEDS: COLCHICINE 0.6 MG CAP/TAB PO SCH (09:08)
[2017-09-25] MEDS: oxyCODONE IR 5 MG TAB PO PRN (09:08)
[2017-09-25] MEDS: SENNOSIDES/DOCUSATE SODIUM TAB PO SCH ×2 (09:09→20:54)
[2017-09-25] MEDS: VANCOMYCIN 125 MG/2.5 ML UDL PO SCH ×2 (09:09→20:51)
--- NOTE | 2017-09-25 15:05 | HOSPPROG ---
Hospitalist Progress Note Assessment/Plan: Assessment: 62 yo M p/w diabetic foot ulcer and osteomyelitis s/p BKA Plan: # polymicrobial diabetic foot infection/osteomyelitis s/p surgical debridement and subsequent BKA 09/22 - appreciate ongoing surgical care by Dr. Patel - day 1 after discontinuing Vanc/Zosyn, monitoring WBC (11K) and for fever - pain mgmt w/ PO dilaudid s/p CUSTODY ASSISTANT removal - cont bowel regimen # sepsis d/t above - resolved # likely gout of L wrist - improved, s/p steroid injection, cont colchine, off indocin # c. dif colitis - cont vanc suppressive treatment 7 days beyond DC Abx, D1/7 bid # htn - improved, cont amlodipine # DM2 - metformin # encephalopathy - fluctuating, visual hallucinations occasionally, monitor # SHERIE - resolved # hyperNatremia - resolved # diet: ADA # code: DNR # proph: high risk, lovenox 40 # dispo: get inpt rehab consult, cont SNF search Subjective: visual hallucinations this AM, trying to move bowels Objective: Vital Signs Temp Pulse Resp BP Pulse Ox 36.7 C 114 H 16 140/90 H 96 09/25/17 08:35 09/25/17 11:25 09/25/17 11:25 09/25/17 11:25 09/25/17 11:25 Laboratory Results 09/25/17 02:17 09/25/17 02:17 09/24/17 09/25/17 09/26/17 05:59 05:59 05:59 Intake Total 3040 3128.9 Output Total 3150 2850 Balance -110 278.9 PT 17.7 SEC (12.0-15.0) H 08/29/17 02:55 INR 1.44 (0.83-1.16) H 08/29/17 02:55 - Physical Exam Constitutional: no apparent distress, chronically ill appearing, obese, uncomfortable Cardiovascular: regular rate and rhythym, no murmur, rub, or gallop, No edema Respiratory: no respiratory distress, no rales or rhonchi, clear to auscultation Gastrointestinal: normoactive bowel sounds, distension (moderate), No tenderness , No guarding Musculoskeletal: other (left BKA, bandaged) Neurologic: AAOx3, No facial droop Psychiatric: interacting appropriately, not anxious, not encephalopathic, thought process linear ICD10 Worksheet Patient Problems: Problems Problem Status Onset Dehydration Acute Diabetic foot ulcer Acute Foot abscess Acute Osteomyelitis Acute Sepsis Acute Cellulitis of left foot Acute Severe sepsis Acute Skin ulcer of left great toe with necrosis of bone Acute
--- NOTE | 2017-09-25 15:38 | ASMTCMCOM ---
CM Note CM Note Notes: Pt had referral to inpt rehab. Shagufta from rehab called to state that pt has been refusing PT/OT and they may not be able to accept. Current plan is [facility] if rehab doesn't accept. CM to follow. Date Signed: 09/25/2017 03:37 PM Electronically Signed By:Swetha Wells LCSW
--- NOTE | 2017-09-25 15:45 | PCMIDPN ---
Assessment/Plan: Assessment/Plan: * Left diabetic foot infection/osteomyelitis status post BKA 09/23/2017: Continue to observe off systemic antibiotics given nidus of infection surgically removed. * C difficile colitis: Continue twice daily suppressive oral vancomycin x7 days post discontinuation of antibiotics (stop on 10/01/2017) * Fever/Leukocytosis: Suspect most likely will be non infectious. Continue to observe off antibiotic therapy. * Confusion: Most compatible with delirium postoperatively. Able to answer questions appropriately this a.m. during visit. Continue to follow as recovers from surgery. 09/25/17 15:42 09/25/17 15:46 Subjective: Patient confused and with hallucinations this a.m.. Accidentally pulled PICC line out. More alert later in the morning. Objective: Vital Signs Temp Pulse Resp BP Pulse Ox 36.7 C 114 H 16 140/90 H 96 09/25/17 08:35 09/25/17 11:25 09/25/17 11:25 09/25/17 11:25 09/25/17 11:25 Laboratory Results 09/25/17 02:17 09/25/17 02:17 09/24/17 09/25/17 09/26/17 05:59 05:59 05:59 Intake Total 3040 3128.9 Output Total 3150 2850 Balance -110 278.9 ESR 45 MM/HR (0-20) H 08/29/17 02:55 C-Reactive Protein 452.4 mg/L (<10.0) H 08/29/17 02:55 Oral vancomycin (stop date 10/01/2017) Tm 38.2 - Physical Exam General Appearance: alert, no apparent distress, non-toxic EENT: No scleral icterus Cardiac/Chest: regular rate, rhythm Abdomen: non-tender, No distended Neuro/Psych: alert, oriented x 3, confused, other ( Mild confusion which patient recognizes) ICD10 Worksheet Patient Problems: Problems Problem Status Onset Dehydration Acute Diabetic foot ulcer Acute Foot abscess Acute Osteomyelitis Acute Sepsis Acute Cellulitis of left foot Acute Severe sepsis Acute Skin ulcer of left great toe with necrosis of bone Acute
[2017-09-25] MEDS: HYDROmorphONE/DILAUDID 2 MG TAB PO PRN (20:52)
[2017-09-26] MEDS: QUEtiapine FUMARATE 50 MG TAB PO PRN (00:02)
[2017-09-26 05:43] LABS: PLATELET COUNT 303 10^3/uL (150-400)
[2017-09-26] MEDS ORDERED: POTASSIUM CL 20 MEQ TAB PO ONE (08:14)
[2017-09-26] MEDS: amLODIPine BESYLATE 5 MG TAB PO SCH ×2 (08:48→20:14)
[2017-09-26] MEDS: ENOXAPARIN 40 MG/0.4 ML SYR SC SCH (08:48)
[2017-09-26] MEDS: VANCOMYCIN 125 MG/2.5 ML UDL PO SCH ×2 (08:48→20:13)
[2017-09-26] MEDS: metFORMIN HCL 500 MG TAB PO SCH ×2 (08:49→19:07)
[2017-09-26] MEDS: SENNOSIDES/DOCUSATE SODIUM TAB PO SCH ×2 (08:49→20:20)
[2017-09-26] MEDS: COLCHICINE 0.6 MG CAP/TAB PO SCH (08:49)
[2017-09-26] MEDS: HYDROmorphONE/DILAUDID 2 MG TAB PO PRN ×2 (10:11→20:15)
[2017-09-26] MEDS ORDERED: IBUPROFEN 600 MG TAB PO PRN ×2 (11:02→11:04)
[2017-09-26] MEDS: NAPROXEN SODIUM 220 MG TAB PO SCH ×3 (12:32→20:14)
--- NOTE | 2017-09-26 12:46 | ASMTCMCOM ---
CM Note CM Note Notes: Brooke from [facility] here to visit with pt. Pt may be ready to DC tomorrow. BM can take over the weekend. CM to follow. Date Signed: 09/26/2017 12:45 PM Electronically Signed By:Swetha Wells LCSW
[2017-09-26] MEDS ORDERED: NAPROXEN SODIUM 220 MG TAB PO SCH (16:00)
--- NOTE | 2017-09-26 17:26 | HOSPPROG ---
Hospitalist Progress Note Assessment/Plan: Assessment: 62 yo M p/w diabetic foot ulcer and osteomyelitis s/p BKA Plan: # polymicrobial diabetic foot infection/osteomyelitis s/p surgical debridement and subsequent BKA 09/22 - appreciate ongoing surgical care by Dr. 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 dif colitis - cont vanc suppressive treatment 7 days beyond DC Abx, D2/7 bid # htn - improved, cont amlodipine # DM2 - metformin # encephalopathy - fluctuating, visual hallucinations occasionally, monitor - zyprexa PRN, melatonin HS # SHERIE - resolved # hyperNatremia - resolved # diet: ADA # code: DNR # proph: high risk, lovenox 40 # dispo: get inpt rehab consult, cont SNF search Subjective: patient w/ pain immobilizing his left wrist Objective: Vital Signs Temp Pulse Resp BP Pulse Ox 37.1 C 92 17 123/77 H 97 09/26/17 15:45 09/26/17 15:45 09/26/17 15:45 09/26/17 15:45 09/26/17 15:45 Laboratory Results 09/26/17 04:35 09/26/17 04:35 09/25/17 09/26/17 09/27/17 05:59 05:59 05:59 Intake Total 3128.9 900 500 Output Total 2850 2000 Balance 278.9 -1100 500 PT 17.7 SEC (12.0-15.0) H 08/29/17 02:55 INR 1.44 (0.83-1.16) H 08/29/17 02:55 - Physical Exam Constitutional: no apparent distress, chronically ill appearing, obese, uncomfortable Cardiovascular: regular rate and rhythym, no murmur, rub, or gallop, No irregularly irregular, No edema Respiratory: no respiratory distress, no rales or rhonchi, clear to auscultation Gastrointestinal: normoactive bowel sounds, soft, non-tender abdomen, no palpable masses, distension (mild) Skin: No abrasion, No erythema, No induration, No fluctuance Musculoskeletal: other (painful flexion L wrist, 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
[2017-09-26] MEDS ORDERED: OLANZapine DISINTEGR 5 MG TAB PO PRN (17:27)
[2017-09-26] MEDS: predniSONE 20 MG TAB PO SCH (19:07)
[2017-09-26] MEDS: MELATONIN 3 MG TAB PO SCH (20:14)
[2017-09-27] MEDS: VANCOMYCIN 125 MG/2.5 ML UDL PO SCH ×2 (09:14→21:12)
[2017-09-27] MEDS: amLODIPine BESYLATE 5 MG TAB PO SCH ×2 (09:17→21:15)
[2017-09-27] MEDS: predniSONE 20 MG TAB PO SCH (09:17)
[2017-09-27] MEDS: SENNOSIDES/DOCUSATE SODIUM TAB PO SCH ×2 (09:17→21:15)
[2017-09-27] MEDS: COLCHICINE 0.6 MG CAP/TAB PO SCH (09:17)
[2017-09-27] MEDS: metFORMIN HCL 500 MG TAB PO SCH ×2 (09:17→17:20)
[2017-09-27] MEDS: NAPROXEN SODIUM 220 MG TAB PO SCH ×2 (09:17→21:15)
[2017-09-27] MEDS: ENOXAPARIN 40 MG/0.4 ML SYR SC SCH (09:18)
[2017-09-27] MEDS: HYDROmorphONE/DILAUDID 2 MG TAB PO PRN ×3 (09:29→21:21)
--- NOTE | 2017-09-27 09:34 | SOAPPROG ---
SOAP Progress Note Assessment/Plan: Assessment: russel pod 1 l bka Plan: physical therapyt or summer internship to start wrapping and stump shrinkage soon. 09/24/17 08:31 Subjective: pain at surgical site. Objective: Vital Signs Temp Pulse Resp BP Pulse Ox 36.5 C 86 17 114/72 95 09/27/17 07:30 09/27/17 07:30 09/27/17 07:30 09/27/17 09:17 09/27/17 07:30 Laboratory Results 09/26/17 04:35 09/26/17 04:35 09/26/17 09/27/17 09/28/17 05:59 05:59 05:59 Intake Total 900 1600 Output Total 2000 1250 Balance -1100 350 PT 17.7 SEC (12.0-15.0) H 08/29/17 02:55 INR 1.44 (0.83-1.16) H 08/29/17 02:55 stump unwrappe- looks great- no infection, no bleeding. needs compressive wrapping- i wrote an order several days ago for this.- discusussed withnurse to contact physical therapy, also oil changer orthapeidcs for stump sock drier, start rehab proscess for eventual prothesis. ICD10 Worksheet Patient Problems: Problems Problem Status Onset Dehydration Acute Diabetic foot ulcer Acute Foot abscess Acute Osteomyelitis Acute Sepsis Acute Cellulitis of left foot Acute Severe sepsis Acute Skin ulcer of left great toe with necrosis of bone Acute
--- NOTE | 2017-09-27 16:51 | ASMTCMCOM ---
CM Note CM Note Notes: Spoke carlos Maxwell at [facility] yesterday. pt not appropriate for inpt rehab at this time but likely will be once he gets his prosthesis. Spoke with pt about this. Pt very upset because he feels that there has been no progress made on getting fitted for a prosthesis and he also doesn't want to go to both [facility] and the In[facility]. Explained the reasoning to pt. Discussed the issue with MD. He will check with surgeon about plans for PT to discuss prosthesis with pt. CM will continue to follow. Date Signed: 09/27/2017 04:50 PM Electronically Signed By:Swetha Wells LCSW
--- NOTE | 2017-09-27 18:27 | HOSPPROG ---
Hospitalist Progress Note Assessment/Plan: Assessment: 62 yo M p/w diabetic foot ulcer and osteomyelitis s/p BKA Plan: # polymicrobial diabetic foot infection/osteomyelitis s/p surgical debridement and subsequent BKA 09/22 - appreciate ongoing surgical care by Dr. 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 dif colitis - cont vanc suppressive treatment 7 days beyond DC Abx, D3/7 bid # htn - improved, cont amlodipine # DM2 - metformin # encephalopathy - fluctuating, visual hallucinations occasionally, monitor - zyprexa PRN, melatonin HS # SHERIE - resolved # hyperNatremia - resolved # diet: ADA # code: DNR # proph: high risk, lovenox 40 # dispo: ADD 09/28 to SNF, pending prosthesis arrangements Subjective: patient w/ less pain in L wrist, has splint on, phantom pain this AM Objective: Vital Signs Temp Pulse Resp BP Pulse Ox 36.7 C 86 17 116/67 97 09/27/17 16:57 09/27/17 16:57 09/27/17 16:57 09/27/17 16:57 09/27/17 16:57 Laboratory Results 09/26/17 04:35 09/26/17 04:35 09/26/17 09/27/17 09/28/17 05:59 05:59 05:59 Intake Total 900 1600 1500 Output Total 2000 1250 Balance -4783 258 8877 PT 17.7 SEC (12.0-15.0) H 08/29/17 02:55 INR 1.44 (0.83-1.16) H 08/29/17 02:55 - Pending Discharge Pending Discharge Within 24 Hours: Yes Pending Discharge Date: 09/28/17 Pending Discharge Time: 11:00 - Physical Exam Constitutional: no apparent distress, not in pain, chronically ill appearing, obese, No uncomfortable Cardiovascular: regular rate and rhythym, no murmur, rub, or gallop, edema ( trace RLE) Respiratory: no respiratory distress, no rales or rhonchi, clear to auscultation Gastrointestinal: normoactive bowel sounds, soft, non-tender abdomen, no palpable masses, distension (mild) Skin: other (no erythema over L wrist) Musculoskeletal: other (less effusion over dorsum L wrist, pain on extension beyond 180, full ROM flexion and finger rough rounder) Neurologic: AAOx3, sensation intact bilaterally, No weakness Psychiatric: interacting appropriately, not anxious, not encephalopathic, thought process linear ICD10 Worksheet Patient Problems: Problems Problem Status Onset Skin ulcer of left great toe with necrosis of bone Acute Severe sepsis Acute Cellulitis of left foot Acute Diabetic foot ulcer Acute Sepsis Acute Foot abscess Acute Osteomyelitis Acute Dehydration Acute
[2017-09-27] MEDS: MELATONIN 3 MG TAB PO SCH (21:15)
[2017-09-28 06:08] LABS: PLATELET COUNT 355 10^3/uL (150-400)
[2017-09-28] MEDS: COLCHICINE 0.6 MG CAP/TAB PO SCH (09:28)
[2017-09-28] MEDS: amLODIPine BESYLATE 5 MG TAB PO SCH ×2 (09:30→20:06)
[2017-09-28] MEDS: metFORMIN HCL 500 MG TAB PO SCH ×2 (09:30→17:27)
[2017-09-28] MEDS: predniSONE 20 MG TAB PO SCH (09:30)
[2017-09-28] MEDS: NAPROXEN SODIUM 220 MG TAB PO SCH ×2 (09:30→20:06)
[2017-09-28] MEDS: VANCOMYCIN 125 MG/2.5 ML UDL PO SCH ×2 (09:31→20:06)
[2017-09-28] MEDS: HYDROmorphONE/DILAUDID 2 MG TAB PO PRN ×3 (09:31→20:06)
[2017-09-28] MEDS: SENNOSIDES/DOCUSATE SODIUM TAB PO SCH ×2 (09:32→20:08)
[2017-09-28] MEDS: ENOXAPARIN 40 MG/0.4 ML SYR SC SCH (09:35)
--- NOTE | 2017-09-28 14:10 | ASMTCMCOM ---
CM Note CM Note Notes: Dr Walden had long discussion with pt today about DC. He will be measured and molded tomorrow for his posthesis. Dr Walden would like mental health case manager to find our from [employer] how long it will take to get prostheses to pt. If it will be within a few days, he praveen like pt to go from [facility] to inpt rehab. If not, pt can DC to [facility] while waiting. LM for Sh[place]a at inpt rehab. CM will continue to follow. Date Signed: 09/28/2017 02:09 PM Electronically Signed By:Swetha Wells LCSW
--- NOTE | 2017-09-28 19:43 | HOSPPROG ---
Hospitalist Progress Note Assessment/Plan: Assessment: 62 yo M p/w diabetic foot ulcer and osteomyelitis s/p BKA Plan: # polymicrobial diabetic foot infection/osteomyelitis s/p surgical debridement and subsequent BKA 09/22 - appreciate ongoing surgical care by Dr. Patel, f/u as outpt for wound reassessment - day 4 after discontinuing Vanc/Zosyn, monitoring WBC and for fever - pain mgmt w/ PO dilaudid, having phantom pain, started on gabapentin - cont bowel regimen - counseled patient that we are attempting to arrange his prosthesis fitting w/ [employer] prior to discharge, so that his device can be expeditiously applied and he can begin to effectively work w/ PT/OT - d/w RN and case mgmt, [facility] not open on weekend, but they will come evaluate patient 09/29 AM and provide us w/ more information regarding time-frame for prosthesis production - if the prosthesis is immediately available, the patient would be appropriate for [facility], and case mgmt has contacted them for this possible scenario - if the prosthesis is not immediately available, then we would recommend the patient discharge to [facility] for rehab while awaiting the device, and then have [facility] heel caser notify [facility] when it arrives and he is able to transfer # sepsis d/t above - resolved # hyperglycemia w/ DM2 - persistently elevated despite metformin 500 bid, increase to 1000mg bid - 08/03/17 A1c 5.3% # 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 dif colitis - cont vanc suppressive treatment 7 days beyond DC Abx, D4/7 bid # htn - improved, cont amlodipine # encephalopathy - fluctuating, visual hallucinations occasionally, monitor - zyprexa PRN, melatonin HS # SHERIE - resolved # hyperNatremia - resolved # diet: ADA # code: DNR # proph: high risk, lovenox 40 # dispo: ADD 09/29 to SNF vs. Inpt rehab, pending prosthesis arrangements Subjective: patient very frustrated by his progression of osteo and then BKA; he is very frustrated by the time it has taken to get a prosthesis eval; he is very optimistic about his work w/ the prosthesis and he has a large support network of others w/ prostheses Objective: Vital Signs Temp Pulse Resp BP Pulse Ox 36.6 C 87 17 146/95 H 94 09/28/17 19:22 09/28/17 19:22 09/28/17 19:22 09/28/17 19:22 09/28/17 19:22 Laboratory Results 09/28/17 05:59 09/28/17 05:59 09/27/17 09/28/17 09/29/17 05:59 05:59 05:59 Intake Total 1600 2300 2500 Output Total 1250 950 Balance 350 1350 2500 PT 17.7 SEC (12.0-15.0) H 08/29/17 02:55 INR 1.44 (0.83-1.16) H 08/29/17 02:55 - Time Spent With Patient Time Spent with Patient: greater than 35 minutes Time Spent with Patient: Greater than 35 minutes spent on this patients care, greater than 50% of time spent counseling, educating, and coordinating care regarding the above mentioned plan. - Physical Exam Constitutional: not in pain, obese, No uncomfortable Cardiovascular: regular rate and rhythym, no murmur, rub, or gallop Respiratory: no respiratory distress, no rales or rhonchi, clear to auscultation Gastrointestinal: normoactive bowel sounds, soft, non-tender abdomen, no palpable masses, distension (moderate) Neurologic: AAOx3 Psychiatric: interacting appropriately, not anxious, not encephalopathic, thought process linear ICD10 Worksheet Patient Problems: Problems Problem Status Onset Dehydration Acute Diabetic foot ulcer Acute Foot abscess Acute Osteomyelitis Acute Sepsis Acute Cellulitis of left foot Acute Severe sepsis Acute Skin ulcer of left great toe with necrosis of bone Acute
[2017-09-28] MEDS ORDERED: metFORMIN HCL 500 MG TAB PO SCH (19:45)
[2017-09-28] MEDS: MELATONIN 3 MG TAB PO SCH (20:06)
[2017-09-29] MEDS: HYDROmorphONE/DILAUDID 2 MG TAB PO PRN ×5 (05:38→23:56)
[2017-09-29] MEDS: NAPROXEN SODIUM 220 MG TAB PO SCH ×2 (08:47→20:08)
[2017-09-29] MEDS: predniSONE 20 MG TAB PO SCH (08:47)
[2017-09-29] MEDS: VANCOMYCIN 125 MG/2.5 ML UDL PO SCH ×2 (08:48→20:07)
[2017-09-29] MEDS: SENNOSIDES/DOCUSATE SODIUM TAB PO SCH ×2 (08:48→20:09)
[2017-09-29] MEDS: amLODIPine BESYLATE 5 MG TAB PO SCH ×2 (08:49→20:08)
[2017-09-29] MEDS: ENOXAPARIN 40 MG/0.4 ML SYR SC SCH (08:49)
[2017-09-29] MEDS: COLCHICINE 0.6 MG CAP/TAB PO SCH (09:07)
--- NOTE | 2017-09-29 11:31 | ASMTCMCOM ---
CM Note CM Note Notes: Spoke with Moy Alexander (cell# [phone] office# [phone] F# [phone]) from [facility]; anticipate pt's prosthesis to be ready in 3-4 weeks. Moy requesting MD order for IPOP to assist in shrinking pt's stump. Spoke with Dr. Lopes; order received & given to Moy. Moy will be back to deliver & place IPOP for pt tomorrow morning. Moy also requesting pt's dressing change instructions; spoke with Dr. Patel; orders received; alerted Moy & RN. Spoke with Lizette, at [facility]; informed pt is currently not appropriate for [facility] because he cannot tolerate 3 hrs therapy daily. [facility] willing to reconsider pt once prothesis is placed in 3-4 weeks. Spoke with Brooke, at [facility], confirmed BM is willing take pt once he is medically stable & ready for dc. Per Brooke, ULTC 100 was previously submitted & has been approved. Brooke to contact [facility] at time of dc to confirm dc date. Anticipate dc to [facility] once IPOP is received & pt is medically stable & ready for dc. CM will continue to follow. DC plan: SNF Date Signed: 09/29/2017 11:30 AM Electronically Signed By:Nataliya Lopes RN
--- NOTE | 2017-09-29 12:41 | ASMTCMCOM ---
CM Note CM Note Notes: ULTC 100 complete and sent to [facility] [phone] along with supporting documents. Call placed to [phone] tp verify receipt. Left message with Aaron Harmon. Date Signed: 09/29/2017 12:40 PM Electronically Signed By:Jessica Enriquez RN
--- NOTE | 2017-09-29 13:12 | HOSPPROG ---
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 dif colitis - cont vanc suppressive treatment 7 days beyond DC Abx, D5/7 bid htn - improved, cont amlodipine # encephalopathy resolved dc zyprexa Subjective: awaiting stump prosthesis Objective: Vital Signs Temp Pulse Resp BP Pulse Ox 36.7 C 78 16 128/72 H 92 09/29/17 12:00 09/29/17 12:00 09/29/17 12:00 09/29/17 12:00 09/29/17 12:00 Laboratory Results 09/28/17 05:59 09/28/17 05:59 09/28/17 09/29/17 09/30/17 05:59 05:59 05:59 Intake Total 2300 2700 Output Total 950 800 200 Balance 1350 1900 -200 PT 17.7 SEC (12.0-15.0) H 08/29/17 02:55 INR 1.44 (0.83-1.16) H 08/29/17 02:55 - Physical Exam Constitutional: no apparent distress, appears nourished Eyes: PERRL, anicteric sclera Ears, Nose, Mouth, Throat: moist mucous membranes, hearing normal Cardiovascular: regular rate and rhythym, no murmur, rub, or gallop Respiratory: no respiratory distress, no rales or rhonchi Gastrointestinal: normoactive bowel sounds, soft, non-tender abdomen Genitourinary: no bladder fullness, No zamora in urethra Skin: warm, normal color Musculoskeletal: full muscle strength, no muscle tenderness, other (L BKA ) Neurologic: AAOx3 Psychiatric: interacting appropriately Lymph, Heme, Immunologic: no cervical LAD ICD10 Worksheet Patient Problems: Problems Problem Status Onset Dehydration Acute Diabetic foot ulcer Acute Foot abscess Acute Osteomyelitis Acute Sepsis Acute Cellulitis of left foot Acute Severe sepsis Acute Skin ulcer of left great toe with necrosis of bone Acute
[2017-09-29] MEDS: MELATONIN 3 MG TAB PO SCH (20:09)
[2017-09-30] MEDS: HYDROmorphONE/DILAUDID 2 MG TAB PO PRN ×3 (05:40→14:20)
[2017-09-30 05:49] VITALS: TEMP 97.8
[2017-09-30] MEDS: VANCOMYCIN 125 MG/2.5 ML UDL PO SCH (09:00)
[2017-09-30] MEDS ORDERED: COLCHICINE 0.6 MG CAP/TAB PO SCH (09:00)
[2017-09-30] MEDS: NAPROXEN SODIUM 220 MG TAB PO SCH (09:01)
[2017-09-30] MEDS: SENNOSIDES/DOCUSATE SODIUM TAB PO SCH (09:03)
[2017-09-30] MEDS: amLODIPine BESYLATE 5 MG TAB PO SCH (09:03)
[2017-09-30] MEDS: ENOXAPARIN 40 MG/0.4 ML SYR SC SCH (09:03)
--- NOTE | 2017-09-30 09:50 | HOSPPROG ---
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 dif colitis - cont vanc suppressive treatment 7 days beyond DC Abx, D5/7 bid htn - improved, cont amlodipine # encephalopathy resolved dc zyprexa to [facility] today > 30 minutes Subjective: ready for dc Objective: Vital Signs Temp Pulse Resp BP Pulse Ox 36.6 C 78 16 140/79 H 95 09/30/17 08:10 09/30/17 08:10 09/30/17 08:10 09/30/17 09:03 09/30/17 09:39 Microbiology 08/29/17 20:06 Fungal Culture - Final Foot - Tissue Laboratory Results 09/28/17 05:59 09/28/17 05:59 09/29/17 09/30/17 10/01/17 05:59 05:59 05:59 Intake Total 2700 240 Output Total 800 1270 280 Balance 1900 -1030 -280 PT 17.7 SEC (12.0-15.0) H 08/29/17 02:55 INR 1.44 (0.83-1.16) H 08/29/17 02:55 - Physical Exam Constitutional: no apparent distress, appears nourished Eyes: PERRL, anicteric sclera Ears, Nose, Mouth, Throat: moist mucous membranes, hearing normal Cardiovascular: regular rate and rhythym, no murmur, rub, or gallop Respiratory: no respiratory distress, no rales or rhonchi Gastrointestinal: normoactive bowel sounds, soft, non-tender abdomen Genitourinary: no bladder fullness, No zamora in urethra Skin: warm, normal color Musculoskeletal: full muscle strength, no muscle tenderness Neurologic: AAOx3 ICD10 Worksheet Patient Problems: Problems Problem Status Onset Dehydration Acute Diabetic foot ulcer Acute Foot abscess Acute Osteomyelitis Acute Sepsis Acute Cellulitis of left foot Acute Severe sepsis Acute Skin ulcer of left great toe with necrosis of bone Acute
--- NOTE | 2017-09-30 09:57 | PDIAF ---
- Diagnosis Diagnosis: Left foot osteomyelitis/abscess; left wrist gout Code Status: Do Not Resuscitate - Medication Management Discharge Medications: Medications to Continue on Transfer Glucosam/Chondr/Collagn/Hyalur [Glucosamine & Chondroitin Cap] 2 each PO DAILY 08/03/17 [Last Taken 08/03/17] Herbals/Supplements -Info Only 1 ea PO DAILY 08/03/17 [Last Taken Unknown] Nystatin Powder [Mycostatin Powder] 1 julia TP TID #30 powder 08/09/17 [Last Taken 08/27/17] Colchicine [Colchicine (*)] 0.6 mg PO DAILY ea 09/30/17 [Last Taken Unknown] HYDROmorphone HCL [Dilaudid 2 mg (*)] 2 - 4 mg PO Q4HRS PRN tab 09/30/17 [Last Taken Unknown] Melatonin [Melatonin 3 MG (*)] 3 mg PO HS tab 09/30/17 [Last Taken Unknown] Naproxen Sodium [Aleve 220 MG (*)] 440 mg PO BID tab 09/30/17 [Last Taken Unknown] Polyethylene Glycol 3350 [Miralax 17 gm (*)] 17 gm PO DAILY PRN pkt 09/30/17 [ Last Taken Unknown] Sennosides/Docusate Sodium [Senokot-S] 1 - 2 tab PO BID tab 09/30/17 [Last Taken Unknown] Vancomycin [Vancocin Oral Liquid] 125 mg PO BID udl 09/30/17 [Last Taken Unknown] amLODIPine BESYLATE [Norvasc 5 mg (*)] 5 mg PO BID tab 09/30/17 [Last Taken Unknown] Compounding Pharmacy Technician Antibiotics: Vancomycin 1 g IV q.12 hrs, Zosyn 4.5 g IV Q 6 hr, vancomycin 125 mg po bid Compounding Pharmacy Technician Antibiotic Stop Date: 10/12/17 Discharge Medications: Refer to the Discharge Home Medication list for PRN reason. PICC Care - Routine: Yes - Orders Services needed: Registered Nurse, Physical Therapy, Occupational Therapy Isolation Type: CDIFF Isolation Diet Texture: Regular Texture Diet, Thin Liquids, Meds Whole w/Liquids - Labs/Radiology CBC w/diff Date: 09/22/17 (Weekly Q Friday) CMP Date: 09/22/17 (Weekly Q Friday) Creatinine Date: 09/25/17 (Weekly Q ) CRP Date: 09/22/17 (Weekly Q Friday) Vanco Trough Date and Time: Weekly Q Friday, Q Call or Fax Lab and Imaging Results to: Dr. Castellano, - Follow Up Care Current Providers and Referrals: Shant Castellano MD [Medical Doctor] - 09/25/17 1:30 pm Patient,NotPresent [Primary Care Provider] - As per Instructions
[2017-09-30 11:25] VITALS: BP 124/81; PULSE 74; RESP 18; O2SAT 94
--- NOTE | 2017-09-30 15:46 | ASDISCHSUM ---
Discharge Information Plan Status:SNF Medically Cleared to Leave: Discharge Date:09/30/2017 02:31 PM CM D/C Disposition:Alf Facility ADT D/C Disposition:Alf Facility Projected Discharge Date:09/14/2017 11:00 AM Transportation at D/C:Wheelchair Van Discharge Delay Reason: Follow-Up Date:09/14/2017 11:00 AM Discharge Slot: Final Diagnosis: Placement Information Referral Type:*Longterm/SNF Referral ID:[id number] Provider Name:Darron Sparrow/[employer] Address 1:[address] Phone Number: Address 2: Fax Number: [facility]:[place] Selection Factors: State:[place] Referral Type:Home Infusion Referral ID:[id number] Provider Name: Address 1: Phone Number: Address 2: Fax Number: City: Selection Factors: State: Patient Contact Information Contact Name:MICHAEL Relationship: Address: Work Phone: [facility]:[place] Alternate Phone: [facility]/Zip Code:[place] Email: Financial Information Financial Class: Primary Plan Desc[place] Primary Plan Number:[id number] Secondary Plan Desc: Secondary Plan Number: Assessment Information [facility] CM Progress Note CM Note CM Note Notes: Patient admitted for cellulitis of L foot - was taken to OR last night for I & D and partial amputation of 2nd toe. He is also showing AMS - per his brother Donato, he is not behaving normally. 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 Per H&P, alcohol may be an issue. PT/OT have been ordered and ID consulted. Case Management will follow for discharge planning. Date Signed: 08/30/2017 09:33 AM Electronically Signed By:Chely Tinajero RN [facility] CM Progress Note CM Note CM Note Notes: Therapies are recommending SNF. Patient has Medicaid ins. CM to check with patient this week as to SNF needs. Date Signed: 09/02/2017 05:28 PM Electronically Signed By:Jeanette Saeed LCSW [facility] CM Progress Note CM Note CM Note Notes: Chart reviewed. Met with patient to review discharge plan of care. Per therapies, SNF recommended. I asked him if he had any preferences, patient replied he has not thought about it. I told him I would stop back. Referrals made to several SNF's. CM to follow. Date Signed: 09/05/2017 10:11 AM Electronically Signed By:Beata Burk RN [facility] CM Progress Note CM Note CM Note Notes: [facility], [facility] and [facility] all cannot t carmelo pt due to his Medicaid ins. [facility] interested and pt agreed to send them referral. C/M to follow. Date Signed: 09/06/2017 01:52 PM Electronically Signed By:Swetha Wells LCSW [facility] CM Progress Note CM Note CM Note Notes: Chart reviewed. Ongoing treatment of left foot cellulitis need care home ANTB therapy. patient able to engage in conversation but doesn't appear to fully understand his care home needs, Attempted to discuss SNF and he is referring to how things change. ULTC 100 filled out. PASSR filled out. No forseeable discharge date but will need SNF at this point in time. Plan to SNF, awaiting ULTC 100. CM to follow Date Signed: 09/08/2017 03:11 PM Electronically Signed By:Beata Burk RN [facility] CM Progress Note CM Note CM Note Notes: Daysi BANERJEE faxed H&P and Med list per her request; she will eval pt today. CM to follow. Date Signed: 09/09/2017 04:21 PM Electronically Signed By:KAREY Espitia [facility] CM Progress Note CM Note CM Note Notes: Daysi ([phone]) reginaldo [facility] reports pt is approved and PASRR did not trigger. Pt needs accepting SNF, [facility] still considering but when [facility] staff talke to pt he was adamant he was not going to SNF and going home. PT/OT continue to rec SNF. Referrals sent to [facility] and [facility] for additional Medicaid SNF choice. Pt moved to . Date Signed: 09/10/2017 11:12 AM Electronically Signed By:KAREY Espitia [facility] CM Progress Note CM Note CM Note Notes: Pt now recommending HC. OT still rec SNF. Met with pt to discuss DC options. Pt does not want SNF or HC because he does not want to be homebound. Talked with him about managing his diabetes. He thinks setting up a PCP at [facility] is the best option. CM unsure of DC so appt will be set up once DC known. CM to follow. Date Signed: 09/11/2017 12:29 PM Electronically Signed By:Swetha Wells LCSW [facility] JENY Progress Note CM Note CM Note Notes: Dr Rincon asked CM to discuss DC plan with pt who was threatening to leave [place] today. Per Dr Rincon, best plan would be SNF but pt continues to be reluctant b/c he will need 6 weeks of IV ABX (zosyn Q6 and vanco Q12). Pt needs daily dressing changes on his foot as well and may DC with a wound vac. pt Dc'd from [facility] on 08/09/17 and admitted on this DC that he was inconsistent with his augmentin per H&P. Met with pt who had calmed down and stated he did not want to lose his leg and would be compliant. Pt would prefer to DC home with home care. Pt thinks he could observe dressing changes tomorrow and could also manage his IV infusion with HC teaching. Concerns are that pt's past noncompliance. Pt aware of the concerns and will consider SNF. Called [facility] to ensure they are still willing to take. They stated that clinically he is accepted but they need to do a financial screen which pt had refused b/c he did not want to go to a SNF earlier in the week. They will not be able to do this until Friday. Plan is for pt to consider HC vs SNF overnight. Dr Rincon and JENY will meet with pt tomorrow and continue discussion. Date Signed: 09/12/2017 03:47 PM Electronically Signed By:Swetha Wells LCSW [facility] CM Progress Note CM Note CM Note Notes: If pt decides to DC home he will have [facility] and [facility]. If pt decides to go to a SNF, [facility] the only [facility] has been willing to accept him.. Date Signed: 09/12/2017 03:48 PM Electronically Signed By:Swetah Wells LCSW [facility] CM Progress Note CM Note CM Note Notes: Spoke with pt re SNF vs [facility] d/c. He is more agreeable to discharging to a SNF however is adamant he wants to have the same wound care team. Spoke with Antonio from [facility] who will discuss pt's concerns with him, hopefully tomorrow. Date Signed: 09/15/2017 03:32 PM Electronically Signed By:KAREY Jurado [facility] CM Progress Note CM Note CM Note Notes: Brooke from [facility] here to see pt. They are able to accept him and he is agreeable to going and committing to completing a 30 day stay (between [facility] and ). Wound vac and port change pending. December d/c in the next day or 2. Date Signed: 09/16/2017 03:52 PM Electronically Signed By:KAREY Jurado [facility] CM Progress Note CM Note CM Note Notes: Brooke from [facility] called to state that they have a wound vac available when pt DCs. DC likely in a few more days. CM to follow. Date Signed: 09/17/2017 01:48 PM Electronically Signed By:Swetha Wells LCSW [facility] CM Progress Note CM Note CM Note Notes: A left BKA is recommended for pt. Pt in process of considering it. let Brooke at [facility] that DC will be delayed. It is uncelar if pt will have other DC options after the BKA such as inpt rehab. CM will continue to follow. Date Signed: 09/19/2017 02:52 PM Electronically Signed By:Swetha Wells LCSW [facility] CM Progress Note CM Note CM Note Notes: DC plan still to do rehab at [facility]. Not ready for dc at this time. CM will follow. Date Signed: 09/22/2017 04:45 PM Electronically Signed By:Alva Conti RN [facility] CM Progress Note CM Note CM Note Notes: Pt had referral to inpt rehab. Shagufta from rehab called to state that pt has been refusing PT/OT and they may not be able to accept. Current plan is [facility] if rehab doesn't accept. CM to follow. Date Signed: 09/25/2017 03:37 PM Electronically Signed By:Swetha Wlels LCSW [facility] CM Progress Note CM Note CM Note Notes: Brooke from [facility] here to visit with pt. Pt may be ready to DC tomorrow. BM can take over the weekend. CM to follow. Date Signed: 09/26/2017 12:45 PM Electronically Signed By:Swetha Wells LCSW [facility] CM Progress Note CM Note CM Note Notes: Spoke wit Shagufta Maxwell at [facility] yesterday. pt not appropriate for inpt rehab at this time but likely will be once he gets his prosthesis. Spoke with pt about this. Pt very upset because he feels that there has been no progress made on getting fitted for a prosthesis and he also doesn't want to go to both [facility] and the In rehab. Explained the reasoning to pt. Discussed the issue with MD. He will check with surgeon about plans for PT to discuss prosthesis with pt. CM will continue to follow. Date Signed: 09/27/2017 04:50 PM Electronically Signed By:Swetha Wells LCSW [facility] CM Progress Note CM Note CM Note Notes: Dr Walden had long discussion with pt today about DC. He will be measured and molded tomorrow for his posthesis. Dr Walden would like egg caser to find our from [employer] how long it will take to get prostheses to pt. If it will be within a few days, he praveen like pt to go from [facility] to inpt rehab. If not, pt can DC to [facility] while waiting. SYMONE Eagle at inpt rehab. CM will continue to follow. Date Signed: 09/28/2017 02:09 PM Electronically Signed By:Swetha Wells LCSW [facility] CM Progress Note CM Note CM Note Notes: Spoke with Moy Alexander (cell# [phone] office# [phone] F# [phone]) from [facility]; anticipate pt's prosthesis to be ready in 3-4 weeks. Moy requesting MD order for IPOP to assist in shrinking pt's stump. Spoke with Dr. Lopes; order received & given to Moy. Moy will be back to deliver & place IPOP for pt tomorrow morning. Moy also requesting pt's dressing change instructions; spoke with Dr. Patel; orders received; alerted Moy & RN. Spoke with Lizette at [facility] Rehab; informed pt is currently not appropriate for In Rehab because he cannot tolerate 3 hrs therapy daily. [facility] willing to reconsider pt once prothesis is placed in 3-4 weeks. Spoke with Brooke, at [facility], confirmed BM is willing take pt once he is medically stable & ready for dc. Per Brooke, TC 100 was previously submitted & has been approved. Brooke to contact Daysi at time of dc to confirm dc date. Anticipate dc to [facility] once IPOP is received & pt is medically stable & ready for dc. CM will continue to follow. DC plan: SNF Date Signed: 09/29/2017 11:30 AM Electronically Signed By:Nataliya Lopes RN [facility] CM Progress Note CM Note CM Note Notes: ULTC 100 complete and sent to [facility] [phone] along with supporting documents. Call placed to [phone] tp verify receipt. Left message with Aaron Harmon. Date Signed: 09/29/2017 12:40 PM Electronically Signed By:Jessica Enriquez RN Case Management Discharge Plan Note Case Management Discharge Discharge Order Complete? Answers: Yes Patient to Obtain Answers: Other Notes: SNF Medications Transportation Arranged Answers: Other Notes: [facility] will Pick (Date 09/30/2017 01:30 PM & Time) Faxed Final Orders Answers: Yes Family Notified Answers: Yes Notes: brother Donato Discharge Comments Notes: Patient discharged to [facility]. Transport set up by Brooke at [facility]. I spoke with Moy at [facility] who will visit patient at tomorrow. I also spoke with Daysi at [facility] who confirmed that patient's ULTC was updated with his discharge date and sent to Brooke at [facility] Date Signed: 09/30/2017 10:10 AM Electronically Signed By:Chely Tinajero RN Intervention Information
== END 2017-09-30 14:31 | DRG 853 ==
LOC: EDUNIT# → F3N 09:15 → F2N 08-30 18:25 → F3N 09-04 15:46 → F1N 09-10 10:23
PROVIDERS: ADMIT Family Medicine; ATTEND Family Medicine
PROC: 0Y6N0ZB Detachment at Left Foot, Partial 2nd Ray, Open Approach (ICD-10-PCS; principal; 2017-08-29 18:30)
PROC: 0J9P0ZZ Drainage of Left Lower Leg Subcutaneous Tissue and Fascia, Open Approach (ICD-10-PCS; 2017-09-01)
PROC: 0JDR0ZZ Extraction of Left Foot Subcutaneous Tissue and Fascia, Open Approach (ICD-10-PCS; 2017-09-01)
PROC: 02HV33Z Insertion of Infusion Device into Superior Vena Cava, Percutaneous Approach (ICD-10-PCS; 2017-09-02)
PROC: 0R9P3ZX Drainage of Left Wrist Joint, Percutaneous Approach, Diagnostic (ICD-10-PCS; 2017-09-03)
PROC: 3E0U33Z Introduction of Anti-inflammatory into Joints, Percutaneous Approach (ICD-10-PCS; 2017-09-08)
PROC: 0Y6J0Z1 Detachment at Left Lower Leg, High, Open Approach (ICD-10-PCS; 2017-09-23)
PROC: 5A09357 Assistance with Respiratory Ventilation, Less than 24 Consecutive Hours, Continuous Positive Airway Pressure (ICD-10-PCS; 2017-09-23)
DX: A41.9 Sepsis, unspecified organism (principal); R65.20 Severe sepsis without septic shock; M86.9 Osteomyelitis, unspecified; L97.90 Non-pressure chronic ulcer of unspecified part of unspecified lower leg; G92 Toxic encephalopathy; T40.2X5A Adverse effect of other opioids, initial encounter; T42.4X5A Adverse effect of benzodiazepines, initial encounter; T48.205A Adverse effect of unspecified drugs acting on muscles, initial encounter; T42.6X5A Adverse effect of other antiepileptic and sedative-hypnotic drugs, initial encounter; L03.116 Cellulitis of left lower limb; N17.9 Acute kidney failure, unspecified; E87.2 Acidosis; B96.5 Pseudomonas (aeruginosa) (mallei) (pseudomallei) as the cause of diseases classified elsewhere; B95.61 Methicillin susceptible Staphylococcus aureus infection as the cause of diseases classified elsewhere; A04.72 Enterocolitis due to Clostridium difficile, not specified as recurrent; E87.0 Hyperosmolality and hypernatremia; R56.9 Unspecified convulsions; D62 Acute posthemorrhagic anemia; F05 Delirium due to known physiological condition; E88.09 Other disorders of plasma-protein metabolism, not elsewhere classified; E11.621 Type 2 diabetes mellitus with foot ulcer; E11.40 Type 2 diabetes mellitus with diabetic neuropathy, unspecified; M10.9 Gout, unspecified; F10.20 Alcohol dependence, uncomplicated; E66.9 Obesity, unspecified; R09.02 Hypoxemia; T41.0X5A Adverse effect of inhaled anesthetics, initial encounter; M79.642 Pain in left hand; R06.03 Acute respiratory distress; D64.9 Anemia, unspecified; R44.1 Visual hallucinations; Z89.432 Acquired absence of left foot; Z68.32 Body mass index [BMI] 32.0-32.9, adult; Z91.14 Patient's other noncompliance with medication regimen; Z66 Do not resuscitate
CPT/HCPCS: 92507-GN; 92523-GN; 92610-GN; 96365; 96366; 97110-GO; 97110-GP; 97116-GP; 97162-GP; 97164-GP; 97166-GO; 97168-GO; 97530-GO; 97530-GP; 97535-GO; C1751; G0480; J1030; J1100; J1170; J1650; J1815; J1885; J2001; J2060; J2250; J2310; J2370; J2405; J2543; J2704; J2710; J2800; J2997; J3010; J3370; J7512; P9016; Q9967

== ENCOUNTER 2017-11-25 11:53 | Emergency (ER) | payer MEDICAID ==
--- NOTE | 2017-11-25 12:52 | EDPHY ---
H & P Smoking Status: Former smoker Time Seen by Provider: 11/25/17 12:13 HPI/ROS: CHIEF COMPLAINT: Continued left wrist pain HISTORY OF PRESENT ILLNESS: 62-year-old male complaining of left wrist pain for the past few months after he fell onto his wrist. He was told to follow up with Orthopedics however was unable to do so he presents to the ER complaining of continued left wrist pain. No new symptoms. No discoloration. No paresthesia. No new trauma PHYSICAL EXAM (Prior to examination, patient consented to physical exam, hands were washed and my usual and customary physical exam procedures followed) 1) GENERAL: Well-developed, well-nourished, alert and oriented. Appears to be in no acute distress. 2) HEAD: Normocephalic 3) HEENT: Pupils equal, round, reactive to light bilaterally. 4) LUNGS: Breathing comfortably. 5) MUSCULOSKELETAL: No soft tissue swelling. Tender to palpation distal radius. Soft compartments. Normal coloration. 6) SKIN: Intact 7) VASCULAR: pulses and cap refill present are brisk 8) NEUROLOGIC: Radial, ulnar, median nerve function intact with no deficits appreciated on exam DIFFERENTIAL DIAGNOSIS: in no particular order including but not limited to fracture, sprain, compartment syndrome Procedure: Splint A Velcro volar splint was applied by ER light technician. After application of the splint I returned and re-examined the patient. The splint was adequately immobilizing the joint and distal to the splint the patient's circulation and sensation were intact. Patient shows no signs of compartment syndrome. Was given orthopedic precautions. (Marcia Concepcion) Constitutional: Initial Vital Signs Temperature (C) 36.9 C 11/25/17 12:00 Heart Rate 76 11/25/17 12:00 Respiratory Rate 16 11/25/17 12:00 Blood Pressure 140/84 H 11/25/17 12:00 O2 Sat (%) 94 11/25/17 12:00 O2 Delivery Mode Room Air Allergies/Adverse Reactions: No Known Allergies Allergy (Verified 11/25/17 11:58) Home Medications: Medication Instructions Recorded Glucosam/Chondr/Collagn/Hyalur 2 each PO DAILY 08/03/17 [Glucosamine & Chondroitin Cap] Herbals/Supplements -Info Only 1 ea PO DAILY 08/03/17 Colchicine [Colchicine (*)] 0.6 mg PO DAILY ea 09/30/17 HYDROmorphone HCL [Dilaudid 2 mg 2 - 4 mg PO Q4HRS PRN tab 09/30/17 (*)] Melatonin [Melatonin 3 MG (*)] 3 mg PO HS tab 09/30/17 Naproxen Sodium [Aleve 220 MG (*)] 440 mg PO BID tab 09/30/17 Polyethylene Glycol 3350 [Miralax 17 gm PO DAILY PRN pkt 09/30/17 17 gm (*)] Sennosides/Docusate Sodium 1 - 2 tab PO BID tab 09/30/17 [Senokot-S] MDM/Departure - MDM Imaging Results: Imaging Impressions Wrist X-Ray 11/25/17 12:08 Impression: 1. 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 2. Bony fragmentation dorsal to the carpus, compatible with prior trauma. 3. Extensive erosive changes throughout the carpus. 4. Atherosclerosis. Images reviewed myself (Marcia Concepcion) ED Course/Re-evaluation: Patient is neurovascular intact. I have explained to him that due to his delay in seeking medical care, namely having not followed up with orthopedic surgeon at, this may result in long-term, permanent disability of the left wrist. He has been given new splint as his current volar splint is dirty. Given the name of on-call orthopedics Dr. Petey Savage for follow-up. He agrees to follow up with Orthopedics. No evidence of compartment syndrome at this time. No evidence of infection. Care of patient under supervision of secondary supervising physician Dr Shant Vanegas. (Marcia Concepcion) I did not see this patient while he was in the emergency department. However his care was discussed with the PA while the patient was in the department. I agree with treatment plan and management (Shant Vanegas) - Depart Disposition: Home, Routine, Self-Care Clinical Impression: Left wrist pain Condition: Good Instructions: Wrist Injury (ED) Additional Instructions: Return to the ER immediately if you experience discoloration, have worsening pain, numbness, tingling, or any other symptoms that concern you. If you received x-rays in the emergency department today, be advised, that ligamentous , tendon, muscular, and other non-bony injury cannot be fully ruled out. Try to keep your affected extremity elevated above the level of your chest, and keep cold packs on the affected area, for the next 48 hours. Referrals: Petey Savage MD [Medical Doctor] - 2-3 days, call for appt. (Dr. Petey Savage is orthopedic surgeon)
[2017-11-25 13:10] VITALS: BP 129/78
== END 2017-11-25 13:07 | disposition home or self-care (01) ==
DX: S69.92XA Unspecified injury of left wrist, hand and finger(s), initial encounter (principal); Z87.891 Personal history of nicotine dependence; W18.39XA Other fall on same level, initial encounter
CPT/HCPCS: L3984

== ENCOUNTER 2018-07-24 17:26 | Inpatient (IN) | payer SELFPAY ==
--- NOTE | 2018-07-24 17:43 | EDPHY ---
H & P Time Seen by Provider: 07/24/18 17:37 HPI/ROS: HPI CHIEF COMPLAINT: Shortness of breath. HISTORY OF PRESENT ILLNESS: 63-year-old male, presents emergency room shortness of breath x1 week however progressively getting worse over the past 2- 3 days. He reports dyspnea on exertion. Reports cough. No significant sputum. Denies fever. Did developed some chest pressure. Shortness of breath got worse over the last week so he decided come the emergency room today as over the last 24-48 hours it has gotten worse. Upon arrival to the emergency room the patient is tachycardic. He is room air saturation of 87%. Past Medical History: Obesity, left jtoth-znn-mbxo amputation, sepsis, hypertension Past Surgical History: Left gkejn-iqk-ruqv amputation Social History: Drinks alcohol daily. Family History: Noncontributory ROS REVIEW OF SYSTEMS: 10 Systems were reviewed and negative with the exception of the elements mentioned in the history of present illness. Exam Constitutional nontoxic, triage nursing summary reviewed, vital signs reviewed , awake/alert. Vital signs noted be tachycardic and hypoxic. Eyes normal conjunctivae and sclera, EOMI, PERRLA. HENT normal inspection, atraumatic, moist mucus membranes, no epistaxis, neck supple/ no meningismus, no raccoon eyes. Respiratory wheezing on exam. Decreased air movement. Cardiovascular tachycardic, regular rhythm, no murmur, no edema, distal pulses normal. Gastrointestinal soft, non-tender, no rebound, no guarding, normal bowel sounds, no distension, no pulsatile mass. Genitourinary no CVA tenderness. Musculoskeletal no midline vertebral tenderness, full range of motion, no calf swelling, no tenderness of extremities, no meningismus, good pulses, neurovascularly intact. Skin pink, warm, & dry, no rash, skin atraumatic. Neurologic awake, alert and oriented x 3, AAOx3, moves all 4 extremities equally, motor intact, sensory intact, CN II-XII intact, normal cerebellar, normal vision, normal speech. Psychiatric normal mood/affect. Heme/Lymph/Immune no lymphadenopathy. Differential diagnosis includes but is not limited to: Pneumonia, COPD, CHF ACS , atypical chest pain, pneumothorax, pneumonia, pulmonary embolism, aortic dissection, congestive heart failure, tumor, musculoskeletal pain, esophageal pain, GERD, peptic ulcer disease, pancreatitis Medical Decision Making: Plan for this patient IV establishment blood cultures , chest x-ray, EKG, troponin, D-dimer, DuoNeb breathing treatment, and re- evaluate. Re-evaluation: Patient's EKG time 5:43 p.m. Sinus tach 125, Q-waves noted V1 V2 V3 with slight ST elevation. No ST depression. When I compare this to his old EKG dated 08/29/2017 is changed with these Q-waves in ST elevation. This EKG was performed for shortness of breath patient denies any chest pain or chest pressure. However given that it is an abnormal EKG I did send to Dr. Dickey who is on-call for interventional cardiology to review. ED x-ray chest one view cardiomegaly significant, no evidence of pulmonary edema no evidence of pleural effusions mediastinum does appear wide on exam. Plan will be CT chest without contrast given his creatinine is 2. Plan for emergent echocardiogram. 1823: Discussed this case in detail with Dr. Dickey with Cardiology. He review the EKG does not feel this is an acute ST-elevation NC. This EKG does show a right heart strain, with axis change to right axis deviation significantly from previous EKG. Also right heart strain seen on EKG. Also has an S1 Q3 T3 nonspecific on the EKG. Plan at this time CT chest without contrast echocardiogram. Bedside ultrasound performed by myself. Shows hyperdynamic heart. No pericardial effusion visualized. Hard to visualize the RV. Will get formal echocardiogram. CT scan of the chest without contrast this shows: Shows multiple peripheral emboli concerning for septic pneumonia septic emboli versus pulmonary infarcts pulmonary embolism. This CT scan was done without contrast given his creatinine. Given the patient's hypoxia, white count, I am concerned this is infectious. I have ordered him broad-spectrum antibiotics IV vancomycin IV Zosyn. Additionally concern for emboli will obtain echocardiogram. Additionally this could be pulmonary emboli will ultrasound right lower extremity. 1931: Ultrasound of the right lower extremity and echocardiogram is pending at this time. Patient has been started on heparin for possible DVT and pulmonary emboli showered. Critical Care: Total Critical Care Time Spent Managing this Patient: 85 Minutes. This time was spent Exclusively with this patient. This Care was exclusive of procedures. The Organ System/life at risk was tachycardia, hypoxia, elevated lactic acid, pulmonary infarcts, pulmonary emboli, right heart strain This Patient was in Critical Condition because tachycardia, hypoxia, elevated lactic acid, pulmonary infarcts, pulmonary emboli, right heart strain Ultrasound right lower extremity shows DVT called to me by Dr. Kaur Patient's lactic acid noted to be elevated. This is not due to sepsis. This is due to pulmonary emboli and pulmonary infarct causing end-organ damage leading to elevated lactic acid. Source: Patient, EMS - Medical/Surgical History Hx Asthma: No Hx Chronic Respiratory Disease: No Hx Diabetes: No Hx Cardiac Disease: No Hx Renal Disease: No Hx Cirrhosis: No Hx Alcoholism: No Hx HIV/AIDS: No Hx Splenectomy or Spleen Trauma: No Other PMH: foot neuropathy, 2 ACL sx. 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, osteomyelitis - Social History Smoking Status: Former smoker Constitutional: Initial Vital Signs Temperature (C) 36.8 C 07/24/18 17:35 Heart Rate 121 H 07/24/18 17:35 Respiratory Rate 20 07/24/18 17:35 Blood Pressure 123/96 H 07/24/18 17:35 O2 Sat (%) 94 07/24/18 17:35 O2 Delivery Mode Oxymizer O2 (L/minute) 10 Allergies/Adverse Reactions: No Known Allergies Allergy (Verified 11/25/17 11:58) Home Medications: Medication Instructions Recorded Naproxen Sodium [Aleve 220 MG (*)] 440 mg PO BID PRN 07/24/18 Medical Decision Making - Data Points Laboratory Results: Laboratory Results 07/24/18 17:49 07/24/18 17:49 Medications Given: Discontinued Medications Gabapentin (Neurontin) 300 mg PO HS UZMA Stop: 01/21/19 21:29 Last Admin: 07/25/18 21:57 Dose: 300 mg Heparin Sodium (Porcine) (Heparin Injection) 0 unit IVP EDNOW ONE Stop: 07/24/18 19:08 Last Admin: 07/24/18 19:21 Dose: 8,000 units Heparin Sodium (Porcine) (Heparin 50 Units/Ml (Premix)) 500 mls @ 0 mls/hr IV EDNOW ONE; Per Protocol PRN Reason: Protocol Stop: 07/24/18 19:08 Last Admin: 07/24/18 19:25 Dose: 500 mls Vancomycin/Sodium Chloride (Vancomycin 1 Gm (Premix)) 250 mls @ 250 mls/hr IV EDNOW ONE PRN Reason: Protocol Stop: 07/24/18 20:06 Last Admin: 07/24/18 19:41 Dose: 250 mls Piperacillin/Tazobactam/Dextrose (Zosyn (Premix)) 100 mls @ 200 mls/hr IV EDNOW ONE PRN Reason: Protocol Stop: 07/24/18 19:36 Last Admin: 07/24/18 19:28 Dose: 100 mls Sodium Chloride (Ns) 500 mls @ 0 mls/hr IV ONCE ONE PRN Reason: Wide Open Stop: 07/24/18 19:52 Last Admin: 07/24/18 19:56 Dose: 500 mls Heparin Sodium (Porcine) (Heparin 50 Units/Ml (Premix)) 500 mls @ 0 mls/hr IV CONT UZMA; Per Protocol PRN Reason: Protocol Stop: 01/20/19 21:14 Last Admin: 07/26/18 10:28 Dose: 500 mls Sodium Chloride (Ns) 1,000 mls @ 150 mls/hr IV CONT UZMA Stop: 01/21/19 09:14 Last Admin: 07/26/18 08:35 Dose: 1,000 mls Lorazepam (Ativan Injection) 0.5 - 1 mg IVP Q4HRS PRN PRN Reason: Anxiety, Unable to Take PO Stop: 01/22/19 00:50 Last Admin: 07/26/18 01:16 Dose: 1 mg Melatonin (Melatonin) 3 mg PO HS UZMA Stop: 01/20/19 21:29 Last Admin: 07/25/18 20:19 Dose: 3 mg Point of Care Test Results: Chemistry 07/24/18 17:55 POC Troponin I 0.05 ng/mL ng/mL (0.00-0.08) Departure - Departure Disposition: [facility] In[facility] Acute Clinical Impression: Hypoxic Pulmonary emboli Qualifiers: Pulmonary embolism type: other Chronicity: acute Acute cor pulmonale presence: with acute cor pulmonale Qualified Code(s): I26.09 - Other pulmonary embolism with acute cor pulmonale DVT (deep venous thrombosis) Qualifiers: DVT location: lower extremity Affected thrombotic vein of extremity: unspecified vein of extremity Chronicity: acute Laterality: right Qualified Code (s): I82.401 - Acute embolism and thrombosis of unspecified deep veins of right lower extremity Condition: Critical
[2018-07-24 18:03] LABS: PLATELET COUNT 213 10^3/uL (150-400)
[2018-07-24 18:11] LABS: INR 1.4 (0.83-1.16); PROTIME(PATIENT) 17.3 SEC (12.0-15.0)
[2018-07-24] MEDS ORDERED: HEPARIN/DEXTROSE 500 ML IV ONE (19:07)
[2018-07-24] MEDS ORDERED: VANCOMYCIN HCL/NORMAL SALINE 250 ML IV ONE (19:07)
[2018-07-24] MEDS ORDERED: HEPARIN 10,000 UNIT/10 ML MDV (1,000 UNIT/ML) IVP ONE (19:07)
[2018-07-24] MEDS ORDERED: PIPERACILLIN/TAZO 4.5 GM/DEX 100 ML IV ONE (19:07)
[2018-07-24] MEDS ORDERED: NS 500 ML IV ONE (19:51)
--- NOTE | 2018-07-24 19:58 | ECHO ---
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 2)Normal LV systolic function with a LVEF of 55-60%. 3)Mild concentric LVH noted. 4)Moderate to severe RV enlargement with moderate to severe RV dysfunction. Multiple clots seen in RV. 5)Aortic valve sclerosis without or AI noted. 6)Mild MR without MV prolapse. 7)Mild to moderate TR with estimated moderate pulmonary HTN 8)Mild to moderately enlarged ascending thoracic aorta (4.0cm). 9)Mobile thrombus in RV and RA appears more clots than vegegtations off TV or PV. Measurements: Chambers Valvular Assessment AV/MV Valvular Assessment TV/PV Normal Normal Normal Name Value Range Name Value Range Name Value Range Ao Anna Marie (MM): 3.8 cm (2.2 cm-3.7 AV Vmax: 0.87 m/s (1 m/s-1.7 TR Vmax: 3.24 mm/s ( - ) cm) m/s) TR PGmax: 42 mmHg ( - ) IVSd (2D): 1.4 cm (0.6 cm-1.1 AV maxP mmHg ( - ) syst. PAP: 52 mmHg ( - ) cm) LVOT Vmax: 0.76 m/s (0.7 m/s-1.1 LVDd (2D): 3.4 cm (4.2 cm-5.9 m/s) cm) LVDs (2D): 2.0 cm (2.1 cm-4 cm) LVPWd (2D): 1.2 cm (0.6 cm-1 cm) LVEF (2D): 74 (>=54 %) RVDd(2D): 4.7 cm (1.9 cm-3.8 cmmm) Continued Measurements: Patient: CHRISTIN ROSEN Study Date: 07/24/2018 Page 1 of 2 06:54 PM Chambers Valvular Assessment TV/PV Name Value Name Value TAPSE: 0.9 cm CVP (est.): 10 mmHg Additional Vessels Name Value Ao Ascendin.0 cm Findings: Left Ventricle: The left ventricle cavity is small. It is difficult to assess LV function due to very small LV cavity size. Interventricular septum is flattened consistent with RV pressure overload. Right Ventricle: Severely dilated right ventricle. Severely reduced RV function. There are multiple mobile clots noted in the RV. Left Atrium: Small LA size.. Right Atrium: Right atrial enlargement. Clots noted in the RA that appear to go back and forth from the RA to RV. Mitral Valve: Mitral valve not well visualized. Aortic Valve: Aortic valve is not visualized. Tricuspid Valve: The tricuspid valve appears normal. Mild to moderate tricuspid valve regurgitation. Right ventricular systolic pressure measures 52mmHg. The pulmonary artery pressure is moderately increased. Pulmonic Valve: Pulmonary artery appears slightly dilated- cannot rule out clot in near the branch to the right pulmonary artery. Aorta: Normal size aortic root measuring 3.8 cm. Dilated ascending aorta measuring 4.0 cm. IVC: The IVC is dilated. There is less than 50% respiratory excursion. Pericardium: No pericardial effusion. (No Signature Object) Patient: CHRISTIN ROSEN Study Date: 07/24/2018 Page 2 of 2 06:54 PM [id number]
[2018-07-24] MEDS ORDERED: HEPARIN 10,000 UNIT/10 ML MDV (1,000 UNIT/ML) IVP PRN (21:11)
[2018-07-24] MEDS ORDERED: ZOLPIDEM TARTRATE 5 MG TAB PO PRN (21:12)
[2018-07-24] MEDS ORDERED: ACETAMINOPHEN 325 MG TAB PO PRN (21:12)
[2018-07-24] MEDS ORDERED: ONDANSETRON 4 MG/2 ML VIAL IVP PRN (21:12)
[2018-07-25] MEDS: MELATONIN 3 MG TAB PO SCH ×2 (00:16→20:19)
--- NOTE | 2018-07-25 01:07 | PDGENHP ---
History and Physical - Chief Complaint Shortness of breath - History of Present Illness Source-patient provides history appears reliable. EMR was reviewed and case discussed with accepting hospitalist. HPI - this is a pleasant 63-year-old gentleman with past medical history significant for hyperglycemia, regular etoh intake, gout and hx of BKA for osteomyelitis 09/2017 who presents emergency department today with complaints of 1 week history of shortness of breath. Patient describes worsening dyspnea on exertion with very short distances as far as 10 ft. Patient developed significant dyspnea. Reports a mild intermittent cough nonproductive. Patient also notes that he has been experiencing bilateral chest tightness with the dyspnea as if he can't catch his breath. Patient denies any fevers or chills. He has not had any nausea or vomiting. Patient denies any lower extremity edema or lower leg pain. Patient has been mobile with use of a prosthetic which he recently updated and reports now is a improved fit for ambulation. No family history of PE/DVTs or cardiac disease. History Information - Allergies/Home Medication List Allergies/Adverse Reactions: No Known Allergies Allergy (Verified 11/25/17 11:58) Home Medications: Naproxen Sodium [Aleve 220 MG (*)] 440 mg PO BID PRN 07/24/18 [Last Taken Unknown] I have personally reviewed and updated: family history, medical history, social history, surgical history - Past Medical History degenerative disc disease Additional medical history: Osteomyelitis left foot 2016 MSSA with history of left great toe I and D. Sepsis with Recurrent osteomyelitis of left lower extremity status post BKA 09/2017. Neuropathy of lower extremities. Hyperglycemia - with the history of minimally elevated A1c. Daily alcohol consumption. Gout. Obesity - Surgical History Additional surgical history: Left 1st toe digit gangrene with amputation May 2016. Left BKA 09/2017 for osteomyelitis and gangrene. Knee surgery ACL repair x2. Achilles surgery - Family History Additional family history: No family history of bony diseases, DVT/PE. Brother - dm 2, HTN obesity, AFib. sister - HTN, diabetes type 2 - Social History Smoking Status: Former smoker Tobacco Use: Cigarettes Alcohol Use: Other (Patient reports he drinks a few cocktails in the evening) Drug Use: Marijuana (Patient smokes marijuana few times weekly.) Additional social history: Independent in his ADLs. Patient works as a [employer]ullivan. He utilizes his prostatic to ambulate with some support of a cane. Cor status-full. Patient does not want any prolonged life support. He desires his brother to act as proxy if needed. Review of Systems Review of Systems: ROS: 10pt was reviewed & negative except for what was stated in HPI & below Constitutional: Denies: chills, fever EENMT: Reports: no symptoms Cardiac: Reports: no symptoms. Denies: chest pain, edema, palpitations Respiratory: Reports: cough, shortness of breath. Denies: orthopnea Gastrointestinal: Reports: no symptoms Genitourinary: Reports: no symptoms Muscolosketal: Reports: other (Chronic joint pain currently controlled.) Skin: Reports: no symptoms Neurological: Reports: no symptoms, other Physical Exam Physical Exam: Selected Entries 07/24/18 17:35 Heart Rate 121 H Respiratory 20 Rate O2 Sat (%) 94 Temperature (C) 36.8 C Blood Pressure 123/96 H Mean Arterial 105 H Pressure (MAP) O2 (L/minute) 2 O2 Delivery Nasal Cannula Mode Temperature Oral Source Temp Pulse Resp BP Pulse Ox 37.1 C 102 H 25 H 122/85 H 92 07/24/18 22:00 07/25/18 00:00 07/25/18 00:00 07/25/18 00:00 07/25/18 00:00 O2 (L/minute) 14 Constitutional: no apparent distress, appears nourished, not in pain, chronically ill appearing, obese, other (NAD. Patient seen in the ICU. He is lying on his side comfortable without any acute distress. He wakes easily to name. Patient in good spirits.) Eyes: PERRL, anicteric sclera, EOMI, No scleral injection Ears, Nose, Mouth, Throat: moist mucous membranes, other (No nasal discharge. No oropharyngeal erythema or exudates.), No poor dentition (Some missing dentition) Cardiovascular: tachycardia, other (Slightly limited cardiac exam due to slightly distant heart sounds.), No edema Peripheral Pulses: 0: dorsalis-pedis (L) (Amputee), 2+: dorsalis-pedis (R) Respiratory: no respiratory distress, reduced air movement (Bibasilar), inspiratory crackles (Bibasilar lung cisneros), No respiratory distress Gastrointestinal: normoactive bowel sounds, soft, non-tender abdomen, no palpable masses, other (Obese abdomen), No distension Genitourinary: no bladder tenderness, No zamora in urethra Skin: warm, normal color, no rashes or abrasions Musculoskeletal: other (Patient overall strength is intact. He is able to sit up independently with minimal assistance of bed rail. Left BKA with stump well- healed.) Neurologic: AAOx3, other (Nonfocal exam.), No facial droop Psychiatric: interacting appropriately, not encephalopathic, thought process linear, other (Patient very pleasant and in good spirits. Thought process content and questions are appropriate.), No poor insight, No poor judgement, No poor memory Lab Data & Imaging Review 07/24/18 17:49 07/24/18 17:49 WBC 14.77 10^3/uL (3.80-9.50) H 07/24/18 17:49 RBC 5.20 10^6/uL (4.40-6.38) 07/24/18 17:49 Hgb 17.8 g/dL (13.7-17.5) H 07/24/18 17:49 Hct 53.6 % (40.0-51.0) H 07/24/18 17:49 MCV 103.1 fL (81.5-99.8) H 07/24/18 17:49 MCH 34.2 pg (27.9-34.1) H 07/24/18 17:49 MCHC 33.2 g/dL (32.4-36.7) 07/24/18 17:49 RDW 16.4 % (11.5-15.2) H 07/24/18 17:49 Plt Count 213 10^3/uL (150-400) 07/24/18 17:49 MPV 10.6 fL (8.7-11.7) 07/24/18 17:49 Neut % (Auto) 67.8 % (39.3-74.2) 07/24/18 17:49 Lymph % (Auto) 20.2 % (15.0-45.0) 07/24/18 17:49 [place] % (Auto) 10.8 % (4.5-13.0) 07/24/18 17:49 Eos % (Auto) 0.1 % (0.6-7.6) L 07/24/18 17:49 Baso % (Auto) 0.4 % (0.3-1.7) 07/24/18 17:49 Nucleat RBC Rel Count 0.3 % (0.0-0.2) H 07/24/18 17:49 Absolute Neuts (auto) 10.01 10^3/uL (1.70-6.50) H 07/24/18 17:49 Absolute Lymphs (auto) 2.98 10^3/uL (1.00-3.00) 07/24/18 17:49 Absolute Monos (auto) 1.60 10^3/uL (0.30-0.80) H 07/24/18 17:49 Absolute Eos (auto) 0.01 10^3/uL (0.03-0.40) L 07/24/18 17:49 Absolute Basos (auto) 0.06 10^3/uL (0.02-0.10) 07/24/18 17:49 Absolute Nucleated RBC 0.04 10^3/uL (0-0.01) H 07/24/18 17:49 Immature Gran % 0.7 % (0.0-1.1) 07/24/18 17:49 Immature Gran # 0.10 10^3/uL (0.00-0.10) 07/24/18 17:49 RBC/WBC/PLT Morphology TNP 07/24/18 17:49 Platelet Estimate ADEQUATE (ADEQ) 07/24/18 17:49 Oval Macrocytes 1+ H 07/24/18 17:49 PT 17.3 SEC (12.0-15.0) H 07/24/18 17:49 INR 1.40 (0.83-1.16) H 07/24/18 17:49 APTT 32.6 SEC (23.0-38.0) 07/24/18 17:49 D-Dimer 3.54 ug/mLFEU (0.00-0.50) H 07/24/18 17:49 VBG Lactic Acid 2.2 mmol/L (0.7-2.1) H 07/24/18 20:27 Sodium 134 mEq/L (135-145) L 07/24/18 17:49 Potassium 4.7 mEq/L (3.3-5.0) 07/24/18 17:49 Chloride 93 mEq/L (97-110) L 07/24/18 17:49 Carbon Dioxide 22 mEq/l (22-31) 07/24/18 17:49 Anion Gap 19 mEq/L (6-14) H 07/24/18 17:49 BUN 39 mg/dL (7-23) H 07/24/18 17:49 Creatinine 2.0 mg/dL (0.7-1.3) H 07/24/18 17:49 Estimated GFR 34 07/24/18 17:49 Glucose 182 mg/dL (70-100) H 07/24/18 17:49 Calcium 9.5 mg/dL (8.5-10.4) 07/24/18 17:49 Magnesium 2.2 mg/dL (1.6-2.3) 07/24/18 17:49 Total Bilirubin 3.3 mg/dL (0.1-1.4) H 07/24/18 17:49 Conjugated Bilirubin 0.8 mg/dL (0.0-0.5) H 07/24/18 17:49 Unconjugated Bilirubin 2.5 mg/dL (0.0-1.1) H 07/24/18 17:49 AST 95 IU/L (17-59) H 07/24/18 17:49 ALT 66 IU/L (21-72) 07/24/18 17:49 Alkaline Phosphatase 102 IU/L (38-126) 07/24/18 17:49 POC Troponin I 0.05 ng/mL (0.00-0.08) 07/24/18 17:55 NT-Pro-B Natriuret Pep 16961 pg/mL (0-125) H 07/24/18 17:49 Total Protein 7.4 g/dL (6.3-8.2) 07/24/18 17:49 Albumin 4.0 g/dL (3.5-5.0) 07/24/18 17:49 Lipase 67 IU/L (23-300) 07/24/18 17:49 Imaging Review: Portable Chest, Single View July 24, 2018 History: Chest pain. Possible sepsis. Comparison: September 2017. Findings: The heart size is enlarged and stable. Question subtle nodular opacity laterally in the right midlung and right lung base. Mild peribronchial wall thickening bilaterally. No evidence for a pleural effusion or pneumothorax. Impression: Mild underlying bronchitis. Possible early infiltrate right midlung and right lung base. Dictated By: Seymour Kaur MD CT Chest, Without Contrast History: Shortness of breath. Decreased O2 saturation. Positive D-dimer. Elevated white blood cell count. Possible sepsis. Abnormal renal status, with elevated creatinine. Technique: 1.5-mm helical images were obtained of the chest, without contrast. Contrast could not be administered with the patient's elevated creatinine. Multiplanar reformation was performed. Radiation dose reduction technique was utilized. Findings: Heart size is mildly enlarged. No evidence for a pericardial effusion. Vascular calcifications are seen in the coronary arteries. No evidence for aneurysmal dilatation of the thoracic aorta. No significant mediastinal or hilar lymphadenopathy. Mild peribronchial wall thickening is seen bilaterally. Mild peripheral nodular infiltrate is seen laterally in the right upper lobe, posterolaterally in the right lower lobe, and laterally in the right middle lobe. Slight groundglass opacity is seen in the right middle lobe. Mild nodular peripheral infiltrate is seen in the superior segment of the left lower lobe. No evidence for a pleural effusion or pneumothorax. Degenerative change is seen in the thoracic spine. Layering fluid like increased density is seen in the gallbladder suggesting sludge or possible small gallstones. Impression: 1. Multifocal peripheral nodular infiltrate, which could represent pneumonia. Pulmonary infarct cannot be excluded. Mild underlying bronchitis. 2. Evidence of atherosclerotic disease in the coronary arteries. Mild cardiomegaly. 3. Other chronic findings, as above. Results called and discussed with Amor Rodriguez M.D., on July 24, 2018 at 1855. Dictated By: Seymour Kaur MD Ultrasound Venous Duplex/Doppler Right Leg History: Pain and swelling. Findings: Ultrasound venous duplex and Doppler imaging of the common femoral vein, femoral vein, popliteal vein, calf veins, greater saphenous vein origin, and contralateral common femoral vein demonstrates thrombus and noncompressibility throughout the common femoral vein , femoral vein, popliteal vein, and calf veins. There is also thrombus in the profunda vein. The great saphenous vein is patent. Impression: Extensive deep venous thrombosis throughout the right lower extremity. Results called and discussed with Ke Rodriguez M.D., on July 24, 2018 at 1958. Dictated By: Seymour Kaur MD Stat echocardiogram obtained in the ED a report reviewed. Showing normal LVEF of 55-60%. LVH. Moderate to severe RV enlargement with moderate to severe dysfunction. Multiple clots seen an mobile thrombus on RV and RA. Patient with moderate pulmonary hypertension with RVSP 52 mm Hg. Patient also with enlarged ascending thoracic aorta 4.0 cm. No pericardial effusion is noted. Visualized and Interpreted imaging results: Yes EKG additional interpertation: Sinus tachycardia in the 120s with right heart strain. Right axis deviation. Q-waves in the anteroseptal leads. ST- elevation in precordial leads. LVH. T-wave inversion in the lateral leads. Positive S1 q.3 T3. Assessment & Plan Assessment: Pleasant 63-year-old gentleman with a history of gout, obesity, daily alcohol consumption and a history of sepsis due to osteomyelitis status post right BKA in September 2017 who presents emergency department with 1 week worsening shortness of breath #Pulmonary emboli (Acute) - etiology for this clot is not quite clear. Patient has been ambulating at home with use of his prosthetic. He has not had any recent hospital stays since he was admitted 09/20/2017. No personal or family history of PE/DVT. Heparin drip was initiated in the emergency department will plan to continue this overnight. Extensive PE suspected with noted mobile thrombus on echocardiogram. Right heart strain is evident Unable to obtain a CTA due to patient's declined renal function. #DVT (deep venous thrombosis) (Acute) - extensive DVT in the right lower extremity. Heparin drip and plan as noted above. #Hypoxia (Acute) - as noted above due to PE. Continue with supplemental oxygen. #Right heart strain - extensive PE suspected due to mobile clots observed on echocardiogram and extensive DVT noted on lower extremity duplex study. Currently patient appears to be stabilizing however will need to monitor him quite closely. #Acute kidney injury -secondary to decreased perfusion in setting of extensive PE. Status post 500 cc of normal saline in the emergency department. Encourage oral intake. Repeat BMP in the morning. #SIRS - patient qualifies with tachycardia leukocytosis and elevated lactate but currently do not suspect an acute infectious process. Clinically patient denies any fevers chills or productive coughing. CT without contrast due to acute kidney injury was obtained that showed a questionable area consolidation but given the extensive nature of patient's PE this is likely an infarct rather than a pneumonia. Patient did receive an initial dose of vancomycin and Zosyn in the emergency department. At this point will hold off on further antibiotic therapy and monitor for any fevers or symptom changes to suggest pneumonia. #Lactic acidosis - did not suspect an infectious process. Patient denies any fevers chills. He does have a mildly elevated leukocytosis but this is likely related to patient's acute respiratory status with extensive PE DVT. #Polycythemia - likely secondary to dehydration. Status post IV fluid in the ED. Saline lock IV and encourage oral intake. #Hyponatremia - minimally decreased. Patient did receive some gentle hydration in the ED. He is tolerating oral hydration at this time will hold further fluids and monitor with a.m. BMP. #Hyperbilirubinemia - likely related to patient's extensive DVT and underlying vascular congestion. Monitor LFTs. #Benign essential hypertension - monitor blood pressures closely. Within normal limits. #Daily alcohol consumption - patient reports a few cocktails in the evenings daily. Monitor for any evidence of withdrawal symptoms. Currently patient without any symptoms. hold off on initiating a CIWA score. # hyperglycemia-patient with a previously known history of hyperglycemia without diabetes. His last A1c reported was 5.9. At this time will hold off on any treatment will plan to monitor with a.m. Labs. Patient has a diet ordered. FEN - saline lock IV. Electrolyte monitoring and replacement p.r.n. In the morning. Diet as tolerated. PPX - holding SCDs in setting of extensive DVT. On a heparin drip. Cor status-full. Patient notes that he does not want any prolonged life support or greater than 3 days if no evidence of improvement in condition. He notes he does not want any long-term supportive care such as feeding tube. He desires his brother to act as proxy if needed. Disposition-patient admitted to inpatient status on the ICU floor. Anticipate greater than 2 midnight stay given the severity of patient's PE and DVT. Critical care time 35 min
--- NOTE | 2018-07-25 06:58 | PDMN ---
Medical Necessity Medical necessity: Pt meets inpt criteria per MD order and MCG M-290, Pulmonary Embolism, A-4 days. 63 y/o presenting w/significant dyspnea and bilateral chest tightness, admitted w/acute pulmonary emboli, extensive PE suspected w/noted mobile thrombus on ECHO , right heart strain evident, extensive DVT in RLE, SHERIE (BUN, creatinie 39, 2.0), BNP 26,400. Tachycardic and hypoxic, requiring 14L O2 via oxymizer, Heparin gtt, ongoing eval/management of above. PMH includes obesity, L BKA, HTN. Anticipate>2MN given severity of PE and DVT.
[2018-07-25] MEDS: HEPARIN/DEXTROSE 500 ML IV SCH ×2 (07:54→21:57)
[2018-07-25 08:00] LABS: PLATELET COUNT 143 10^3/uL (150-400)
--- NOTE | 2018-07-25 08:32 | HOSPPROG ---
Hospitalist Progress Note Assessment/Plan: #Acute PE/right leg DVT: severe RV dysfunction, clots in RV. No CTA with SHERIE. Heparin gtt. Strict bed-rest -d/w Dr. Saul and IR consulted for more aggressive therapy with right leg t-PA, lysis #SHERIE: BL 0.9. Min PO last couple of days. IVFs, urine lytes #Etoh dependence: no signs w/d now. Counseled on cessation, charlotte with addition of AC and fall-risk #Hypovolemic hyponatremia: resolved #Acute hypoxic reps failure: (RR> 25, 14L oxymizer). Now on 6L #Lactic acidosis: denies infectious sxs #Polycythemia: resolved. Was likely dehydrated #h/p osteomyelitis: BKA #Diet: regular #DVT: heparin gtt #Disp: ICU admission for IV heparin, bedrest. Critical care time spent: 35 min bedside with patient reviewing imaging, counseling pt on meds. D/w Dr. Saul Subjective: less SOB today Objective: Vital Signs Temp Pulse Resp BP Pulse Ox 36.9 C 89 21 H 102/52 L 92 07/25/18 06:00 07/25/18 06:00 07/25/18 06:00 07/25/18 06:00 07/25/18 06:00 Laboratory Results 07/25/18 07:00 07/24/18 07/25/18 07/26/18 05:59 05:59 05:59 Intake Total 1407 Balance 1407 PT 17.3 SEC (12.0-15.0) H 07/24/18 17:49 INR 1.40 (0.83-1.16) H 07/24/18 17:49 - Time Spent With Patient Time Spent with Patient: greater than 35 minutes Time Spent with Patient: Greater than 35 minutes spent on this patients care, greater than 50% of time spent counseling, educating, and coordinating care regarding the above mentioned plan. - Physical Exam Constitutional: no apparent distress Eyes: PERRL Ears, Nose, Mouth, Throat: moist mucous membranes Cardiovascular: regular rate and rhythym Respiratory: no respiratory distress Gastrointestinal: normoactive bowel sounds Genitourinary: No zamora in urethra Skin: warm Musculoskeletal: other (left BKA. Right leg with min swelling, no overlying erythema) Neurologic: AAOx3, CN II-XII Intact Psychiatric: interacting appropriately ICD10 Worksheet Patient Problems: Problems Problem Status Onset Cellulitis of left foot Acute DVT (deep venous thrombosis) Acute Dehydration Acute Diabetic foot ulcer Acute Foot abscess Acute Hypoxic Acute Osteomyelitis Acute Pulmonary emboli Acute Sepsis Acute Severe sepsis Acute Skin ulcer of left great toe with necrosis of bone Acute
[2018-07-25] MEDS: NS 1,000 ML IV SCH ×2 (09:38→17:06)
--- NOTE | 2018-07-25 11:04 | ASMTCMCOM ---
CM Note CM Note Notes: CM spoke to pts nurse. Pt is a 63 y/o man admitted for shortness of breath. Pt has a hx of hyperglycemia, regular etoh intake, gout and hx of BKA for osteomyelitis 09/2017. Pt uses a prosthetic to ambulate. PT has been ordered and awaiting recommendations. Pt is self pay. Pt would benefit from a financial counseling and [employer] visit. Pt reports that he has had medicaid for a very long time. 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 RN reports that he drinks about 2-3 vodka drinks nightly and it is not an issue. Needs are TBD at this time. CM to follow. Plan: TBD Date Signed: 07/25/2018 11:03 AM Electronically Signed By:KAITLIN Garcia
--- NOTE | 2018-07-25 20:05 | GCON ---
PULMONARY CRITICAL CARE CONSULTATION DATE OF CONSULTATION: 07/25/2018 REASON FOR CONSULTATION: Pulmonary embolism. HISTORY: The patient is a very pleasant 63-year-old with a history of medical problems as outlined b vasile. Over the last week, he has become increasingly short of breath. This progressed to the point where with ambulation, he would get dizzy and feel like he was passing out. He had no chest pain, no hemoptysis, and no significant right lower extremity symptoms. He had a mild intermittent cough. W ith progression of his shortness of breath and associated chest tightness, he presented to the emerge ncy department. D-dimer was elevated. Creatinine was elevated. A CT angiogram was not done, only a CT scan of the chest without contrast. Extremity venous Doppler ultrasound on the right showed exte nsive clot. A cardiac echo was consistent with acute right heart strain with estimated right ventric ular systolic pressure of approximately 55. He was given fluids, started on heparin, and admitted to the intensive care unit. He has been stable overnight. He is on an OxyMask at 8 L. Blood pressures have been normal to sligh tly low, currently approximately 100/75. Heart rate is 90 with sinus rhythm on the monitor. He feel s his breathing is significantly better, and his chest is much less tight. He has no right lower ext remity symptoms. 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 MEDICATIONS His only medication has been naproxen. SOCIAL HISTORY: The patient smoked cigarettes in the past, occasionally uses marijuana. He drinks a lcohol most days, without any history of alcohol withdrawal or problems. He lives with his brother. 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 He has not worked since. He recently got a new left lower extremity prosthesis. He is ambulatory and active. FAMILY HISTORY: Negative for thromboembolic disease. REVIEW OF SYSTEMS: A 10-point review of systems is negative except as mentioned above. There is no history of heart disease or previous thromboembolic disease. There is no recent travel. He has not been sedentary. PHYSICAL EXAMINATION: GENERAL: Reveals a pleasant gentleman who is in no acute distress. He is lyi ng in bed and appears relatively comfortable. VITAL SIGNS: Blood pressure is 101/77, heart rate 90 with sinus rhythm on the monitor. On an oxy mask saturations are 91%. Respiratory rate is 20. He i s afebrile. HEENT: Unremarkable for lymphadenopathy or thyromegaly. NECK: Jugular venous distenti on is present. LUNGS: Clear anteriorly. Breath sounds are diminished at the bases. There are no r ales, no rhonchi, no pleural rub. HEART: Regular in rate and rhythm. There is a soft systolic murm ur. P2 is increased. A right-sided gallop cannot be excluded. ABDOMEN: Soft, nontender. Bowel so unds are present. EXTREMITIES: The left lower extremity is status post amputation. The right lower extremity is without significant swelling or edema. Veins are mildly distended. There is no tender ness in the popliteal fossa. The cord does appear to be present. NEUROLOGIC: Nonfocal. DATABASE/RADIOLOGIC STUDIES: As outlined above. LABORATORY: White blood cell count is 8800, hematocrit 44, platelets 143,000. Unfractionated hepari n is therapeutic at 0.5. PT on admission was 17.3 with a PTT of 32.6. D-dimer was elevated at 3.5. Sodium was 135, potassium 4.1, BUN 41 with a creatinine of 2.1. Glucose was 118. Bilirubin was 2, AST 91, ALT 66. Albumin was 2.9. Urine sodium was 17. ASSESSMENT: 1. Extensive right lower extremity deep vein thrombosis. This is in his 1 remaining intact lower ex tremity. Despite the lack of symptoms, more aggressive therapy to remove clot would appear to be war ranted. 2. Pulmonary emboli. Pulmonary embolic disease appears to be quite significant, and I would imagine probably large volume in light of the acute right heart strain and elevated pulmonary artery pressur es. He has had significant symptoms with ambulation over the last several days, with lightheadedness and likely hypotension/hypoxemia with exertional activities. Clot was also seen in the right atrium and ventricle. More aggressive therapy with clot lysis would appear to be warranted as well. TPA g iven to the lower extremities often will have a significant effect on clot lysis in the lungs. 3. History of left lower extremity below-knee amputation secondary to osteomyelitis. 4. Acute renal insufficiency. This is likely secondary to pre renal etiologies. Urine sodium was 1 7. There may be a component of volume depletion over the last several days in addition to decreased left ventricular output secondary to right heart dysfunction. PLAN/RECOMMENDATIONS: I think we should be more aggressive and use tPA clot lysis. I have contacted Interventional Radiology who has seen the patient. We will keep the patient on heparin tonight. A CT scan without contrast of the abdomen and pelvis will be done to better define anatomy. Lower extr emity clot lysis will be initiated in the a.m. A temporary IVC filter will likely be placed at that time. Overnight, the patient will be hydrated. Saline will be increased to 150 mL/h. Laboratory wi ll be followed. Further plans and recommendations will be made based on his progress over the next 12-24 hours. TIME SPENT: Over 1 hour of critical care time was spent directly with the patient, managing issues a s outlined above. This included discussions with the patient, with Interventional Radiology, the [facility] pitalist, and Nursing. /[id number]/MODL
[2018-07-25] MEDS ORDERED: GABAPENTIN 300 MG CAP PO SCH (21:30)
[2018-07-26] MEDS ORDERED: LORazepam 2 MG/ML INJ IVP PRN (00:51)
[2018-07-26 05:12] LABS: INR 1.34 (0.83-1.16); PROTIME(PATIENT) 16.8 SEC (12.0-15.0)
[2018-07-26] MEDS: NS 1,000 ML IV SCH (08:35)
[2018-07-26] MEDS: HEPARIN/DEXTROSE 500 ML IV SCH (10:28)
--- NOTE | 2018-07-26 11:26 | PDANEPAE ---
ANE Past Medical History - Cardiovascular History Hx Hypertension: No Hx Arrhythmias: No Hx Chest Pain: No Hx Coronary Artery / Peripheral Vascular Disease: No Hx CHF / Valvular Disease: No Hx Palpitations: No - Pulmonary History Hx COPD: No Hx Asthma/Reactive Airway Disease: No Hx Recent Upper Respiratory Infection: No Hx Oxygen in Use at Home: No Hx Sleep Apnea: Yes - Neurologic History Hx Cerebrovascular Accident: No Hx Seizures: No Hx Dementia: No Neurologic History Comment: patient reports chronic B numbness in feet - Endocrine History Hx Diabetes: No Obesity: moderate Endocrine History Comment: hyperglycemia - Renal History Hx Renal Disorders: No - Liver History Hx Hepatic Disorders: No - Neurological & Psychiatric Hx Hx Neurological and Psychiatric Disorders: No Neurological / Psychiatric History Comment: encephalopathy of unknown origin - resolved - Cancer History Hx Cancer: Yes Cancer History Comment: BCC in face - Congenital Disorder History Hx Congenital Disorders: No - GI History GERD: no Hx Gastrointestinal Disorders: No - Chronic Pain History Chronic Pain: No (WRISTS AND ELBOWS) - Surgical History Prior Surgeries: tonsillectomy, ACL repair x 3 in L, amputatio of L great toe, L Achilles tendon repair ANE Review of Systems Review of Systems: ANE Patient History - Allergies Allergies/Adverse Reactions: No Known Allergies Allergy (Verified 11/25/17 11:58) - Home Medications Home medications: home medication list seen and reviewed Home Medications: Naproxen Sodium [Aleve 220 MG (*)] 440 mg PO BID PRN 07/24/18 [Last Taken Unknown] - NPO status NPO Status: no food or drink >8 hours - Anes Hx Anes Hx: no prior problems - Smoking Hx Smoking Status: Former smoker (Quit 1986.) - Alcohol Use Alcohol Use: Other (Patient reports he drinks a few cocktails in the evening) ANE Labs/Vital Signs - Labs Result Diagrams: 07/26/18 04:30 07/26/18 04:30 - Vital Signs Blood Pressure: 101/82 Heart Rate: 94 Respiratory Rate: 22 O2 Sat (%): 90 Height: 180.34 cm Weight: 102.6 kg ANE Physical Exam - Airway Neck exam: FROM Mallampati Score: Class 2 Mouth exam: dentures - Pulmonary Pulmonary: no rales or rhonchi, clear to auscultation, respiratory distress ( Mild dyspnea; breathing a little hard even at rest.) - Cardiovascular Cardiovascular: regular rate and rhythym - ASA Status ASA Status: III ANE Anesthesia Plan Anesthesia Plan: MAC Lines/Monitors: arterial line
[2018-07-26] MEDS ORDERED: DEXMEDETOMIDINE HCL 400 MCG in NS 100 ML IV SCH (12:00)
[2018-07-26] MEDS ORDERED: DEXMEDETOMIDINE HCL 200 MCG in NS 50 ML IV ONE (12:30)
--- NOTE | 2018-07-26 12:59 | PDINTPN ---
Co Op Progress Note Assessment/Plan: Assessment: DVT/pulmonary embolism. Clot throughout left lower extremity but little in the way of symptoms. Pulmonary emboli likely large volume. Contrast not given on admission secondary to elevated BUN and creatinine. Pulmonary hypertension present along with hypoxemia. On heparin IV since admission. For lower extremity tPA clot lysis today with IR. Acute renal failure. Improved: creatinine 0.9 today with hydration overnight, down from 2 yesterday. Risk of renal failure with contrast much less. Acute respiratory failure. Hypoxemia. Secondary to pulmonary emboli. Chest x- ray pending post procedure. I expect his pulmonary status and pulmonary embolic disease to improve with the systemic affects of tPA during lower extremity clot lysis. History of a left BKA secondary to osteomyelitis. Plan: Directed cost lysis to right lower extremity today. X-ray when back from IR. Continue oxygen. Follow pulmonary status closely. Continue present medications otherwise. Pain medication may be needed postprocedure. 30 min of critical care time spent directly with the patient managing issues as above. Discussed with anesthesiology and IR, hospitalist, nursing, the ICU multi disciplinary team. Subjective: Doing okay. Slept poorly last night: Worried. Remains short of breath at rest. No pain, no cough or hemoptysis. Awaiting IR Objective: Vital Signs Temp Pulse Resp BP Pulse Ox 36.0 C 94 22 H 101/82 H 90 L 07/26/18 08:00 07/26/18 11:26 07/26/18 11:26 07/26/18 11:26 07/26/18 11:26 Laboratory Results 07/26/18 04:30 07/26/18 04:30 07/25/18 07/26/18 07/27/18 05:59 05:59 05:59 Intake Total 1407 3194 Output Total 1075 600 Balance 1407 2119 -600 PT 16.8 SEC (12.0-15.0) H 07/26/18 04:50 INR 1.34 (0.83-1.16) H 07/26/18 04:50 CXR: Pending Laboratory Tests 07/26/18 07/26/18 04:30 04:50 Heparin Anti-Xa, Unfract 0.34 Calcium 7.0 L Physical Exam - Physical Exam General Appearance: alert, no apparent distress EENT: PERRL/EOMI, other (Simple mask in place at 15 L) Neck: No normal inspection (Jugular venous distension present) Respiratory: lungs clear (Anteriorly), decreased breath sounds (At bases), No rales, No rhonchi, No pleural rub Cardiac/Chest: regular rate, rhythm, other (Heart tones distant. Gallop and P2 difficult to appreciate) Abdomen: normal bowel sounds, non-tender, soft Rectal: other (No [place], using urinal) Skin: normal color, warm/dry Extremities: other (Left BKA), No pedal edema (Right lower extremity. Veins somewhat distended), No swelling Neuro/Psych: no motor/sensory deficits, No cognition abnormalities ICD10 Worksheet Patient Problems: Problems Problem Status Onset Skin ulcer of left great toe with necrosis of bone Acute Severe sepsis Acute Cellulitis of left foot Acute Diabetic foot ulcer Acute Sepsis Acute Foot abscess Acute Osteomyelitis Acute Dehydration Acute Pulmonary emboli Acute DVT (deep venous thrombosis) Acute Hypoxic Acute
[2018-07-26 13:03] VITALS: BP 115/92
--- NOTE | 2018-07-26 13:22 | HOSPPROG ---
Hospitalist Progress Note Assessment/Plan: #Acute PE/right leg DVT: severe RV dysfunction, clots in RV. No CTA with SHERIE. Heparin gtt. Strict bed-rest -t-PA and lysis today. Transition to Coumadin after lysis #SHERIE: BL 0.9. Min PO last couple of days. IVFs, urine lytes #Etoh dependence: no signs w/d now. Counseled on cessation, [place] with addition of AC and fall-risk #Hypovolemic hyponatremia: resolved #Acute hypoxic reps failure: still with significant O2 needs #Lactic acidosis: denies infectious sxs #Polycythemia: resolved. Was likely dehydrated #h/p osteomyelitis: BKA #Diet: regular #DVT: heparin gtt #Disp: ICU admission for IV heparin, bedrest, t-PA Subjective: SOB with exertion Objective: Vital Signs Temp Pulse Resp BP Pulse Ox 36.2 C 90 21 H 115/92 H 96 07/26/18 13:02 07/26/18 13:02 07/26/18 13:02 07/26/18 13:02 07/26/18 13:02 Laboratory Results 07/26/18 04:30 07/26/18 04:30 07/25/18 07/26/18 07/27/18 05:59 05:59 05:59 Intake Total 1407 3194 Output Total 1075 600 Balance 1407 2119 -600 PT 16.8 SEC (12.0-15.0) H 07/26/18 04:50 INR 1.34 (0.83-1.16) H 07/26/18 04:50 - Time Spent With Patient Time Spent with Patient: greater than 35 minutes Time Spent with Patient: Greater than 35 minutes spent on this patients care, greater than 50% of time spent counseling, educating, and coordinating care regarding the above mentioned plan. - Physical Exam Constitutional: no apparent distress Eyes: PERRL Ears, Nose, Mouth, Throat: moist mucous membranes Cardiovascular: regular rate and rhythym Respiratory: reduced air movement Gastrointestinal: normoactive bowel sounds Genitourinary: No zamora in urethra Skin: warm Musculoskeletal: other (left BKA. Right leg without significant swelling or redness. No TTP) Neurologic: AAOx3, CN II-XII Intact Psychiatric: interacting appropriately ICD10 Worksheet Patient Problems: Problems Problem Status Onset DVT (deep venous thrombosis) Acute Hypoxic Acute Pulmonary emboli Acute Cellulitis of left foot Acute Dehydration Acute Diabetic foot ulcer Acute Foot abscess Acute Osteomyelitis Acute Sepsis Acute Severe sepsis Acute Skin ulcer of left great toe with necrosis of bone Acute
[2018-07-26] MEDS ORDERED: IOPAMIDOL (ISOVUE-300) 100 ML BTL ONE ×2 (13:31→18:53)
[2018-07-26] MEDS ORDERED: MIDAZOLAM 2 MG/2 ML VIAL ONE (14:24)
[2018-07-26] MEDS ORDERED: fentaNYL 100 MCG/2 ML INJ ONE (14:24)
[2018-07-26] MEDS ORDERED: PROPOFOL 200 MG/20 ML VIAL ONE (14:24)
--- NOTE | 2018-07-26 14:50 | PDRADPRE ---
Radiology History & Physical Indication for procedure: thromboembolism Home medications: Naproxen Sodium [Aleve 220 MG (*)] 440 mg PO BID PRN 07/24/18 [Last Taken Unknown] Allergies/Adverse Reactions: No Known Allergies Allergy (Verified 11/25/17 11:58) Mental status: A&Ox3
[2018-07-26] MEDS ORDERED: HEPARIN 10,000 UNIT/10 ML MDV (1,000 UNIT/ML) ONE (15:07)
[2018-07-26] MEDS ORDERED: PHENYLEPHRINE HCL 100 MCG/ML SYR ONE (15:21)
[2018-07-26] MEDS ORDERED: ALTEPLASE 2 MG VIAL ONE (15:25)
[2018-07-26] MEDS ORDERED: WARFARIN SODIUM 5 MG TAB PO ONE (16:00)
[2018-07-26] MEDS ORDERED: CALCIUM CHLORIDE 1 GM/10 ML INJ ONE (17:11)
[2018-07-26] MEDS ORDERED: HEPARIN/DEXTROSE 500 ML IV ONE (17:30)
[2018-07-26] MEDS ORDERED: ALTEPLASE 5 MG in NS 100 ML IV ONE (17:30)
[2018-07-26] MEDS ORDERED: ALTEPLASE 5 MG in NS 100 ML IV SCH (17:30)
[2018-07-26] MEDS ORDERED: ALTEPLASE 100 MG in NS 100 ML IV ONE (18:00)
[2018-07-26] MEDS ORDERED: ALTEPLASE IV ONE (18:30)
--- NOTE | 2018-07-26 18:35 | HOSPPROG ---
Hospitalist Progress Note Assessment/Plan: Responded to COR zero call in IR. Patient on the table in IR and per Dr. Whatley procedure had just finished and went well. Patient got catheter directed lytic for massive PE. Shortly after finishing the procedure patient turned cyanotic. Emergently intubated by anesthesia. Lost pulse and patient went into PEA arrest. Received IV epi and IV bicarb per ACLS protocol. It was clear that the etiology of arrest was massive PE. IV systemic lytics pushed during arrest, after it was clear he was not going to have ROSC without it. CPR and ACLS continued after lytic to give it a chance to work. Despite prolonged attempt at resuscitation it was clear the patient was not going to survive this event and the patient was pronounced. CC time 1 hour Objective: Vital Signs Temp Pulse Resp BP Pulse Ox 36.8 C 91 18 115/92 H 97 07/26/18 14:00 07/26/18 14:00 07/26/18 14:00 07/26/18 14:00 07/26/18 14:00 Laboratory Results 07/26/18 04:30 07/26/18 04:30 07/25/18 07/26/18 07/27/18 05:59 05:59 05:59 Intake Total 1407 3194 Output Total 1075 600 Balance 1407 2119 -600 PT 16.8 SEC (12.0-15.0) H 07/26/18 04:50 INR 1.34 (0.83-1.16) H 07/26/18 04:50 ICD10 Worksheet Patient Problems: Problems Problem Status Onset Skin ulcer of left great toe with necrosis of bone Acute Severe sepsis Acute Cellulitis of left foot Acute Diabetic foot ulcer Acute Sepsis Acute Foot abscess Acute Osteomyelitis Acute Dehydration Acute Pulmonary emboli Acute DVT (deep venous thrombosis) Acute Hypoxic Acute
[2018-07-26] MEDS ORDERED: LIDOCAINE 1% 300 MG/30 ML SDV ONE (18:53)
--- NOTE | 2018-07-26 18:58 | PDRADPN ---
Radiology Procedure Note Date of Procedure: 07/26/18 Radiologist: Cherie Ceballos Anesthesia: IV Sedation (by anesthesia) Pre-op Diagnosis: PE and RLE DVT Post-op Diagnosis: Same Procedure: instillation of tPA in pulmonary artery, IVC filter placement, bl LE venogr Finding(s): Filling defects in the right segmental PAs, 8 mg TPA placed in right PA and main PA, Celect IVC filter placed, bilateral LE venograms demonstrated slowed flow back to IVC with non-occlusive thrombi; when infusion catheter was about to be placed in RLE, patient's vitals became unstable and a code was called. Inf/Abcess present in the surg proc area at time of surgery?: No Complications: Code blue, which could not resuscitate patient.
--- NOTE | 2018-07-26 19:19 | POSTANESTH ---
Post Anesthetic Evaluation Cardiovascular Status: Other, See Comment (Patient approx. 3 hours into procedure. Sudden event; suspect further pulmonary embolism.) Notes: Patient had improved since TPA was given by radiologist around 154: BP stable in 90s systolic, and oxygen saturation leonardo from high 80s to low 90s. Patient rested quietly with dexmedetomidine only for over an hour. Around 173, patient suddenly became agitated, then confused. He turned blue and pushed the sterile drapes away. I intubated him (Mac 4 blade, 7.5 oral tube). BP dropped abruptly into 50s systolic, and end-tidal CO2 was 9 despite adequate ventilation. Heart rate dropped rapidly into the 30s. I called a code blue; help arrived within two minutes, as I was giving epinephrine. CPR was given continuously and epinephrine, calcium chloride, sodium bicarbonate, and phenylephrine were given--see code blue record for times. 100 mg TPA were then given, and CPR continued for about 10 minutes. Brief hypertension and tachycardia were observed following the first epi dose, but nothing thereafter. Resuscitation was halted around 1819 due to lack of response.
--- NOTE | 2018-07-26 19:33 | PDCODEBLUE ---
Code Blue Note Responded to Code Blue page - Upon arrival patient was receiving compressions in PEA. Per report, patient was undergoing lysis for large PE and at end of procedure lost pulse. Patient was coded from 1744 to 1816 and received multiple rounds of epi, phenylephrine, and 100mg tPa. He briefly regained a pulse about 3 minutes into resuscitation but this faded and he lost vitals again. Despite above efforts, he never regained pulse and remained in PEA. Resuscitation efforts were stopped after all physicians present agreed further resuscitation was futile. He had no heart tones, no breath sounds and no pulse. He was declared at 1816. Next of kin was contacted and the patient was transported back to the ICU. [facility], oriental medicine practitioner contacted per protocol.
--- NOTE | 2018-07-26 19:41 | PDINTPN ---
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 Patient was an interventional radiology when he arrested. During the majority of the procedure he was doing quite well. I checked on him prior to leaving about 5:30 p.m.. He had been given 8 mg a tPA to the pulmonary artery with improvement in blood pressure, oxygenation, and mental status throughout the procedure. The lysis/tPA catheter was being placed in the left lower extremity at that time. This was accomplished however towards the end of the procedure he suddenly became blue by report, loss blood pressure became bradycardic. CPR was initiated. The patient was promptly intubated as anesthesiology was present for the procedure. CPR was initiated. This was continued as long as indicated but no pulse, blood pressure or circulation could be reestablished. The patient was pronounced and transferred back to the intensive care unit. I have discussed the case in length with Interventional Radiology and anesthesiology. I spoke to the patient's brother by phone. The patient lives with his brother. I explain to him at length his brothers presentation and findings on ultrasound and cardiac echo and the indications for tPA. I also went over what happened during the procedure and the mechanism that lead to unresponsiveness to CPR and . I told the patient's brother I would be happy to talk to him at greater length or meet with he and his sister in the next few days to discuss issues more. 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 Objective: Vital Signs Temp Pulse Resp BP Pulse Ox 36.8 C 91 18 115/92 H 97 07/26/18 14:00 07/26/18 14:00 07/26/18 14:00 07/26/18 14:00 07/26/18 14:00 Laboratory Results 07/26/18 04:30 07/26/18 04:30 07/25/18 07/26/18 07/27/18 05:59 05:59 05:59 Intake Total 1407 3194 Output Total 0425 600 Balance 1407 2119 -600 PT 16.8 SEC (12.0-15.0) H 07/26/18 04:50 INR 1.34 (0.83-1.16) H 07/26/18 04:50 ICD10 Worksheet Patient Problems: Problems Problem Status Onset Skin ulcer of left great toe with necrosis of bone Acute Severe sepsis Acute Cellulitis of left foot Acute Diabetic foot ulcer Acute Sepsis Acute Foot abscess Acute Osteomyelitis Acute Dehydration Acute Pulmonary emboli Acute DVT (deep venous thrombosis) Acute Hypoxic Acute
[2018-07-26] MEDS ORDERED: DOPamine/DEXTROSE 400 MG/250 ML BAG IV ONE (19:42)
[2018-07-26] MEDS ORDERED: SODIUM BICARBONATE 50 MEQ/50 ML SYR ONE (19:42)
[2018-07-26] MEDS ORDERED: EPINEPHrine 1 MG/10 ML SYR IVP ONE (19:42)
--- NOTE | 2018-08-01 06:16 | CPEKG ---
Test Reason : OPEN Blood Pressure : / mmHG Vent. Rate : 125 BPM Atrial Rate : 124 BPM P-R Int : 135 ms QRS Dur : 099 ms QT Int : 349 ms P-R-T Axes : 065 179 000 degrees QTc Int : 504 ms Sinus tachycardia Probable right ventricular hypertrophy Borderline T abnormalities, inferior leads Prolonged QT interval Confirmed by Ke Rodriguez ([id number]) on 08/01/2018 6:16:07 AM Referred By: Confirmed By:Ke Rodriguez
== END 2018-07-26 21:20 | disposition expired | DRG 175 ==
LOC: EDUNIT# → F2N 20:53
PROVIDERS: ADMIT Internal Medicine; ATTEND Internal Medicine
PROC: 3E03317 Introduction of Other Thrombolytic into Peripheral Vein, Percutaneous Approach (ICD-10-PCS; principal; 2018-07-26)
PROC: 0BH17EZ Insertion of Endotracheal Airway into Trachea, Via Natural or Artificial Opening (ICD-10-PCS; principal; 2018-07-26)
DX: I26.99 Other pulmonary embolism without acute cor pulmonale (principal); J96.01 Acute respiratory failure with hypoxia; I82.421 Acute embolism and thrombosis of right iliac vein; I82.411 Acute embolism and thrombosis of right femoral vein; N17.9 Acute kidney failure, unspecified; E87.2 Acidosis; E87.1 Hypo-osmolality and hyponatremia; I46.9 Cardiac arrest, cause unspecified; E66.9 Obesity, unspecified; I10 Essential (primary) hypertension; I27.20 Pulmonary hypertension, unspecified; M10.9 Gout, unspecified; E86.0 Dehydration; Z87.891 Personal history of nicotine dependence; Z89.512 Acquired absence of left leg below knee; Z86.19 Personal history of other infectious and parasitic diseases
CPT/HCPCS: 84484-PO; 85520-90; 96365; C1769; C1894; J1265; J1644; J2060; J2250; J2370; J2543; J2704; J2997; J3010; J3370; Q9967